=== PATIENT | female | born 1995 | race Caucasian/White ===

== ENCOUNTER 2020-12-08 15:20 | Emergency (ER) | payer OTHER, SELFPAY | END 2020-12-08 20:32 | disposition left against medical advice (07) | LOC: HO.ED 20:31 | PROVIDERS: Emergency Provider Emergency Medicine | DX: R11.2 Nausea with vomiting, unspecified (principal) ==

== ENCOUNTER 2020-12-09 00:02 | Emergency (ER) | payer OTHER, SELFPAY ==
[2020-12-09 00:09] VITALS: BP 140/77; PULSE 67; RESP 20; TEMP 37; O2SAT 100; BMI 33.6
--- NOTE | 2020-12-09 00:38 | ED_ITS ---
HPI - Nausea/Vomiting/Diarrhea General Chief complaint: Nausea/Vomiting/Diarrhea Stated complaint: NAUSEA/VOMITING Time Seen by Provider: 12/09/20 00:09 Source: patient Mode of arrival: ambulatory Limitations: no limitations History of Present Illness HPI Narrative: 25 y/o female presents to the ED from home complaining of 1 full day of nausea and vomiting. She reports waking up this morning with upset stomach and has had several episodes of vomiting throughout the day, last just prior to arrival. She has had no diarrhea, fever, or sick contacts. She denies chance of . 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 She states since had her child she continues to have severe vomiting episodes, only relieved by Relgan. She denies history of DM. She admits to intermittently smoking marijuana and this sometimes happens after I smoke. Last use was 2 days ago. MD elicited complaint: nausea and vomiting Onset (ago): hour(s) (12) Description of vomiting: food contents, bilious and blood-streaked Associated nausea: Yes Associated abdominal pain: Yes Location of pain: diffuse Radiation: diffuse Pain consistency: intermittent Severity: moderate Quality: cramping and aching Exacerbating factors: none Relieving factors: rest Associated symptoms: loss of appetite, malaise and nausea/vomiting Related Data Previous Rx's Medication Instructions Recorded metoclopramide HCl [Reglan] 10 mg PO Q6H PRN #10 tab 12/09/20 Allergies Allergy/AdvReac Type Severity Reaction Status Date / Time No Known Allergies Allergy Verified 12/09/20 00:13 [No Known Allergies*] Review of Systems Review of Systems: Constitutional: No Fever, No Chills Cardiovascular: No Chest Pain, No SOB, No Orthopnea, No Edema Respiratory: No Cough, No Sputum, No Wheezing, No dyspnea Gastrointestinal: + Nausea, + Vomiting, No Diarrhea, + abdominal Pain, No Hematochezia, No Melena Genitourinary: No Dysuria, No Urinary Frequency, No Hematuria Musculoskeletal: No joint pain, No Myalgias Skin: No Skin Lesions, No rash Neuro: No Weakness, No Numbness, No Dizziness, No Headache Heme/Lymph: No Bruising, No Lymphadenopathy Gastrointestinal: Gastrointestinal: Reports nausea PMFSH Past Medical History Attestation statement: The following information was validated with the patient. Medical History Patient denies significant medical history Surgical History (Updated 12/09/20 @ 00:12 by Nicole Alonzo) No significant past surgical history Social History Social History Alcohol intake: never Smoking Status: Former smoker Use of substances other than those prescribed or required for medical reasons: No Advance Directives: No Physical Exam Vital Signs: Vital Signs: Last Vital Signs Temp 98.6 F 12/09/20 01:06 Pulse 67 12/09/20 01:06 Resp 20 12/09/20 01:06 BP 140/77 H 12/09/20 01:06 Pulse Ox 100 12/09/20 01:06 Body Mass Index 33.6 Appearance: Alert. Oriented X3. Appears like she does not feel well. Eyes: Pupils equal, round and reactive to light. ENT: Pharynx normal. Neck: Normal inspection. Neck supple. CVS: Normal heart rate and rhythm. Pulses normal. Respiratory: No respiratory distress. Breath sounds normal. Abdomen: Soft and nontender. +BS x4 Skin: Skin warm and dry. Normal skin color. Normal skin turgor. No rashes. Extremities: No lower extremity edema. Neuro: Oriented X 3. No motor deficit. No sensory deficit. Course Course Course Narrative: 25 y/o female with hx hyperemesis gravidarium over 2 years ago presenting with N/V x1 day. Denies chance of current . Likely marijuana related. VSS on arrival. Will get labs, check urine , give IVF and anti-emetics. Will reassess. Reevaluation(s) Reevaluation #1: Nausea improved after Zofran and Reglan. Labs showing WBC 15 - likely reactive in nature. Lytes okay. Tolerating ice chips. She was counseled on abstaining from marijuana. She is stable for discharge. MDM - Nausea/Vomiting/Diarrhea Lab Data Result diagrams: 12/09/20 00:37 12/09/20 00:37 Labs: Lab Results 12/09/20 12/09/20 12/09/20 Range/Units 00:37 00:37 00:37 WBC 15.8 H (4.8-10.8) X10*3/uL RBC 4.82 (4.20-5.50) X10*6/uL Hgb 14.2 (12.0-16.0) g/dl Hct 41.5 (37-47) % MCV 86.1 (80-98) fL MCH 29.5 (27.0-33.0) pg MCHC 34.2 (31.0-35.0) g/dl RDW 12.7 (11.0-16.0) % Plt Count 245 (160-400) X10*3/uL MPV 10.1 (9.4-12.3) fL Immature Gran % (Auto) 0.4 (0.0-0.4) % Neut % (Auto) 90.1 H (45-73) % Lymph % (Auto) 7.2 L (20-40) % [place] % (Auto) 2.2 (2-11) % Eos % (Auto) 0.0 (0-4) % Baso % (Auto) 0.1 (0-2) % Lymph # (Auto) 1.1 L (1.2-4.9) X10*3/uL [place] # (Auto) 0.4 (0.1-1.2) X10*3/uL Eos # (Auto) 0.0 (0.0-0.4) X10*3/uL Baso # (Auto) 0.0 (0.0-0.2) X10*3/uL Abs Immat Gran (auto) 0.07 H (0.00-0.03) X10*3/uL Absolute Neuts (auto) 14.2 H (2.0-8.3) X10*3/uL Absolute Nucleated RBC 0.000 (0.0-0.012) X10*3/uL Nucleated RBC % (auto) 0.0 (0.0-0.2) /100WBC Smear Tech's Comments VERIFIED Sodium 141 (135-145) mmol/L Potassium 3.6 (3.3-5.1) mmol/L Chloride 107 (96-108) mmol/L Carbon Dioxide 19 L (22-29) mmol/L Anion Gap 19 (12-20) BUN 22 H (9-16) mg/dL Creatinine 0.91 (0.5-1.4) mg/dL Estim Creat Clear Calc 100.0 Estimated GFR > 60 Random Glucose 142 H (60-115) mg/dL Calcium 10.2 (8.4-10.2) mg/dL Magnesium 2.0 (1.6-2.6) mg/dL Total Bilirubin 0.6 (0.0-1.0) mg/dL Direct Bilirubin 0.2 (0.0-0.5) mg/dL AST 26 (5-31) U/L ALT 26 (0-31) U/L Alkaline Phosphatase 70 (39-117) U/L Total Protein 8.1 H (6.5-8.0) g/dL Albumin 4.8 (3.5-5.0) g/dL Lipase 5 L (8-78) U/L Beta HCG, Quant < 2 mIU/mL Coronavirus (PCR) NEGATIVE (Negative) Influenza Type A (PCR) NEGATIVE (Negative) Influenza Type B (PCR) NEGATIVE (Negative) RSV RNA Qual (PCR) NEGATIVE (Negative) Discharge Plan Discharge Clinical Impression: Cyclical vomiting Patient Disposition: Home, Self-Care Instructions: Cyclic Vomiting Syndrome (ED) Additional Instructions: DO NOT SMOKE MARIJUANA. IT CAN CAUSE RECURRENT VOMITING. Your lab workup today was unremarkable. Recommend liquid diet until you are feeling better. Take the prescribed medication as needed for nausea and vomiting. Follow up with the GI doctor for further workup of your recurrent vomiting. Prescriptions: New metoclopramide HCl [Reglan] 10 mg tablet 10 mg PO Q6H PRN (Reason: nausea and vomiting) Qty: 10 RF: 0 Referrals: Romaine Aguilar MD [Physician] - 2 days
[2020-12-09] MEDS: 0.9 % Sodium Chloride 1,000 ML 999 ML IVCONT (00:40)
[2020-12-09] MEDS: ondansetron HCL 4 MG/2 ML VIAL IVPUSH (00:40)
[2020-12-09 00:47] LABS: Basophils Percent Auto 0.1 % (0-2); Hematocrit 41.5 % (37-47); Hemoglobin 14.2 g/dl (12.0-16.0); Imm Gran Abs Auto 0.07 X10*3/uL (0.00-0.03); Imm Gran Pct Auto 0.4 % (0.0-0.4); Lymphocytes Absolute Auto 1.1 X10*3/uL (1.2-4.9); Lymphocytes Percent Auto 7.2 % (20-40); Mean Corpuscular HGB Conc 34.2 g/dl (31.0-35.0); Mean Corpuscular Hemoglobin 29.5 pg (27.0-33.0); Mean Corpuscular Volume 86.1 fL (80-98); Mean Platelet Volume 10.1 fL (9.4-12.3); Monocytes Absolute Auto 0.4 X10*3/uL (0.1-1.2); Monocytes Percent Auto 2.2 % (2-11); Neutrophils Absolute Auto 14.2 X10*3/uL (2.0-8.3); Neutrophils Percent Auto 90.1 % (45-73); Platelet Count 245 X10*3/uL (160-400); Red Blood Count 4.82 X10*6/uL (4.20-5.50); Red Cell Distribution Width 12.7 % (11.0-16.0); SCAN SMEAR FLAG 1; White Blood Count 15.8 X10*3/uL (4.8-10.8)
[2020-12-09 00:50] LABS: MANUAL DIFF FLAG SCAN
[2020-12-09 01:06] VITALS: BP 140/77; PULSE 67; RESP 20; TEMP 37; O2SAT 100
[2020-12-09 01:12] LABS: Alanine Aminotransferase 26 U/L (0-31); Albumin Level 4.8 g/dL (3.5-5.0); Alkaline Phosphatase 70 U/L (39-117); Anion Gap 19 (12-20); Aspartate Amino Transferase 26 U/L (5-31); Bilirubin Direct 0.2 mg/dL (0.0-0.5); Bilirubin Total 0.6 mg/dL (0.0-1.0); Blood Urea Nitrogen 22 mg/dL (9-16); Calcium 10.2 mg/dL (8.4-10.2); Carbon Dioxide 19 mmol/L (22-29); Chloride 107 mmol/L (96-108); Estimated Glomerular Filt Rate > 60; Glucose Random 142 mg/dL (60-115); Lipase 5 U/L (8-78); Potassium 3.6 mmol/L (3.3-5.1); Sodium 141 mmol/L (135-145); Total Protein 8.1 g/dL (6.5-8.0)
[2020-12-09 01:14] LABS: SLIDE REVIEW VERIFIED
[2020-12-09 01:33] LABS: Influenza A PCR NEGATIVE (Negative); Influenza B PCR NEGATIVE (Negative); Resp Syncy Virus RNA Qual PCR NEGATIVE (Negative); SARS COV2 PCR INHOUSE NEGATIVE (Negative)
[2020-12-09 01:34] LABS: HCG Quantitative < 2 mIU/mL
[2020-12-09 02:22] LABS: Glucose Urine UA NEG (NEG); Leukocyte Esterase Urine NEG (NEG); Nitrite Urine NEG (NEG); PH >= 9.0 (5.0-8.0); Specific Gravity - Urine 1.015 (1.005-1.025); UPreg QC Valid YES; Urine Blood 1+ (NEG); Urine Ketones >=80 MG/DL (NEG); Urine Pregnancy NEGATIVE (NEGATIVE); Urine Protein TRACE MG/DL (NEG-TRACE)
[2020-12-09 02:23] LABS: Appearance Urine CLEAR; Color Urine YELLOW
[2020-12-09 02:30] LABS: Bacteria Urine 1+ /LPF; Mucus Urine 1+ /LPF; RBC Urine 0-2 /HPF (0); Squamous Epithelial Cell Urine 2+ /LPF
== END 2020-12-09 02:33 | disposition home or self-care (01) ==
PROVIDERS: Physician Assistant; Emergency Provider Student in an Organized Health Care Education/Training Program
DX: R11.15 Cyclical vomiting syndrome unrelated to migraine (principal); Z20.822 Contact with and (suspected) exposure to COVID-19; F12.90 Cannabis use, unspecified, uncomplicated
CPT/HCPCS: 0241U; 36415; 80048; 80076; 81001; 81025; 83690; 83735; 84702; 85025; 96361; 96374; 96375; 99284; J2405; J2765

== ENCOUNTER 2021-07-25 07:56 | Emergency (ER) | payer OTHER, SELFPAY ==
--- NOTE | ~2021-07-25 | US_ITS ---
EXAMINATION: US ABDOMEN LIMITED CLINICAL INFORMATION: Right upper quadrant pain. Nausea and vomiting.. COMPARISON: None TECHNIQUE: Real-time imaging of the right upper quadrant abdominal viscera. FINDINGS: PANCREAS: Normal. LIVER: Normal. The liver is normal in size. The liver contour is normal. Parenchymal echogenicity is normal. No focal hepatic lesion. There is no intrahepatic biliary duct dilatation seen. GALLBLADDER: Normal. The gallbladder is physiologically distended without evidence of stones, sludge, polyps, wall thickening or pericholecystic fluid. COMMON BILE DUCT: Normal in caliber measuring 0.2 cm in diameter. RIGHT KIDNEY: Normal. No hydronephrosis. No renal calculi or focal parenchymal lesions. The kidney measures 10.6 cm in maximum dimension. FREE FLUID: None. US/US abdomen limited IMPRESSION: Normal right upper quadrant ultrasound.
--- NOTE | 2021-07-25 08:06 | ED.ABDPAIN ---
HPI - Abdominal Pain General Chief Complaint: Abdominal Pain Stated Complaint: abd pain Time Seen by Provider: 07/25/21 08:00 Source: patient Mode of arrival: EMS Limitations: no limitations History of Present Illness HPI narrative: This is a 25 year old female that presents via ambulance for 10/10 right upper quadrant paint that started yesterday morning. She states that since yesterday she has been having pain to the right upper quadrant, that is constant nature and does not radiate. She states that it is also accompanied with nausea and vomiting. She states she has not been able to hold down fluids, or solids. She states that the last thing she ate was ham soup yesterday morning. She adds that she has been vomiting since yesterday but cannot quantify how many times she has puked. She states she has puking clear liquid. She also states that she has been nauseous every single day for the past 2-3 years. She is also complaining of a chest pain, that also started yesterday. She states that the chest pain is centralized in nature, does not radiate, is stabbing and intermittent. She also states that she frequently gets this chest pain. She admits to smoking marijuana. She denies shortness of breath, changes in bowel habits, difficulty with urination, back pain, fevers, chills, and diarrhea MD elicited complaint: abdominal pain Pertinent past history: other (Cyclic vomiting) Onset (ago): day(s) (One) Pain Consistency: constant Location: RUQ Severity: severe Pain scale (0-10): 10 Quality: sharp Radiation: RUQ Migration to: no migration Exacerbating factors: eating, vomiting, movement and rest Relieving factors: nothing Associated symptoms: nausea and vomiting Related Data Home Medications Medication Instructions Recorded Confirmed ondansetron 4 mg disintegrating 4 mg PO Q8H 12/10/20 04/10/21 tablet Previous Rx's Medication Instructions Recorded metoclopramide HCl 10 mg tablet 10 mg PO Q6H PRN #10 tab 12/09/20 (Reglan) ondansetron HCl 4 mg tablet 4 mg PO Q8H PRN #7 tab 07/25/21 (Zofran) Allergies Allergy/AdvReac Type Severity Reaction Status Date / Time No Known Allergies Allergy Verified 04/10/21 10:16 [No Known Allergies*] Review of Systems Review of Systems Constitutional: No Fever, No Chills Eyes: No Eye Pain, No Swelling, No Redness Cardiovascular: + Chest Pain, No SOB, No Orthopnea, No Edema Respiratory: No Cough, No Sputum, No Wheezing, No dyspnea Gastrointestinal: + Nausea, + Vomiting, No Diarrhea, + abdominal Pain, No Hematochezia, No Melena Genitourinary: No Dysuria, No Urinary Frequency, No Hematuria Musculoskeletal: No joint pain, No Myalgias Skin: No Skin Lesions, No rash Neuro: No Weakness, No Numbness, No Dizziness, No Headache Psych: No Anxiety/Panic, No Depression Heme/Lymph: No Bruising, No Lymphadenopathy Endocrine: No Polyuria, No Polydipsia Physical Exam Vital Signs: Vital Signs: Last Vital Signs Temp 98.2 F 07/25/21 11:56 Pulse 82 07/25/21 11:56 Resp 16 07/25/21 11:56 BP 112/72 07/25/21 11:56 Pulse Ox 97 07/25/21 11:56 Body Mass Index 31.6 Appearance: Alert. Oriented X3. Patient appears uncomfortable, and is tearful. She is also dry heaving Eyes: Pupils equal, round and reactive to light. ENT: Pharynx normal. Neck: Normal inspection. Neck supple. CVS: Normal heart rate and rhythm. Pulses normal. Respiratory: No respiratory distress. Breath sounds normal. Abdomen: Soft and + tender to light palpation in all four quadrants. +BS x4 no evident peritoneal signs. No overlying skin changes such as ecchymosis, or erythema. Skin: Skin warm and dry. Normal skin color. Normal skin turgor. No rashes. Extremities: No lower extremity edema. Neuro: Oriented X 3. No motor deficit. No sensory deficit. Course Course Course Narrative: This a a 25 year old female presents via EMS for abdominal pain that started yesterday. The pain is 10/10 localized right lower quadrant without radiation. Doubt acute cholecystitis or biliary etiology. Hx cyclical vomiting, admits to continuing to smoke marijuana. Will check LFTs and basic labs. RUQ U/S. IVF and antiemetics ordered. Will reassess. Reevaluation(s) Reevaluation #1: Laboratory studies show that this patient has positive COVID-19. However patient appears to be in no respiratory distress she is saturating 98% on room air. Continues to be nauseous after zofran. IM haldol ordered Time: 08:48 Reevaluation #2: Patient's symptoms improved, she is seen and in her room, appears comfortable at this time, sleeping. Time: 10:08 Reevaluation #3: Patient is feeling well, ambulating around the room in no distress and her oxygen saturation remained 97% on room air. Her abdominal pain has improved, and she has not vomited since her arrival. She has been told to return to the emergency department with new or worsening symptoms, or if she becomes evidently short of breath. She has also been told to quarantine. She will be sent home on antiemetics. Patient stable for discharge home, and outpatient follow-up. Also discussed results from the abdominal ultrasound with the patient. The results of this ultrasound were normal. Although she is positive for COVID-19 she is not experiencing any cough, fevers, chills, chest pain or shortness of breath and at this time and chest x-ray is not needed. Time: 13:00 MDM - Abdominal Pain Medical Records Attestation: I reviewed the patient's medical records. Lab Data Attestation: I reviewed the patient's lab results. Result diagrams: 07/25/21 08:26 07/25/21 08:26 Labs: Lab Results 07/25/21 07/25/2118 Range/Units 08:26 08:26 08:26 WBC 8.2 (4.8-10.8) X10*3/uL RBC 5.27 (4.20-5.50) X10*6/uL Hgb 15.2 (12.0-16.0) g/dl Hct 47.0 (37-47) % MCV 89.2 (80-98) fL MCH 28.8 (27.0-33.0) pg MCHC 32.3 (31.0-35.0) g/dl RDW 13.3 (11.0-16.0) % Plt Count 193 (160-400) X10*3/uL MPV 9.9 (9.4-12.3) fL Immature Gran % (Auto) 0.1 (0.0-0.4) % Neut % (Auto) 77.3 H (45-73) % Lymph % (Auto) 16.6 L (20-40) % [place] % (Auto) 5.5 (2-11) % Eos % (Auto) 0.4 (0-4) % Baso % (Auto) 0.1 (0-2) % Lymph # (Auto) 1.4 (1.2-4.9) X10*3/uL [place] # (Auto) 0.5 (0.1-1.2) X10*3/uL Eos # (Auto) 0.0 (0.0-0.4) X10*3/uL Baso # (Auto) 0.0 (0.0-0.2) X10*3/uL Abs Immat Gran (auto) 0.01 (0.00-0.03) X10*3/uL Absolute Neuts (auto) 6.3 (2.0-8.3) X10*3/uL Absolute Nucleated RBC 0.000 (0.0-0.012) X10*3/uL Nucleated RBC % (auto) 0.0 (0.0-0.2) /100WBC Sodium 144 (135-145) mmol/L Potassium 4.0 (3.3-5.1) mmol/L Chloride 107 (96-108) mmol/L Carbon Dioxide 27 (22-29) mmol/L Anion Gap 14 (12-20) BUN 14 (9-16) mg/dL Creatinine 0.88 (0.5-1.4) mg/dL Estim Creat Clear Calc 100.3 Estimated GFR > 60 Random Glucose 115 (60-115) mg/dL Calcium 9.3 D (8.4-10.2) mg/dL Magnesium 2.2 (1.6-2.6) mg/dL Total Bilirubin 0.4 (0.0-1.0) mg/dL Direct Bilirubin < 0.2 (0.0-0.5) mg/dL AST 35 H (5-31) U/L ALT 25 (0-31) U/L Alkaline Phosphatase 70 (39-117) U/L Total Protein 7.7 (6.5-8.0) g/dL Albumin 4.6 (3.5-5.0) g/dL Lipase 9 (8-78) U/L Urine Color Urine Appearance Urine pH (5.0-8.0) Ur Specific [place] (1.005-1.025) Urine Protein (NEG-TRACE) MG/DL Urine Glucose (UA) (NEG) MG/DL Urine Ketones (NEG) MG/DL Urine Blood (NEG) Urine Nitrite (NEG) Ur Leukocyte Esterase (NEG) Urine RBC (0) /HPF Urine WBC (0-4) /HPF Ur Squamous Epith Cells /LPF Urine Bacteria /LPF Urine Mucus /LPF Urine Test (NEGATIVE) Urine Opiates Screen (Not Detect) Urine Fentanyl Screen (Not Detect) Ur Barbiturates Screen (Not Detect) Ur Phencyclidine Scrn (Not Detect) Ur Amphetamines Screen (Not Detect) U Benzodiazepines Scrn (Not Detect) Urine Cocaine Screen (Not Detect) U Marijuana (THC) Screen (Not Detect) Ethyl Alcohol mg/dL COVID-19 (SHE) Positive A (Negative) COVID-19 Clin Com See Note 07/25/21 07/25/21 07/25/21 Range/Units 08:26 12:16 12:16 WBC (4.8-10.8) X10*3/uL RBC (4.20-5.50) X10*6/uL Hgb (12.0-16.0) g/dl Hct (37-47) % MCV (80-98) fL MCH (27.0-33.0) pg MCHC (31.0-35.0) g/dl RDW (11.0-16.0) % Plt Count (160-400) X10*3/uL MPV (9.4-12.3) fL Immature Gran % (Auto) (0.0-0.4) % Neut % (Auto) (45-73) % Lymph % (Auto) (20-40) % [place] % (Auto) (2-11) % Eos % (Auto) (0-4) % Baso % (Auto) (0-2) % Lymph # (Auto) (1.2-4.9) X10*3/uL [place] # (Auto) (0.1-1.2) X10*3/uL Eos # (Auto) (0.0-0.4) X10*3/uL Baso # (Auto) (0.0-0.2) X10*3/uL Abs Immat Gran (auto) (0.00-0.03) X10*3/uL Absolute Neuts (auto) (2.0-8.3) X10*3/uL Absolute Nucleated RBC (0.0-0.012) X10*3/uL Nucleated RBC % (auto) (0.0-0.2) /100WBC Sodium (135-145) mmol/L Potassium (3.3-5.1) mmol/L Chloride (96-108) mmol/L Carbon Dioxide (22-29) mmol/L Anion Gap (12-20) BUN (9-16) mg/dL Creatinine (0.5-1.4) mg/dL Estim Creat Clear Calc Estimated GFR Random Glucose (60-115) mg/dL Calcium (8.4-10.2) mg/dL Magnesium (1.6-2.6) mg/dL Total Bilirubin (0.0-1.0) mg/dL Direct Bilirubin (0.0-0.5) mg/dL AST (5-31) U/L ALT (0-31) U/L Alkaline Phosphatase (39-117) U/L Total Protein (6.5-8.0) g/dL Albumin (3.5-5.0) g/dL Lipase (8-78) U/L Urine Color YELLOW Urine Appearance CLOUDY Urine pH 7.0 (5.0-8.0) Ur Specific [place] 1.010 (1.005-1.025) Urine Protein 1+ H (NEG-TRACE) MG/DL Urine Glucose (UA) NEG (NEG) MG/DL Urine Ketones 15 (NEG) MG/DL Urine Blood NEG (NEG) Urine Nitrite NEG (NEG) Ur Leukocyte Esterase NEG (NEG) Urine RBC 0 (0) /HPF Urine WBC 0 (0-4) /HPF Ur Squamous Epith Cells 2+ /LPF Urine Bacteria NONE /LPF Urine Mucus 2+ /LPF Urine Test NEGATIVE (NEGATIVE) Urine Opiates Screen (Not Detect) Urine Fentanyl Screen (Not Detect) Ur Barbiturates Screen (Not Detect) Ur Phencyclidine Scrn (Not Detect) Ur Amphetamines Screen (Not Detect) U Benzodiazepines Scrn (Not Detect) Urine Cocaine Screen (Not Detect) U Marijuana (THC) Screen (Not Detect) Ethyl Alcohol < 10 mg/dL COVID-19 (SHE) (Negative) COVID-19 Clin Com 07/25/21 Range/Units 12:16 WBC (4.8-10.8) X10*3/uL RBC (4.20-5.50) X10*6/uL Hgb (12.0-16.0) g/dl Hct (37-47) % MCV (80-98) fL MCH (27.0-33.0) pg MCHC (31.0-35.0) g/dl RDW (11.0-16.0) % Plt Count (160-400) X10*3/uL MPV (9.4-12.3) fL Immature Gran % (Auto) (0.0-0.4) % Neut % (Auto) (45-73) % Lymph % (Auto) (20-40) % [place] % (Auto) (2-11) % Eos % (Auto) (0-4) % Baso % (Auto) (0-2) % Lymph # (Auto) (1.2-4.9) X10*3/uL [place] # (Auto) (0.1-1.2) X10*3/uL Eos # (Auto) (0.0-0.4) X10*3/uL Baso # (Auto) (0.0-0.2) X10*3/uL Abs Immat Gran (auto) (0.00-0.03) X10*3/uL Absolute Neuts (auto) (2.0-8.3) X10*3/uL Absolute Nucleated RBC (0.0-0.012) X10*3/uL Nucleated RBC % (auto) (0.0-0.2) /100WBC Sodium (135-145) mmol/L Potassium (3.3-5.1) mmol/L Chloride (96-108) mmol/L Carbon Dioxide (22-29) mmol/L Anion Gap (12-20) BUN (9-16) mg/dL Creatinine (0.5-1.4) mg/dL Estim Creat Clear Calc Estimated GFR Random Glucose (60-115) mg/dL Calcium (8.4-10.2) mg/dL Magnesium (1.6-2.6) mg/dL Total Bilirubin (0.0-1.0) mg/dL Direct Bilirubin (0.0-0.5) mg/dL AST (5-31) U/L ALT (0-31) U/L Alkaline Phosphatase (39-117) U/L Total Protein (6.5-8.0) g/dL Albumin (3.5-5.0) g/dL Lipase (8-78) U/L Urine Color Urine Appearance Urine pH (5.0-8.0) Ur Specific [place] (1.005-1.025) Urine Protein (NEG-TRACE) MG/DL Urine Glucose (UA) (NEG) MG/DL Urine Ketones (NEG) MG/DL Urine Blood (NEG) Urine Nitrite (NEG) Ur Leukocyte Esterase (NEG) Urine RBC (0) /HPF Urine WBC (0-4) /HPF Ur Squamous Epith Cells /LPF Urine Bacteria /LPF Urine Mucus /LPF Urine Test (NEGATIVE) Urine Opiates Screen POSITIVE H (Not Detect) Urine Fentanyl Screen Not Detected (Not Detect) Ur Barbiturates Screen Not Detected (Not Detect) Ur Phencyclidine Scrn Not Detected (Not Detect) Ur Amphetamines Screen Not Detected (Not Detect) U Benzodiazepines Scrn Not Detected (Not Detect) Urine Cocaine Screen Not Detected (Not Detect) U Marijuana (THC) Screen POSITIVE H (Not Detect) Ethyl Alcohol mg/dL COVID-19 (SHE) (Negative) COVID-19 Clin Com Imaging Data Abdominal ultrasound: Attestation: I personally reviewed and interpreted this imaging study as follows: Radiologist's impression: FINDINGS: PANCREAS: Normal. LIVER: Normal. The liver is normal in size. The liver contour is normal. Parenchymal echogenicity is normal. No focal hepatic lesion. There is no intrahepatic biliary duct dilatation seen. GALLBLADDER: Normal. The gallbladder is physiologically distended without evidence of stones, sludge, polyps, wall thickening or pericholecystic fluid. COMMON BILE DUCT: Normal in caliber measuring 0.2 cm in diameter. RIGHT KIDNEY: Normal. No hydronephrosis. No renal calculi or focal parenchymal lesions. The kidney measures 10.6 cm in maximum dimension. FREE FLUID: None. US/US abdomen limited IMPRESSION: Normal right upper quadrant ultrasound. Discharge Plan Discharge Clinical Impression: COVID-19 Nausea & vomiting Qualifiers: Vomiting type: unspecified Vomiting Intractability: non-intractable Qualified Code(s): R11.2 - Nausea with vomiting, unspecified Patient Disposition: Home, Self-Care Instructions: Acute Nausea and Vomiting (ED), COVID-19 (Coronavirus Disease 2019) (ED) Additional Instructions: You were found to be COVID-19 POSITIVE today. Your exam and oxygen levels were normal. Rest. Drink plenty of fluids. Do not go out in public for the next 10 days. Take over the counter cold/flu medications as needed for your symptoms. Take Tylenol and/or Motrin as needed for fevers and body aches. Follow up with your doctor this week. If you shortness of breath worsens , if you develop difficulty breathing or any other concerning symptom come back to the ER for further evaluation. If you develop new or worsening symptoms call 911 or come back to the ER for further evaluation. Prescriptions: New ondansetron HCl [Zofran] 4 mg tablet 4 mg PO Q8H PRN (Reason: nausea and vomiting) Qty: 7 RF: 0 No Action metoclopramide HCl [Reglan] 10 mg tablet 10 mg PO Q6H PRN (Reason: nausea and vomiting) Qty: 10 RF: 0 ondansetron 4 mg tablet,disintegrating 4 mg PO Q8H RF: 0 PMFSH Past Medical History Attestation statement: The following information was validated with the patient. Source: old records reviewed Medical History (Updated 07/25/21 @ 10:24 by BRIDGER Rubin) Anxiety disorder, unspecified Lack of access to transportation Mild recurrent major depression Nausea and vomiting Right upper quadrant abdominal pain Surgical History No significant past surgical history Family History Family History (Updated 04/10/21 @ 10:24 by IAN Graves) Maternal Grandmother Breast cancer Son Autism Daughter No problems noted. Mother No problems noted. Father Learning difficulty Social History Social History Alcohol intake: never Advance Directives: No Advance Directives Information Provided: No Patient : No
[2021-07-25 08:10] VITALS: BP 112/76; BP 117/64; PULSE 81; PULSE 82; RESP 17; TEMP 37; O2SAT 98; BMI 31.6
[2021-07-25 08:31] LABS: MANUAL DIFF FLAG NO
[2021-07-25] MEDS: 0.9 % Sodium Chloride 1,000 ML 999 ML IVCONT (08:35)
[2021-07-25] MEDS: ondansetron HCL 4 MG/2 ML VIAL IVPUSH (08:35)
[2021-07-25] MEDS: Morphine Sulfate 4 MG/ML CARTRIDGE IVPUSH (08:35)
[2021-07-25 08:41] LABS: Basophils Percent Auto 0.1 % (0-2); Eosinophils Percent Auto 0.4 % (0-4); Hemoglobin 15.2 g/dl (12.0-16.0); Imm Gran Abs Auto 0.01 X10*3/uL (0.00-0.03); Imm Gran Pct Auto 0.1 % (0.0-0.4); Lymphocytes Absolute Auto 1.4 X10*3/uL (1.2-4.9); Lymphocytes Percent Auto 16.6 % (20-40); Mean Corpuscular HGB Conc 32.3 g/dl (31.0-35.0); Mean Corpuscular Hemoglobin 28.8 pg (27.0-33.0); Mean Corpuscular Volume 89.2 fL (80-98); Mean Platelet Volume 9.9 fL (9.4-12.3); Monocytes Absolute Auto 0.5 X10*3/uL (0.1-1.2); Monocytes Percent Auto 5.5 % (2-11); Neutrophils Absolute Auto 6.3 X10*3/uL (2.0-8.3); Neutrophils Percent Auto 77.3 % (45-73); Platelet Count 193 X10*3/uL (160-400); Red Blood Count 5.27 X10*6/uL (4.20-5.50); Red Cell Distribution Width 13.3 % (11.0-16.0); White Blood Count 8.2 X10*3/uL (4.8-10.8)
[2021-07-25 08:42] LABS: COVID-19 Test Positive (Negative); IDNOW Serial# 9DD0AD1C
[2021-07-25] MEDS: Haloperidol Lactate 5 MG/ML VIAL IM (09:40)
[2021-07-25 09:43] VITALS: BP 112/60; PULSE 73; RESP 20; O2SAT 98
[2021-07-25 09:49] LABS: Alanine Aminotransferase 25 U/L (0-31); Albumin Level 4.6 g/dL (3.5-5.0); Alkaline Phosphatase 70 U/L (39-117); Anion Gap 14 (12-20); Aspartate Amino Transferase 35 U/L (5-31); Bilirubin Direct < 0.2 mg/dL (0.0-0.5); Bilirubin Total 0.4 mg/dL (0.0-1.0); Blood Urea Nitrogen 14 mg/dL (9-16); Calcium 9.3 mg/dL (8.4-10.2); Carbon Dioxide 27 mmol/L (22-29); Chloride 107 mmol/L (96-108); Creatinine Clr Calc Pharmacy 100.3; Estimated Glomerular Filt Rate > 60; Ethanol < 10 mg/dL; Glucose Random 115 mg/dL (60-115); Lipase 9 U/L (8-78); Magnesium 2.2 mg/dL (1.6-2.6); Sodium 144 mmol/L (135-145); Total Protein 7.7 g/dL (6.5-8.0)
[2021-07-25 11:56] VITALS: BP 112/72; PULSE 82; RESP 16; TEMP 36.8; O2SAT 97
[2021-07-25 12:29] LABS: Appearance Urine CLOUDY; Color Urine YELLOW; Glucose Urine UA NEG (NEG); Leukocyte Esterase Urine NEG (NEG); Nitrite Urine NEG (NEG); UACC Culture Trigger NO; Urine Blood NEG (NEG); Urine Ketones 15 MG/DL (NEG); Urine Protein 1+ MG/DL (NEG-TRACE)
[2021-07-25 12:31] LABS: UPreg QC Valid YES; Urine Pregnancy NEGATIVE (NEGATIVE)
[2021-07-25 12:37] LABS: Mucus Urine 2+ /LPF; RBC Urine 0 /HPF (0); Squamous Epithelial Cell Urine 2+ /LPF; WBC Urine 0 /HPF (0-4)
[2021-07-25 12:47] LABS: Amphetamine Screen Urine Not Detected (Not Detect); Barbiturates, Urine Not Detected (Not Detect); Benzodiazepines Screen Urine Not Detected (Not Detect); Cannabinoid Screen Urine POSITIVE (Not Detect); Cocaine Screen Urine Not Detected (Not Detect); Fentanyl, urine Not Detected (Not Detect); Opiate Screen Urine POSITIVE (Not Detect); Phencyclidine Screen Urine Not Detected (Not Detect)
== END 2021-07-25 13:37 | disposition home or self-care (01) ==
PROVIDERS: Physician Assistant; Emergency Provider Emergency Medicine
DX: U07.1 COVID-19 (principal); R10.11 Right upper quadrant pain; R11.2 Nausea with vomiting, unspecified; Z20.822 Contact with and (suspected) exposure to COVID-19; Z79.899 Other long term (current) drug therapy
CPT/HCPCS: 36415; 76705; 80048; 80076; 80307; 81001; 81025; 82077; 83690; 83735; 85025; 87635; 96361; 96372; 96374; 96375; 99284; J2270; J2405

== ENCOUNTER 2021-08-03 08:24 | Outpatient (REF) | payer OTHER, SELFPAY | END 2021-08-03 08:25 | disposition home or self-care (01) | LOC: HO.LAB 08:24 | PROVIDERS: Visit Provider Internal Medicine | DX: Z20.822 Contact with and (suspected) exposure to COVID-19 (principal) | CPT/HCPCS: C9803; U0003; U0005 ==

== ENCOUNTER 2021-12-16 09:40 | Outpatient (REF) | payer OTHER, SELFPAY ==
[2021-12-16 10:07] LABS: MANUAL DIFF FLAG NO
[2021-12-16 10:27] LABS: Basophils Percent Auto 0.3 % (0-2); Eosinophils Absolute Auto 0.1 X10*3/uL (0.0-0.4); Eosinophils Percent Auto 0.9 % (0-4); Hematocrit 42.4 % (37.0-47.0); Hemoglobin 13.5 g/dl (12.0-16.0); Imm Gran Abs Auto 0.03 X10*3/uL (0.00-0.03); Imm Gran Pct Auto 0.3 % (0.0-0.4); Lymphocytes Absolute Auto 2.9 X10*3/uL (1.2-4.9); Lymphocytes Percent Auto 32.1 % (20-40); Mean Corpuscular HGB Conc 31.8 g/dl (31.0-35.0); Mean Corpuscular Hemoglobin 28.7 pg (27.0-33.0); Mean Corpuscular Volume 90.2 fL (80.0-98.0); Mean Platelet Volume 10.2 fL (9.4-12.3); Monocytes Absolute Auto 0.5 X10*3/uL (0.1-1.2); Monocytes Percent Auto 5.9 % (2-11); Neutrophils Absolute Auto 5.5 x10*3/uL (2.0-8.3); Neutrophils Percent Auto 60.5 % (45-73); Platelet Count 208 X10*3/uL (160-400); Red Cell Distribution Width 13.1 % (11.0-16.0); White Blood Count 9.1 X10*3/uL (4.8-10.8)
[2021-12-16 11:02] LABS: Appearance Urine HAZY; Color Urine YELLOW; Glucose Urine UA NEG (NEG); Leukocyte Esterase Urine NEG (NEG); Nitrite Urine NEG (NEG); UACC Culture Trigger NO; Urine Blood TRACE (NEG); Urine Ketones NEG (NEG); Urine Protein NEG (NEG-TRACE)
[2021-12-16 11:21] LABS: Bacteria Urine 1+ /LPF; Mucus Urine 2+ /LPF; RBC Urine 0-2 /HPF (0); Squamous Epithelial Cell Urine 2+ /LPF; WBC Urine 0 /HPF (0-4)
[2021-12-16 13:21] LABS: HCG Quantitative < 2 mIU/mL; TSH reflex Free T4 1.45 uIU/mL (0.32-4.0)
[2021-12-16 13:39] LABS: Alanine Aminotransferase 10 U/L (0-31); Albumin Level 4.3 g/dL (3.5-5.0); Alkaline Phosphatase 63 U/L (39-117); Anion Gap 11 (12-20); Aspartate Amino Transferase 17 U/L (5-31); Bilirubin Total 0.4 mg/dL (0.0-1.0); Carbon Dioxide 26 mmol/L (22-29); Chloride 107 mmol/L (96-108); Cholesterol 169 mg/dL; Estimated Glomerular Filt Rate > 60; Glucose Fasting 91 mg/dL (60-99); HDL Cholesterol 44 mg/dL; LDL Cholesterol Calculated 107 mg/dl; Potassium 4.5 mmol/L (3.3-5.1); Sodium 139 mmol/L (135-145); Total Protein 7.4 g/dL (6.5-8.0); Triglycerides 91 mg/dL
[2021-12-16 14:54] LABS: Blood Urea Nitrogen 16 mg/dL (9-16); Calcium 9.7 mg/dL (8.4-10.2)
== END 2021-12-16 09:41 | disposition home or self-care (01) ==
LOC: HO.LAB 09:40
PROVIDERS: PCP Nurse Practitioner Family; Visit Provider Nurse Practitioner Family
DX: F41.9 Anxiety disorder, unspecified (principal); R35.0 Frequency of micturition; Z76.89 Persons encountering health services in other specified circumstances
CPT/HCPCS: 36415; 80053; 80061; 81001; 81003; 84443; 84702; 85025

== ENCOUNTER 2022-01-18 11:25 | Emergency (ER) | payer OTHER, SELFPAY ==
[2022-01-18] MEDS: Ondansetron ODT 4 MG TAB.RAPDIS TRANSLINGU (12:18)
[2022-01-18 12:24] VITALS: BP 129/82; PULSE 102; RESP 17; TEMP 36.8; O2SAT 96; BMI 27.2
== END 2022-01-18 14:59 | disposition left against medical advice (07) ==
LOC: HO.ED 15:19
PROVIDERS: Emergency Provider Emergency Medicine
DX: R10.9 Unspecified abdominal pain (principal); R11.2 Nausea with vomiting, unspecified
CPT/HCPCS: 36415; 80053; 85025; 99282; 99283

== ENCOUNTER 2022-01-18 16:41 | Emergency (ER) | payer OTHER, SELFPAY ==
[2022-01-18 18:09] VITALS: BP 123/57; PULSE 60; RESP 19; TEMP 35.5; O2SAT 98; BMI 28.6
[2022-01-18 18:30] LABS: MANUAL DIFF FLAG NO
[2022-01-18 18:31] LABS: Hematocrit 43.5 % (37.0-47.0); Hemoglobin 14.3 g/dl (12.0-16.0); Imm Gran Pct Auto 0.5 % (0.0-0.4); Lymphocytes Percent Auto 14.1 % (20-40); Mean Corpuscular HGB Conc 32.9 g/dl (31.0-35.0); Mean Corpuscular Hemoglobin 28.8 pg (27.0-33.0); Mean Corpuscular Volume 87.7 fL (80.0-98.0); Mean Platelet Volume 9.8 fL (9.4-12.3); Monocytes Percent Auto 3.9 % (2-11); Neutrophils Percent Auto 81.3 % (45-73); Platelet Count 264 X10*3/uL (160-400); Red Blood Count 4.96 X10*6/uL (4.20-5.50); Red Cell Distribution Width 12.9 % (11.0-16.0); White Blood Count 15.5 X10*3/uL (4.8-10.8)
[2022-01-18 18:32] LABS: Basophils Percent Auto 0.2 % (0-2); Imm Gran Abs Auto 0.08 X10*3/uL (0.00-0.03); Lymphocytes Absolute Auto 2.2 X10*3/uL (1.2-4.9); Monocytes Absolute Auto 0.6 X10*3/uL (0.1-1.2); Neutrophils Absolute Auto 12.6 x10*3/uL (2.0-8.3)
[2022-01-18 18:47] LABS: Alanine Aminotransferase 14 U/L (0-31); Albumin Level 4.4 g/dL (3.5-5.0); Alkaline Phosphatase 71 U/L (39-117); Anion Gap 19 (12-20); Aspartate Amino Transferase 16 U/L (5-31); Bilirubin Total 0.3 mg/dL (0.0-1.0); Blood Urea Nitrogen 15 mg/dL (9-16); Calcium 9.9 mg/dL (8.4-10.2); Carbon Dioxide 16 mmol/L (22-29); Chloride 108 mmol/L (96-108); Creatinine Clr Calc Pharmacy 88.7; Estimated Glomerular Filt Rate > 60; Glucose Random 186 mg/dL (60-115); Potassium 3.8 mmol/L (3.3-5.1); Sodium 139 mmol/L (135-145); Total Protein 8.2 g/dL (6.5-8.0)
== END 2022-01-18 22:50 | disposition left against medical advice (07) ==
LOC: HO.ED 22:49
PROVIDERS: Emergency Provider Emergency Medicine
DX: R11.2 Nausea with vomiting, unspecified (principal); R53.1 Weakness; R19.7 Diarrhea, unspecified
CPT/HCPCS: 36415; 80053; 85025; 99282; 99283

== ENCOUNTER 2022-01-19 07:56 | Emergency (ER) | payer OTHER, SELFPAY ==
--- NOTE | ~2022-01-19 | CT_ITS ---
EXAMINATION: CT ABDOMEN AND PELVIS WITH CONTRAST CLINICAL INFORMATION: Right upper quadrant pain, nausea and vomiting COMPARISON: Previous abdominal ultrasound July 2021 TECHNIQUE: Multidetector volumetric images were obtained from the superior aspect of the liver through the pubic symphysis following administration 85 mL of Omnipaque 350 intravenous contrast. Sagittal and coronal reformatted images were obtained on the technologist's workstation. Oral contrast: Yes This CT examination was performed using dose optimization techniques as appropriate, variously including the following: *Automated exposure control *Adjustment of mA and/or kV according to patient size (this includes techniques or standardized protocols for targeted exams where dose is matched to indication/reason for exam; i.e. extremities or head) *Use of iterative reconstruction technique DLP: 558 mGy-cm FINDINGS: LUNG BASES: The visualized lung bases are unremarkable. LIVER, GALLBLADDER, AND BILIARY TREE: The liver is normal in size, shape, and attenuation. No focal hepatic lesion or biliary ductal dilatation is present. The gallbladder is unremarkable with no evidence of radiopaque gallstones, gallbladder wall thickening, or obvious pericholecystic inflammatory changes. PANCREAS: Unremarkable. SPLEEN: Unremarkable. ADRENAL GLANDS: Unremarkable. KIDNEYS AND URETERS: The kidneys are normal in size, shape, and attenuation. No hydronephrosis, hydroureter, or calculi seen. No perinephric stranding. BLADDER: Not optimally distended. GASTROINTESTINAL TRACT: The small and large bowel are unremarkable. The appendix is unremarkable. ABDOMINAL WALL: No significant hernia is appreciated. LYMPH NODES: Normal. VASCULAR: Unremarkable. PELVIC VISCERA: Uterus and adnexa are unremarkable. There is a small amount of fluid in the pelvis. OSSEOUS STRUCTURES: Unremarkable. CT/CT abdomen pelvis w con IMPRESSION: No acute findings. Fleischner guidelines were followed.
[2022-01-19 08:01] VITALS: BP 114/78; BP 115/65; PULSE 71; PULSE 86; RESP 18; O2SAT 100; BMI 31.4
--- NOTE | 2022-01-19 08:25 | ED.NAVMDI ---
HPI - Nausea/Vomiting/Diarrhea General Chief complaint: Nausea/Vomiting/Diarrhea Stated complaint: VOMITING Time Seen by Provider: 01/19/22 08:05 Source: patient Mode of arrival: ambulatory History of Present Illness HPI Narrative: 26-year-old female past medical history of anxiety, presenting to the ED complaining of RUQ/epigastric abdominal pain, nausea, and vomiting since yesterday. Reports inability to tolerate p.o. States was seen in ED yesterday had labs drawn in waiting room however LWT'd. Admits to similar symptoms in the past. Reports pain/symptoms worse when attempting to eat. Denies fever, chills, dysuria/hematuria, flank pain. LMP last month MD elicited complaint: nausea, vomiting and abdominal pain Onset (ago): day(s) Related Data Previous Rx's Medication Instructions Recorded famotidine 20 mg tablet 20 mg PO BID #60 tab 01/11/22 cefuroxime axetil 250 mg tablet 250 mg PO BID 7 Days #14 tab 01/19/22 ondansetron 4 mg disintegrating 4 mg PO Q8H PRN #10 tab 01/19/22 tablet Allergies Allergy/AdvReac Type Severity Reaction Status Date / Time No Known Allergies Allergy Verified 01/19/22 08:06 [No Known Allergies*] Review of Systems Review of Systems: Constitutional: No Fever, No Chills,No Fatigue, No Malaise ENT/Mouth: No Ear Pain, No Nasal Congestion, No sore throat, No Rhinorrhea, No Swallowing Difficulty Eyes: No Eye Pain, No Swelling, No Redness, No Vision Changes Cardiovascular: No Chest Pain, No SOB, No Edema, No Palpitations Respiratory: No Cough, No Sputum, No Dyspnea Gastrointestinal: + Nausea, + Vomiting, No Diarrhea, No Constipation, + Abdominal pain Genitourinary: No Dysuria, No Urinary Frequency, No Hematuria, No Urinary Incontinence, No Flank Pain, No Urinary Flow Changes, No Hesitancy Musculoskeletal: No joint pain, No Myalgias, No Joint Swelling Skin: No Skin Lesions, No rash Neuro: No Weakness, No Dizziness, No Headache Yes all other systems are reviewed and are negative FOR[facility]LY [facility], [facility] Past Medical History Attestation statement: The following information was validated with the patient. Medical History Anxiety disorder, unspecified Lack of access to transportation Mild recurrent major depression Nausea and vomiting Right upper quadrant abdominal pain Surgical History History of D&C Family History Family History Maternal Grandmother Breast cancer Son Autism Daughter No problems noted. Mother No problems noted. Father Learning difficulty Mental health disorder Maternal Grandmother Breast cancer, Onset Age: 50 Maternal Uncle Testicular cancer, Onset Age: 60 Paternal Grandfather Diabetes mellitus Myocardial infarct Other Substance use disorder Social History Social History Housing: Apartment Alcohol intake: never Patient Tobacco Use Status: Former Tobacco user e-Cigarette/Vaping Use: Never Used Second Hand Smoke Exposure: No Use of substances other than those prescribed or required for medical reasons: No Advance Directives: No Advance Directives Information Provided: No Patient : Yes service: No Current occupational status: unemployed Cognitive needs: No Hearing needs: No Vision needs: No Physical Exam Vital Signs: Vital Signs: Last Vital Signs Pulse 66 01/19/22 12:30 Resp 18 01/19/22 08:01 BP 114/63 01/19/22 12:30 Pulse Ox 98 01/19/22 12:30 BMI result Body Mass Index 31.4 Const: General: cooperative, healthy appearing, no acute distress, alert and awake Orientation/consciousness: patient oriented x3 Limitations: no limitations HENMT: Head: Yes normal to inspection Ears: hearing grossly normal bilaterally General nose exam: Normal external nose present Face and sinus: Yes normal facial exam Eyes: General: appearance normal, both eyes and all related structures EOM: EOMs intact bilaterally Neck: Neck: Yes normal visual inspection, Yes no meningeal signs and Yes supple Resp: Effort & Inspection: normal respiratory effort and no respiratory distress Auscultation: clear to auscultation bilaterally Cardio: Rate: regular rate Heart sounds: S1 normal heart sound present and S2 normal heart sound present GI: Inspection: Yes normal to inspection Palpation (GI): Soft to palpation, Tenderness to palpation present (GI) in the epigastrum, in the RLQ and in the RUQ, no guarding and not rigid : General: Yes no CVA tenderness Back/Spine/Pelvis: Back: no CVA tenderness Skin: Rashes: no rashes Wounds: no wounds Neuro: General: patient oriented x3 and no meningeal signs Gait exam (Neuro): Normal gait present Extrem: General: Yes normal to inspection Course Course Course Narrative: -0849--leukocytosis of 16.1 likely reactive from emesis. Still low suspicion for severe sepsis. Lactic acid 1.9 -1000--BUN mildly elevated 22 consistent with dehydration. UA infected> IV Rocephin given > patient forcefully vomiting on exam. CT there is concern for cyclical vomiting, prior tox screen positive for THC. Tox screen added. Will give Benadryl CT abdomen pelvis w con IMPRESSION: No acute findings. Fleischner guidelines were followed. > results discussed with patient, will p.o. challenge -1153--tox screen positive for THC. On re-evaluation patient reports continued abdominal pain and nausea. IM Haldol ordered -patient ambulating around ED w/o difficulty. On re-evaluation reports safe for DC home, discussed worrisome signs and symptoms and strict return precautions and needed close follow-up with PCP. Stressed avoidance of marijuana MDM - Nausea/Vomiting/Diarrhea MDM Narrative Medical decision making narrative: 26-year-old female past medical history of anxiety, presenting to the ED complaining of RUQ/epigastric abdominal pain, nausea, and vomiting since yesterday. On exam vital signs stable, NAD, appears in pain, abdomen soft RUQ/epigastric and RLQ tenderness, no rebound guarding, no CVA tenderness. Concern for cholecystitis/cholelithiasis/pancreatitis vs appendicitis. Lower concern for renal stone/pyelo or UTI. On likely diverticulitis Plan: Labs, UA, IVF, symptomatic treatment, CT, re-evaluate Noted leukocytosis of 15.5 from labs drawn and waiting room yesterday, likely reactive from vomiting, low concern for severe sepsis Medical Records Attestation: I reviewed the patient's medical records. Lab Data Attestation: I reviewed the patient's lab results. Result diagrams: 01/19/22 08:30 01/19/22 08:30 Labs: Lab Results 01/19/22 01/19/22 01/19/22 Range/Units 08:30 08:30 08:30 WBC 16.1 H (4.8-10.8) X10*3/uL RBC 4.90 (4.20-5.50) X10*6/uL Hgb 14.2 (12.0-16.0) g/dl Hct 42.1 (37.0-47.0) % MCV 85.9 (80.0-98.0) fL MCH 29.0 (27.0-33.0) pg MCHC 33.7 (31.0-35.0) g/dl RDW 13.1 (11.0-16.0) % Plt Count 266 (160-400) X10*3/uL MPV 10.0 (9.4-12.3) fL Immature Gran % (Auto) 0.6 H (0.0-0.4) % Neut % (Auto) 80.7 H (45-73) % Lymph % (Auto) 13.8 L (20-40) % Ellis % (Auto) 4.7 (2-11) % Eos % (Auto) 0.1 (0-4) % Baso % (Auto) 0.1 (0-2) % Lymph # (Auto) 2.2 (1.2-4.9) X10*3/uL Ellis # (Auto) 0.8 (0.1-1.2) X10*3/uL Eos # (Auto) 0.0 (0.0-0.4) X10*3/uL Baso # (Auto) 0.0 (0.0-0.2) X10*3/uL Abs Immat Gran (auto) 0.09 H (0.00-0.03) X10*3/uL Absolute Neuts (auto) 13.0 H (2.0-8.3) x10*3/uL Absolute Nucleated RBC 0.000 (0.0-0.012) X10*3/uL Nucleated RBC % (auto) 0.0 (0.0-0.2) /100WBC Sodium 140 (135-145) mmol/L Potassium 3.7 (3.3-5.1) mmol/L Chloride 106 (96-108) mmol/L Carbon Dioxide 21 L (22-29) mmol/L Anion Gap 17 (12-20) BUN 22 H (9-16) mg/dL Creatinine 0.97 (0.5-1.4) mg/dL Estim Creat Clear Calc 86.4 Estimated GFR > 60 Random Glucose 146 H (60-115) mg/dL Lactic Acid 1.9 (0.5-2.0) mmol/L Calcium 10.1 (8.4-10.2) mg/dL Magnesium 2.1 (1.6-2.6) mg/dL Total Bilirubin 0.4 (0.0-1.0) mg/dL Direct Bilirubin 0.2 (0.0-0.5) mg/dL AST 19 (5-31) U/L ALT 18 (0-31) U/L Alkaline Phosphatase 68 (39-117) U/L Total Protein 8.3 H (6.5-8.0) g/dL Albumin 4.7 (3.5-5.0) g/dL Lipase 5 L (8-78) U/L Beta HCG, Quant < 2 mIU/mL Urine Color Urine Appearance Urine pH (5.0-8.0) Ur Specific [place] (1.005-1.025) Urine Protein (NEG-TRACE) MG/DL Urine Glucose (UA) (NEG) MG/DL Urine Ketones (NEG) MG/DL Urine Blood (NEG) Urine Nitrite (NEG) Ur Leukocyte Esterase (NEG) Urine RBC (0) /HPF Urine WBC (0-4) /HPF Ur Squamous Epith Cells /LPF Urine Bacteria /LPF Urine Test (NEGATIVE) Urine Opiates Screen (Not Detect) Urine Fentanyl Screen (Not Detect) Ur Barbiturates Screen (Not Detect) Ur Phencyclidine Scrn (Not Detect) Ur Amphetamines Screen (Not Detect) U Benzodiazepines Scrn (Not Detect) Urine Cocaine Screen (Not Detect) U Marijuana (THC) Screen (Not Detect) 01/19/22 01/19/22 01/19/22 Range/Units 09:08 09:08 09:08 WBC (4.8-10.8) X10*3/uL RBC (4.20-5.50) X10*6/uL Hgb (12.0-16.0) g/dl Hct (37.0-47.0) % MCV (80.0-98.0) fL MCH (27.0-33.0) pg MCHC (31.0-35.0) g/dl RDW (11.0-16.0) % Plt Count (160-400) X10*3/uL MPV (9.4-12.3) fL Immature Gran % (Auto) (0.0-0.4) % Neut % (Auto) (45-73) % Lymph % (Auto) (20-40) % Ellis % (Auto) (2-11) % Eos % (Auto) (0-4) % Baso % (Auto) (0-2) % Lymph # (Auto) (1.2-4.9) X10*3/uL Ellis # (Auto) (0.1-1.2) X10*3/uL Eos # (Auto) (0.0-0.4) X10*3/uL Baso # (Auto) (0.0-0.2) X10*3/uL Abs Immat Gran (auto) (0.00-0.03) X10*3/uL Absolute Neuts (auto) (2.0-8.3) x10*3/uL Absolute Nucleated RBC (0.0-0.012) X10*3/uL Nucleated RBC % (auto) (0.0-0.2) /100WBC Sodium (135-145) mmol/L Potassium (3.3-5.1) mmol/L Chloride (96-108) mmol/L Carbon Dioxide (22-29) mmol/L Anion Gap (12-20) BUN (9-16) mg/dL Creatinine (0.5-1.4) mg/dL Estim Creat Clear Calc Estimated GFR Random Glucose (60-115) mg/dL Lactic Acid (0.5-2.0) mmol/L Calcium (8.4-10.2) mg/dL Magnesium (1.6-2.6) mg/dL Total Bilirubin (0.0-1.0) mg/dL Direct Bilirubin (0.0-0.5) mg/dL AST (5-31) U/L ALT (0-31) U/L Alkaline Phosphatase (39-117) U/L Total Protein (6.5-8.0) g/dL Albumin (3.5-5.0) g/dL Lipase (8-78) U/L Beta HCG, Quant mIU/mL Urine Color YELLOW Urine Appearance CLOUDY Urine pH 6.0 (5.0-8.0) Ur Specific [place] 1.010 (1.005-1.025) Urine Protein 1+ H (NEG-TRACE) MG/DL Urine Glucose (UA) NEG (NEG) MG/DL Urine Ketones 5 (NEG) MG/DL Urine Blood 2+ H (NEG) Urine Nitrite POS H (NEG) Ur Leukocyte Esterase 2+ H (NEG) Urine RBC 5-9 H (0) /HPF Urine WBC 50-75 H (0-4) /HPF Ur Squamous Epith Cells 2+ /LPF Urine Bacteria 2+ /LPF Urine Test NEGATIVE (NEGATIVE) Urine Opiates Screen Not Detected (Not Detect) Urine Fentanyl Screen Not Detected (Not Detect) Ur Barbiturates Screen Not Detected (Not Detect) Ur Phencyclidine Scrn Not Detected (Not Detect) Ur Amphetamines Screen Not Detected (Not Detect) U Benzodiazepines Scrn Not Detected (Not Detect) Urine Cocaine Screen Not Detected (Not Detect) U Marijuana (THC) Screen POSITIVE H (Not Detect) Discharge Plan Discharge Clinical Impression: UTI (urinary tract infection), Nausea & vomiting Patient Disposition: Home, Self-Care Instructions: Urinary Tract Infection in Women (DC), Acute Nausea and Vomiting (ED) Additional Instructions: Your blood work was reassuring today in the ED, you do have a urinary tract infection. Ceftin is an antibiotic please take as prescribed Please avoid marijuana use this is likely causing her symptoms. Zofran as an antinausea medication please take as needed for nausea/vomiting If symptoms persist or worsen, abdominal pain becomes persistent or unbearable, you are unable to eat or drink for develops fever please return to the ED Prescriptions: New cefuroxime axetil 250 mg tablet 250 mg PO BID 7 Days Qty: 14 0RF ondansetron 4 mg tablet,disintegrating 4 mg PO Q8H PRN (Reason: nausea and vomiting) Qty: 10 0RF No Action famotidine 20 mg tablet 20 mg PO BID Qty: 60 1RF Referrals: Fide Carmona MD [Physician] - 1 week Physician,Unknown J [Primary Care Provider] - 2 days
[2022-01-19 08:33] LABS: MANUAL DIFF FLAG NO
[2022-01-19 08:35] LABS: Basophils Percent Auto 0.1 % (0-2); Eosinophils Percent Auto 0.1 % (0-4); Hematocrit 42.1 % (37.0-47.0); Hemoglobin 14.2 g/dl (12.0-16.0); Imm Gran Abs Auto 0.09 X10*3/uL (0.00-0.03); Imm Gran Pct Auto 0.6 % (0.0-0.4); Lymphocytes Absolute Auto 2.2 X10*3/uL (1.2-4.9); Lymphocytes Percent Auto 13.8 % (20-40); Mean Corpuscular HGB Conc 33.7 g/dl (31.0-35.0); Mean Corpuscular Volume 85.9 fL (80.0-98.0); Monocytes Absolute Auto 0.8 X10*3/uL (0.1-1.2); Monocytes Percent Auto 4.7 % (2-11); Neutrophils Percent Auto 80.7 % (45-73); Platelet Count 266 X10*3/uL (160-400); Red Cell Distribution Width 13.1 % (11.0-16.0); White Blood Count 16.1 X10*3/uL (4.8-10.8)
[2022-01-19] MEDS: 0.9 % Sodium Chloride 1,000 ML 999 ML IV ×2 (08:38→09:47)
[2022-01-19] MEDS: Ketorolac Tromethamine 15 MG/ML VIAL IVPUSH ×2 (08:38→10:15)
[2022-01-19] MEDS: Magnesium Hydrox/Alum Hydrox 30 ML ORAL.SUSP PO (08:38)
[2022-01-19] MEDS: Famotidine/PF 20 MG/2 ML VIAL IVPUSH (08:38)
[2022-01-19 08:45] LABS: Lactic Acid 1.9 mmol/L (0.5-2.0)
[2022-01-19 08:51] LABS: Alanine Aminotransferase 18 U/L (0-31); Albumin Level 4.7 g/dL (3.5-5.0); Alkaline Phosphatase 68 U/L (39-117); Anion Gap 17 (12-20); Aspartate Amino Transferase 19 U/L (5-31); Bilirubin Direct 0.2 mg/dL (0.0-0.5); Bilirubin Total 0.4 mg/dL (0.0-1.0); Blood Urea Nitrogen 22 mg/dL (9-16); Calcium 10.1 mg/dL (8.4-10.2); Carbon Dioxide 21 mmol/L (22-29); Chloride 106 mmol/L (96-108); Creatinine Clr Calc Pharmacy 86.4; Estimated Glomerular Filt Rate > 60; Glucose Random 146 mg/dL (60-115); Lipase 5 U/L (8-78); Magnesium 2.1 mg/dL (1.6-2.6); Potassium 3.7 mmol/L (3.3-5.1); Sodium 140 mmol/L (135-145); Total Protein 8.3 g/dL (6.5-8.0)
[2022-01-19 09:16] LABS: HCG Quantitative < 2 mIU/mL
[2022-01-19 09:22] LABS: Appearance Urine CLOUDY; Color Urine YELLOW; Glucose Urine UA NEG (NEG); Leukocyte Esterase Urine 2+ (NEG); Nitrite Urine POS (NEG); UACC Culture Trigger YES; Urine Blood 2+ (NEG); Urine Ketones 5 MG/DL (NEG); Urine Protein 1+ MG/DL (NEG-TRACE)
[2022-01-19 09:24] LABS: UPreg QC Valid YES; Urine Pregnancy NEGATIVE (NEGATIVE)
[2022-01-19] MEDS: iohexoL 350 MG/ML 100 ML INFUS..BTL 85 ML IV (09:26)
[2022-01-19 09:36] LABS: WBC Urine 50-75 /HPF (0-4)
[2022-01-19 09:37] LABS: Bacteria Urine 2+ /LPF; Squamous Epithelial Cell Urine 2+ /LPF
[2022-01-19] MEDS: diphenhydrAMINE HCL 50 MG/ML VIAL 25 MG IVPUSH (10:15)
[2022-01-19] MEDS: cefTRIAXone sodium 1 GM in 0.9 % Sodium Chloride 50 ML IV (10:16)
[2022-01-19] MEDS: ondansetron HCL 4 MG/2 ML VIAL IVPUSH (10:16)
[2022-01-19 10:56] LABS: Amphetamine Screen Urine Not Detected (Not Detect); Barbiturates, Urine Not Detected (Not Detect); Benzodiazepines Screen Urine Not Detected (Not Detect); Cannabinoid Screen Urine POSITIVE (Not Detect); Cocaine Screen Urine Not Detected (Not Detect); Fentanyl, urine Not Detected (Not Detect); Opiate Screen Urine Not Detected (Not Detect); Phencyclidine Screen Urine Not Detected (Not Detect)
[2022-01-19 12:30] VITALS: BP 114/63; PULSE 66; O2SAT 98
[2022-01-19] MEDS: Haloperidol Lactate 5 MG/ML VIAL IM (12:31)
== END 2022-01-19 13:06 | disposition home or self-care (01) ==
PROVIDERS: Physician Assistant; Emergency Provider Emergency Medicine
DX: N39.0 Urinary tract infection, site not specified (principal); B96.20 Unspecified Escherichia coli [E. coli] as the cause of diseases classified elsewhere; R11.2 Nausea with vomiting, unspecified; F12.90 Cannabis use, unspecified, uncomplicated
CPT/HCPCS: 36415; 74177; 80048; 80076; 80307; 81001; 81025; 83605; 83690; 83735; 84702; 85025; 87040; 87086; 87088; 87186; 96361; 96365; 96372; 96375; 96376; 99284; J0696; J1200; J1885; J2405; Q9967

== ENCOUNTER 2022-05-02 18:45 | Emergency (ER) | payer OTHER, SELFPAY ==
[2022-05-02 19:03] VITALS: BP 118/52; PULSE 72; RESP 20; TEMP 36; O2SAT 98; BMI 30.4
--- NOTE | 2022-05-02 20:12 | ED.DENTAL ---
HPI - Dental/Oral General Chief complaint: Dental/Oral Stated complaint: toothache Source: patient Mode of arrival: ambulatory Limitations: no limitations History of Present Illness HPI Narrative: 26-year-old female presents via EMS for a right upper toothache with swelling to the right cheek. States that she has not been able to see dentist because she is a single mom and does not have access to care. She has had pain for about a week, denies fevers, chills, difficulty swallowing, dizziness, lightheadedness, nausea, vomiting, or weakness. MD Complaint: tooth pain Location: Tooth # Teeth map: 1. Caries 2. Caries Onset (ago): week(s) (1) Duration: constant Severity: moderate Severity scale (1-10): 7 Relieving factors: nothing Exacerbating factors: chewing, cold and heat Context: history of dental caries and poor dental care Treatment prior to arrival: none Related Data Previous Rx's Medication Instructions Recorded cefuroxime axetil 250 mg tablet 250 mg PO BID 7 days #14 tabs 01/19/22 ondansetron 4 mg disintegrating 4 mg PO Q8H PRN nausea and 01/19/22 tablet vomiting #10 tabs sulfamethoxazole 800 1 tab PO BID 7 days #14 tabs 01/24/22 mg-trimethoprim 160 mg tablet (Bactrim DS) famotidine 20 mg tablet 20 mg PO BID #60 tabs 02/10/22 amoxicillin 875 mg-potassium 1 tab PO Q12H 10 days #20 tabs 05/02/22 clavulanate 125 mg tablet ibuprofen 600 mg tablet 600 mg PO Q6H PRN pain #60 tabs 05/02/22 Allergies Allergy/AdvReac Type Severity Reaction Status Date / Time No Known Allergies Allergy Verified 01/19/22 08:06 [No Known Allergies*] Review of Systems Review of Systems: Constitutional: No Fever, No Chills ENT/Mouth: No swallowing difficulty, no change in voice, positive dental pain, positive jaw pain, positive facial swelling Eyes: No Eye Pain, No Swelling Cardiovascular: No Chest Pain, No SOB Respiratory: No Cough, No Sputum, No Wheezing, No Smoke Exposure, No Dyspnea Gastrointestinal: No Nausea, No Vomiting, No Diarrhea Genitourinary: No Dysuria Musculoskeletal: No Myalgias Skin: No rash Neuro: No Weakness, No Numbness, No Headache Yes all other systems are reviewed and are negative [facility] Past Medical History Attestation statement: The following information was validated with the patient. Source: old records reviewed Medical History Mild recurrent major depression Right upper quadrant abdominal pain Surgical History History of D&C Family History Family History Maternal Grandmother Breast cancer Son Autism Daughter No problems noted. Mother No problems noted. Father Learning difficulty Mental health disorder Maternal Grandmother Breast cancer, Onset Age: 50 Maternal Uncle Testicular cancer, Onset Age: 60 Paternal Grandfather Diabetes mellitus Myocardial infarct Other Substance use disorder Social History Social History Housing: Apartment Alcohol intake: never Patient Tobacco Use Status: Former Tobacco user e-Cigarette/Vaping Use: Never Used Second Hand Smoke Exposure: No Advance Directives: No Advance Directives Information Provided: No service: No Current occupational status: unemployed Cognitive needs: No Hearing needs: No Vision needs: No Physical Exam Vital Signs: Vital Signs: Last Vital Signs Temp 96.8 F 05/02/22 19:03 Pulse 72 05/02/22 19:03 Resp 20 05/02/22 19:03 BP 118/52 L 05/02/22 19:03 Pulse Ox 98 05/02/22 19:03 O2 Del Method 05/02/22 19:03 BMI result Body Mass Index 30.4 Appearance: Alert. Oriented X3. No acute distress. Eyes: Pupils equal, round and reactive to light. ENT: Pharynx normal. Dental caries noted tooth 4 and 2. Neck: Normal inspection. Neck supple. CVS: Normal heart rate and rhythm. Pulses normal. Respiratory: No respiratory distress. Breath sounds normal. Abdomen: Soft and nontender. Skin: Skin warm and dry. Normal skin color. Normal skin turgor. Extremities: No lower extremity edema. Gait well balanced well coordinated. Neuro: No motor deficit. No sensory deficit. Cranial nerves 2-12 intact. Course Course Course Narrative: 26-year-old female presents via EMS for evaluation with 1 week of dental pain and swelling to the right upper tooth and jaw. I do not appreciate any facial swelling, or gingivitis. On exam I see multiple caries on tooth 4 and tooth 2. Patient does not have any mastoid tenderness, cervical lymphadenopathy, maxillary tenderness, or zygomatic tenderness. No appreciable TMJ. Patient is afebrile, appears nontoxic, vital signs are stable and within normal limits. Able to manage her own secretions. Plan of care is to give Augmentin, Toradol IM and to refer to a dental services. Patient verbalized understanding of and agrees to plan of care discharge home. Verbalized understanding of signs and symptoms indicating need for emergent intervention. MDM - Dental/Oral Differential Diagnosis Differential diagnosis: Likely gingival abscess, dental caries, toothache and dental abscess Medical Records Attestation: I reviewed the patient's medical records. Discharge Plan Discharge Clinical Impression: Pain due to dental caries Patient Disposition: Home, Self-Care Instructions: Toothache (ED) Additional Instructions: You were evaluated for toothache. We prescribed Augmentin 875 mg twice a day for the next 10 days. Please take this medication as directed. Take Motrin 600 mg every 6 hours as needed for pain and swelling. Follow-up with a dentist. Thank you for choosing this emergency department for evaluation. Please follow-up with primary care physician as needed. Return to the emergency department for any new, concerning, or worsening symptoms. Prescriptions: New amoxicillin-pot clavulanate 875-125 mg tablet 1 tab PO Q12H 10 Days Qty: 20 0RF ibuprofen 600 mg tablet 600 mg PO Q6H PRN (Reason: pain) Qty: 60 0RF No Action famotidine 20 mg tablet 20 mg PO BID Qty: 60 1RF cefuroxime axetil 250 mg tablet 250 mg PO BID 7 Days Qty: 14 0RF ondansetron 4 mg tablet,disintegrating 4 mg PO Q8H PRN (Reason: nausea and vomiting) Qty: 10 0RF sulfamethoxazole-trimethoprim [Bactrim DS] 800-160 mg tablet 1 tab PO BID 7 Days Qty: 14 0RF Stand Alone Forms: Dental Emergency Numbers Interventions: ED Discharge Assessment Last Done: 05/02/22 20:56 Discharge Date/Time: 05/02/22 20:58
[2022-05-02] MEDS: Amoxicillin/Potassium Clav 875 MG TABLET PO (20:50)
[2022-05-02] MEDS: Ketorolac Tromethamine 60 MG/2 ML VIAL IM (20:50)
== END 2022-05-02 20:58 | disposition home or self-care (01) ==
PROVIDERS: Emergency Provider Emergency Medicine
DX: K02.9 Dental caries, unspecified (principal)
CPT/HCPCS: 96372; 99283; 99284; J1885

== ENCOUNTER 2022-05-18 11:52 | Emergency (ER) | payer OTHER, SELFPAY ==
--- NOTE | ~2022-05-18 | US_ITS ---
EXAMINATION: US ABDOMEN LIMITED CLINICAL INFORMATION: Right upper quadrant pain. COMPARISON: Previous abdominal ultrasound July [address] of the abdomen and pelvis January 2022 TECHNIQUE: Real-time imaging of the right upper quadrant abdominal viscera. FINDINGS: PANCREAS: Normal. LIVER: Normal. The liver is normal in size. The liver contour is normal. Parenchymal echogenicity is normal. No focal hepatic lesion. There is no intrahepatic biliary duct dilatation seen. GALLBLADDER: Normal. The gallbladder is physiologically distended without evidence of stones, sludge, polyps, wall thickening or pericholecystic fluid. The ct technologist reports the patient is tender over the gallbladder. COMMON BILE DUCT: Normal in caliber measuring 0.2 cm in diameter. RIGHT KIDNEY: Normal. No hydronephrosis. No renal calculi or focal parenchymal lesions. The kidney measures 10.5 cm in maximum dimension. FREE FLUID: None. US/US abdomen limited IMPRESSION: Unremarkable exam. The ct technologist reports the patient is tender over the gallbladder.
[2022-05-18 12:09] VITALS: BP 104/76; PULSE 75; O2SAT 98
[2022-05-18 12:31] VITALS: BP 107/81; PULSE 81; RESP 18; TEMP 36.6; O2SAT 98; BMI 30.6
[2022-05-18] MEDS: Ondansetron ODT 4 MG TAB.RAPDIS TRANSLINGU (12:59)
[2022-05-18 14:02] LABS: MANUAL DIFF FLAG NO
[2022-05-18 14:10] LABS: Basophils Percent Auto 0.2 % (0-2); Eosinophils Percent Auto 0.1 % (0-4); Hematocrit 42.8 % (37.0-47.0); Hemoglobin 14.8 g/dl (12.0-16.0); Imm Gran Abs Auto 0.05 X10*3/uL (0.00-0.03); Imm Gran Pct Auto 0.4 % (0.0-0.4); Lymphocytes Percent Auto 16.2 % (20-40); Mean Corpuscular HGB Conc 34.6 g/dl (31.0-35.0); Mean Corpuscular Hemoglobin 29.4 pg (27.0-33.0); Mean Corpuscular Volume 85.1 fL (80.0-98.0); Mean Platelet Volume 9.7 fL (9.4-12.3); Monocytes Absolute Auto 0.7 X10*3/uL (0.1-1.2); Monocytes Percent Auto 6.1 % (2-11); Neutrophils Absolute Auto 9.3 x10*3/uL (2.0-8.3); Platelet Count 275 X10*3/uL (160-400); Red Blood Count 5.03 X10*6/uL (4.20-5.50); Red Cell Distribution Width 12.7 % (11.0-16.0); White Blood Count 12.1 X10*3/uL (4.8-10.8)
[2022-05-18 14:28] LABS: Alanine Aminotransferase 16 U/L (0-31); Albumin Level 4.6 g/dL (3.5-5.0); Alkaline Phosphatase 72 U/L (39-117); Anion Gap 19 (12-20); Aspartate Amino Transferase 18 U/L (5-31); Bilirubin Direct 0.2 mg/dL (0.0-0.5); Bilirubin Total 0.3 mg/dL (0.0-1.0); Blood Urea Nitrogen 20 mg/dL (9-16); Calcium 9.6 mg/dL (8.4-10.2); Carbon Dioxide 15 mmol/L (22-29); Chloride 107 mmol/L (96-108); Estimated Glomerular Filt Rate > 60; Glucose Random 175 mg/dL (60-115); Lipase 15 U/L (8-78); Potassium 3.7 mmol/L (3.3-5.1); Sodium 137 mmol/L (135-145); Total Protein 8.2 g/dL (6.5-8.0)
--- NOTE | 2022-05-18 14:45 | ED_ITS ---
HPI - Nausea/Vomiting/Diarrhea General Chief complaint: Abdominal Pain Stated complaint: NAUSEA/VOMITING SINCE T-1 PER EMS Time Seen by Provider: 05/18/22 14:20 Source: patient Mode of arrival: ambulatory Limitations: no limitations History of Present Illness HPI Narrative: patient comes to the emergency room complaining of nausea vomiting and occasional diarrhea. Patient states all of her symptoms starting 2 days ago. Patient admits to using marijuana. Patient denies URI or UTI symptoms. Related Data Previous Rx's Medication Instructions Recorded cefuroxime axetil 250 mg tablet 250 mg PO BID 7 days #14 tabs 01/19/22 ondansetron 4 mg disintegrating 4 mg PO Q8H PRN nausea and 01/19/22 tablet vomiting #10 tabs sulfamethoxazole 800 1 tab PO BID 7 days #14 tabs 01/24/22 mg-trimethoprim 160 mg tablet (Bactrim DS) famotidine 20 mg tablet 20 mg PO BID #60 tabs 02/10/22 amoxicillin 875 mg-potassium 1 tab PO Q12H 10 days #20 tabs 05/02/22 clavulanate 125 mg tablet ibuprofen 600 mg tablet 600 mg PO Q6H PRN pain #60 tabs 05/02/22 metoclopramide HCl 5 mg tablet 5 mg PO DAILY PRN nausea and 05/18/22 (Reglan) vomiting #10 tabs Allergies Allergy/AdvReac Type Severity Reaction Status Date / Time No Known Allergies Allergy Verified 01/19/22 08:06 [No Known Allergies*] Review of Systems Review of Systems: Constitutional : No Weight loss, No Fever, No Chills, No Night Sweats, No Fatigue, No Malaise ENT/Mouth : No Hearing loss, No Ear Pain, No Nasal Congestion, No Sinus Pain, No Hoarseness, No sore throat, No Rhinorrhea, No Swallowing Difficulty Eyes: No Eye Pain, No Swelling, No Redness, No Foreign Body, No Discharge, No Vision Changes Cardiovascular : No Chest Pain, No SOB, No Dyspnea on Exertion, No Orthopnea, No Edema, No Palpitations Respiratory : No Cough, No Sputum, No Wheezing, No Smoke Exposure, No Dyspnea Gastrointestinal : Complaining of nausea vomiting, occasional diarrhea, epigastric discomfort Genitourinary : no irregular bleeding, No Dysuria, No Urinary Frequency, No Hematuria, No Urinary Incontinence, No Urgency, No Flank Pain, No Urinary Flow Changes, No Hesitancy Musculoskeletal : No joint pain, No Myalgias, No Joint Swelling Skin : No Skin Lesions, No rash Neuro : No Weakness, No Numbness, No Paresthesias, No Loss of Consciousness, No Dizziness, No Headache Psych : No Anxiety/Panic, No Depression, No SI/HI/AH/VH, No Social Issues, Heme/Lymph: No Bruising, No Bleeding,No Lymphadenopathy Endocrine : No Polyuria, No Polydipsia, No Temperature Intolerance [facility] Past Medical History Medical History Anxiety disorder, unspecified Lack of access to transportation Marijuana abuse Mild recurrent major depression Nausea and vomiting Right upper quadrant abdominal pain Surgical History History of D&C Family History Family History Maternal Grandmother Breast cancer Son Autism Daughter No problems noted. Mother No problems noted. Father Learning difficulty Mental health disorder Maternal Grandmother Breast cancer, Onset Age: 50 Maternal Uncle Testicular cancer, Onset Age: 60 Paternal Grandfather Diabetes mellitus Myocardial infarct Other Substance use disorder Social History Social History Housing: Apartment Alcohol intake: never Patient Tobacco Use Status: Former Tobacco user e-Cigarette/Vaping Use: Never Used Second Hand Smoke Exposure: No Advance Directives: Yes Advance Directives Information Provided: Yes Advance Directives on File: No service: No Current occupational status: unemployed Cognitive needs: No Hearing needs: No Vision needs: No Physical Exam Vital Signs: Vital Signs: Last Vital Signs Temp 97.9 F 05/18/22 16:00 Pulse 62 05/18/22 16:00 Resp 16 05/18/22 16:00 BP 93/48 L 05/18/22 16:00 Pulse Ox 98 05/18/22 16:00 O2 Del Method 05/18/22 16:00 BMI result Body Mass Index 30.6 Const: Other: Appearance: Alert. nauseous Eyes: Pupils equal, round and reactive to light. ENT: Pharynx normal. Neck: Normal inspection. Neck supple. No lymph nodes noted. No crepitus CVS: Normal heart rate and rhythm. Pulses normal. Normal S1 and S2 Respiratory: No respiratory distress. Breath sounds normal. No Wheezing. No rales Abdomen: Soft , no guarding, no distension, mild discomfort to the epigastric area, actively vomiting Skin: Skin warm and dry. Normal skin color. Normal skin turgor. Extremities: No lower extremity edema. No Lacerations. No Rash Neuro: Oriented X 3. No motor deficit. No sensory deficit. Moving all extremities. No slurred speech. CN 2 through 12 grossly intact Psych: cooperative Course Course Course Narrative: patient's symptoms likely secondary to cyclical vomiting. Patient has chronic leukocytosis, chemistry within normal limits. UA, U tox, hCG pending. Patient receiving IV fluids, already had p.o. Zofran, getting IV Compazine Patient feeling much better after treatment, patient was p.o. challenge, tolerated p.o. well. MDM - Nausea/Vomiting/Diarrhea Lab Data Result diagrams: 05/18/22 13:56 05/18/22 13:56 Labs: Lab Results 05/18/22 05/18/22 Range/Units 13:56 13:56 WBC 12.1 H (4.8-10.8) X10*3/uL RBC 5.03 (4.20-5.50) X10*6/uL Hgb 14.8 (12.0-16.0) g/dl Hct 42.8 (37.0-47.0) % MCV 85.1 (80.0-98.0) fL MCH 29.4 (27.0-33.0) pg MCHC 34.6 (31.0-35.0) g/dl RDW 12.7 (11.0-16.0) % Plt Count 275 (160-400) X10*3/uL MPV 9.7 (9.4-12.3) fL Immature Gran % (Auto) 0.4 (0.0-0.4) % Neut % (Auto) 77.0 H (45-73) % Lymph % (Auto) 16.2 L (20-40) % [place] % (Auto) 6.1 (2-11) % Eos % (Auto) 0.1 (0-4) % Baso % (Auto) 0.2 (0-2) % Lymph # (Auto) 2.0 (1.2-4.9) X10*3/uL [place] # (Auto) 0.7 (0.1-1.2) X10*3/uL Eos # (Auto) 0.0 (0.0-0.4) X10*3/uL Baso # (Auto) 0.0 (0.0-0.2) X10*3/uL Abs Immat Gran (auto) 0.05 H (0.00-0.03) X10*3/uL Absolute Neuts (auto) 9.3 H (2.0-8.3) x10*3/uL Absolute Nucleated RBC 0.000 (0.0-0.012) X10*3/uL Nucleated RBC % (auto) 0.0 (0.0-0.2) /100WBC Sodium 137 (135-145) mmol/L Potassium 3.7 (3.3-5.1) mmol/L Chloride 107 (96-108) mmol/L Carbon Dioxide 15 L (22-29) mmol/L Anion Gap 19 (12-20) BUN 20 H (9-16) mg/dL Creatinine 1.00 (0.5-1.4) mg/dL Estim Creat Clear Calc 86.0 Estimated GFR > 60 Random Glucose 175 H (60-115) mg/dL Calcium 9.6 (8.4-10.2) mg/dL Total Bilirubin 0.3 (0.0-1.0) mg/dL Direct Bilirubin 0.2 (0.0-0.5) mg/dL AST 18 (5-31) U/L ALT 16 (0-31) U/L Alkaline Phosphatase 72 (39-117) U/L Total Protein 8.2 H (6.5-8.0) g/dL Albumin 4.6 (3.5-5.0) g/dL Lipase 15 (8-78) U/L Beta HCG, Quant < 2 mIU/mL Imaging Data US - abdomen: Radiologist's impression: FINDINGS: PANCREAS: Normal. LIVER: Normal. The liver is normal in size. The liver contour is normal. Parenchymal echogenicity is normal. No focal hepatic lesion. There is no intrahepatic biliary duct dilatation seen. GALLBLADDER: Normal. The gallbladder is physiologically distended without evidence of stones, sludge, polyps, wall thickening or pericholecystic fluid. The electrical engineering technologist reports the patient is tender over the gallbladder. COMMON BILE DUCT: Normal in caliber measuring 0.2 cm in diameter. RIGHT KIDNEY: Normal. No hydronephrosis. No renal calculi or focal parenchymal lesions. The kidney measures 10.5 cm in maximum dimension. FREE FLUID: None. US/US abdomen limited IMPRESSION: Unremarkable exam. The electrical engineering technologist reports the patient is tender over the gallbladder. Discharge Plan Discharge Clinical Impression: Cyclical vomiting Patient Disposition: Home, Self-Care Instructions: Cyclic Vomiting Syndrome (ED) Additional Instructions: Please follow-up with your primary care physician tomorrow. If you have any worsening or new symptoms, please return to the emergency room or call 911 Prescriptions: New metoclopramide HCl [Reglan] 5 mg tablet 5 mg PO DAILY PRN (Reason: nausea and vomiting) Qty: 10 0RF No Action famotidine 20 mg tablet 20 mg PO BID Qty: 60 1RF cefuroxime axetil 250 mg tablet 250 mg PO BID 7 Days Qty: 14 0RF ondansetron 4 mg tablet,disintegrating 4 mg PO Q8H PRN (Reason: nausea and vomiting) Qty: 10 0RF sulfamethoxazole-trimethoprim [Bactrim DS] 800-160 mg tablet 1 tab PO BID 7 Days Qty: 14 0RF amoxicillin-pot clavulanate 875-125 mg tablet 1 tab PO Q12H 10 Days Qty: 20 0RF ibuprofen 600 mg tablet 600 mg PO Q6H PRN (Reason: pain) Qty: 60 0RF
[2022-05-18 15:01] LABS: HCG Quantitative < 2 mIU/mL
[2022-05-18] MEDS: Prochlorperazine Edisylate 10 MG/2 ML VIAL IVPUSH (15:19)
[2022-05-18] MEDS: 0.9 % Sodium Chloride 1,000 ML 999 ML IVCONT (15:19)
[2022-05-18 15:22] VITALS: BP 101/51; PULSE 72; RESP 16; O2SAT 100
[2022-05-18 16:00] VITALS: BP 93/48; PULSE 62; RESP 16; TEMP 36.6; O2SAT 98
--- NOTE | 2022-05-18 16:23 | PC.NURSE ---
PATIENT SAID SHE NOT ABLE TO GIVE URINE SAMPLE ,[place] UPTON IS AWARE .
--- NOTE | 2022-05-18 18:16 | PC.NURSE ---
Pt feeling better, passed PO challenge
== END 2022-05-18 18:42 | disposition home or self-care (01) ==
PROVIDERS: Emergency Provider Emergency Medicine
DX: R11.15 Cyclical vomiting syndrome unrelated to migraine (principal); R10.11 Right upper quadrant pain; R11.2 Nausea with vomiting, unspecified; Z79.899 Other long term (current) drug therapy; Z87.891 Personal history of nicotine dependence
CPT/HCPCS: 36415; 76705; 80048; 80076; 83690; 84702; 85025; 96361; 96374; 99284

== ENCOUNTER 2022-05-19 22:27 | Emergency (ER) | payer OTHER, SELFPAY ==
[2022-05-19 22:36] VITALS: BP 138/75; PULSE 78; O2SAT 99
[2022-05-19 23:19] VITALS: BP 124/70; PULSE 106; RESP 18; TEMP 36.9; O2SAT 97; BMI 30.1
[2022-05-20 00:37] VITALS: BP 143/77; PULSE 75; RESP 18; TEMP 36.9; O2SAT 100
--- NOTE | 2022-05-20 00:56 | ED.NAVMDI ---
HPI - Nausea/Vomiting/Diarrhea General Chief complaint: Nausea/Vomiting/Diarrhea Stated complaint: NV Time Seen by Provider: 05/20/22 00:56 Source: patient Mode of arrival: ambulatory Limitations: no limitations History of Present Illness HPI Narrative: Patient with history of cyclic vomiting syndrome goes to the hospital every 3 -4 months for vomiting been vomiting for last 3 days was seen here yesterday denied any use of marijuana lately , increased anxiety at home no fever no chills no diarrhea complaining of diffuse abdominal discomfort Related Data Previous Rx's Medication Instructions Recorded cefuroxime axetil 250 mg tablet 250 mg PO BID 7 days #14 tabs 01/19/22 ondansetron 4 mg disintegrating 4 mg PO Q8H PRN nausea and 01/19/22 tablet vomiting #10 tabs sulfamethoxazole 800 1 tab PO BID 7 days #14 tabs 01/24/22 mg-trimethoprim 160 mg tablet (Bactrim DS) famotidine 20 mg tablet 20 mg PO BID #60 tabs 02/10/22 amoxicillin 875 mg-potassium 1 tab PO Q12H 10 days #20 tabs 05/02/22 clavulanate 125 mg tablet ibuprofen 600 mg tablet 600 mg PO Q6H PRN pain #60 tabs 05/02/22 metoclopramide HCl 5 mg tablet 5 mg PO DAILY PRN nausea and 05/18/22 (Reglan) vomiting #10 tabs lorazepam 1 mg tablet (Ativan) 1 mg PO BEDTIME PRN anxiety #10 05/20/22 tabs Allergies Allergy/AdvReac Type Severity Reaction Status Date / Time No Known Allergies Allergy Verified 01/19/22 08:06 [No Known Allergies*] Review of Systems Review of Systems: Yes all other systems are reviewed and are negative PMFSH Past Medical History Medical History Anxiety disorder, unspecified Lack of access to transportation Marijuana abuse Mild recurrent major depression Nausea and vomiting Right upper quadrant abdominal pain Surgical History History of D&C Family History Family History Maternal Grandmother Breast cancer Son Autism Daughter No problems noted. Mother No problems noted. Father Learning difficulty Mental health disorder Maternal Grandmother Breast cancer, Onset Age: 50 Maternal Uncle Testicular cancer, Onset Age: 60 Paternal Grandfather Diabetes mellitus Myocardial infarct Other Substance use disorder Social History Social History Housing: Apartment Alcohol intake: never Patient Tobacco Use Status: Former Tobacco user e-Cigarette/Vaping Use: Never Used Second Hand Smoke Exposure: No Use of substances other than those prescribed or required for medical reasons: No Advance Directives: No service: No Current occupational status: unemployed Cognitive needs: No Hearing needs: No Vision needs: No Physical Exam Vital Signs: Vital Signs: Last Vital Signs Temp 98.2 F 05/20/22 04:53 Pulse 73 05/20/22 04:53 Resp 14 05/20/22 04:53 BP 107/65 05/20/22 04:53 Pulse Ox 99 05/20/22 04:53 O2 Del Method 05/20/22 04:53 BMI result Body Mass Index 30.1 Appearance: Alert. Oriented X3. No acute distress. Anxious Eyes: No pallor icterus ENT: Pharynx normal. Oral Mucosa moist Neck: Normal inspection. Neck supple. CVS: Normal heart rate and rhythm. Pulses normal. Respiratory: No respiratory distress. Equal air entry bilateral, no wheezing/rales/rhonchi Abdomen: Soft , no focal abdominal tenderness. Bowel sounds are present, no mass palpable, no CVA tenderness Skin: Skin warm and dry. Normal skin color. Normal skin turgor. Extremities: No lower extremity edema. No calf tenderness Neuro: Oriented X 3. MDM - Nausea/Vomiting/Diarrhea MDM Narrative Medical decision making narrative: Patient relaxed sleeping now taking p.o. fluids will discharge patient home Discharge Plan Discharge Clinical Impression: Cyclic vomiting syndrome Patient Disposition: Home, Self-Care Instructions: Acute Nausea and Vomiting (ED) Additional Instructions: Rest at home take medication for anxiety as prescribed follow with PCP Prescriptions: New lorazepam [Ativan] 1 mg tablet 1 mg PO BEDTIME PRN (Reason: anxiety) Qty: 10 0RF No Action famotidine 20 mg tablet 20 mg PO BID Qty: 60 1RF cefuroxime axetil 250 mg tablet 250 mg PO BID 7 Days Qty: 14 0RF ondansetron 4 mg tablet,disintegrating 4 mg PO Q8H PRN (Reason: nausea and vomiting) Qty: 10 0RF sulfamethoxazole-trimethoprim [Bactrim DS] 800-160 mg tablet 1 tab PO BID 7 Days Qty: 14 0RF metoclopramide HCl [Reglan] 5 mg tablet 5 mg PO DAILY PRN (Reason: nausea and vomiting) Qty: 10 0RF amoxicillin-pot clavulanate 875-125 mg tablet 1 tab PO Q12H 10 Days Qty: 20 0RF ibuprofen 600 mg tablet 600 mg PO Q6H PRN (Reason: pain) Qty: 60 0RF
[2022-05-20] MEDS: LORazepam 1 MG TABLET 2 MG PO (01:11)
[2022-05-20] MEDS: Prochlorperazine Edisylate 10 MG/2 ML VIAL IM (01:11)
--- NOTE | 2022-05-20 02:16 | PC.NURSE ---
Patient dry heaving medicated with relief. Patient sleeping. Will continue with plan of care.
[2022-05-20 03:16] VITALS: PULSE 68; RESP 15; O2SAT 98
--- NOTE | 2022-05-20 03:17 | PC.NURSE ---
pt resting comfortably in no distress. sleeping intermittently. no further N/V
[2022-05-20 04:53] VITALS: BP 107/65; PULSE 73; RESP 14; TEMP 36.8; O2SAT 99
[2022-05-20 05:53] VITALS: PULSE 70; RESP 16; O2SAT 97
== END 2022-05-20 06:24 | disposition home or self-care (01) ==
PROVIDERS: Emergency Provider Internal Medicine
DX: R11.15 Cyclical vomiting syndrome unrelated to migraine (principal); R19.7 Diarrhea, unspecified; Z79.899 Other long term (current) drug therapy; Z87.891 Personal history of nicotine dependence
CPT/HCPCS: 96372; 99284

== ENCOUNTER 2022-05-21 12:04 | Emergency (ER) | payer OTHER, SELFPAY ==
--- NOTE | ~2022-05-21 | US_ITS ---
EXAMINATION: US ABDOMEN COMPLETE CLINICAL INFORMATION: Right upper quadrant pain, nausea and vomiting.. COMPARISON: None TECHNIQUE: Real-time imaging of the abdominal viscera. FINDINGS: PANCREAS: Normal. ABDOMINAL AORTA: The proximal, mid, and distal segments are normal in caliber. INFERIOR VENA CAVA: Visualized portions are normal. LIVER: Normal. The liver is normal in size. The liver contour is normal. Parenchymal echogenicity is normal. No focal hepatic lesion. There is no intrahepatic biliary duct dilatation seen. GALLBLADDER: The gallbladder wall thickness is 0.2 cm. The gallbladder is physiologically distended without evidence of stones, sludge, polyps, wall thickening or pericholecystic fluid. COMMON BILE DUCT: Normal in caliber measuring 0.2 cm in diameter. RIGHT KIDNEY: Normal. No hydronephrosis. No renal calculi or focal parenchymal lesions. The kidney measures 10.1 cm in maximum dimension. Left kidney and spleen was not imaged as patient started to have vomiting and abdominal pain. FREE FLUID: None. US/US abdomen complete IMPRESSION: Unremarkable abdomen ultrasound. Left kidney and spleen was not imaged.
[2022-05-21 12:06] VITALS: BP 122/66; PULSE 76; O2SAT 98
[2022-05-21 12:50] VITALS: BP 107/65; PULSE 82; RESP 18; TEMP 37; O2SAT 100; BMI 30.1
--- NOTE | 2022-05-21 13:34 | PC.NURSE ---
spoke with . Advised to order abdominal ultrasound. Labs drawn and sent for analysis, awaiting results. Pt occasionally vomiting small amounts while in waiting room, bright yellow in color.
[2022-05-21 13:35] LABS: MANUAL DIFF FLAG NO
[2022-05-21 13:36] LABS: Basophils Percent Auto 0.3 % (0-2); Eosinophils Percent Auto 0.1 % (0-4); Hematocrit 42.2 % (37.0-47.0); Hemoglobin 14.6 g/dl (12.0-16.0); Imm Gran Abs Auto 0.07 X10*3/uL (0.00-0.03); Imm Gran Pct Auto 0.5 % (0.0-0.4); Lymphocytes Absolute Auto 1.8 X10*3/uL (1.2-4.9); Lymphocytes Percent Auto 12.9 % (20-40); Mean Corpuscular HGB Conc 34.6 g/dl (31.0-35.0); Mean Corpuscular Hemoglobin 28.7 pg (27.0-33.0); Mean Corpuscular Volume 82.9 fL (80.0-98.0); Mean Platelet Volume 9.4 fL (9.4-12.3); Monocytes Absolute Auto 0.9 X10*3/uL (0.1-1.2); Monocytes Percent Auto 6.1 % (2-11); Neutrophils Absolute Auto 11.3 x10*3/uL (2.0-8.3); Neutrophils Percent Auto 80.1 % (45-73); Platelet Count 295 X10*3/uL (160-400); Red Blood Count 5.09 X10*6/uL (4.20-5.50); Red Cell Distribution Width 12.2 % (11.0-16.0); White Blood Count 14.1 X10*3/uL (4.8-10.8)
[2022-05-21 13:59] LABS: Alanine Aminotransferase 26 U/L (0-31); Albumin Level 4.7 g/dL (3.5-5.0); Alkaline Phosphatase 71 U/L (39-117); Anion Gap 19 (12-20); Aspartate Amino Transferase 26 U/L (5-31); Bilirubin Direct 0.3 mg/dL (0.0-0.5); Blood Urea Nitrogen 23 mg/dL (9-16); Calcium 9.3 mg/dL (8.4-10.2); Carbon Dioxide 20 mmol/L (22-29); Chloride 100 mmol/L (96-108); Creatinine Clr Calc Pharmacy 91.7; Estimated Glomerular Filt Rate > 60; Glucose Random 126 mg/dL (60-115); Potassium 3.2 mmol/L (3.3-5.1); Sodium 136 mmol/L (135-145); Total Protein 8.2 g/dL (6.5-8.0)
--- NOTE | 2022-05-21 15:33 | PC.NURSE ---
Patient and family has approached this RN in triage multiple times. Guarding abdomen pain. Now states I'm vomiting blood now! I'm having an emergency! This is an emergency! Gillian (charge hand) aware.
[2022-05-21] MEDS: Ondansetron ODT 4 MG TAB.RAPDIS TRANSLINGU (16:04)
--- NOTE | 2022-05-21 16:04 | PC.NURSE ---
Pt approached this RN again to report continued pain, nausea/vomiting. Guarding abdomen, tearful. Given Zofran to attempt to alleviate nausea.
--- NOTE | 2022-05-21 17:08 | PC.NURSE ---
patient reports that Zofran was ineffective. Continues to vomit/nausea. Pain also continues. Pacing around waiting room. Gillian (visc[facility] charge hand) aware.
--- NOTE | 2022-05-21 17:09 | PC.NURSE ---
Offered Tylenol or Motrin, but refused both at this time. States I'll think about it, but I don't think I'll be able to keep it down. I've already taken that before and it didn't do anything anyways. I need IV fluids or something!
[2022-05-21] MEDS: Acetaminophen 325 MG TABLET 650 MG PO (18:02)
[2022-05-21] MEDS: Ibuprofen 600 MG TABLET PO (18:02)
[2022-05-21 20:05] LABS: HCG Quantitative < 2 mIU/mL
[2022-05-21] MEDS: Metoclopramide HCl 10 MG/2 ML VIAL IVPUSH (20:13)
[2022-05-21] MEDS: 0.9 % Sodium Chloride 2,000 ML 999 ML IV (20:13)
[2022-05-21] MEDS: diphenhydrAMINE HCL 50 MG/ML VIAL 25 MG IVPUSH (20:13)
[2022-05-21] MEDS: Prochlorperazine Edisylate 10 MG/2 ML VIAL IVPUSH (22:02)
[2022-05-21] MEDS: Lidocaine HCl Viscous 2 % 15 ML SOLUTION 10 ML MUCOUS MEM (22:55)
[2022-05-21] MEDS: Magnesium Hydrox/Alum Hydrox 30 ML ORAL.SUSP PO (22:55)
--- NOTE | 2022-05-21 23:46 | ED.NAVMDI ---
HPI - Nausea/Vomiting/Diarrhea General Chief complaint: Nausea/Vomiting/Diarrhea Stated complaint: VOMITING X'S DAYS,NO BM SINCE TUESDAY PER EMS Time Seen by Provider: 05/21/22 19:35 Source: patient Mode of arrival: EMS History of Present Illness HPI Narrative: 26-year-old female with nonstop vomiting for 3 days in brought in by EMS. She complains of abdominal discomfort but otherwise denies fever chills. Related Data Previous Rx's Medication Instructions Recorded cefuroxime axetil 250 mg tablet 250 mg PO BID 7 days #14 tabs 01/19/22 ondansetron 4 mg disintegrating 4 mg PO Q8H PRN nausea and 01/19/22 tablet vomiting #10 tabs sulfamethoxazole 800 1 tab PO BID 7 days #14 tabs 01/24/22 mg-trimethoprim 160 mg tablet (Bactrim DS) famotidine 20 mg tablet 20 mg PO BID #60 tabs 02/10/22 amoxicillin 875 mg-potassium 1 tab PO Q12H 10 days #20 tabs 05/02/22 clavulanate 125 mg tablet ibuprofen 600 mg tablet 600 mg PO Q6H PRN pain #60 tabs 05/02/22 metoclopramide HCl 5 mg tablet 5 mg PO DAILY PRN nausea and 05/18/22 (Reglan) vomiting #10 tabs lorazepam 1 mg tablet (Ativan) 1 mg PO BEDTIME PRN anxiety #10 05/20/22 tabs ondansetron 4 mg disintegrating 4 mg PO Q8H PRN nausea and 05/21/22 tablet vomiting #7 tabs Allergies Allergy/AdvReac Type Severity Reaction Status Date / Time No Known Allergies Allergy Verified 01/19/22 08:06 [No Known Allergies*] Review of Systems Review of Systems: Pertinent positives and negatives as stated in HPI 10 point review of systems otherwise negative. [facility] Past Medical History Source: nursing notes reviewed Medical History Anxiety disorder, unspecified Lack of access to transportation Marijuana abuse Mild recurrent major depression Nausea and vomiting Right upper quadrant abdominal pain Surgical History History of D&C Family History Family History Maternal Grandmother Breast cancer Son Autism Daughter No problems noted. Mother No problems noted. Father Learning difficulty Mental health disorder Maternal Grandmother Breast cancer, Onset Age: 50 Maternal Uncle Testicular cancer, Onset Age: 60 Paternal Grandfather Diabetes mellitus Myocardial infarct Other Substance use disorder Social History Social History Housing: Apartment Alcohol intake: never Patient Tobacco Use Status: Former Tobacco user e-Cigarette/Vaping Use: Never Used Second Hand Smoke Exposure: No Advance Directives: No Advance Directives Information Provided: No service: No Current occupational status: unemployed Cognitive needs: No Hearing needs: No Vision needs: No Physical Exam Vital Signs: Vital Signs: Last Vital Signs Temp 98.6 F 05/21/22 12:50 Pulse 82 05/21/22 12:50 Resp 18 05/21/22 12:50 BP 107/65 05/21/22 12:50 Pulse Ox 100 05/21/22 12:50 O2 Del Method 05/21/22 12:50 BMI result Body Mass Index 30.1 VITAL SIGNS: Reviewed. GENERAL: Well developed, well nourished, in no acute distress. HEAD: Normocephalic/atraumatic EYES: PERRLA, EOMI EARS: Ext canals without abnormality OROPHARYNX: no oral lesions noted, posterior pharynx clear LUNGS: Normal breath sounds. No adventitious sounds or accessory muscle use. SpO2<100> CARDIOVASCULAR: Regular rate and rhythm without noted murmurs ABDOMEN: Soft, mild palpation at epigastrium, non-distended with bowel sounds. MUSCULOSKELETAL: No tenderness, deformities, or effusions noted on gross inspection. EXTREMITIES: No cyanosis, clubbing or edema. SKIN: Inspection of the skin reveals no rashes NEUROLOGIC: Alert and oriented x 4. Strength and sensation to light touch were grossly intact x 4. Course Course Course Narrative: 26-year-old female with history and clinical presentation consistent with her underlying diagnoses of cyclical vomiting and no evidence to suggest underlying intra-abdominal pathology. On review of all investigations patient has an elevated leukocytosis which is likely reactive. She is hemodynamically stable, afebrile, an oxygenating well on room air. She has received IV fluids and multiple medications for nausea control. Patient also received GI cocktail for vomiting induced gastritis and will be discharged home in stable condition as she is tolerating oral intake. Patient received 60 mEq of potassium chloride. MDM - Nausea/Vomiting/Diarrhea Lab Data Result diagrams: 05/21/22 13:30 05/21/22 13:30 Labs: Lab Results 05/21/22 05/21/22 Range/Units 13:30 13:30 WBC 14.1 H (4.8-10.8) X10*3/uL RBC 5.09 (4.20-5.50) X10*6/uL Hgb 14.6 (12.0-16.0) g/dl Hct 42.2 (37.0-47.0) % MCV 82.9 (80.0-98.0) fL MCH 28.7 (27.0-33.0) pg MCHC 34.6 (31.0-35.0) g/dl RDW 12.2 (11.0-16.0) % Plt Count 295 (160-400) X10*3/uL MPV 9.4 (9.4-12.3) fL Immature Gran % (Auto) 0.5 H (0.0-0.4) % Neut % (Auto) 80.1 H (45-73) % Lymph % (Auto) 12.9 L (20-40) % [place] % (Auto) 6.1 (2-11) % Eos % (Auto) 0.1 (0-4) % Baso % (Auto) 0.3 (0-2) % Lymph # (Auto) 1.8 (1.2-4.9) X10*3/uL [place] # (Auto) 0.9 (0.1-1.2) X10*3/uL Eos # (Auto) 0.0 (0.0-0.4) X10*3/uL Baso # (Auto) 0.0 (0.0-0.2) X10*3/uL Abs Immat Gran (auto) 0.07 H (0.00-0.03) X10*3/uL Absolute Neuts (auto) 11.3 H (2.0-8.3) x10*3/uL Absolute Nucleated RBC 0.000 (0.0-0.012) X10*3/uL Nucleated RBC % (auto) 0.0 (0.0-0.2) /100WBC Sodium 136 (135-145) mmol/L Potassium 3.2 L (3.3-5.1) mmol/L Chloride 100 (96-108) mmol/L Carbon Dioxide 20 L (22-29) mmol/L Anion Gap 19 (12-20) BUN 23 H (9-16) mg/dL Creatinine 0.93 (0.5-1.4) mg/dL Estim Creat Clear Calc 91.7 Estimated GFR > 60 Random Glucose 126 H (60-115) mg/dL Calcium 9.3 (8.4-10.2) mg/dL Total Bilirubin 1.0 (0.0-1.0) mg/dL Direct Bilirubin 0.3 (0.0-0.5) mg/dL AST 26 D (5-31) U/L ALT 26 (0-31) U/L Alkaline Phosphatase 71 (39-117) U/L Total Protein 8.2 H (6.5-8.0) g/dL Albumin 4.7 (3.5-5.0) g/dL Beta HCG, Quant < 2 mIU/mL Discharge Plan Discharge Clinical Impression: Nausea and vomiting, Cyclical vomiting, Hypokalemia, Dehydration Patient Disposition: Home, Self-Care Instructions: Dehydration (ED), Potassium Content of Foods List (ED), Hypokalemia (ED), Acute Nausea and Vomiting (ED), Cyclic Vomiting Syndrome (ED) Additional Instructions: Continue to drink plenty of water. Follow-up with your primary care provider by calling the office on Tuesday morning. Return to the ER for worsening symptoms. Prescriptions: New ondansetron 4 mg tablet,disintegrating 4 mg PO Q8H PRN (Reason: nausea and vomiting) Qty: 7 0RF No Action famotidine 20 mg tablet 20 mg PO BID Qty: 60 1RF cefuroxime axetil 250 mg tablet 250 mg PO BID 7 Days Qty: 14 0RF ondansetron 4 mg tablet,disintegrating 4 mg PO Q8H PRN (Reason: nausea and vomiting) Qty: 10 0RF sulfamethoxazole-trimethoprim [Bactrim DS] 800-160 mg tablet 1 tab PO BID 7 Days Qty: 14 0RF metoclopramide HCl [Reglan] 5 mg tablet 5 mg PO DAILY PRN (Reason: nausea and vomiting) Qty: 10 0RF lorazepam [Ativan] 1 mg tablet 1 mg PO BEDTIME PRN (Reason: anxiety) Qty: 10 0RF amoxicillin-pot clavulanate 875-125 mg tablet 1 tab PO Q12H 10 Days Qty: 20 0RF ibuprofen 600 mg tablet 600 mg PO Q6H PRN (Reason: pain) Qty: 60 0RF Referrals: Rebel Nance MD [Primary Care Provider] -
[2022-05-22 00:24] VITALS: BP 122/61; PULSE 74; RESP 18; O2SAT 100
== END 2022-05-22 00:25 | disposition home or self-care (01) ==
PROVIDERS: Emergency Provider Student in an Organized Health Care Education/Training Program; PCP Internal Medicine
DX: R11.15 Cyclical vomiting syndrome unrelated to migraine (principal); E86.0 Dehydration; E87.6 Hypokalemia; R11.2 Nausea with vomiting, unspecified; F12.10 Cannabis abuse, uncomplicated; Z79.899 Other long term (current) drug therapy; Z87.891 Personal history of nicotine dependence
CPT/HCPCS: 36415; 76700; 80053; 82248; 84702; 85025; 96361; 96374; 96375; 99283; 99284; J1200; J2765

== ENCOUNTER 2022-09-01 08:42 | Emergency (ER) | payer OTHER, SELFPAY ==
[2022-09-01 09:08] VITALS: BP 103/75; PULSE 97; RESP 20; TEMP 36.4; O2SAT 99; BMI 30.1
[2022-09-01] MEDS: Ondansetron ODT 4 MG TAB.RAPDIS TRANSLINGU (09:13)
[2022-09-01 09:33] LABS: MANUAL DIFF FLAG NO
[2022-09-01 09:35] LABS: Basophils Percent Auto 0.3 % (0-2); Eosinophils Percent Auto 0.2 % (0-4); Hematocrit 41.5 % (37.0-47.0); Imm Gran Abs Auto 0.05 X10*3/uL (0.00-0.03); Imm Gran Pct Auto 0.4 % (0.0-0.4); Lymphocytes Absolute Auto 2.4 X10*3/uL (1.2-4.9); Lymphocytes Percent Auto 20.5 % (20-40); Mean Corpuscular HGB Conc 33.7 g/dl (31.0-35.0); Mean Corpuscular Hemoglobin 28.8 pg (27.0-33.0); Mean Corpuscular Volume 85.4 fL (80.0-98.0); Mean Platelet Volume 9.7 fL (9.4-12.3); Monocytes Absolute Auto 0.7 X10*3/uL (0.1-1.2); Monocytes Percent Auto 5.5 % (2-11); Neutrophils Absolute Auto 8.7 x10*3/uL (2.0-8.3); Neutrophils Percent Auto 73.1 % (45-73); Platelet Count 244 X10*3/uL (160-400); Red Blood Count 4.86 X10*6/uL (4.20-5.50); Red Cell Distribution Width 12.6 % (11.0-16.0); White Blood Count 11.9 X10*3/uL (4.8-10.8)
[2022-09-01 09:52] LABS: Alanine Aminotransferase 16 U/L (0-31); Albumin Level 4.6 g/dL (3.5-5.0); Alkaline Phosphatase 70 U/L (39-117); Anion Gap 18 (12-20); Aspartate Amino Transferase 21 U/L (5-31); Bilirubin Direct 0.2 mg/dL (0.0-0.5); Bilirubin Total 0.5 mg/dL (0.0-1.0); Blood Urea Nitrogen 21 mg/dL (9-16); Calcium 9.8 mg/dL (8.4-10.2); Carbon Dioxide 19 mmol/L (22-29); Chloride 107 mmol/L (96-108); Creatinine Clr Calc Pharmacy 89.8; Estimated Glomerular Filt Rate > 60; Glucose Random 164 mg/dL (60-115); Lipase 6 U/L (8-78); Potassium 3.4 mmol/L (3.3-5.1); Sodium 141 mmol/L (135-145); Total Protein 7.9 g/dL (6.5-8.0)
== END 2022-09-01 15:32 | disposition left against medical advice (07) ==
PROVIDERS: Emergency Provider Emergency Medicine; PCP Internal Medicine
DX: R10.9 Unspecified abdominal pain (principal); K59.00 Constipation, unspecified; Z79.899 Other long term (current) drug therapy
CPT/HCPCS: 36415; 80048; 80076; 83690; 85025; 99281; 99283

== ENCOUNTER 2022-09-02 03:37 | Emergency (ER) | payer OTHER, SELFPAY ==
[2022-09-02 03:42] VITALS: BMI 23.3
--- NOTE | 2022-09-02 03:46 | PC.NURSE ---
Patient arrives via EMS from home endorsing abdominal pain and vomiting since yesterday. Patient reports she was here yesterday but the wait was too long, so she called 911 tonight hoping to be seen quicker. Per EMS, patient ambulatory on scene, bringing her pillow for the ride. [id number]. Patient is unsure if she's .
[2022-09-02 03:50] VITALS: BP 106/77; PULSE 103; RESP 20; TEMP 37.6; O2SAT 95
--- NOTE | 2022-09-02 03:50 | PC.NURSE ---
Patient with +nausea, +emesis. She is extremely anxious. +heartburn. I also haven't peed or shit since yesterday.
--- NOTE | 2022-09-02 03:55 | ED.NAVMDI ---
HPI - Nausea/Vomiting/Diarrhea General Chief complaint: Abdominal Pain Stated complaint: VOMITING X3DAYS,HERE TWO DAYS AGO [facility] Time Seen by Provider: 09/02/22 03:54 Source: patient Mode of arrival: ambulatory Limitations: no limitations History of Present Illness HPI Narrative: patient with history of cannabis abuse and cyclic vomiting syndrome comes in for 3 days of vomiting denies any use of cannabis lately feels very anxious diffuse abdominal pain no fever no chills no diarrhea. Related Data Previous Rx's Medication Instructions Recorded cefuroxime axetil 250 mg tablet 250 mg PO BID 7 days #14 tabs 01/19/22 ondansetron 4 mg disintegrating 4 mg PO Q8H PRN nausea and 01/19/22 tablet vomiting #10 tabs famotidine 20 mg tablet 20 mg PO BID #60 tabs 02/10/22 ibuprofen 600 mg tablet 600 mg PO Q6H PRN pain #60 tabs 05/02/22 metoclopramide HCl 5 mg tablet 5 mg PO DAILY PRN nausea and 05/18/22 (Reglan) vomiting #10 tabs lorazepam 1 mg tablet (Ativan) 1 mg PO BEDTIME PRN anxiety #10 05/20/22 tabs ondansetron 4 mg disintegrating 4 mg PO Q8H PRN nausea and 05/21/22 tablet vomiting #7 tabs lorazepam 1 mg tablet (Ativan) 1 mg PO BID PRN anxiety #20 tabs 09/02/22 ondansetron 4 mg disintegrating 4 mg PO Q6-8H PRN nausea and 09/02/22 tablet vomiting #15 tabs Allergies Allergy/AdvReac Type Severity Reaction Status Date / Time No Known Allergies Allergy Verified 05/27/22 08:56 [No Known Allergies*] Review of Systems Review of Systems: Yes all other systems are reviewed and are negative PMFSH Past Medical History Medical History Anxiety disorder, unspecified Lack of access to transportation Marijuana abuse Mild recurrent major depression Nausea and vomiting Right upper quadrant abdominal pain Surgical History History of D&C Family History Family History Maternal Grandmother Breast cancer Son Autism Daughter No problems noted. Mother No problems noted. Father Learning difficulty Mental health disorder Maternal Grandmother Breast cancer, Onset Age: 50 Maternal Uncle Testicular cancer, Onset Age: 60 Paternal Grandfather Diabetes mellitus Myocardial infarct Other Substance use disorder Social History Social History Housing: Apartment Alcohol intake: never Patient Tobacco Use Status: Former Tobacco user e-Cigarette/Vaping Use: Never Used Second Hand Smoke Exposure: No Advance Directives: No service: No Current occupational status: unemployed Cognitive needs: No Hearing needs: No Vision needs: No Physical Exam Vital Signs: Vital Signs: Last Vital Signs Temp 99.7 F 09/02/22 03:50 Pulse 103 H 09/02/22 03:50 Resp 20 09/02/22 03:50 BP 106/77 09/02/22 03:50 Pulse Ox 95 09/02/22 03:50 O2 Del Method 09/02/22 03:50 BMI result Body Mass Index 23.3 Appearance: Alert. Oriented X3. Anxious moderate distress Eyes: no pallor or icterus ENT: Pharynx normal. Oral Mucosa moist Neck: Normal inspection. Neck supple. CVS: Normal heart rate and rhythm. Pulses normal. Respiratory: No respiratory distress. Equal air entry bilateral, no wheezing/rales/rhonchi Abdomen: Soft , diffuse tenderness. Bowel sounds are present, no mass palpable, no CVA tenderness Skin: Skin warm and dry. Normal skin color. Normal skin turgor. Extremities: No lower extremity edema. No calf tenderness Neuro: Oriented X 3. No motor deficit. MDM - Nausea/Vomiting/Diarrhea MDM Narrative Medical decision making narrative: 04:00 patient has cyclic vomiting syndrome and cannabis abuse comes here for increased vomiting for last 3 days unable to hold any solids down. Also patient missed her period by 2 weeks. test is negative will give IV fluids supportive treatment patient taking p.o. fluids feeling much better Medical Records Attestation: I reviewed the patient's medical records. Lab Data Attestation: I reviewed the patient's lab results. Result diagrams: 09/02/22 03:56 09/02/22 03:56 Labs: Lab Results 09/02/22 09/02/22 09/02/22 Range/Units 03:56 04:07 04:07 WBC 14.7 H (4.8-10.8) X10*3/uL RBC 5.27 (4.20-5.50) X10*6/uL Hgb 15.0 (12.0-16.0) g/dl Hct 43.6 (37.0-47.0) % MCV 82.7 (80.0-98.0) fL MCH 28.5 (27.0-33.0) pg MCHC 34.4 (31.0-35.0) g/dl RDW 12.5 (11.0-16.0) % Plt Count 297 (160-400) X10*3/uL MPV 10.0 (9.4-12.3) fL Immature Gran % (Auto) 0.3 (0.0-0.4) % Neut % (Auto) 76.4 H (45-73) % Lymph % (Auto) 14.6 L (20-40) % Centre % (Auto) 8.4 (2-11) % Eos % (Auto) 0.2 (0-4) % Baso % (Auto) 0.1 (0-2) % Lymph # (Auto) 2.2 (1.2-4.9) X10*3/uL Centre # (Auto) 1.2 (0.1-1.2) X10*3/uL Eos # (Auto) 0.0 (0.0-0.4) X10*3/uL Baso # (Auto) 0.0 (0.0-0.2) X10*3/uL Abs Immat Gran (auto) 0.05 H (0.00-0.03) X10*3/uL Absolute Neuts (auto) 11.2 H (2.0-8.3) x10*3/uL Absolute Nucleated RBC 0.000 (0.0-0.012) X10*3/uL Nucleated RBC % (auto) 0.0 (0.0-0.2) /100WBC Urine Color Dark Yellow Urine Appearance Cloudy Urine pH 5.0 (5.0-9.0) Ur Specific [place] >= 1.030 H (1.005-1.025) Urine Protein 30 (1+) H (Neg-Trace) mg/dL Urine Glucose (UA) Negative (Negative) mg/dL Urine Ketones 15 (Negative) mg/dL Urine Blood Small (1+) H (Negative) Urine Nitrite Negative (Negative) Ur Leukocyte Esterase Trace H (Negative) Urine RBC 11-20 H (0-2) /HPF Urine WBC 6-10 H (0-5) /HPF Ur Squamous Epith Cells >20 (0-2) /HPF Urine Bacteria 1+ (None Seen) Hyaline Casts >20 (0-2) /LPF Urine Test NEGATIVE (NEGATIVE) Urine Opiates Screen (Not Detect) Urine Fentanyl Screen (Not Detect) Ur Barbiturates Screen (Not Detect) Ur Phencyclidine Scrn (Not Detect) Ur Amphetamines Screen (Not Detect) U Benzodiazepines Scrn (Not Detect) Urine Cocaine Screen (Not Detect) U Marijuana (THC) Screen (Not Detect) 09/02/22 Range/Units 04:07 WBC (4.8-10.8) X10*3/uL RBC (4.20-5.50) X10*6/uL Hgb (12.0-16.0) g/dl Hct (37.0-47.0) % MCV (80.0-98.0) fL MCH (27.0-33.0) pg MCHC (31.0-35.0) g/dl RDW (11.0-16.0) % Plt Count (160-400) X10*3/uL MPV (9.4-12.3) fL Immature Gran % (Auto) (0.0-0.4) % Neut % (Auto) (45-73) % Lymph % (Auto) (20-40) % Centre % (Auto) (2-11) % Eos % (Auto) (0-4) % Baso % (Auto) (0-2) % Lymph # (Auto) (1.2-4.9) X10*3/uL Centre # (Auto) (0.1-1.2) X10*3/uL Eos # (Auto) (0.0-0.4) X10*3/uL Baso # (Auto) (0.0-0.2) X10*3/uL Abs Immat Gran (auto) (0.00-0.03) X10*3/uL Absolute Neuts (auto) (2.0-8.3) x10*3/uL Absolute Nucleated RBC (0.0-0.012) X10*3/uL Nucleated RBC % (auto) (0.0-0.2) /100WBC Urine Color Urine Appearance Urine pH (5.0-9.0) Ur Specific [place] (1.005-1.025) Urine Protein (Neg-Trace) mg/dL Urine Glucose (UA) (Negative) mg/dL Urine Ketones (Negative) mg/dL Urine Blood (Negative) Urine Nitrite (Negative) Ur Leukocyte Esterase (Negative) Urine RBC (0-2) /HPF Urine WBC (0-5) /HPF Ur Squamous Epith Cells (0-2) /HPF Urine Bacteria (None Seen) Hyaline Casts (0-2) /LPF Urine Test (NEGATIVE) Urine Opiates Screen Not Detected (Not Detect) Urine Fentanyl Screen Not Detected (Not Detect) Ur Barbiturates Screen Not Detected (Not Detect) Ur Phencyclidine Scrn Not Detected (Not Detect) Ur Amphetamines Screen Not Detected (Not Detect) U Benzodiazepines Scrn Not Detected (Not Detect) Urine Cocaine Screen Not Detected (Not Detect) U Marijuana (THC) Screen POSITIVE H (Not Detect) Discharge Plan Discharge Clinical Impression: Cyclic vomiting syndrome, Cannabis abuse Patient Disposition: Home, Self-Care Instructions: Acute Nausea and Vomiting (ED), Cannabis Abuse (ED) Additional Instructions: drink plenty of fluids medicine for anxiety and vomiting as prescribed follow with PCP Prescriptions: New ondansetron 4 mg tablet,disintegrating 4 mg PO Q6-8H PRN (Reason: nausea and vomiting) Qty: 15 0RF lorazepam [Ativan] 1 mg tablet 1 mg PO BID PRN (Reason: anxiety) Qty: 20 0RF No Action famotidine 20 mg tablet 20 mg PO BID Qty: 60 1RF cefuroxime axetil 250 mg tablet 250 mg PO BID 7 Days Qty: 14 0RF ondansetron 4 mg tablet,disintegrating 4 mg PO Q8H PRN (Reason: nausea and vomiting) Qty: 10 0RF metoclopramide HCl [Reglan] 5 mg tablet 5 mg PO DAILY PRN (Reason: nausea and vomiting) Qty: 10 0RF lorazepam [Ativan] 1 mg tablet 1 mg PO BEDTIME PRN (Reason: anxiety) Qty: 10 0RF ondansetron 4 mg tablet,disintegrating 4 mg PO Q8H PRN (Reason: nausea and vomiting) Qty: 7 0RF ibuprofen 600 mg tablet 600 mg PO Q6H PRN (Reason: pain) Qty: 60 0RF
--- NOTE | 2022-09-02 03:59 | PC.NURSE ---
Patient states she might be . She ambulates steadily to restroom to provide urine sample.
[2022-09-02 04:03] LABS: Basophils Percent Auto 0.1 % (0-2); Eosinophils Percent Auto 0.2 % (0-4); Hematocrit 43.6 % (37.0-47.0); Imm Gran Abs Auto 0.05 X10*3/uL (0.00-0.03); Imm Gran Pct Auto 0.3 % (0.0-0.4); Lymphocytes Absolute Auto 2.2 X10*3/uL (1.2-4.9); Lymphocytes Percent Auto 14.6 % (20-40); MANUAL DIFF FLAG NO; Mean Corpuscular HGB Conc 34.4 g/dl (31.0-35.0); Mean Corpuscular Hemoglobin 28.5 pg (27.0-33.0); Mean Corpuscular Volume 82.7 fL (80.0-98.0); Monocytes Absolute Auto 1.2 X10*3/uL (0.1-1.2); Monocytes Percent Auto 8.4 % (2-11); Neutrophils Absolute Auto 11.2 x10*3/uL (2.0-8.3); Neutrophils Percent Auto 76.4 % (45-73); Platelet Count 297 X10*3/uL (160-400); Red Blood Count 5.27 X10*6/uL (4.20-5.50); Red Cell Distribution Width 12.5 % (11.0-16.0); White Blood Count 14.7 X10*3/uL (4.8-10.8)
[2022-09-02] MEDS: Midazolam HCl/PF 2 MG/2 ML VIAL 1 MG IVPUSH (04:03)
[2022-09-02] MEDS: ondansetron HCL 4 MG/2 ML VIAL IVPUSH (04:03)
[2022-09-02] MEDS: 0.9 % Sodium Chloride 1,000 ML 999 ML IV (04:04)
[2022-09-02 04:14] LABS: Appearance Urine Cloudy; Color Urine Dark Yellow; Glucose Urine UA Negative (Negative); Leukocyte Esterase Urine Trace (Negative); Nitrite Urine Negative (Negative); Specific Gravity - Urine >= 1.030 (1.005-1.025); UMIC TRIGGER UACC YES; Urine Blood Small (1+) (Negative); Urine Ketones 15 mg/dL (Negative); Urine Protein 30 (1+) mg/dL (Neg-Trace)
[2022-09-02 04:16] LABS: UPreg QC Valid YES; Urine Pregnancy NEGATIVE (NEGATIVE)
[2022-09-02 04:42] LABS: Amphetamine Screen Urine Not Detected (Not Detect); Barbiturates, Urine Not Detected (Not Detect); Benzodiazepines Screen Urine Not Detected (Not Detect); Cannabinoid Screen Urine POSITIVE (Not Detect); Cocaine Screen Urine Not Detected (Not Detect); Fentanyl, urine Not Detected (Not Detect); Opiate Screen Urine Not Detected (Not Detect); Phencyclidine Screen Urine Not Detected (Not Detect)
[2022-09-02 04:54] LABS: Bacteria Urine 1+ (None Seen); Hyaline Casts Urine >20 /LPF (0-2); Squamous Epithelial Cell Urine >20 /HPF (0-2); UACC Culture Trigger YES
--- NOTE | 2022-09-02 05:26 | PC.NURSE ---
10mg compazine given now IV during downtime. patient unable to pass PO challenge. she states her UTOX is positive for marijuana because her does it.
--- NOTE | 2022-09-02 05:35 | PC.NURSE ---
patient endorses a sore throat from vomiting her PO challenge of apple juice. MD Reyes made aware. to try lidocaine.
[2022-09-02 06:17] VITALS: BP 112/73; PULSE 99; RESP 18; TEMP 37.3; O2SAT 97
[2022-09-02] MEDS: Prochlorperazine Edisylate 10 MG/2 ML VIAL IVPUSH (06:30)
[2022-09-02] MEDS: Lidocaine HCl Viscous 2 % 15 ML SOLUTION MUCOUS MEM (06:30)
[2022-09-02] MEDS: Magnesium Hydrox/Alum Hydrox 30 ML ORAL.SUSP PO (06:31)
--- NOTE | 2022-09-02 06:42 | PC.NURSE ---
Patient states she is now well rested enough to go home. PIV removed and patient walks out steadily and well-appearing. She has already been given her discharge paperwork.
== END 2022-09-02 06:42 | disposition home or self-care (01) ==
PROVIDERS: Emergency Provider Internal Medicine
DX: F12.19 Cannabis abuse with unspecified cannabis-induced disorder (principal); R11.15 Cyclical vomiting syndrome unrelated to migraine; Z79.899 Other long term (current) drug therapy
CPT/HCPCS: 36415; 80307; 81001; 81025; 85025; 87086; 96361; 96374; 96375; 99284; J2250; J2405

== ENCOUNTER 2022-09-03 11:48 | Emergency (ER) | payer OTHER, SELFPAY ==
--- NOTE | ~2022-09-03 | US_ITS ---
EXAMINATION: US ABDOMEN LIMITED CLINICAL INFORMATION: Pain. COMPARISON: 05/21/2022 TECHNIQUE: Real-time imaging of the right upper quadrant abdominal viscera. FINDINGS: The pancreas is poorly delineated. Not adequately seen. No free fluid in the area. Liver is felt to be within normal limits. No ductal dilatation. No lesion. Gallbladder is demonstrating no evidence for stone or edema. Common duct is 2 mm within normal limits. The right kidney is 11.7 cm. No hydronephrosis or stone. US/US abdomen limited IMPRESSION: No evidence for cholelithiasis or cholecystitis. There is no free fluid. No ductal dilatation.
--- NOTE | ~2022-09-03 | US_ITS ---
EXAMINATION: US RETROPERITONEAL LIMITED (RENAL ONLY) CLINICAL INFORMATION: Hematuria. COMPARISON: Abdominal ultrasound dated 05/21/2022, CT scan of the abdomen and pelvis dated 01/19/2022. TECHNIQUE: Multiple 2-D grayscale and color Doppler ultrasound images of the kidneys were obtained. FINDINGS: RIGHT KIDNEY: 11.7 x 4.9 x 5.8 cm (SAG x AP x TRV). The kidney is normal in size, contour, and echogenicity. Renal cortical thickness is normal. No calculi or focal parenchymal lesions. No hydronephrosis. LEFT KIDNEY: 10.0 x 4.6 x 5.2 cm (SAG x AP x TRV). The kidney is normal in size, contour, and echogenicity. Renal cortical thickness is normal. No calculi or focal parenchymal lesions. No hydronephrosis. US/US renal BI IMPRESSION: Unremarkable renal ultrasound.
[2022-09-03 11:56] VITALS: BP 135/80; PULSE 69; O2SAT 100
[2022-09-03 12:42] VITALS: BP 129/77; PULSE 83; RESP 18; TEMP 36.2; O2SAT 100; BMI 30.1
[2022-09-03 12:57] LABS: Appearance Urine Cloudy; Color Urine Dark Yellow; Glucose Urine UA Negative (Negative); Leukocyte Esterase Urine Trace (Negative); Nitrite Urine Negative (Negative); Specific Gravity - Urine >= 1.030 (1.005-1.025); UMIC TRIGGER UACC YES; Urine Blood Trace (Negative); Urine Ketones 40 mg/dL (Negative); Urine Protein 30 (1+) mg/dL (Neg-Trace)
[2022-09-03 12:59] LABS: Bacteria Urine 2+ (None Seen); Hyaline Casts Urine 0-2 /LPF (0-2); WBC Urine 0-5 /HPF (0-5)
[2022-09-03 13:04] LABS: UPreg QC Valid YES; Urine Pregnancy NEGATIVE (NEGATIVE)
[2022-09-03] MEDS: Ondansetron ODT 4 MG TAB.RAPDIS TRANSLINGU (15:00)
[2022-09-03] MEDS: Acetaminophen 325 MG TABLET 650 MG PO (16:36)
--- NOTE | 2022-09-03 18:14 | ED.NAVMDI ---
HPI - Nausea/Vomiting/Diarrhea General Chief complaint: Nausea/Vomiting/Diarrhea Stated complaint: N/V X 3 DAYS Time Seen by Provider: 09/03/22 18:14 Source: patient and EMS Mode of arrival: EMS Limitations: no limitations History of Present Illness HPI Narrative: 26-year-old female presents via EMS for nausea, vomiting, and abdominal pain. She was evaluated at this facility on 09/02/2022 and diagnosed with cyclic vomiting syndrome. She was given Zofran, but she states the Zofran has not helped her she states that she has vomiting all day and has had no p.o. intake. MD elicited complaint: nausea, vomiting and abdominal pain Pertinent past history: other (Cyclic vomiting syndrome ) Onset (ago): day(s) Description of vomiting: bilious Associated nausea: Yes Associated abdominal pain: Yes Location of pain: RUQ Pain consistency: constant Severity: moderate Quality: cramping Exacerbating factors: vomiting Relieving factors: none Context: marijuana use Associated symptoms: denies other symptoms Related Data Previous Rx's Medication Instructions Recorded cefuroxime axetil 250 mg tablet 250 mg PO BID 7 days #14 tabs 01/19/22 ondansetron 4 mg disintegrating 4 mg PO Q8H PRN nausea and 01/19/22 tablet vomiting #10 tabs famotidine 20 mg tablet 20 mg PO BID #60 tabs 02/10/22 ibuprofen 600 mg tablet 600 mg PO Q6H PRN pain #60 tabs 05/02/22 metoclopramide HCl 5 mg tablet 5 mg PO DAILY PRN nausea and 05/18/22 (Reglan) vomiting #10 tabs lorazepam 1 mg tablet (Ativan) 1 mg PO BEDTIME PRN anxiety #10 05/20/22 tabs ondansetron 4 mg disintegrating 4 mg PO Q8H PRN nausea and 05/21/22 tablet vomiting #7 tabs lorazepam 1 mg tablet (Ativan) 1 mg PO BID PRN anxiety #20 tabs 09/02/22 ondansetron 4 mg disintegrating 4 mg PO Q6-8H PRN nausea and 09/02/22 tablet vomiting #15 tabs metoclopramide HCl 10 mg tablet 10 mg PO Q6H PRN nausea and 09/03/22 (Reglan) vomiting #10 tabs Allergies Allergy/AdvReac Type Severity Reaction Status Date / Time No Known Allergies Allergy Verified 05/27/22 08:56 [No Known Allergies*] Review of Systems Review of Systems: Constitutional: No Fever, No Chills ENT/Mouth: No Ear Pain, No Hoarseness, No sore throat Eyes: No Eye Pain, No Swelling, No Redness, No Foreign Body Cardiovascular: No Chest Pain, No SOB Respiratory: No Cough, No Dyspnea Gastrointestinal: Positive Nausea, positive Vomiting, No Diarrhea, positive right upper quadrant abdominal Pain Genitourinary: No Dysuria, No Hematuria Musculoskeletal: No joint pain, No Myalgias, No Joint Swelling Skin: No Skin lacerations, No rash Neuro: No Weakness, No Numbness, No Paresthesias, No Loss of Consciousness, No Dizziness, No Headache Psych: No Anxiety/Panic, No Depression Heme/Lymph: no easy bruising, no Lymphadenopathy Endocrine: No Polyuria, No Polydipsia Yes all other systems are reviewed and are negative Gastrointestinal: Gastrointestinal: Reports nausea PMFSH Past Medical History Attestation statement: The following information was validated with the patient. Source: old records reviewed Medical History Anxiety disorder, unspecified Lack of access to transportation Marijuana abuse Mild recurrent major depression Nausea and vomiting Right upper quadrant abdominal pain Surgical History History of D&C Family History Family History Maternal Grandmother Breast cancer Son Autism Daughter No problems noted. Mother No problems noted. Father Learning difficulty Mental health disorder Maternal Grandmother Breast cancer, Onset Age: 50 Maternal Uncle Testicular cancer, Onset Age: 60 Paternal Grandfather Diabetes mellitus Myocardial infarct Other Substance use disorder Social History Social History Housing: Apartment Alcohol intake: never Patient Tobacco Use Status: Former Tobacco user e-Cigarette/Vaping Use: Never Used Second Hand Smoke Exposure: No Advance Directives: No Advance Directives Information Provided: Yes service: No Current occupational status: unemployed Cognitive needs: No Hearing needs: No Vision needs: No Physical Exam Vital Signs: Vital Signs: Last Vital Signs Temp 97.8 F 09/04/22 00:11 Pulse 70 09/04/22 00:11 Resp 16 09/04/22 00:11 BP 122/77 09/04/22 00:11 Pulse Ox 99 09/04/22 00:11 O2 Del Method 09/04/22 00:11 BMI result Body Mass Index 30.1 Appearance: Alert. Oriented X3. No acute distress. Eyes: Pupils equal, round and reactive to light. Sclera nonicteric. ENT: Pharynx normal. Neck: Normal inspection. Neck supple. CVS: Normal heart rate and rhythm. Pulses normal. Respiratory: No respiratory distress. Breath sounds normal. Abdomen: Soft and right upper quadrant tenderness to palpation. No rigidity or distention. Skin: Skin warm and dry. Normal skin color. Normal skin turgor. Extremities: No lower extremity edema. Gait well-balanced well coordinated Neuro: No motor deficit. No sensory deficit. Cranial nerves 2-12 intact Course Course Course Narrative: 26-year-old presents for cyclic vomiting syndrome. Has a history of presentation for nausea, vomiting, abdominal pain marijuana use was evaluated on 09/02/2022 and discharged with Zofran, which she states was ineffective. Patient is ambulatory, appears well, vital signs are stable and within normal limits. Will order labs, ultrasound of the right upper quadrant and renals as she does have some heme in her urine. 23:00 ultrasounds are negative for acute findings. Will attempt a p.o. challenge. 23:22 patient feels better, no further vomiting. Patient able to tolerate p.o. intake. Plan of care is to give Reglan, and have patient follow with primary care provider. Patient verbalized understanding of and agrees to plan of care discharge home. Verbalized understanding of signs symptoms indicating need for emergent intervention. MDM - Nausea/Vomiting/Diarrhea Differential Diagnosis Differential diagnosis: Likely gastroenteritis, drug-induced nausea and vomiting and dehydration Medical Records Attestation: I reviewed the patient's medical records. Lab Data Attestation: I reviewed the patient's lab results. Result diagrams: 09/03/22 18:52 09/03/22 18:52 Labs: Lab Results 09/03/22 09/03/22 09/03/22 Range/Units 12:49 12:49 18:52 WBC 14.5 H (4.8-10.8) X10*3/uL RBC 5.01 (4.20-5.50) X10*6/uL Hgb 14.7 (12.0-16.0) g/dl Hct 42.6 (37.0-47.0) % MCV 85.0 (80.0-98.0) fL MCH 29.3 (27.0-33.0) pg MCHC 34.5 (31.0-35.0) g/dl RDW 12.4 (11.0-16.0) % Plt Count 236 (160-400) X10*3/uL MPV 9.6 (9.4-12.3) fL Immature Gran % (Auto) 0.4 (0.0-0.4) % Neut % (Auto) 64.1 (45-73) % Lymph % (Auto) 25.4 (20-40) % [place] % (Auto) 9.2 (2-11) % Eos % (Auto) 0.6 (0-4) % Baso % (Auto) 0.3 (0-2) % Lymph # (Auto) 3.7 (1.2-4.9) X10*3/uL [place] # (Auto) 1.3 H (0.1-1.2) X10*3/uL Eos # (Auto) 0.1 (0.0-0.4) X10*3/uL Baso # (Auto) 0.1 (0.0-0.2) X10*3/uL Abs Immat Gran (auto) 0.06 H (0.00-0.03) X10*3/uL Absolute Neuts (auto) 9.3 H (2.0-8.3) x10*3/uL Absolute Nucleated RBC 0.000 (0.0-0.012) X10*3/uL Nucleated RBC % (auto) 0.0 (0.0-0.2) /100WBC Sodium (135-145) mmol/L Potassium (3.3-5.1) mmol/L Chloride (96-108) mmol/L Carbon Dioxide (22-29) mmol/L Anion Gap (12-20) BUN (9-16) mg/dL Creatinine (0.5-1.4) mg/dL Estim Creat Clear Calc Estimated GFR Random Glucose (60-115) mg/dL Calcium (8.4-10.2) mg/dL Urine Color Dark Yellow Urine Appearance Cloudy Urine pH 6.0 (5.0-9.0) Ur Specific [place] >= 1.030 H (1.005-1.025) Urine Protein 30 (1+) H (Neg-Trace) mg/dL Urine Glucose (UA) Negative (Negative) mg/dL Urine Ketones 40 (Negative) mg/dL Urine Blood Trace H (Negative) Urine Nitrite Negative (Negative) Ur Leukocyte Esterase Trace H (Negative) Urine RBC 6-10 H (0-2) /HPF Urine WBC 0-5 (0-5) /HPF Ur Squamous Epith Cells 11-20 (0-2) /HPF Urine Bacteria 2+ (None Seen) Hyaline Casts 0-2 (0-2) /LPF Urine Test NEGATIVE (NEGATIVE) 09/03/22 Range/Units 18:52 WBC (4.8-10.8) X10*3/uL RBC (4.20-5.50) X10*6/uL Hgb (12.0-16.0) g/dl Hct (37.0-47.0) % MCV (80.0-98.0) fL MCH (27.0-33.0) pg MCHC (31.0-35.0) g/dl RDW (11.0-16.0) % Plt Count (160-400) X10*3/uL MPV (9.4-12.3) fL Immature Gran % (Auto) (0.0-0.4) % Neut % (Auto) (45-73) % Lymph % (Auto) (20-40) % [place] % (Auto) (2-11) % Eos % (Auto) (0-4) % Baso % (Auto) (0-2) % Lymph # (Auto) (1.2-4.9) X10*3/uL [place] # (Auto) (0.1-1.2) X10*3/uL Eos # (Auto) (0.0-0.4) X10*3/uL Baso # (Auto) (0.0-0.2) X10*3/uL Abs Immat Gran (auto) (0.00-0.03) X10*3/uL Absolute Neuts (auto) (2.0-8.3) x10*3/uL Absolute Nucleated RBC (0.0-0.012) X10*3/uL Nucleated RBC % (auto) (0.0-0.2) /100WBC Sodium 135 (135-145) mmol/L Potassium 3.2 L (3.3-5.1) mmol/L Chloride 93 L (96-108) mmol/L Carbon Dioxide 26 (22-29) mmol/L Anion Gap 19 (12-20) BUN 25 H (9-16) mg/dL Creatinine 1.10 (0.5-1.4) mg/dL Estim Creat Clear Calc 77.5 Estimated GFR > 60 Random Glucose 102 (60-115) mg/dL Calcium 9.6 (8.4-10.2) mg/dL Urine Color Urine Appearance Urine pH (5.0-9.0) Ur Specific [place] (1.005-1.025) Urine Protein (Neg-Trace) mg/dL Urine Glucose (UA) (Negative) mg/dL Urine Ketones (Negative) mg/dL Urine Blood (Negative) Urine Nitrite (Negative) Ur Leukocyte Esterase (Negative) Urine RBC (0-2) /HPF Urine WBC (0-5) /HPF Ur Squamous Epith Cells (0-2) /HPF Urine Bacteria (None Seen) Hyaline Casts (0-2) /LPF Urine Test (NEGATIVE) Imaging Data Right upper quadrant and renal ultrasound: Attestation: I personally reviewed and interpreted this imaging study as follows: Radiologist's impression: FINDINGS: The pancreas is poorly delineated. Not adequately seen. No free fluid in the area. Liver is felt to be within normal limits. No ductal dilatation. No lesion. Gallbladder is demonstrating no evidence for stone or edema. Common duct is 2 mm within normal limits. The right kidney is 11.7 cm. No hydronephrosis or stone. US/US abdomen limited IMPRESSION: No evidence for cholelithiasis or cholecystitis. There is no free fluid. No ductal dilatation. EXAMINATION: US RETROPERITONEAL LIMITED (RENAL ONLY) CLINICAL INFORMATION: Hematuria. COMPARISON: Abdominal ultrasound dated 05/21/2022, CT scan of the abdomen and pelvis dated 01/19/2022. TECHNIQUE: Multiple 2-D grayscale and color Doppler ultrasound images of the kidneys were obtained. FINDINGS: RIGHT KIDNEY: 11.7 x 4.9 x 5.8 cm (SAG x AP x TRV). The kidney is normal in size, contour, and echogenicity. Renal cortical thickness is normal. No calculi or focal parenchymal lesions. No hydronephrosis. LEFT KIDNEY: 10.0 x 4.6 x 5.2 cm (SAG x AP x TRV). The kidney is normal in size, contour, and echogenicity. Renal cortical thickness is normal. No calculi or focal parenchymal lesions. No hydronephrosis. US/US renal BI IMPRESSION: Unremarkable renal ultrasound. Discharge Plan Discharge Clinical Impression: Cyclic vomiting syndrome Patient Disposition: Home, Self-Care Instructions: Cyclic Vomiting Syndrome (ED) Additional Instructions: Your evaluated for abdominal pain nausea and vomiting. Ultrasound of the abdomen is negative for findings. Please take Reglan every 6 needed for nausea and vomiting. Take 25 mg of Benadryl when you take this medication and side effects Thank you for choosing this emergency department for evaluation. Please follow-up with primary care physician as needed. Return to the emergency department for any new, concerning, or worsening symptoms. Prescriptions: New metoclopramide HCl [Reglan] 10 mg tablet 10 mg PO Q6H PRN (Reason: nausea and vomiting) Qty: 10 0RF No Action famotidine 20 mg tablet 20 mg PO BID Qty: 60 1RF cefuroxime axetil 250 mg tablet 250 mg PO BID 7 Days Qty: 14 0RF ondansetron 4 mg tablet,disintegrating 4 mg PO Q8H PRN (Reason: nausea and vomiting) Qty: 10 0RF metoclopramide HCl [Reglan] 5 mg tablet 5 mg PO DAILY PRN (Reason: nausea and vomiting) Qty: 10 0RF lorazepam [Ativan] 1 mg tablet 1 mg PO BEDTIME PRN (Reason: anxiety) Qty: 10 0RF ondansetron 4 mg tablet,disintegrating 4 mg PO Q8H PRN (Reason: nausea and vomiting) Qty: 7 0RF ibuprofen 600 mg tablet 600 mg PO Q6H PRN (Reason: pain) Qty: 60 0RF ondansetron 4 mg tablet,disintegrating 4 mg PO Q6-8H PRN (Reason: nausea and vomiting) Qty: 15 0RF lorazepam [Ativan] 1 mg tablet 1 mg PO BID PRN (Reason: anxiety) Qty: 20 0RF Stand Alone Forms: Work/School Release Interventions: ED Discharge Assessment Last Done: 09/04/22 00:14 Discharge Date/Time: 09/04/22 00:15
[2022-09-03 18:57] LABS: MANUAL DIFF FLAG NO
[2022-09-03 19:07] LABS: Basophils Absolute Auto 0.1 X10*3/uL (0.0-0.2); Basophils Percent Auto 0.3 % (0-2); Eosinophils Absolute Auto 0.1 X10*3/uL (0.0-0.4); Eosinophils Percent Auto 0.6 % (0-4); Hematocrit 42.6 % (37.0-47.0); Hemoglobin 14.7 g/dl (12.0-16.0); Imm Gran Abs Auto 0.06 X10*3/uL (0.00-0.03); Imm Gran Pct Auto 0.4 % (0.0-0.4); Lymphocytes Absolute Auto 3.7 X10*3/uL (1.2-4.9); Lymphocytes Percent Auto 25.4 % (20-40); Mean Corpuscular HGB Conc 34.5 g/dl (31.0-35.0); Mean Corpuscular Hemoglobin 29.3 pg (27.0-33.0); Mean Platelet Volume 9.6 fL (9.4-12.3); Monocytes Absolute Auto 1.3 X10*3/uL (0.1-1.2); Monocytes Percent Auto 9.2 % (2-11); Neutrophils Absolute Auto 9.3 x10*3/uL (2.0-8.3); Neutrophils Percent Auto 64.1 % (45-73); Platelet Count 236 X10*3/uL (160-400); Red Blood Count 5.01 X10*6/uL (4.20-5.50); Red Cell Distribution Width 12.4 % (11.0-16.0); White Blood Count 14.5 X10*3/uL (4.8-10.8)
[2022-09-03 19:16] LABS: Anion Gap 19 (12-20); Blood Urea Nitrogen 25 mg/dL (9-16); Calcium 9.6 mg/dL (8.4-10.2); Carbon Dioxide 26 mmol/L (22-29); Chloride 93 mmol/L (96-108); Creatinine Clr Calc Pharmacy 77.5; Estimated Glomerular Filt Rate > 60; Glucose Random 102 mg/dL (60-115); Potassium 3.2 mmol/L (3.3-5.1); Sodium 135 mmol/L (135-145)
[2022-09-03 20:16] VITALS: BP 135/66; PULSE 78; RESP 20; TEMP 37.4; O2SAT 98
[2022-09-03] MEDS: 0.9 % Sodium Chloride 1,000 ML 999 ML IVCONT (20:40)
[2022-09-03] MEDS: diphenhydrAMINE HCL 50 MG/ML VIAL 25 MG IVPUSH (20:40)
[2022-09-03] MEDS: Metoclopramide HCl 10 MG/2 ML VIAL IVPUSH (20:40)
[2022-09-04 00:11] VITALS: BP 122/77; PULSE 70; RESP 16; TEMP 36.6; O2SAT 99
== END 2022-09-04 00:15 | disposition home or self-care (01) ==
PROVIDERS: Emergency Provider Internal Medicine; PCP Nurse Practitioner Family
DX: G43.A0 Cyclical vomiting, in migraine, not intractable (principal); R10.11 Right upper quadrant pain; Z79.899 Other long term (current) drug therapy; Z87.891 Personal history of nicotine dependence
CPT/HCPCS: 36415; 76705; 76775; 80048; 81001; 81025; 85025; 96361; 96374; 96375; 99284; J1200; J2765

== ENCOUNTER 2022-10-26 08:43 | Emergency (ER) | payer OTHER, SELFPAY ==
[2022-10-26 08:53] VITALS: BP 121/52; PULSE 82; RESP 18; TEMP 36.7; O2SAT 95; BMI 30.8
[2022-10-26 09:03] LABS: MANUAL DIFF FLAG NO
[2022-10-26 09:07] LABS: Basophils Percent Auto 0.2 % (0-2); Eosinophils Absolute Auto 0.1 X10*3/uL (0.0-0.4); Eosinophils Percent Auto 0.7 % (0-4); Hemoglobin 13.8 g/dl (12.0-16.0); Imm Gran Abs Auto 0.05 X10*3/uL (0.00-0.03); Imm Gran Pct Auto 0.5 % (0.0-0.4); Lymphocytes Absolute Auto 1.9 X10*3/uL (1.2-4.9); Lymphocytes Percent Auto 17.4 % (20-40); Mean Corpuscular HGB Conc 32.9 g/dl (31.0-35.0); Mean Corpuscular Hemoglobin 28.9 pg (27.0-33.0); Mean Corpuscular Volume 88.1 fL (80.0-98.0); Mean Platelet Volume 9.1 fL (9.4-12.3); Monocytes Absolute Auto 0.7 X10*3/uL (0.1-1.2); Monocytes Percent Auto 6.2 % (2-11); Neutrophils Absolute Auto 8.3 x10*3/uL (2.0-8.3); Platelet Count 282 X10*3/uL (160-400); Red Blood Count 4.77 X10*6/uL (4.20-5.50); Red Cell Distribution Width 12.6 % (11.0-16.0)
[2022-10-26 09:24] LABS: Alanine Aminotransferase 14 U/L (0-31); Albumin Level 4.5 g/dL (3.5-5.0); Alkaline Phosphatase 60 U/L (39-117); Anion Gap 9 (12-20); Aspartate Amino Transferase 16 U/L (5-31); Blood Urea Nitrogen 16 mg/dL (9-16); Calcium 9.3 mg/dL (8.4-10.2); Carbon Dioxide 25 mmol/L (22-29); Chloride 109 mmol/L (96-108); Creatinine Clr Calc Pharmacy 106.5; Estimated Glomerular Filt Rate > 60; Glucose Random 114 mg/dL (60-115); Potassium 4.3 mmol/L (3.3-5.1); Sodium 139 mmol/L (135-145); Total Protein 7.5 g/dL (6.5-8.0)
[2022-10-26 11:32] LABS: Bilirubin Total 0.4 mg/dL (0.0-1.0)
[2022-10-26] MEDS: Acetaminophen 325 MG TABLET 975 MG PO (13:02)
[2022-10-26 13:25] LABS: Appearance Urine Clear; Color Urine Yellow; Glucose Urine UA Negative (Negative); Leukocyte Esterase Urine Negative (Negative); Nitrite Urine Negative (Negative); Specific Gravity - Urine 1.025 (1.005-1.025); Urine Blood Negative (Negative); Urine Ketones Negative (Negative); Urine Protein Negative (Neg-Trace)
[2022-10-26 13:38] LABS: UPreg QC Valid YES
[2022-10-26 13:39] LABS: Urine Pregnancy NEGATIVE (NEGATIVE)
[2022-10-26 13:50] LABS: HCG Quantitative < 2 mIU/mL; Lipase 11 U/L (8-78)
--- NOTE | 2022-10-26 14:18 | PC.NURSE ---
provider attempted to assess patient, pt refused and walked away after short discussion.
--- NOTE | 2022-10-26 14:18 | ED.ABDPAIN ---
HPI - Abdominal Pain General Chief Complaint: Nausea/Vomiting/Diarrhea Stated Complaint: Abd pain/Diarrhea Related Data Previous Rx's Medication Instructions Recorded cefuroxime axetil 250 mg tablet 250 mg PO BID 7 days #14 tabs 01/19/22 ondansetron 4 mg disintegrating 4 mg PO Q8H PRN nausea and 01/19/22 tablet vomiting #10 tabs famotidine 20 mg tablet 20 mg PO BID #60 tabs 02/10/22 ibuprofen 600 mg tablet 600 mg PO Q6H PRN pain #60 tabs 05/02/22 metoclopramide HCl 5 mg tablet 5 mg PO DAILY PRN nausea and 05/18/22 (Reglan) vomiting #10 tabs lorazepam 1 mg tablet (Ativan) 1 mg PO BEDTIME PRN anxiety #10 05/20/22 tabs ondansetron 4 mg disintegrating 4 mg PO Q8H PRN nausea and 05/21/22 tablet vomiting #7 tabs lorazepam 1 mg tablet (Ativan) 1 mg PO BID PRN anxiety #20 tabs 09/02/22 ondansetron 4 mg disintegrating 4 mg PO Q6-8H PRN nausea and 09/02/22 tablet vomiting #15 tabs metoclopramide HCl 10 mg tablet 10 mg PO Q6H PRN nausea and 09/03/22 (Reglan) vomiting #10 tabs Allergies Allergy/AdvReac Type Severity Reaction Status Date / Time No Known Allergies Allergy Verified 05/27/22 08:56 [No Known Allergies*] [facility] Past Medical History Medical History Anxiety disorder, unspecified Lack of access to transportation Marijuana abuse Mild recurrent major depression Nausea and vomiting Right upper quadrant abdominal pain Surgical History History of D&C Family History Family History Maternal Grandmother Breast cancer Son Autism Daughter No problems noted. Mother No problems noted. Father Learning difficulty Mental health disorder Maternal Grandmother Breast cancer, Onset Age: 50 Maternal Uncle Testicular cancer, Onset Age: 60 Paternal Grandfather Diabetes mellitus Myocardial infarct Other Substance use disorder Social History Social History Housing: Apartment Alcohol intake: never Patient Tobacco Use Status: Former Tobacco user e-Cigarette/Vaping Use: Never Used Second Hand Smoke Exposure: No Advance Directives: No Advance Directives Information Provided: No service: No Current occupational status: unemployed Cognitive needs: No Hearing needs: No Vision needs: No Physical Exam ED Vital Signs: Vital Signs - 24 hr 10/26/22 08:53 Temperature 98.0 F Pulse Rate 82 Respiratory Rate 18 Blood Pressure 121/52 L Pulse Oximetry 95 Oxygen Delivery Method Room Air BMI result Body Mass Index 30.8 Course Course Course Narrative: RME: Patient is a 26 old female who presents emergency department for evaluation of diarrhea. Reports diarrhea multiple times daily for the past 5 days. She states that is also awaking her from sleep at night. Denies any blood or dark stools. She states that she has been getting intermittent pain to the abdomen associated with this, diffuse lower abdomen. However, today since arriving to the emergency department she states that her pain is become more constant and severe. She is very upset and argumentative. Upon physical examination she declines to have assessment of her abdomen. She denies any fevers, chills, chest pain, shortness of breath, nausea, vomiting, dysuria, urinary frequency, possibility of , abnormal vaginal discharge. Had labs obtained from initial triage a mild leukocytosis with left shift, overall unremarkable CMP, lipase within normal limits, urinalysis without evidence of infection, urine test is negative. Plan: Advised patient abdominal examination is required for further evaluation and treatment. Patient steps out of a tree a upset, willing to have examination Medical Decision Making Lab Data Result Diagrams: 10/26/22 08:59 10/26/22 08:59 Labs: Lab Results 10/26/22 10/26/22 10/26/22 Range/Units 08:59 08:59 13:07 WBC 11.0 H (4.8-10.8) X10*3/uL RBC 4.77 (4.20-5.50) X10*6/uL Hgb 13.8 (12.0-16.0) g/dl Hct 42.0 (37.0-47.0) % MCV 88.1 (80.0-98.0) fL MCH 28.9 (27.0-33.0) pg MCHC 32.9 (31.0-35.0) g/dl RDW 12.6 (11.0-16.0) % Plt Count 282 (160-400) X10*3/uL MPV 9.1 L (9.4-12.3) fL Immature Gran % (Auto) 0.5 H (0.0-0.4) % Neut % (Auto) 75.0 H (45-73) % Lymph % (Auto) 17.4 L (20-40) % [place] % (Auto) 6.2 (2-11) % Eos % (Auto) 0.7 (0-4) % Baso % (Auto) 0.2 (0-2) % Lymph # (Auto) 1.9 (1.2-4.9) X10*3/uL [place] # (Auto) 0.7 (0.1-1.2) X10*3/uL Eos # (Auto) 0.1 (0.0-0.4) X10*3/uL Baso # (Auto) 0.0 (0.0-0.2) X10*3/uL Abs Immat Gran (auto) 0.05 H (0.00-0.03) X10*3/uL Absolute Neuts (auto) 8.3 (2.0-8.3) x10*3/uL Absolute Nucleated RBC 0.000 (0.0-0.012) X10*3/uL Nucleated RBC % (auto) 0.0 (0.0-0.2) /100WBC Sodium 139 (135-145) mmol/L Potassium 4.3 D (3.3-5.1) mmol/L Chloride 109 H (96-108) mmol/L Carbon Dioxide 25 (22-29) mmol/L Anion Gap 9 L (12-20) BUN 16 (9-16) mg/dL Creatinine 0.81 (0.5-1.4) mg/dL Estim Creat Clear Calc 106.5 Estimated GFR > 60 Random Glucose 114 (60-115) mg/dL Calcium 9.3 (8.4-10.2) mg/dL Total Bilirubin 0.4 (0.0-1.0) mg/dL AST 16 (5-31) U/L ALT 14 (0-31) U/L Alkaline Phosphatase 60 (39-117) U/L Total Protein 7.5 (6.5-8.0) g/dL Albumin 4.5 (3.5-5.0) g/dL Lipase 11 (8-78) U/L Beta HCG, Quant < 2 mIU/mL Urine Color Yellow Urine Appearance Clear Urine pH 5.0 (5.0-9.0) Ur Specific [place] 1.025 (1.005-1.025) Urine Protein Negative (Neg-Trace) mg/dL Urine Glucose (UA) Negative (Negative) mg/dL Urine Ketones Negative (Negative) mg/dL Urine Blood Negative (Negative) Urine Nitrite Negative (Negative) Ur Leukocyte Esterase Negative (Negative) Urine Test (NEGATIVE) 10/26/22 Range/Units 13:07 WBC (4.8-10.8) X10*3/uL RBC (4.20-5.50) X10*6/uL Hgb (12.0-16.0) g/dl Hct (37.0-47.0) % MCV (80.0-98.0) fL MCH (27.0-33.0) pg MCHC (31.0-35.0) g/dl RDW (11.0-16.0) % Plt Count (160-400) X10*3/uL MPV (9.4-12.3) fL Immature Gran % (Auto) (0.0-0.4) % Neut % (Auto) (45-73) % Lymph % (Auto) (20-40) % [place] % (Auto) (2-11) % Eos % (Auto) (0-4) % Baso % (Auto) (0-2) % Lymph # (Auto) (1.2-4.9) X10*3/uL [place] # (Auto) (0.1-1.2) X10*3/uL Eos # (Auto) (0.0-0.4) X10*3/uL Baso # (Auto) (0.0-0.2) X10*3/uL Abs Immat Gran (auto) (0.00-0.03) X10*3/uL Absolute Neuts (auto) (2.0-8.3) x10*3/uL Absolute Nucleated RBC (0.0-0.012) X10*3/uL Nucleated RBC % (auto) (0.0-0.2) /100WBC Sodium (135-145) mmol/L Potassium (3.3-5.1) mmol/L Chloride (96-108) mmol/L Carbon Dioxide (22-29) mmol/L Anion Gap (12-20) BUN (9-16) mg/dL Creatinine (0.5-1.4) mg/dL Estim Creat Clear Calc Estimated GFR Random Glucose (60-115) mg/dL Calcium (8.4-10.2) mg/dL Total Bilirubin (0.0-1.0) mg/dL AST (5-31) U/L ALT (0-31) U/L Alkaline Phosphatase (39-117) U/L Total Protein (6.5-8.0) g/dL Albumin (3.5-5.0) g/dL Lipase (8-78) U/L Beta HCG, Quant mIU/mL Urine Color Urine Appearance Urine pH (5.0-9.0) Ur Specific [place] (1.005-1.025) Urine Protein (Neg-Trace) mg/dL Urine Glucose (UA) (Negative) mg/dL Urine Ketones (Negative) mg/dL Urine Blood (Negative) Urine Nitrite (Negative) Ur Leukocyte Esterase (Negative) Urine Test NEGATIVE (NEGATIVE) Medications Administered Discontinued Medications Generic Name Dose Route Start Last Admin Trade Name Freq PRN Reason Stop Dose Admin Acetaminophen 975 mg 10/26/22 12:57 10/26/22 13:02 Acetaminophen 325 Mg Tablet PO 10/26/22 12:58 975 mg ONCE ONE Administration Discharge Plan Discharge Clinical Impression: Diarrhea Patient Disposition: Elopement Prescriptions: No Action famotidine 20 mg tablet 20 mg PO BID Qty: 60 1RF cefuroxime axetil 250 mg tablet 250 mg PO BID 7 Days Qty: 14 0RF ondansetron 4 mg tablet,disintegrating 4 mg PO Q8H PRN (Reason: nausea and vomiting) Qty: 10 0RF metoclopramide HCl [Reglan] 5 mg tablet 5 mg PO DAILY PRN (Reason: nausea and vomiting) Qty: 10 0RF lorazepam [Ativan] 1 mg tablet 1 mg PO BEDTIME PRN (Reason: anxiety) Qty: 10 0RF ondansetron 4 mg tablet,disintegrating 4 mg PO Q8H PRN (Reason: nausea and vomiting) Qty: 7 0RF metoclopramide HCl [Reglan] 10 mg tablet 10 mg PO Q6H PRN (Reason: nausea and vomiting) Qty: 10 0RF ibuprofen 600 mg tablet 600 mg PO Q6H PRN (Reason: pain) Qty: 60 0RF ondansetron 4 mg tablet,disintegrating 4 mg PO Q6-8H PRN (Reason: nausea and vomiting) Qty: 15 0RF lorazepam [Ativan] 1 mg tablet 1 mg PO BID PRN (Reason: anxiety) Qty: 20 0RF Interventions: ED Discharge Assessment Last Done: 10/26/22 14:35 Discharge Date/Time: 10/26/22 14:39
== END 2022-10-26 14:39 | disposition left against medical advice (07) ==
PROVIDERS: Nurse Practitioner Family; Emergency Provider Emergency Medicine; PCP Nurse Practitioner Family
DX: R19.7 Diarrhea, unspecified (principal)
CPT/HCPCS: 36415; 80053; 81003; 81025; 83690; 84702; 85025; 99283

== ENCOUNTER 2023-01-13 03:43 | Emergency (ER) | payer OTHER, SELFPAY ==
[2023-01-13 03:46] VITALS: BP 142/86; PULSE 100; O2SAT 97
[2023-01-13] MEDS: ondansetron HCL 4 MG/2 ML VIAL IVPUSH (04:02)
[2023-01-13 04:03] LABS: MANUAL DIFF FLAG NO
[2023-01-13 04:04] LABS: Basophils Absolute Auto 0.1 X10*3/uL (0.0-0.2); Basophils Percent Auto 0.3 % (0-2); Eosinophils Percent Auto 0.1 % (0-4); Hematocrit 41.1 % (37.0-47.0); Hemoglobin 14.1 g/dl (12.0-16.0); Imm Gran Abs Auto 0.12 X10*3/uL (0.00-0.03); Imm Gran Pct Auto 0.6 % (0.0-0.4); Lymphocytes Percent Auto 10.3 % (20-40); Mean Corpuscular HGB Conc 34.3 g/dl (31.0-35.0); Mean Corpuscular Hemoglobin 29.1 pg (27.0-33.0); Mean Corpuscular Volume 84.7 fL (80.0-98.0); Mean Platelet Volume 9.6 fL (9.4-12.3); Monocytes Absolute Auto 1.2 X10*3/uL (0.1-1.2); Monocytes Percent Auto 6.2 % (2-11); Neutrophils Absolute Auto 15.6 x10*3/uL (2.0-8.3); Neutrophils Percent Auto 82.5 % (45-73); Platelet Count 295 X10*3/uL (160-400); Red Blood Count 4.85 X10*6/uL (4.20-5.50); Red Cell Distribution Width 12.9 % (11.0-16.0)
[2023-01-13 04:08] VITALS: BP 102/54; PULSE 60; RESP 20; TEMP 36.4; O2SAT 98; BMI 32.1
--- NOTE | 2023-01-13 04:11 | ED.NAVMDI ---
HPI - Nausea/Vomiting/Diarrhea General Chief complaint: Abdominal Pain Stated complaint: n/v Time Seen by Provider: 01/13/23 04:04 Source: patient Mode of arrival: ambulatory Limitations: no limitations History of Present Illness HPI Narrative: Patient's history of marijuana induced vomiting complaining of vomiting for last 3 days vomiting over 3 to 4 times a day no diarrhea very anxious on arrival no fever no chills Related Data Previous Rx's Medication Instructions Recorded cefuroxime axetil 250 mg tablet 250 mg PO BID 7 days #14 tabs 01/19/22 ondansetron 4 mg disintegrating 4 mg PO Q8H PRN nausea and 01/19/22 tablet vomiting #10 tabs famotidine 20 mg tablet 20 mg PO BID #60 tabs 02/10/22 ibuprofen 600 mg tablet 600 mg PO Q6H PRN pain #60 tabs 05/02/22 metoclopramide HCl 5 mg tablet 5 mg PO DAILY PRN nausea and 05/18/22 (Reglan) vomiting #10 tabs lorazepam 1 mg tablet (Ativan) 1 mg PO BEDTIME PRN anxiety #10 05/20/22 tabs ondansetron 4 mg disintegrating 4 mg PO Q8H PRN nausea and 05/21/22 tablet vomiting #7 tabs lorazepam 1 mg tablet (Ativan) 1 mg PO BID PRN anxiety #20 tabs 09/02/22 ondansetron 4 mg disintegrating 4 mg PO Q6-8H PRN nausea and 09/02/22 tablet vomiting #15 tabs metoclopramide HCl 10 mg tablet 10 mg PO Q6H PRN nausea and 09/03/22 (Reglan) vomiting #10 tabs ondansetron 4 mg disintegrating 4 mg PO Q6-8H PRN nausea and 01/13/23 tablet vomiting #10 tabs Allergies Allergy/AdvReac Type Severity Reaction Status Date / Time No Known Allergies Allergy Verified 05/27/22 08:56 [No Known Allergies*] Review of Systems Review of Systems: Yes all other systems are reviewed and are negative PMFSH Past Medical History Medical History Anxiety disorder, unspecified Lack of access to transportation Marijuana abuse Mild recurrent major depression Nausea and vomiting Right upper quadrant abdominal pain Surgical History History of D&C Family History Family History Maternal Grandmother Breast cancer Son Autism Daughter No problems noted. Mother No problems noted. Father Learning difficulty Mental health disorder Maternal Grandmother Breast cancer, Onset Age: 50 Maternal Uncle Testicular cancer, Onset Age: 60 Paternal Grandfather Diabetes mellitus Myocardial infarct Other Substance use disorder Social History Social History Housing: Apartment Alcohol intake: never Patient Tobacco Use Status: Former Tobacco user e-Cigarette/Vaping Use: Never Used Second Hand Smoke Exposure: No service: No Current occupational status: unemployed Cognitive needs: No Hearing needs: No Vision needs: No Physical Exam Vital Signs: Vital Signs: Last Vital Signs Temp 97.8 F 01/13/23 06:10 Pulse 65 01/13/23 06:10 Resp 13 01/13/23 06:10 BP 125/78 01/13/23 06:10 Pulse Ox 100 01/13/23 06:10 O2 Del Method 01/13/23 06:10 BMI result Body Mass Index 32.1 Appearance: Alert. Oriented X3. No acute distress. And ENT: Pharynx normal. Oral Mucosa moist Neck: Normal inspection. Neck supple. CVS: Normal heart rate and rhythm. Pulses normal. Respiratory: No respiratory distress. Equal air entry bilateral, Abdomen: Soft and nontender. Bowel sounds are present, no mass palpable, no CVA tenderness Skin: Skin warm and dry. Normal skin color. Normal skin turgor. Extremities: No lower extremity edema. No calf tenderness Neuro: Oriented X 3. No motor deficit. Medications Administered Discontinued Medications Generic Name Dose Route Start Last Admin Trade Name Freq PRN Reason Stop Dose Admin Sodium Chloride 1,000 mls @ 999 mls/hr 01/13/23 04:05 01/13/23 05:13 Ns IV 01/13/23 05:05 999 mls/hr .Q1H1M ONE Infusion Sodium Chloride 1,000 mls @ 999 mls/hr 01/13/23 04:45 01/13/23 05:10 Ns IV 01/13/23 05:45 999 mls/hr .Q1H1M ONE Administration Lorazepam 2 mg 01/13/23 04:13 03/09/23 04:17 Lorazepam 2 Mg/Ml Vial IVPUSH 01/13/23 04:14 2 mg ONCE ONE Administration Ondansetron HCl 4 mg 01/13/23 04:01 01/13/23 04:02 Ondansetron Hcl 4 Mg/2 Ml Vial IVPUSH 01/13/23 04:02 4 mg ONCE ONE Administration Medical Decision Making Medical Decision Making [facility] Narrative: Patient has cyclic vomiting with marijuana abuse had leukocytosis secondary to volume depletion received 2 L of fluid feeling much better taking p.o. fluids will discharge patient home abdomen is benign Lab Data [facility] Lab Attestation statement: I reviewed the patient's lab results. 01/13/23 03:57 01/13/23 03:57 Labs: Lab Results 01/13/23 01/13/23 01/13/23 Range/Units 03:57 03:57 03:57 WBC 19.0 H (4.8-10.8) X10*3/uL RBC 4.85 (4.20-5.50) X10*6/uL Hgb 14.1 (12.0-16.0) g/dl Hct 41.1 (37.0-47.0) % MCV 84.7 (80.0-98.0) fL MCH 29.1 (27.0-33.0) pg MCHC 34.3 (31.0-35.0) g/dl RDW 12.9 (11.0-16.0) % Plt Count 295 (160-400) X10*3/uL MPV 9.6 (9.4-12.3) fL Immature Gran % (Auto) 0.6 H (0.0-0.4) % Neut % (Auto) 82.5 H (45-73) % Lymph % (Auto) 10.3 L (20-40) % [place] % (Auto) 6.2 (2-11) % Eos % (Auto) 0.1 (0-4) % Baso % (Auto) 0.3 (0-2) % Lymph # (Auto) 2.0 (1.2-4.9) X10*3/uL [place] # (Auto) 1.2 (0.1-1.2) X10*3/uL Eos # (Auto) 0.0 (0.0-0.4) X10*3/uL Baso # (Auto) 0.1 (0.0-0.2) X10*3/uL Abs Immat Gran (auto) 0.12 H (0.00-0.03) X10*3/uL Absolute Neuts (auto) 15.6 H (2.0-8.3) x10*3/uL Absolute Nucleated RBC 0.000 (0.0-0.012) X10*3/uL Nucleated RBC % (auto) 0.0 (0.0-0.2) /100WBC Sodium 143 (135-145) mmol/L Potassium 3.5 (3.3-5.1) mmol/L Chloride 109 H (96-108) mmol/L Carbon Dioxide 17 L (22-29) mmol/L Anion Gap 21 H (12-20) BUN 24 H (9-16) mg/dL Creatinine 1.28 (0.5-1.4) mg/dL Estim Creat Clear Calc 65.7 Estimated GFR 51 Random Glucose 173 H (60-115) mg/dL Calcium 10.1 D (8.4-10.2) mg/dL Total Bilirubin 0.6 (0.0-1.0) mg/dL Direct Bilirubin 0.2 (0.0-0.5) mg/dL AST 20 (5-31) U/L ALT 17 (0-31) U/L Alkaline Phosphatase 65 (39-117) U/L Total Protein 7.9 (6.5-8.0) g/dL Albumin 4.8 (3.5-5.0) g/dL Lipase 5 L (8-78) U/L COVID-19 (SHE) Negative (Negative) COVID-19 Clin Com See Note Influenza Type A (FE) (Negative) Influenza Type B (FE) (Negative) Influenza A & B Note 01/13/23 Range/Units 03:57 WBC (4.8-10.8) X10*3/uL RBC (4.20-5.50) X10*6/uL Hgb (12.0-16.0) g/dl Hct (37.0-47.0) % MCV (80.0-98.0) fL MCH (27.0-33.0) pg MCHC (31.0-35.0) g/dl RDW (11.0-16.0) % Plt Count (160-400) X10*3/uL MPV (9.4-12.3) fL Immature Gran % (Auto) (0.0-0.4) % Neut % (Auto) (45-73) % Lymph % (Auto) (20-40) % [place] % (Auto) (2-11) % Eos % (Auto) (0-4) % Baso % (Auto) (0-2) % Lymph # (Auto) (1.2-4.9) X10*3/uL [place] # (Auto) (0.1-1.2) X10*3/uL Eos # (Auto) (0.0-0.4) X10*3/uL Baso # (Auto) (0.0-0.2) X10*3/uL Abs Immat Gran (auto) (0.00-0.03) X10*3/uL Absolute Neuts (auto) (2.0-8.3) x10*3/uL Absolute Nucleated RBC (0.0-0.012) X10*3/uL Nucleated RBC % (auto) (0.0-0.2) /100WBC Sodium (135-145) mmol/L Potassium (3.3-5.1) mmol/L Chloride (96-108) mmol/L Carbon Dioxide (22-29) mmol/L Anion Gap (12-20) BUN (9-16) mg/dL Creatinine (0.5-1.4) mg/dL Estim Creat Clear Calc Estimated GFR Random Glucose (60-115) mg/dL Calcium (8.4-10.2) mg/dL Total Bilirubin (0.0-1.0) mg/dL Direct Bilirubin (0.0-0.5) mg/dL AST (5-31) U/L ALT (0-31) U/L Alkaline Phosphatase (39-117) U/L Total Protein (6.5-8.0) g/dL Albumin (3.5-5.0) g/dL Lipase (8-78) U/L COVID-19 (SHE) (Negative) COVID-19 Clin Com Influenza Type A (FE) Negative (Negative) Influenza Type B (FE) Negative (Negative) Influenza A & B Note See Note Discharge Plan Discharge Clinical Impression: Cannabis abuse, Cyclic vomiting syndrome Patient Disposition: Home, Self-Care Instructions: Acute Nausea and Vomiting (ED), Cannabis Abuse (ED) Additional Instructions: Stop smoking marijuana Drink plenty of fluids Take nausea medication as prescribed Prescriptions: New ondansetron 4 mg tablet,disintegrating 4 mg PO Q6-8H PRN (Reason: nausea and vomiting) Qty: 10 0RF No Action famotidine 20 mg tablet 20 mg PO BID Qty: 60 1RF cefuroxime axetil 250 mg tablet 250 mg PO BID 7 Days Qty: 14 0RF ondansetron 4 mg tablet,disintegrating 4 mg PO Q8H PRN (Reason: nausea and vomiting) Qty: 10 0RF metoclopramide HCl [Reglan] 5 mg tablet 5 mg PO DAILY PRN (Reason: nausea and vomiting) Qty: 10 0RF lorazepam [Ativan] 1 mg tablet 1 mg PO BEDTIME PRN (Reason: anxiety) Qty: 10 0RF ondansetron 4 mg tablet,disintegrating 4 mg PO Q8H PRN (Reason: nausea and vomiting) Qty: 7 0RF metoclopramide HCl [Reglan] 10 mg tablet 10 mg PO Q6H PRN (Reason: nausea and vomiting) Qty: 10 0RF ibuprofen 600 mg tablet 600 mg PO Q6H PRN (Reason: pain) Qty: 60 0RF ondansetron 4 mg tablet,disintegrating 4 mg PO Q6-8H PRN (Reason: nausea and vomiting) Qty: 15 0RF lorazepam [Ativan] 1 mg tablet 1 mg PO BID PRN (Reason: anxiety) Qty: 20 0RF
[2023-01-13] MEDS: LORazepam 2 MG/ML VIAL IVPUSH (04:17)
[2023-01-13] MEDS: 0.9 % Sodium Chloride 1,000 ML 999 ML IV ×2 (04:17→05:10)
[2023-01-13 04:19] LABS: COVID-19 Test Negative (Negative); IDNOW Serial# BCCEAD1C
--- NOTE | 2023-01-13 04:21 | PC.NURSE ---
pt a&o, denies any sob or chest pain, pt having vomiting since Tuesday. pt change into hospital attire, labs collected, Iv placed and medicated per jan. Will continue to monitor.
[2023-01-13 04:22] LABS: IDNOW Serial# 16C4AD1C; Influenza A Negative (Negative); Influenza B2 Negative (Negative)
[2023-01-13 04:25] LABS: Alanine Aminotransferase 17 U/L (0-31); Albumin Level 4.8 g/dL (3.5-5.0); Alkaline Phosphatase 65 U/L (39-117); Anion Gap 21 (12-20); Aspartate Amino Transferase 20 U/L (5-31); Bilirubin Direct 0.2 mg/dL (0.0-0.5); Bilirubin Total 0.6 mg/dL (0.0-1.0); Blood Urea Nitrogen 24 mg/dL (9-16); Calcium 10.1 mg/dL (8.4-10.2); Carbon Dioxide 17 mmol/L (22-29); Chloride 109 mmol/L (96-108); Creatinine Clr Calc Pharmacy 65.7; Estimated Glomerular Filt Rate 51; Glucose Random 173 mg/dL (60-115); Lipase 5 U/L (8-78); Potassium 3.5 mmol/L (3.3-5.1); Sodium 143 mmol/L (135-145); Total Protein 7.9 g/dL (6.5-8.0)
--- NOTE | 2023-01-13 05:14 | PC.NURSE ---
medicated pt Mar. Will continue to monitor.
[2023-01-13 06:10] VITALS: BP 125/78; PULSE 65; RESP 13; TEMP 36.6; O2SAT 100
--- NOTE | 2023-01-13 06:18 | PC.NURSE ---
Pt given po challenge, pt tolerated will. The plan is for pt to be discharge home. No sob or chest pain, no sign of distress.
== END 2023-01-13 06:24 | disposition home or self-care (01) ==
PROVIDERS: Emergency Provider Internal Medicine
DX: F12.188 Cannabis abuse with other cannabis-induced disorder (principal); R11.15 Cyclical vomiting syndrome unrelated to migraine; Z20.822 Contact with and (suspected) exposure to COVID-19; Z20.828 Contact with and (suspected) exposure to other viral communicable diseases; Z79.899 Other long term (current) drug therapy
CPT/HCPCS: 36415; 80053; 82248; 83690; 85025; 87502; 87635; 96361; 96374; 96375; 99284; J2060; J2405

== ENCOUNTER 2023-01-13 20:43 | Observation (INO) | payer OTHER, SELFPAY ==
[2023-01-13 21:13] VITALS: BP 130/82; BP 132/84; PULSE 74; PULSE 90; RESP 18; TEMP 37.3; O2SAT 96; O2SAT 98; BMI 32.1
--- NOTE | 2023-01-13 23:09 | ED_ITS ---
HPI - Nausea/Vomiting/Diarrhea General Chief complaint: Nausea/Vomiting/Diarrhea Stated complaint: nausea and vomiting Time Seen by Provider: 01/13/23 23:03 Source: patient Mode of arrival: ambulatory Limitations: no limitations History of Present Illness HPI Narrative: Patient comes to the emergency room complaining of worsening vomiting. Patient was seen earlier here today, diagnosed with cyclical vomiting. Patient was given fluids, antiemetics, patient was feeling better and was discharged home. Shortly after, patient started vomiting again. Patient admits to using marijuana Related Data Previous Rx's Medication Instructions Recorded cefuroxime axetil 250 mg tablet 250 mg PO BID 7 days #14 tabs 01/19/22 ondansetron 4 mg disintegrating 4 mg PO Q8H PRN nausea and 01/19/22 tablet vomiting #10 tabs famotidine 20 mg tablet 20 mg PO BID #60 tabs 02/10/22 ibuprofen 600 mg tablet 600 mg PO Q6H PRN pain #60 tabs 05/02/22 metoclopramide HCl 5 mg tablet 5 mg PO DAILY PRN nausea and 05/18/22 (Reglan) vomiting #10 tabs lorazepam 1 mg tablet (Ativan) 1 mg PO BEDTIME PRN anxiety #10 05/20/22 tabs ondansetron 4 mg disintegrating 4 mg PO Q8H PRN nausea and 05/21/22 tablet vomiting #7 tabs lorazepam 1 mg tablet (Ativan) 1 mg PO BID PRN anxiety #20 tabs 09/02/22 ondansetron 4 mg disintegrating 4 mg PO Q6-8H PRN nausea and 09/02/22 tablet vomiting #15 tabs metoclopramide HCl 10 mg tablet 10 mg PO Q6H PRN nausea and 09/03/22 (Reglan) vomiting #10 tabs ondansetron 4 mg disintegrating 4 mg PO Q6-8H PRN nausea and 01/13/23 tablet vomiting #10 tabs Allergies Allergy/AdvReac Type Severity Reaction Status Date / Time No Known Allergies Allergy Verified 05/27/22 08:56 [No Known Allergies*] Review of Systems Review of Systems: Constitutional : No Weight loss, No Fever, No Chills, No Night Sweats, No Fatigue, No Malaise ENT/Mouth : No Hearing loss, No Ear Pain, No Nasal Congestion, No Sinus Pain, No Hoarseness, No sore throat, No Rhinorrhea, No Swallowing Difficulty Eyes: No Eye Pain, No Swelling, No Redness, No Foreign Body, No Discharge, No Vision Changes Cardiovascular : No Chest Pain, No SOB, No Dyspnea on Exertion, No Orthopnea, No Edema, No Palpitations Respiratory : No Cough, No Sputum, No Wheezing, No Smoke Exposure, No Dyspnea Gastrointestinal : Complaining of nausea and vomiting, No Diarrhea, No Constipation, No abdominal Pain, No Hematochezia, No Melena Genitourinary : no irregular bleeding, No Dysuria, No Urinary Frequency, No Hematuria, No Urinary Incontinence, No Urgency, No Flank Pain, No Urinary Flow Changes, No Hesitancy Musculoskeletal : No joint pain, No Myalgias, No Joint Swelling Skin : No Skin Lesions, No rash Neuro : No Weakness, No Numbness, No Paresthesias, No Loss of Consciousness, No Dizziness, No Headache Psych : No Anxiety/Panic, No Depression, No SI/HI/AH/VH, No Social Issues, Heme/Lymph: No Bruising, No Bleeding,No Lymphadenopathy Endocrine : No Polyuria, No Polydipsia, No Temperature Intolerance [facility] Past Medical History Medical History Anxiety disorder, unspecified Lack of access to transportation Marijuana abuse Mild recurrent major depression Nausea and vomiting Right upper quadrant abdominal pain Surgical History History of D&C Family History Family History Maternal Grandmother Breast cancer Son Autism Daughter No problems noted. Mother No problems noted. Father Learning difficulty Mental health disorder Maternal Grandmother Breast cancer, Onset Age: 50 Maternal Uncle Testicular cancer, Onset Age: 60 Paternal Grandfather Diabetes mellitus Myocardial infarct Other Substance use disorder Social History Social History Housing: Apartment Alcohol intake: former Patient Tobacco Use Status: Former Tobacco user Smoked in Last 30 Days: No e-Cigarette/Vaping Use: Never Used Second Hand Smoke Exposure: No Use of substances other than those prescribed or required for medical reasons: No Substance Use Type: Marijuana Advance Directives: No Advance Directives Information Provided: No service: No Current occupational status: unemployed Cognitive needs: No Hearing needs: No Vision needs: No Physical Exam Vital Signs: Vital Signs: Last Vital Signs Temp 98.3 F 01/14/23 00:03 Pulse 84 01/14/23 00:03 Resp 16 01/14/23 00:03 BP 121/78 01/14/23 00:03 Pulse Ox 100 01/14/23 00:03 O2 Del Method 01/13/23 23:17 BMI result Body Mass Index 32.1 Const: Other: Appearance: Alert. Oriented X3. Eyes: Pupils equal, round and reactive to light. ENT: Pharynx normal. Neck: Normal inspection. Neck supple. No lymph nodes noted. No crepitus CVS: Normal heart rate and rhythm. Pulses normal. Normal S1 and S2 Respiratory: No respiratory distress. Breath sounds normal. No Wheezing. No rales Abdomen: Soft and nontender. No rigidity. No distention. Actively vomiting Skin: Skin warm and dry. Normal skin color. Normal skin turgor. Extremities: No lower extremity edema. No Lacerations. No Rash Neuro: Oriented X 3. No motor deficit. No sensory deficit. Moving all extremities. No slurred speech. CN 2 through 12 grossly intact Psych: calm, cooperative, teary Course Course Course Narrative: -patient's labs are pending -this is patient's 2nd visit for cyclical vomiting. At this time, patient getti ng IV fluids, IV diphenhydramine and Reglan, IM Haldol. Medications Administered Discontinued Medications Generic Name Dose Route Start Last Admin Trade Name Freq PRN Reason Stop Dose Admin Diphenhydramine HCl 50 mg 01/13/23 23:06 01/13/23 23:55 Diphenhydramine Hcl 50 Mg/Ml Vial IVPUSH 01/13/23 23:07 50 mg ONCE ONE Administration Haloperidol Lactate 5 mg 01/13/23 23:06 01/13/23 23:55 Haloperidol Lactate 5 Mg/Ml Vial IM 01/13/23 23:07 5 mg STAT STA Administration Sodium Chloride 1,000 mls @ 999 mls/hr 01/13/23 23:06 01/14/23 02:00 Ns IVCONT 01/14/23 00:06 Infused .Q1H1M ONE Infusion Metoclopramide HCl 10 mg 01/13/23 23:06 01/13/23 23:56 Metoclopramide Hcl 10 Mg/2 Ml Vial IVPUSH 01/13/23 23:07 10 mg ONCE ONE Administration Potassium Chloride 40 meq 01/14/23 01:53 01/14/23 03:24 Potassium Chloride Packet 20 Meq Packet PO 01/14/23 01:54 Not Given ONCE ONE Potassium Chloride 40 meq 01/14/23 02:48 01/14/23 03:27 Potassium Chloride Er 20 Meq Tab.Er.Prt PO 01/14/23 02:49 40 meq ONCE ONE Administration Potassium Chloride 40 meq 01/14/23 03:10 01/14/23 03:25 Potassium Chloride Er 20 Meq Tab.Er.Prt PO 01/14/23 03:11 Not Given ONCE ONE Medical Decision Making Medical Decision Making MDM Narrative: At home patient tried Zofran, here patient got Haldol, Benadryl, patient was p.o. challenged and started vomiting all over again. -likely secondary to cyclical vomiting -I discussed the patient with Dr. Flores, patient being admitted for cyclical vomiting and p.o. intolerance Differential Diagnosis Differential Diagnoses: The differential diagnosis associated with the presentation includes (Cyclical vomiting, gastritis, viral syndrome) Admission/Observation Consideration of admission/observation: Escalation of care including admission/observation considered Consult Healthcare Provider Management of the patient was discussed with: Hospitalist Lab Data [facility] Lab Attestation statement: I reviewed the patient's lab results. 01/13/23 23:24 01/13/23 23:24 Labs: Lab Results 01/13/23 01/13/23 01/13/23 Range/Units 23:24 23:24 23:24 WBC 12.6 H (4.8-10.8) X10*3/uL RBC 4.56 (4.20-5.50) X10*6/uL Hgb 13.0 (12.0-16.0) g/dl Hct 39.1 (37.0-47.0) % MCV 85.7 (80.0-98.0) fL MCH 28.5 (27.0-33.0) pg MCHC 33.2 (31.0-35.0) g/dl RDW 13.3 (11.0-16.0) % Plt Count 258 (160-400) X10*3/uL MPV 9.5 (9.4-12.3) fL Immature Gran % (Auto) 0.5 H (0.0-0.4) % Neut % (Auto) 75.0 H (45-73) % Lymph % (Auto) 16.6 L (20-40) % [place] % (Auto) 7.5 (2-11) % Eos % (Auto) 0.2 (0-4) % Baso % (Auto) 0.2 (0-2) % Lymph # (Auto) 2.1 (1.2-4.9) X10*3/uL [place] # (Auto) 1.0 (0.1-1.2) X10*3/uL Eos # (Auto) 0.0 (0.0-0.4) X10*3/uL Baso # (Auto) 0.0 (0.0-0.2) X10*3/uL Abs Immat Gran (auto) 0.06 H (0.00-0.03) X10*3/uL Absolute Neuts (auto) 9.5 H (2.0-8.3) x10*3/uL Absolute Nucleated RBC 0.000 (0.0-0.012) X10*3/uL Nucleated RBC % (auto) 0.0 (0.0-0.2) /100WBC Sodium 143 (135-145) mmol/L Potassium 3.2 L (3.3-5.1) mmol/L Chloride 106 (96-108) mmol/L Carbon Dioxide 23 (22-29) mmol/L Anion Gap 17 (12-20) BUN 21 H (9-16) mg/dL Creatinine 0.95 (0.5-1.4) mg/dL Estim Creat Clear Calc 88.6 Estimated GFR > 60 Random Glucose 121 H (60-115) mg/dL Calcium 9.0 D (8.4-10.2) mg/dL Total Bilirubin 0.5 (0.0-1.0) mg/dL Direct Bilirubin < 0.2 (0.0-0.5) mg/dL AST 22 (5-31) U/L ALT 18 (0-31) U/L Alkaline Phosphatase 53 (39-117) U/L Total Protein 7.1 (6.5-8.0) g/dL Albumin 4.3 (3.5-5.0) g/dL Lipase 4 L (8-78) U/L Beta HCG, Quant < 2 mIU/mL Urine Color Urine Appearance Urine pH (5.0-9.0) Ur Specific [place] (1.005-1.025) Urine Protein (Neg-Trace) mg/dL Urine Glucose (UA) (Negative) mg/dL Urine Ketones (Negative) mg/dL Urine Blood (Negative) Urine Nitrite (Negative) Ur Leukocyte Esterase (Negative) Urine RBC (0-2) /HPF Urine WBC (0-5) /HPF Ur Squamous Epith Cells (0-2) /HPF Urine Bacteria (None Seen) Hyaline Casts (0-2) /LPF Urine Opiates Screen (Not Detect) Urine Fentanyl Screen (Not Detect) Ur Barbiturates Screen (Not Detect) Ur Phencyclidine Scrn (Not Detect) Ur Amphetamines Screen (Not Detect) U Benzodiazepines Scrn (Not Detect) Urine Cocaine Screen (Not Detect) U Marijuana (THC) Screen (Not Detect) COVID-19 (SHE) Negative (Negative) COVID-19 Clin Com See Note 01/14/23 01/14/23 Range/Units 04:36 04:36 WBC (4.8-10.8) X10*3/uL RBC (4.20-5.50) X10*6/uL Hgb (12.0-16.0) g/dl Hct (37.0-47.0) % MCV (80.0-98.0) fL MCH (27.0-33.0) pg MCHC (31.0-35.0) g/dl RDW (11.0-16.0) % Plt Count (160-400) X10*3/uL MPV (9.4-12.3) fL Immature Gran % (Auto) (0.0-0.4) % Neut % (Auto) (45-73) % Lymph % (Auto) (20-40) % [place] % (Auto) (2-11) % Eos % (Auto) (0-4) % Baso % (Auto) (0-2) % Lymph # (Auto) (1.2-4.9) X10*3/uL [place] # (Auto) (0.1-1.2) X10*3/uL Eos # (Auto) (0.0-0.4) X10*3/uL Baso # (Auto) (0.0-0.2) X10*3/uL Abs Immat Gran (auto) (0.00-0.03) X10*3/uL Absolute Neuts (auto) (2.0-8.3) x10*3/uL Absolute Nucleated RBC (0.0-0.012) X10*3/uL Nucleated RBC % (auto) (0.0-0.2) /100WBC Sodium (135-145) mmol/L Potassium (3.3-5.1) mmol/L Chloride (96-108) mmol/L Carbon Dioxide (22-29) mmol/L Anion Gap (12-20) BUN (9-16) mg/dL Creatinine (0.5-1.4) mg/dL Estim Creat Clear Calc Estimated GFR Random Glucose (60-115) mg/dL Calcium (8.4-10.2) mg/dL Total Bilirubin (0.0-1.0) mg/dL Direct Bilirubin (0.0-0.5) mg/dL AST (5-31) U/L ALT (0-31) U/L Alkaline Phosphatase (39-117) U/L Total Protein (6.5-8.0) g/dL Albumin (3.5-5.0) g/dL Lipase (8-78) U/L Beta HCG, Quant mIU/mL Urine Color Yellow Urine Appearance Clear Urine pH 6.0 (5.0-9.0) Ur Specific [place] >= 1.030 H (1.005-1.025) Urine Protein 30 (1+) H (Neg-Trace) mg/dL Urine Glucose (UA) Negative (Negative) mg/dL Urine Ketones 15 (Negative) mg/dL Urine Blood Large (3+) H (Negative) Urine Nitrite Negative (Negative) Ur Leukocyte Esterase Negative (Negative) Urine RBC 11-20 H (0-2) /HPF Urine WBC 0-5 (0-5) /HPF Ur Squamous Epith Cells 6-10 (0-2) /HPF Urine Bacteria 3+ (None Seen) Hyaline Casts 0-2 (0-2) /LPF Urine Opiates Screen Not Detected (Not Detect) Urine Fentanyl Screen Not Detected (Not Detect) Ur Barbiturates Screen Not Detected (Not Detect) Ur Phencyclidine Scrn Not Detected (Not Detect) Ur Amphetamines Screen Not Detected (Not Detect) U Benzodiazepines Scrn Not Detected (Not Detect) Urine Cocaine Screen Not Detected (Not Detect) U Marijuana (THC) Screen POSITIVE H (Not Detect) COVID-19 (SHE) (Negative) COVID-19 Clin Com Critical Care Time Critical Care Time Critical Care Time: Yes Total Critical Care Time: 50 Attestation: I have personally provided critical care time. Time includes review of lab data, radiology results, discussion with consultants, and monitoring for potential decompensation. Intervention performed as documented. Discharge Plan Discharge Clinical Impression: Cyclical vomiting Patient Disposition: Admitted As Inpatient
[2023-01-13 23:17] VITALS: BP 125/76; PULSE 72; RESP 21; TEMP 37.1; O2SAT 100
[2023-01-13 23:29] LABS: MANUAL DIFF FLAG NO
[2023-01-13 23:31] LABS: Basophils Percent Auto 0.2 % (0-2); Eosinophils Percent Auto 0.2 % (0-4); Hematocrit 39.1 % (37.0-47.0); Imm Gran Abs Auto 0.06 X10*3/uL (0.00-0.03); Imm Gran Pct Auto 0.5 % (0.0-0.4); Lymphocytes Absolute Auto 2.1 X10*3/uL (1.2-4.9); Lymphocytes Percent Auto 16.6 % (20-40); Mean Corpuscular HGB Conc 33.2 g/dl (31.0-35.0); Mean Corpuscular Hemoglobin 28.5 pg (27.0-33.0); Mean Corpuscular Volume 85.7 fL (80.0-98.0); Mean Platelet Volume 9.5 fL (9.4-12.3); Monocytes Percent Auto 7.5 % (2-11); Neutrophils Absolute Auto 9.5 x10*3/uL (2.0-8.3); Platelet Count 258 X10*3/uL (160-400); Red Blood Count 4.56 X10*6/uL (4.20-5.50); Red Cell Distribution Width 13.3 % (11.0-16.0); White Blood Count 12.6 X10*3/uL (4.8-10.8)
[2023-01-13 23:44] LABS: COVID-19 Test Negative (Negative); IDNOW Serial# BCCEAD1C
[2023-01-13] MEDS: Haloperidol Lactate 5 MG/ML VIAL IM (23:55)
[2023-01-13] MEDS: diphenhydrAMINE HCL 50 MG/ML VIAL IVPUSH (23:55)
[2023-01-13] MEDS: Metoclopramide HCl 10 MG/2 ML VIAL IVPUSH (23:56)
[2023-01-13] MEDS: 0.9 % Sodium Chloride 1,000 ML 999 ML IVCONT (23:57)
--- NOTE | 2023-01-14 | ECG_ITS ---
Test Reason : NAUSEA/VOMITING Blood Pressure : / mmHG Vent. Rate : 062 BPM Atrial Rate : 062 BPM P-R Int : 132 ms QRS Dur : 090 ms QT Int : 424 ms P-R-T Axes : 053 053 039 degrees QTc Int : 430 ms Normal sinus rhythm with sinus arrhythmia Normal ECG No previous ECGs available Referred By: Sergey Flores Electronically Signed By:TIMOTHY JOSHI
[2023-01-14 00:03] VITALS: BP 121/78; PULSE 84; RESP 16; TEMP 36.8; O2SAT 100
[2023-01-14 00:06] LABS: Alanine Aminotransferase 18 U/L (0-31); Albumin Level 4.3 g/dL (3.5-5.0); Alkaline Phosphatase 53 U/L (39-117); Anion Gap 17 (12-20); Aspartate Amino Transferase 22 U/L (5-31); Bilirubin Direct < 0.2 mg/dL (0.0-0.5); Bilirubin Total 0.5 mg/dL (0.0-1.0); Blood Urea Nitrogen 21 mg/dL (9-16); Carbon Dioxide 23 mmol/L (22-29); Chloride 106 mmol/L (96-108); Creatinine Clr Calc Pharmacy 88.6; Estimated Glomerular Filt Rate > 60; Glucose Random 121 mg/dL (60-115); HCG Quantitative < 2 mIU/mL; Lipase 4 U/L (8-78); Potassium 3.2 mmol/L (3.3-5.1); Sodium 143 mmol/L (135-145); Total Protein 7.1 g/dL (6.5-8.0)
--- NOTE | 2023-01-14 03:22 | PC.NURSE ---
Attempted to administer potassium chloride oral liquid medication. Patient took a sip and spit it out indicating she prefers the pill form. Provider notified
[2023-01-14] MEDS: Potassium Chloride ER 20 MEQ TAB.ER.PRT 40 MEQ PO (03:27)
--- NOTE | 2023-01-14 03:30 | PC.NURSE ---
Administered potassium chloride tabs 40 meq. Patient swallowed without issue.
[2023-01-14 04:42] LABS: Appearance Urine Clear; Color Urine Yellow; Glucose Urine UA Negative (Negative); Leukocyte Esterase Urine Negative (Negative); Nitrite Urine Negative (Negative); Specific Gravity - Urine >= 1.030 (1.005-1.025); UMIC TRIGGER UACC YES; Urine Blood Large (3+) (Negative); Urine Ketones 15 mg/dL (Negative); Urine Protein 30 (1+) mg/dL (Neg-Trace)
[2023-01-14 04:45] LABS: Bacteria Urine 3+ (None Seen); Hyaline Casts Urine 0-2 /LPF (0-2); WBC Urine 0-5 /HPF (0-5)
[2023-01-14 04:55] LABS: Amphetamine Screen Urine Not Detected (Not Detect); Barbiturates, Urine Not Detected (Not Detect); Benzodiazepines Screen Urine Not Detected (Not Detect); Cannabinoid Screen Urine POSITIVE (Not Detect); Cocaine Screen Urine Not Detected (Not Detect); Fentanyl, urine Not Detected (Not Detect); Opiate Screen Urine Not Detected (Not Detect); Phencyclidine Screen Urine Not Detected (Not Detect)
[2023-01-14] MEDS: Prochlorperazine Edisylate 10 MG/2 ML VIAL IVPUSH (06:01)
[2023-01-14 06:05] VITALS: BP 116/77; PULSE 57; RESP 16; O2SAT 99
--- NOTE | 2023-01-14 06:13 | PC.NURSE ---
Pt continues to vomit after ingesting fluids and still complaining of abdominal pain.
--- NOTE | 2023-01-14 06:46 | PM.IMHP ---
History of Present Illness Date of Service: 01/14/23 Chief Complaint: Nausea vomiting 27-year-old female with a past medical history of anxiety, cannabis abuse, history of cyclic vomiting syndrome presented to the hospital with a chief complaint of nausea and vomiting. Patient mentions for the past 3 days she has been having episodes of nausea vomiting his; reports she has had multiple episodes of vomiting. Denies any blood in the vomitus. 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 Denies any diarrhea. Denies any chest pain palpitations lightheadedness or dizziness. Denies any fever chills cough or sputum production. Denies any urinary symptoms. Patient mentioned that she is not . Review of all other systems is negative except mentioned above ER course: Per ER team, patient initially presented yesterday evening with symptoms of nausea vomiting, presumed to be cyclic vomiting syndrome similar to the prior episodes; given supportive care with anti nausea medications patient improved and subsequently discharged. Patient returned back after few hours with a chief complaint of nausea and vomiting and unable to tolerate p.o.. So again patient was received medications with no significant improvement. Also noted to have hypokalemia to 3.2. Potassium was repleted. Admitted to the hospital for further management PMFSH Medical History Anxiety disorder, unspecified Lack of access to transportation Marijuana abuse Mild recurrent major depression Nausea and vomiting Right upper quadrant abdominal pain Family History Maternal Grandmother Breast cancer Son Autism Daughter No problems noted. Mother No problems noted. Father Learning difficulty Mental health disorder Maternal Grandmother Breast cancer, Onset Age: 50 Maternal Uncle Testicular cancer, Onset Age: 60 Paternal Grandfather Diabetes mellitus Myocardial infarct Other Substance use disorder Surgical History History of D&C Social History Housing: Apartment Alcohol intake: former Patient Tobacco Use Status: Former Tobacco user Smoked in Last 30 Days: No e-Cigarette/Vaping Use: Never Used Second Hand Smoke Exposure: No Use of substances other than those prescribed or required for medical reasons: No Substance Use Type: Marijuana Advance Directives: No Advance Directives Information Provided: No service: No Current occupational status: unemployed Cognitive needs: No Hearing needs: No Vision needs: No Meds Allergies Allergy/AdvReac Type Severity Reaction Status Date / Time No Known Allergies Allergy Verified 05/27/22 08:56 [No Known Allergies*] Active Medications: Current Medications Acetaminophen (Acetaminophen 325 Mg Tablet) 650 mg PO Q6H PRN PRN Reason: Pain, Mild (Pain Scale 1-3) Heparin Sodium (Porcine) (Heparin Sodium,Porcine 5,000 Unit/Ml Vial) 5,000 unit SUBCUT Q8H ACACIA Dextrose/Sodium Chloride (D51/2ns) 1,000 mls @ 100 mls/hr IVCONT .Q10H ACACIA Melatonin (Melatonin 3 Mg Tablet) 6 mg PO BEDTIME PRN PRN Reason: Insomnia Ondansetron HCl (Ondansetron Hcl 4 Mg/2 Ml Vial) 4 mg IVPUSH Q8H PRN PRN Reason: Nausea and Vomiting Sodium Chloride (0.9 % Sodium Chloride Flush 3 Ml Syringe) 3 ml IVFLUSH QSHIFT ACACIA Physical Exam Vital Signs and Narrative: Vital Signs: Last Vital Signs Temp 98.3 F 01/14/23 00:03 Pulse 57 01/14/23 06:05 Resp 16 01/14/23 06:05 BP 116/77 01/14/23 06:05 Pulse Ox 99 01/14/23 06:05 O2 Del Method 01/14/23 06:05 BMI result Body Mass Index 32.1 Gen: Appears be in no acute distress HEENT: NCAT, Moist mucosa. Pulmonary: Vesicular breath sounds, fair air entry CVS: Normal S1-S2 Abdomen: BS+, Soft, Nontender Extremities: Warm well perfused Neuro: Alert and awake. Results Labs 01/13/23 23:24 01/13/23 23:24 Labs: Laboratory Results - last 24 hr 01/13/23 01/13/23 01/13/23 23:24 23:24 23:24 MCV 85.7 MCH 28.5 MCHC 33.2 RDW 13.3 Plt Count 258 MPV 9.5 Immature Gran % (Auto) 0.5 H Neut % (Auto) 75.0 H Lymph % (Auto) 16.6 L [place] % (Auto) 7.5 Eos % (Auto) 0.2 Baso % (Auto) 0.2 Lymph # (Auto) 2.1 [place] # (Auto) 1.0 Eos # (Auto) 0.0 Baso # (Auto) 0.0 Abs Immat Gran (auto) 0.06 H Absolute Neuts (auto) 9.5 H Absolute Nucleated RBC 0.000 Nucleated RBC % (auto) 0.0 Anion Gap 17 Estim Creat Clear Calc 88.6 Estimated GFR > 60 Random Glucose 121 H Calcium 9.0 D Total Bilirubin 0.5 Direct Bilirubin < 0.2 AST 22 ALT 18 Alkaline Phosphatase 53 Total Protein 7.1 Albumin 4.3 Lipase 4 L Beta HCG, Quant < 2 Urine Color Urine Appearance Urine pH Ur Specific [place] Urine Protein Urine Glucose (UA) Urine Ketones Urine Blood Urine Nitrite Ur Leukocyte Esterase Urine RBC Urine WBC Ur Squamous Epith Cells Urine Bacteria Hyaline Casts Urine Opiates Screen Urine Fentanyl Screen Ur Barbiturates Screen Ur Phencyclidine Scrn Ur Amphetamines Screen U Benzodiazepines Scrn Urine Cocaine Screen U Marijuana (THC) Screen COVID-19 (SHE) Negative COVID-19 Clin Com See Note 01/14/23 01/14/23 04:36 04:36 MCV MCH MCHC RDW Plt Count MPV Immature Gran % (Auto) Neut % (Auto) Lymph % (Auto) [place] % (Auto) Eos % (Auto) Baso % (Auto) Lymph # (Auto) [place] # (Auto) Eos # (Auto) Baso # (Auto) Abs Immat Gran (auto) Absolute Neuts (auto) Absolute Nucleated RBC Nucleated RBC % (auto) Anion Gap Estim Creat Clear Calc Estimated GFR Random Glucose Calcium Total Bilirubin Direct Bilirubin AST ALT Alkaline Phosphatase Total Protein Albumin Lipase Beta HCG, Quant Urine Color Yellow Urine Appearance Clear Urine pH 6.0 Ur Specific [place] >= 1.030 H Urine Protein 30 (1+) H Urine Glucose (UA) Negative Urine Ketones 15 Urine Blood Large (3+) H Urine Nitrite Negative Ur Leukocyte Esterase Negative Urine RBC 11-20 H Urine WBC 0-5 Ur Squamous Epith Cells 6-10 Urine Bacteria 3+ Hyaline Casts 0-2 Urine Opiates Screen Not Detected Urine Fentanyl Screen Not Detected Ur Barbiturates Screen Not Detected Ur Phencyclidine Scrn Not Detected Ur Amphetamines Screen Not Detected U Benzodiazepines Scrn Not Detected Urine Cocaine Screen Not Detected U Marijuana (THC) Screen POSITIVE H COVID-19 (SHE) COVID-19 Clin Com Assessment and Plan (1) Cyclical vomiting: Status: Acute Plan 27-year-old female with a past medical history of anxiety, cannabis abuse, history of cyclic vomiting syndrome presented to the hospital with a chief complaint of nausea and vomiting. Patient initially presented to the hospital with nausea vomiting and presumed to cyclic vomiting syndrome. Improved with initial treatment in the ER discharge when patient returned back after few hours with the symptoms recurring again and unable to tolerate p.o.. Also noted to be hypokalemic. Repleted. Admitted to the hospital for further management. Cyclic vomiting syndrome: Patient has prior history of cyclic vomiting syndrome. The patient still continues to use cannabis. Patient consult avoid cannabis use Supportive care Daisy mejia.r.n.-will obtain EKG to check QTC-if prolonged will defer to the day hospitalist to change to other anti nausea medications. Patient also received Ativan in the ER. Gentle IV fluids Advanced diet as tolerated DVT prophylaxis: Subcu heparin Code status: Full code Time Spent With Patient Time: Total time managing care of this patient today ____ minutes. Quality Stroke Does the patient have a stroke diagnosis?: No VTE Prior VTE?: No VTE Risk Level:: Medical - moderate - high VTE Device Contraindication: Treatment Not Indicated VTE Drug Contraindication: N/A - Med Ordered
[2023-01-14 07:17] VITALS: BP 120/73; PULSE 58; RESP 19; O2SAT 98
[2023-01-14] MEDS: 0.9 % Sodium Chloride Flush 3 ML SYRINGE IVFLUSH ×2 (07:19→19:15)
[2023-01-14] MEDS: Heparin Sodium,Porcine 5,000 UNIT/ML VIAL 5000 UNIT SUBCUT ×2 (07:19→15:19)
[2023-01-14] MEDS: Dextrose 5 % and 0.45 % NaCl 1,000 ML 100 ML IVCONT ×2 (07:19→18:04)
[2023-01-14] MEDS: Pantoprazole Sodium 40 MG/10 ML VIAL IVPUSH ×2 (07:43→16:56)
[2023-01-14 08:00] VITALS: BP 127/79; PULSE 63; RESP 18; TEMP 37.1; O2SAT 99
--- NOTE | 2023-01-14 08:00 | PC.NURSE ---
Report given to RN on floor for patient transfer
--- NOTE | 2023-01-14 08:13 | PHA.MEDREC ---
Pharmacy Consult ? Medication Reconciliation Pharmacy has completed the medication reconciliation.
[2023-01-14] MEDS: Metoclopramide HCl 10 MG/2 ML VIAL 5 MG IVPUSH (09:03)
[2023-01-14] MEDS: Lidocaine 4 % Patch ADH..PATCH 1 PATCH TRANSDERMA (09:05)
--- NOTE | 2023-01-14 11:56 | MHC.CM.PN ---
pt lives alone is covid vax x 2 has own ride home and is independent cm intervention is n ot indicated
--- NOTE | 2023-01-14 13:37 | PM.EVENT ---
Event Note Date of Service: 01/14/23 Event Note: This patient is seen and examined already by patient still has nausea vomiting and some epigastric discomfort. Unable to tolerate p.o.. BMP pending Physical exam and assessment and plan coordinated in APCs note, Agree with the plan in addition: Cyclic vomiting: Continue hydration, antiemetics, lidocaine patch ,ppi may need to add clear if feels better Time Spent With Patient Time: Total time managing care of this patient today ____ minutes.
[2023-01-14 13:45] LABS: Anion Gap 13 (12-20); Blood Urea Nitrogen 16 mg/dL (9-16); Calcium 8.4 mg/dL (8.4-10.2); Carbon Dioxide 19 mmol/L (22-29); Chloride 111 mmol/L (96-108); Creatinine Clr Calc Pharmacy 115.3; Estimated Glomerular Filt Rate > 60; Glucose Random 120 mg/dL (60-115); Potassium 4.3 mmol/L (3.3-5.1); Sodium 139 mmol/L (135-145)
[2023-01-14 15:50] VITALS: BP 134/74; PULSE 56; RESP 15; TEMP 36.3; O2SAT 99
[2023-01-14] MEDS: ondansetron HCL 4 MG/2 ML VIAL IVPUSH (19:15)
[2023-01-14 20:00] VITALS: BP 107/67; PULSE 60; RESP 15; TEMP 36.2; O2SAT 97
[2023-01-15] MEDS: Dextrose 5 % and 0.45 % NaCl 1,000 ML 100 ML IVCONT (03:34)
[2023-01-15 03:38] VITALS: BP 93/60; PULSE 90; RESP 16; TEMP 36.4; O2SAT 98
[2023-01-15 04:16] VITALS: BP 102/52; PULSE 51; RESP 16; TEMP 36.4; O2SAT 96
[2023-01-15] MEDS: Pantoprazole Sodium 40 MG/10 ML VIAL IVPUSH (05:17)
[2023-01-15 06:29] LABS: MANUAL DIFF FLAG NO
[2023-01-15 06:32] LABS: Basophils Percent Auto 0.4 % (0-2); Eosinophils Absolute Auto 0.1 X10*3/uL (0.0-0.4); Eosinophils Percent Auto 0.9 % (0-4); Hematocrit 34.4 % (37.0-47.0); Hemoglobin 11.2 g/dl (12.0-16.0); Imm Gran Abs Auto 0.02 X10*3/uL (0.00-0.03); Imm Gran Pct Auto 0.2 % (0.0-0.4); Lymphocytes Absolute Auto 4.3 X10*3/uL (1.2-4.9); Lymphocytes Percent Auto 48.2 % (20-40); Mean Corpuscular HGB Conc 32.6 g/dl (31.0-35.0); Mean Corpuscular Hemoglobin 29.5 pg (27.0-33.0); Mean Corpuscular Volume 90.5 fL (80.0-98.0); Mean Platelet Volume 9.8 fL (9.4-12.3); Monocytes Absolute Auto 0.8 X10*3/uL (0.1-1.2); Monocytes Percent Auto 8.4 % (2-11); Neutrophils Absolute Auto 3.7 x10*3/uL (2.0-8.3); Neutrophils Percent Auto 41.9 % (45-73); Platelet Count 189 X10*3/uL (160-400); Red Cell Distribution Width 13.2 % (11.0-16.0); White Blood Count 8.9 X10*3/uL (4.8-10.8)
[2023-01-15 06:58] LABS: Blood Urea Nitrogen 11 mg/dL (9-16); Calcium 8.3 mg/dL (8.4-10.2); Creatinine Clr Calc Pharmacy 110.7; Estimated Glomerular Filt Rate > 60; Glucose Random 100 mg/dL (60-115)
[2023-01-15 07:19] LABS: Anion Gap 11 (12-20); Carbon Dioxide 25 mmol/L (22-29); Chloride 107 mmol/L (96-108); Potassium 3.8 mmol/L (3.3-5.1); Sodium 139 mmol/L (135-145)
[2023-01-15 08:00] VITALS: BP 111/57; PULSE 101; RESP 18; TEMP 36.6; O2SAT 96
--- NOTE | 2023-01-15 08:59 | P.DS_ITS ---
DS: Providers Provider Date of Service: 01/15/23 Date of admission: 01/14/23 06:38 Primary care physician: Unknown Physician DS: Diagnosis Discharge Diagnosis (1) Cyclical vomiting: Status: Acute DS: Summary Hospital Course Hospital Course: 27-year-old female with a past medical history of anxiety, cannabis abuse, history of cyclic vomiting syndrome presented to the hospital with a chief complaint of nausea and vomiting.? Patient mentions for the past 3 days she has been having episodes of nausea vomiting his; reports she has had multiple episodes of vomiting.? Denies any blood in the vomitus.? 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 Denies any diarrhea.? Denies any chest pain palpitations lightheadedness or dizziness.? Denies any fever chills cough or sputum production.? Denies any urinary symptoms.? Patient mentioned that she is not .? Review of all other systems is negative except mentioned above ER course: Per ER team, patient initially presented yesterday evening with symptoms of nausea vomiting, presumed to be cyclic vomiting syndrome similar to the prior episodes; given supportive care with anti nausea medications patient improved and subsequently discharged.? Patient returned back after few hours with a chief complaint of nausea and vomiting and unable to tolerate p.o..? So again patient was received medications with no significant improvement.? Also noted to have hypokalemia to 3.2.? Potassium was repleted.? Admitted to the hospital for further management hospital course:Patient was admitted if persistent nausea vomiting secondary to cyclic vomiting and possible marijuana use-given supportive therapy with hydrati on, antiemetics, bowel rest , anti acid medication-seems to be improved significantly, tolerating diet. Encouraged to cut down marijuana use and if possible stop it to avoid further episodes of cyclic vomiting. Obesity:Encouraged to cut down calories and weight loss. Patient will be going home. plan: Encouraged to cut down marijuana use and if possible stop it to avoid further episodes of cyclic vomiting. Encouraged to cut down calories and weight loss. Above management discussed with patient detail and he she understand and in agreement with the above plan, time spent 50 minute. Time Spent with Patient Time attestation: Total time managing care of this patient today ____ minutes. Discharge coordination time: Greater than 30 minutes Quality: Safe Use of Opioids Does Pt have an Active Cancer Diagnosis on the Problem List?: No Quality: Stroke Does the patient have a stroke diagnosis?: No Physical Exam Vital Signs: Vital Signs: Last Vital Signs Temp 97.8 F 01/15/23 08:00 Pulse 101 H 01/15/23 08:00 Resp 18 01/15/23 08:00 BP 111/57 L 01/15/23 08:00 Pulse Ox 96 01/15/23 08:00 O2 Del Method 01/15/23 08:00 BMI result Body Mass Index 32.1 ?Gen: Appears be in no acute distress HEENT:? NCAT,? Moist mucosa. Pulmonary:? Vesicular breath sounds, fair air entry CVS:? Normal S1-S2 Abdomen: BS+, Soft, Nontender Extremities:? Warm well perfused Neuro:? Alert and awake. ? DS: Data Data Completed and Pending Labs on day of discharge: Laboratory Results - last 24 hr 01/14/23 01/15/23 01/15/23 13:16 06:13 06:13 WBC 8.9 RBC 3.80 L Hgb 11.2 L Hct 34.4 L MCV 90.5 MCH 29.5 MCHC 32.6 RDW 13.2 Plt Count 189 D MPV 9.8 Immature Gran % (Auto) 0.2 Neut % (Auto) 41.9 L Lymph % (Auto) 48.2 H [place] % (Auto) 8.4 Eos % (Auto) 0.9 Baso % (Auto) 0.4 Lymph # (Auto) 4.3 [place] # (Auto) 0.8 Eos # (Auto) 0.1 Baso # (Auto) 0.0 Abs Immat Gran (auto) 0.02 Absolute Neuts (auto) 3.7 Absolute Nucleated RBC 0.000 Nucleated RBC % (auto) 0.0 Sodium 139 139 Potassium 4.3 D 3.8 Chloride 111 H 107 Carbon Dioxide 19 L 25 Anion Gap 13 11 L BUN 16 11 Creatinine 0.73 0.76 Estim Creat Clear Calc 115.3 110.7 Estimated GFR > 60 > 60 Random Glucose 120 H 100 Calcium 8.4 D 8.3 L Discharge Plan Discharge Patient Disposition: Home, Self-Care Discharge Diagnosis: Cyclic vomiting Referrals: Physician,Unknown J [Primary Care Provider] - 1 Week Discharge Medications: New omeprazole 10 mg capsule,delayed release(DR/EC) 10 mg PO DAILY Qty: 10 0RF Discharge Orders: Discharge Order (Routine); Ordered 01/15/23 Ordered By: Darrion Mosqueda Diet: Advance to usual diet Activity on Discharge: As tolerated Stand Alone Forms: Patient Portal Discharge page Care Plan Goals: Patient was admitted if persistent nausea vomiting secondary to cyclic vomiting and possible marijuana use-given supportive therapy with hydration, antiemetics, bowel rest , anti acid medication-seems to be improved significantly, tolerating diet. Encouraged to cut down marijuana use and if possible stop it to avoid further episodes of cyclic vomiting. Patient will be going home. Health Concerns: As above. Plan of Treatment: As above. Assessment: As above.
--- NOTE | 2023-01-15 09:08 | MHC.CM.PN ---
PATIENT IS DC HOME - SELF CARE RN AWARE OF PLAN
--- NOTE | 2023-01-15 09:21 | MHC.CM.PN ---
PATIENT REPORTS THAT HER PCP IS AT [address] [place] [address] TONY LICONA IN DECEMBER 2022, BUT SHE REPORTS THAT HER PCP IS FEMALE. SHE IS UNABLE TO RECALL THE NAME BASED ON IT BEING THE WEEKEND, T/W UNABLE TO CONFIRM
== END 2023-01-15 10:03 | disposition home or self-care (01) ==
LOC: HO.ED 01-14 05:43 → HO.EDOVER 01-14 06:45 → HO.S3 01-14 07:14
PROVIDERS: Admitting Provider Hospitalist; Emergency Provider Emergency Medicine; PCP Nurse Practitioner Family; Visit Provider Internal Medicine
DX: R11.15 Cyclical vomiting syndrome unrelated to migraine (principal); R10.11 Right upper quadrant pain; F12.90 Cannabis use, unspecified, uncomplicated; F41.9 Anxiety disorder, unspecified; F33.9 Major depressive disorder, recurrent, unspecified
CPT/HCPCS: 36415; 80048; 80076; 80307; 81001; 83690; 84702; 85025; 87635; 93005; 96361; 96365; 96366; 96372; 96375; 96376; 99221; 99285; J1200; J1643; J2405; J2765

== ENCOUNTER 2023-01-25 10:55 | Outpatient (REF) | payer OTHER, SELFPAY | END 2023-01-25 10:56 | disposition home or self-care (01) | LOC: HO.LAB 10:55 | PROVIDERS: PCP Nurse Practitioner Family; Visit Provider Nurse Practitioner Family | DX: Z13.89 Encounter for screening for other disorder (principal) ==

== ENCOUNTER 2023-03-17 09:53 | Outpatient (REF) | payer OTHER, SELFPAY ==
[2023-03-17 12:06] LABS: Lipase 17 U/L (8-78)
[2023-03-17 12:40] LABS: Folate 13.7 ng/mL (> or = 4.0); Vitamin B12 711 pg/mL (200-900)
[2023-03-24 12:39] LABS: Vitamin D 25-OH, D2 <4 ng/mL; Vitamin D 25-OH, D3 19 ng/mL; Vitamin D 25-OH, Total 19 ng/mL (30-100)
== END 2023-03-17 09:54 | disposition home or self-care (01) ==
LOC: HO.LAB 09:53
PROVIDERS: PCP Nurse Practitioner Family; Visit Provider Nurse Practitioner Family
DX: R10.9 Unspecified abdominal pain (principal); R10.13 Epigastric pain; R11.0 Nausea; R19.7 Diarrhea, unspecified; K21.9 Gastro-esophageal reflux disease without esophagitis; E55.9 Vitamin D deficiency, unspecified
CPT/HCPCS: 36415; 82306; 82607; 82746; 83690; 99202

== ENCOUNTER 2023-04-22 13:49 | Observation (INO) | payer OTHER, SELFPAY ==
--- NOTE | ~2023-04-22 | CT_ITS ---
EXAMINATION: CT ABDOMEN AND PELVIS WITH CONTRAST CLINICAL INFORMATION: Severe abdominal pain, nausea and vomiting. COMPARISON: CT abdomen/pelvis 01/19/2022. TECHNIQUE: Multidetector volumetric images were obtained from the superior aspect of the liver through the pubic symphysis following administration 85 mL of Omnipaque 350 intravenous contrast. Sagittal and coronal reformatted images were obtained on the technologist's workstation. Oral contrast: No This CT examination was performed using dose optimization techniques as appropriate, variously including the following: *Automated exposure control *Adjustment of mA and/or kV according to patient size (this includes techniques or standardized protocols for targeted exams where dose is matched to indication/reason for exam; i.e. extremities or head) *Use of iterative reconstruction technique DLP: 491 mGy-cm FINDINGS: LUNG BASES: No focal consolidation or pleural effusion. LIVER, GALLBLADDER, AND BILIARY TREE: The liver is normal in size, shape, and attenuation. No focal hepatic lesion or biliary ductal dilatation is present. The gallbladder is unremarkable with no evidence of radiopaque gallstones, gallbladder wall thickening, or obvious pericholecystic inflammatory changes. PANCREAS: Unremarkable. SPLEEN: Unremarkable. ADRENAL GLANDS: Unremarkable. KIDNEYS AND URETERS: Bilateral hyperattenuating foci in the collecting systems likely representing excretion of IV contrast, limiting assessment of the small calculi. Symmetric nephrograms. No hydronephrosis. No perinephric fat stranding. BLADDER: Underdistended limiting its evaluation. GASTROINTESTINAL TRACT: The stomach and the small bowel are nondilated. Normal appendix. Evaluation of colonic wall thickening is limited due to underdistention. No significant pericolonic fat stranding. No evidence of bowel obstruction. ABDOMINAL WALL: No significant hernia is appreciated. LYMPH NODES: Mild diffuse mesenteric vasculature engorgement with scattered prominent mesenteric lymph nodes measuring up to 0.7 cm in short axis. VASCULAR: As above, engorged mesenteric vasculature. Abdominal aorta is normal in caliber. Main portal vein is patent. PELVIC VISCERA: Questionable cervical engorgement with mild surrounding fatty haziness. Small volume of free fluid in the pelvis. There is a 2 cm dominant follicle in the left ovary. OSSEOUS STRUCTURES: No acute or aggressive appearing osseous abnormalities. CT/CT abdomen pelvis w IV con IMPRESSION: 1. Mild diffuse mesenteric vasculature engorgement with scattered prominent mesenteric lymph nodes. These findings are nonspecific and could be associated with reactive changes in the setting of gastroenteritis in the appropriate clinical context. 2. Questionable cervical engorgement with mild surrounding fatty haziness, correlate clinically for cervicitis. 3. Evaluation of colonic wall thickening is limited due to underdistention. No significant pericolonic fat stranding. No evidence of bowel obstruction. 4. Small volume of free fluid in the pelvis, likely physiologic. 5. No other acute abnormalities in the abdomen or pelvis to explain the patient's symptoms.
[2023-04-22 14:01] VITALS: BP 110/70; BP 90/51; PULSE 73; PULSE 80; RESP 18; TEMP 36.6; O2SAT 100; O2SAT 97; BMI 29.9
[2023-04-22] MEDS: 0.9 % Sodium Chloride 1,000 ML 999 ML IV (14:24)
[2023-04-22] MEDS: ondansetron HCL 4 MG/2 ML VIAL IVPUSH ×2 (14:26→22:02)
--- NOTE | 2023-04-22 14:27 | ED_ITS ---
HPI - General Adult General Chief complaint: Abdominal Pain Stated complaint: ABD PAIN Time Seen by Provider: 04/22/23 14:11 Source: patient Mode of arrival: ambulatory Limitations: no limitations History of Present Illness HPI narrative: 27-year-old female presents with diffuse abdominal pain, nausea, vomiting, in ability to tolerate p.o. since this morning. Patient reports associated fatigue, malaise and weakness. Reports she has not been able to eat or drink anything today. Reports this has happened to her in the past before she has a history of cyclic vomiting. Patient denies fevers, chills, chest pain, shortness of breath, headache, vision changes, dizziness, weakness, urinary symptoms, recent sick contacts. Related Data Home Medications Medication Instructions Recorded Confirmed ondansetron HCl 4 mg tablet 4 mg PO Q8H PRN nausea and vomiting 01/25/23 01/25/23 Previous Rx's Medication Instructions Recorded famotidine 40 mg tablet 40 mg PO BEDTIME #30 tabs 03/17/23 pantoprazole 40 mg tablet,delayed 40 mg PO DAILY #30 tabs 03/17/23 release cholecalciferol (vitamin D3) 50 50 mcg PO DAILY #90 caps 03/28/23 mcg (2,000 unit) capsule Allergies Allergy/AdvReac Type Severity Reaction Status Date / Time No Known Allergies Allergy Verified 03/17/23 10:09 [No Known Allergies*] Review of Systems Review of Systems: Constitutional : No Weight loss, No Fever, No Chills, No Fatigue, No Malaise ENT/Mouth : No sore throat, No Rhinorrhea Eyes: No Eye Pain, No Swelling, No Redness Cardiovascular : No Chest Pain, No SOB, No Dyspnea on Exertion, No Orthopnea, No Edema, No Palpitations Respiratory : No Cough, No Sputum, No Wheezing Gastrointestinal : + Nausea, + Vomiting, No Diarrhea, No Constipation, + abdominal Pain, No Hematochezia, No Melena Genitourinary : No Dysuria, No Urinary Frequency, No Hematuria, Musculoskeletal : No joint pain, No Myalgias, No Joint Swelling Skin : No Skin Lesions, No rash Neuro : No Weakness, No Numbness, No Dizziness, No Headache Psych : No Anxiety/Panic, No Depression All other systems reviewed and are negative Yes all other systems are reviewed and are negative PMFSH Past Medical History Attestation statement: The following information was validated with the patient. Source: old records reviewed and nursing notes reviewed Medical History Anxiety disorder, unspecified Lack of access to transportation Marijuana abuse Mild recurrent major depression Nausea and vomiting Right upper quadrant abdominal pain Surgical History History of D&C Family History Family History Maternal Grandmother Breast cancer Son Autism Daughter No problems noted. Mother No problems noted. Father Learning difficulty Mental health disorder Maternal Grandmother Breast cancer, Onset Age: 50 Maternal Uncle Testicular cancer, Onset Age: 60 Paternal Grandfather Diabetes mellitus Myocardial infarct Other Substance use disorder Social History Social History Household Members: Family Housing: Apartment Do you presently have visiting nurse or other home services: No Alcohol intake: former Patient Tobacco Use Status: Former Tobacco user Smoked in Last 30 Days: No e-Cigarette/Vaping Use: Never Used Second Hand Smoke Exposure: No Use of substances other than those prescribed or required for medical reasons: Yes Substance Use Type: Marijuana Advance Directives: No Advance Directives Information Provided: No service: No Current occupational status: unemployed Cognitive needs: No Hearing needs: No Vision needs: No Physical Exam ED Vital Signs: Vital Signs - 24 hr 04/22/23 14:01 04/22/23 14:31 04/22/23 14:57 Temperature 97.8 F Pulse Rate 73 84 83 Respiratory Rate 18 20 18 Blood Pressure 90/51 L 103/53 L Pulse Oximetry 100 100 100 Oxygen Delivery Method Room Air Room Air Room Air BMI result Body Mass Index 29.9 vss Appearance: Alert.? Oriented X3.? No acute distress.? Head: Normocephalic, atraumatic, no step-offs or deformities Eyes: Pupils equal, round and reactive to light.? Neck: Normal inspection.? Neck supple.? CVS: Normal heart rate and rhythm.? Pulses normal.? Respiratory: No respiratory distress.? Breath sounds normal.? Abdomen: Soft and diffusely tender. .? Skin: Skin warm and dry.? Normal skin color.? Normal skin turgor.? Extremities: No lower extremity edema.? No calf ttp. 5/5 strength to bilateral upper and lower extremities Neuro: Oriented X 3.? No motor deficit.? No sensory deficit. CN 2-12 intact Course Reevaluation(s) Reevaluation #1: CBC with leukocytosis likely secondary to nausea, vomiting, reactive. Chemistry pending. CT abdomen pelvis pending. Patient is still vomiting. Time: 15:00 Reevaluation #2: Chemistry, UA, CT pending. Sign out to my colleague Elle. Pending the use imaging, labs, urine, re-evaluation. I suspect patient will likely require hospital admission. Time: 16:18 Medications Administered Discontinued Medications Generic Name Dose Route Start Last Admin Trade Name Freq PRN Reason Stop Dose Admin Sodium Chloride 1,000 mls @ 999 mls/hr 04/22/23 14:15 04/22/23 14:24 Ns IV 04/22/23 15:15 999 mls/hr .Q1H1M ACACIA Administration Ondansetron HCl 4 mg 04/22/23 14:11 04/22/23 14:26 Ondansetron Hcl 4 Mg/2 Ml Vial IVPUSH 04/22/23 14:12 4 mg ONCE ONE Administration Prochlorperazine Edisylate 10 mg 04/22/23 15:38 04/22/23 16:07 Prochlorperazine Edisylate 10 Mg/2 Ml Vial IVPUSH 04/22/23 15:39 10 mg ONCE ONE Administration Medical Decision Making Medical Decision Making [facility] Narrative: 1420 27-year-old female presents with a few days of nausea, vomiting diffuse abdominal pain. Diffuse tenderness on exam. Likely viral illness versus cyclic vomiting versus electrolyte abnormalities. I do not suspect acute abdomen, cholecystitis, diverticulitis, pancreatitis, appendicitis. Plan labs, imaging, urine. Differential Diagnosis Differential Diagnoses: The differential diagnosis associated with the presentation includes Likely viral illness versus cyclic vomiting versus electrolyte abnormalities . I do not suspect acute abdomen, cholecystitis, diverticulitis, pancreatitis, appendicitis. Admission/Observation Consideration of admission/observation: Escalation of care including admission/observation considered Possible admission for cyclic vomiting, history of this Lab Data [facility] Lab Attestation statement: I reviewed the patient's lab results. 04/22/23 14:25 Labs: Lab Results 04/22/23 04/22/23 04/22/23 Range/Units 14:25 14:25 16:01 WBC 15.2 H (4.8-10.8) X10*3/uL RBC 5.08 D (4.20-5.50) X10*6/uL Hgb 14.7 D (12.0-16.0) g/dl Hct 44.0 D (37.0-47.0) % MCV 86.6 (80.0-98.0) fL MCH 28.9 (27.0-33.0) pg MCHC 33.4 (31.0-35.0) g/dl RDW 12.5 (11.0-16.0) % Plt Count 297 D (160-400) X10*3/uL MPV 9.5 (9.4-12.3) fL Immature Gran % (Auto) 0.3 (0.0-0.4) % Neut % (Auto) 75.4 H (45-73) % Lymph % (Auto) 19.1 L (20-40) % [place] % (Auto) 4.7 (2-11) % Eos % (Auto) 0.1 (0-4) % Baso % (Auto) 0.4 (0-2) % Lymph # (Auto) 2.9 (1.2-4.9) X10*3/uL [place] # (Auto) 0.7 (0.1-1.2) X10*3/uL Eos # (Auto) 0.0 (0.0-0.4) X10*3/uL Baso # (Auto) 0.1 (0.0-0.2) X10*3/uL Abs Immat Gran (auto) 0.05 H (0.00-0.03) X10*3/uL Absolute Neuts (auto) 11.5 H (2.0-8.3) x10*3/uL Absolute Nucleated RBC 0.000 (0.0-0.012) X10*3/uL Nucleated RBC % (auto) 0.0 (0.0-0.2) /100WBC POC Glucose 148 H (60-115) mg/dL Beta HCG, Quant < 2 mIU/mL Independent Interpretation I performed an independent interpretation of an: CT Scan Radiology Impression Discussion of test interpretation with radiology: I have reviewed the radiologist's reading. External Record Review External record reviewed: Inpatient record, Office record, Outpatient record, Prior outpatient labs, Prior outpatient radiology, Primary care record and Out side ED record Core Measures AMI core measures followed: Yes Critical Care Time Critical Care Time Critical Care Time: No Discharge Plan Discharge Clinical Impression: Cyclical vomiting, Abdominal pain Patient Disposition: Still a Patient Prescriptions: No Action cholecalciferol (vitamin D3) 50 mcg (2,000 unit) capsule 50 mcg PO DAILY Qty: 90 3RF ondansetron HCl 4 mg tablet 4 mg PO Q8H PRN (Reason: nausea and vomiting) pantoprazole 40 mg tablet,delayed release (DR/EC) 40 mg PO DAILY Qty: 30 2RF Rx Instructions: take one tablet half an hour before breakfast famotidine 40 mg tablet 40 mg PO BEDTIME Qty: 30 3RF
[2023-04-22 14:29] LABS: MANUAL DIFF FLAG NO
[2023-04-22 14:30] LABS: Basophils Absolute Auto 0.1 X10*3/uL (0.0-0.2); Basophils Percent Auto 0.4 % (0-2); Eosinophils Percent Auto 0.1 % (0-4); Hemoglobin 14.7 g/dl (12.0-16.0); Imm Gran Abs Auto 0.05 X10*3/uL (0.00-0.03); Imm Gran Pct Auto 0.3 % (0.0-0.4); Lymphocytes Absolute Auto 2.9 X10*3/uL (1.2-4.9); Lymphocytes Percent Auto 19.1 % (20-40); Mean Corpuscular HGB Conc 33.4 g/dl (31.0-35.0); Mean Corpuscular Hemoglobin 28.9 pg (27.0-33.0); Mean Corpuscular Volume 86.6 fL (80.0-98.0); Mean Platelet Volume 9.5 fL (9.4-12.3); Monocytes Absolute Auto 0.7 X10*3/uL (0.1-1.2); Monocytes Percent Auto 4.7 % (2-11); Neutrophils Absolute Auto 11.5 x10*3/uL (2.0-8.3); Neutrophils Percent Auto 75.4 % (45-73); Platelet Count 297 X10*3/uL (160-400); Red Blood Count 5.08 X10*6/uL (4.20-5.50); Red Cell Distribution Width 12.5 % (11.0-16.0); White Blood Count 15.2 X10*3/uL (4.8-10.8)
[2023-04-22 14:31] VITALS: PULSE 84; RESP 20; O2SAT 100
[2023-04-22 14:57] VITALS: BP 103/53; PULSE 83; RESP 18; O2SAT 100
[2023-04-22 15:00] LABS: HCG Quantitative < 2 mIU/mL
[2023-04-22 16:04] LABS: Glucose, Whole Blood 148 mg/dL (60-115)
[2023-04-22] MEDS: Prochlorperazine Edisylate 10 MG/2 ML VIAL IVPUSH (16:07)
[2023-04-22 16:44] LABS: Lactic Acid 3.8 mmol/L (0.5-2.0)
[2023-04-22 16:44] LABS: Alanine Aminotransferase 22 U/L (0-31); Albumin Level 4.2 g/dL (3.5-5.0); Alkaline Phosphatase 60 U/L (39-117); Anion Gap 19 (12-20); Aspartate Amino Transferase 25 U/L (5-31); Bilirubin Total 0.4 mg/dL (0.0-1.0); Blood Urea Nitrogen 14 mg/dL (9-16); Carbon Dioxide 16 mmol/L (22-29); Chloride 110 mmol/L (96-108); Creatinine Clr Calc Pharmacy 109.3; Estimated Glomerular Filt Rate > 60; Glucose Random 145 mg/dL (60-115); Lipase 10 U/L (8-78); Magnesium 1.7 mg/dL (1.6-2.6); Potassium 3.8 mmol/L (3.3-5.1); Sodium 141 mmol/L (135-145); Total Protein 7.7 g/dL (6.5-8.0)
[2023-04-22] MEDS: 0.9 % Sodium Chloride 1,000 ML 999 ML IVCONT ×2 (17:47→22:21)
[2023-04-22] MEDS: iohexoL 350 MG/ML 100 ML INFUS..BTL IV (17:59)
[2023-04-22 18:00] VITALS: BP 124/86; PULSE 95; RESP 18; O2SAT 98
[2023-04-22 18:08] LABS: Reflex Lactate? Lactic Acid Added
[2023-04-22 19:26] LABS: ~Lactic Acid-LAB USE ONLY 2.8 mmol/L (0.5-2.0)
[2023-04-22 21:10] LABS: Reflex Lactate? 2 Y
[2023-04-22 22:13] LABS: ~Lactic Acid-LAB USE ONLY 3.1 mmol/L (0.5-2.0)
[2023-04-22 22:20] VITALS: BP 123/74; PULSE 57; RESP 16; TEMP 36.9; O2SAT 98
--- NOTE | 2023-04-22 22:20 | P.HPHOSP_ITS ---
History of Present Illness Date of Service: 04/22/23 Chief Complaint: n/v 89-year-old female with past medical history of anxiety and depression, history of cyclic vomiting, presents the hospital with complaints of intractable nausea vomiting, and epigastric abdominal pain. Patient reports her symptoms started today. The epigastric pain is constant, nonradiating, no alleviating or exacerbating factors. Patient reports that she still smokes marijuana intermittently. Warm showers do make her feel better. She has minimal improvement with Zofran IV. She reports that every time she has vomiting she has diarrhea, she otherwise denies any shortness of breath, no chest pain, no urinary symptoms and no lower extremity edema. 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 When asked about symptoms patient does report that for the past week she has had pain during sexual intercourse as well as after. She is in a monogamous relationship but she is not sure of her partners fidelity. On arrival to the ED patient hemodynamically stable Labs are significant for WBC count of 15.2, lactic acid of 3.8, improved after IV fluids, labs otherwise unremarkable, chlamydia, gonorrhea, Trichomonas pending other findings on imaging includes possible gastroenteritis versus nonspecific diffuse mesenteric vascular engorgement with scattered prominent mesenteric lymph nodes, these findings are nonspecific but may be secondary to reactive gastroenteritis. Given intractable nausea vomiting patient will be admitted for further management Review of Systems Review of Systems: Yes all other systems are reviewed and are negative [facility] Medical History Anxiety disorder, unspecified Lack of access to transportation Marijuana abuse Mild recurrent major depression Nausea and vomiting Right upper quadrant abdominal pain Family History Maternal Grandmother Breast cancer Son Autism Daughter No problems noted. Mother No problems noted. Father Learning difficulty Mental health disorder Maternal Grandmother Breast cancer, Onset Age: 50 Maternal Uncle Testicular cancer, Onset Age: 60 Paternal Grandfather Diabetes mellitus Myocardial infarct Other Substance use disorder Surgical History History of D&C Social History Household Members: Family Housing: Apartment Do you presently have visiting nurse or other home services: No Alcohol intake: former Patient Tobacco Use Status: Former Tobacco user Smoked in Last 30 Days: No e-Cigarette/Vaping Use: Never Used Second Hand Smoke Exposure: No Use of substances other than those prescribed or required for medical reasons: Yes Substance Use Type: Marijuana Advance Directives: No Advance Directives Information Provided: No service: No Current occupational status: unemployed Cognitive needs: No Hearing needs: No Vision needs: No Meds Allergies Allergy/AdvReac Type Severity Reaction Status Date / Time No Known Allergies Allergy Verified 03/17/23 10:09 [No Known Allergies*] Active Medications: Current Medications Sodium Chloride (Ns) 1,000 mls @ 999 mls/hr IVCONT .Q1H1M ONE Stop: 04/22/23 22:41 Home Medications Medication Instructions Recorded Confirmed Last Taken Type ondansetron HCl 4 mg tablet 4 mg PO Q8H PRN nausea and vomiting 01/25/23 04/22/23 Unknown History Physical Exam Vital Signs and Narrative: Vital Signs: Last Vital Signs Temp 97.8 F 04/22/23 14:01 Pulse 95 04/22/23 18:00 Resp 18 04/22/23 18:00 BP 124/86 04/22/23 18:00 Pulse Ox 98 04/22/23 18:00 O2 Del Method Room Air 04/22/23 18:00 BMI result Body Mass Index 29.9 Const: General: cooperative and no acute distress [place] ation/consciousness: patient oriented x3 Eyes: General: appearance normal, both eyes and all related structures Resp: Effort & Inspection: normal respiratory effort Auscultation: clear to auscultation bilaterally Cardio: Rate: regular rate Rhythm: regular rhythm GI: Other: abdomen is soft, nontender, no rebound or guarding while I was interviewing the patient, she took a sip of apple juice, and had significant vomiting immediately after receiving Zofran IV Palpation (GI): Soft to palpation Auscultation: normal bowel sounds Skin: General skin exam: no rashes or lesions noted Neuro: General: patient oriented x3 Cognition (Neuro): normal cognition Extrem: General: Yes normal to inspection and Yes no pedal edema Results Labs 04/22/23 14:25 04/22/23 16:03 Labs: Laboratory Results - last 24 hr 04/22/23 04/22/23 04/22/23 14:25 14:25 16:01 MCV 86.6 MCH 28.9 MCHC 33.4 RDW 12.5 Plt Count 297 D MPV 9.5 Immature Gran % (Auto) 0.3 Neut % (Auto) 75.4 H Lymph % (Auto) 19.1 L [place] % (Auto) 4.7 Eos % (Auto) 0.1 Baso % (Auto) 0.4 Lymph # (Auto) 2.9 [place] # (Auto) 0.7 Eos # (Auto) 0.0 Baso # (Auto) 0.1 Abs Immat Gran (auto) 0.05 H Absolute Neuts (auto) 11.5 H Absolute Nucleated RBC 0.000 Nucleated RBC % (auto) 0.0 Anion Gap Estim Creat Clear Calc Estimated GFR POC Glucose 148 H Random Glucose Lactic Acid Lactic Acid F/U @ 2Hr Lactic Acid F/U @ 4Hr Calcium Magnesium Total Bilirubin AST ALT Alkaline Phosphatase Total Protein Albumin Lipase Beta HCG, Quant < 2 04/22/23 04/22/23 04/22/23 16:03 16:04 19:07 MCV MCH MCHC RDW Plt Count MPV Immature Gran % (Auto) Neut % (Auto) Lymph % (Auto) [place] % (Auto) Eos % (Auto) Baso % (Auto) Lymph # (Auto) [place] # (Auto) Eos # (Auto) Baso # (Auto) Abs Immat Gran (auto) Absolute Neuts (auto) Absolute Nucleated RBC Nucleated RBC % (auto) Anion Gap 19 Estim Creat Clear Calc 109.3 Estimated GFR > 60 POC Glucose Random Glucose 145 H Lactic Acid 3.8 H* Lactic Acid F/U @ 2Hr 2.8 H* Lactic Acid F/U @ 4Hr Calcium 10.0 D Magnesium 1.7 Total Bilirubin 0.4 AST 25 ALT 22 Alkaline Phosphatase 60 Total Protein 7.7 Albumin 4.2 Lipase 10 Beta HCG, Quant 04/22/23 21:48 MCV MCH MCHC RDW Plt Count MPV Immature Gran % (Auto) Neut % (Auto) Lymph % (Auto) [place] % (Auto) Eos % (Auto) Baso % (Auto) Lymph # (Auto) [place] # (Auto) Eos # (Auto) Baso # (Auto) Abs Immat Gran (auto) Absolute Neuts (auto) Absolute Nucleated RBC Nucleated RBC % (auto) Anion Gap Estim Creat Clear Calc Estimated GFR POC Glucose Random Glucose Lactic Acid Lactic Acid F/U @ 2Hr Lactic Acid F/U @ 4Hr 3.1 H* Calcium Magnesium Total Bilirubin AST ALT Alkaline Phosphatase Total Protein Albumin Lipase Beta HCG, Quant Imaging Radiologist's Impressions: Impressions Abdomen/Pelvis CT 04/22/23 18:00 IMPRESSION: 1. Mild diffuse mesenteric vasculature engorgement with scattered prominent mesenteric lymph nodes. These findings are nonspecific and could be associated with reactive changes in the setting of gastroenteritis in the appropriate clinical context. 2. Questionable cervical engorgement with mild surrounding fatty haziness, correlate clinically for cervicitis. 3. Evaluation of colonic wall thickening is limited due to underdistention. No significant pericolonic fat stranding. No evidence of bowel obstruction. 4. Small volume of free fluid in the pelvis, likely physiologic. 5. No other acute abnormalities in the abdomen or pelvis to explain the patient's symptoms. Assessment and Plan (1) Intractable nausea and vomiting: Status: Acute Plan 27-year-old female past medical history of cyclic vomiting, anxiety depression, presents the hospital with complaints of epigastric abdominal pain, nausea vomiting # intractable nausea vomiting - likely secondary to cyclic vomiting versus gastroenteritis - will treat with IV fluids, antiemetics - supportive measure - I had a prolonged discussion regarding abstinence from marijuana to see improvement # abdominal pain - epigastric region, likely secondary to the intractable nausea vomiting -Will treat with antiemetics, and PPI - Tylenol p.r.n. DVT prophylaxis: Early ambulation Time Spent With Patient Time: Total time managing care of this patient today ____ minutes. Quality Stroke Does the patient have a stroke diagnosis?: No VTE Prior VTE?: No VTE Risk Level:: Medical - low VTE Device Contraindication: Treatment Not Indicated VTE Drug Contraindication: N/A - Med Ordered
[2023-04-22 23:55] VITALS: BP 134/84; PULSE 84; RESP 18; TEMP 36.7; O2SAT 98
[2023-04-22] MEDS: Enoxaparin Sodium 40 MG/0.4 ML SYRINGE SUBCUT (23:56)
[2023-04-22] MEDS: Omeprazole 40 MG CAPSULE.DR PO (23:56)
[2023-04-22] MEDS: 0.9 % Sodium Chloride Flush 3 ML SYRINGE IVFLUSH (23:57)
[2023-04-22] MEDS: Doxycycline Monohydrate 100 MG CAPSULE PO (23:57)
[2023-04-22] MEDS: Lactated Ringers 1,000 ML 100 ML IVCONT (23:57)
[2023-04-23 01:13] LABS: CT PCR NOT DETECTED (Not Detect.); NG PCR NOT DETECTED (Not Detect.)
[2023-04-23] MEDS: cefTRIAXone sodium 500 MG, Lidocaine HCl 1 % MPF 1 ML IM (02:14)
--- NOTE | 2023-04-23 02:18 | PC.NURSE ---
Pt came to floor from ED around 23:55. Pt A+Ox4, clear on room air, not on tele, independently walking, pt had one episode of vomiting. All needed medications given, LR running at 100mL/ hr. Pt had no complaint of pain upon assessment, call mendoza within reach, plan of care continuing
[2023-04-23 03:57] VITALS: BP 116/67; PULSE 62; RESP 20; TEMP 37; O2SAT 99
[2023-04-23] MEDS: ondansetron HCL 4 MG/2 ML VIAL IVPUSH (05:24)
[2023-04-23] MEDS: Omeprazole 40 MG CAPSULE.DR PO ×2 (05:24→16:38)
[2023-04-23 06:09] LABS: MANUAL DIFF FLAG NO
[2023-04-23 06:19] LABS: Basophils Percent Auto 0.1 % (0-2); Hematocrit 37.7 % (37.0-47.0); Hemoglobin 12.8 g/dl (12.0-16.0); Imm Gran Abs Auto 0.07 X10*3/uL (0.00-0.03); Imm Gran Pct Auto 0.5 % (0.0-0.4); Lymphocytes Absolute Auto 1.7 X10*3/uL (1.2-4.9); Lymphocytes Percent Auto 11.6 % (20-40); Mean Corpuscular Hemoglobin 29.3 pg (27.0-33.0); Mean Corpuscular Volume 86.3 fL (80.0-98.0); Mean Platelet Volume 10.2 fL (9.4-12.3); Monocytes Absolute Auto 0.4 X10*3/uL (0.1-1.2); Monocytes Percent Auto 3.1 % (2-11); Neutrophils Absolute Auto 12.2 x10*3/uL (2.0-8.3); Neutrophils Percent Auto 84.7 % (45-73); Platelet Count 262 X10*3/uL (160-400); Red Blood Count 4.37 X10*6/uL (4.20-5.50); Red Cell Distribution Width 12.9 % (11.0-16.0); White Blood Count 14.4 X10*3/uL (4.8-10.8)
[2023-04-23 06:25] LABS: Anion Gap 16 (12-20); Blood Urea Nitrogen 12 mg/dL (9-16); Calcium 9.7 mg/dL (8.4-10.2); Carbon Dioxide 19 mmol/L (22-29); Chloride 108 mmol/L (96-108); Creatinine Clr Calc Pharmacy 112.1; Estimated Glomerular Filt Rate > 60; Glucose Random 124 mg/dL (60-115); Potassium 3.5 mmol/L (3.3-5.1); Sodium 139 mmol/L (135-145)
--- NOTE | 2023-04-23 07:40 | PHA.MEDREC ---
Pharmacy Consult ? Medication Reconciliation Pharmacy has completed the medication reconciliation. Reviewed med rec done by nursing (Janene).
[2023-04-23 07:42] VITALS: BP 124/72; PULSE 56; RESP 16; TEMP 36.2; O2SAT 99
[2023-04-23] MEDS: Acetaminophen 325 MG TABLET 650 MG PO (07:49)
--- NOTE | 2023-04-23 09:02 | MHC.CM.PN ---
CM met with Patient and addressed SALDIVAR with her, providing her with the original and placing a copy on the chart. Patient lives in an apartment with her 2 children ages 5 & 9 years of age. Patient is functionally independent and working at [employer]. Home/self care is the goal and CM has initiated and will follow for dc planning. Patient is not covid vax'd and her PCP is Dr. Leonila Hairston.
[2023-04-23] MEDS: Lactated Ringers 1,000 ML 100 ML IVCONT (10:56)
[2023-04-23] MEDS: Metoclopramide HCl 10 MG/2 ML VIAL 5 MG IVPUSH ×3 (10:57→23:29)
[2023-04-23] MEDS: Doxycycline Monohydrate 100 MG CAPSULE PO (10:57)
[2023-04-23 11:29] VITALS: BP 114/65; PULSE 56; RESP 16; TEMP 36.8; O2SAT 99
[2023-04-23 11:32] VITALS: BP 114/65; PULSE 56; RESP 16; TEMP 36.8; O2SAT 99
--- NOTE | 2023-04-23 13:35 | HO.PM.IMPN ---
Subjective Subjective Date of Service: 04/23/23 Interval History: complaining of persistent nausea and epigastric discomfort, is concerned about cervical engorgement on CT abdomen, denies itching no drainage, denies risk factors for HIV, requesting for food no fevers, no chills no prior history of STDs Review of Systems all other systems reviewed and negative. Physical Exam Vital Signs: Vital Signs: Last Vital Signs Temp 98.3 F 04/23/23 11:32 Pulse 56 04/23/23 11:32 Resp 16 04/23/23 11:32 BP 114/65 04/23/23 11:32 Pulse Ox 99 04/23/23 11:32 O2 Del Method Room Air 04/23/23 11:32 BMI result Body Mass Index 29.9 Const: Other: General awake alert x3, in no acute distress. Neck is supple no JVD. CVS regular rate rhythm, Respiratory lungs clear to auscultation, no respiratory distress, no wheeze, no rhonchi. Gastrointestinal mild epigastric tenderness, bowel sounds audible, no guarding , no rigidity. Extremities no edema. Neuro nonfocal Skin no rash psych appropriate affect Objective Data Active Medications Acetaminophen (Acetaminophen 325 Mg Tablet) 650 mg PO Q6H PRN PRN Reason: Pain, Mild (Pain Scale 1-3) Last Admin: 04/23/23 07:49 Dose: 650 mg Documented By: DOMINIQUE Docusate Sodium (Docusate Sodium 100 Mg Capsule) 100 mg PO DAILY PRN PRN Reason: Constipation Enoxaparin Sodium (Enoxaparin Sodium 40 Mg/0.4 Ml Syringe) 40 mg SUBCUT Q24H [facility] Last Admin: 04/22/23 23:56 Dose: 40 mg Documented By: TWILA Famotidine (Famotidine 20 Mg Tablet) 40 mg PO BEDTIME [facility] Lactated Ringer's (Lr) 1,000 mls @ 100 mls/hr IVCONT .Q10H [facility] Last Admin: 04/23/23 10:56 Dose: 100 mls/hr Documented By: ALEXSANDER Metoclopramide HCl (Metoclopramide Hcl 10 Mg/2 Ml Vial) 5 mg IVPUSH Q6H PRN PRN Reason: Nausea and Vomiting Last Admin: 04/23/23 10:57 Dose: 5 mg Documented By: ALEXSANDER Omeprazole (Omeprazole 40 Mg Capsule.) 40 mg PO BID@0630,1630 [facility] Last Admin: 04/23/23 05:24 Dose: 40 mg Documented By: TWILA Sodium Chloride (0.9 % Sodium Chloride Flush 3 Ml Syringe) 3 ml IVFLUSH QSHIFT [facility] Last Admin: 04/23/23 08:25 Dose: Not Given Documented By: ALEXSANDER Non-Admin Reason: IV Running Labs 04/23/23 05:59 04/23/23 05:59 Labs: Laboratory Results - last 24 hr 04/22/23 04/22/23 04/22/23 14:25 14:25 16:01 MCV 86.6 MCH 28.9 MCHC 33.4 RDW 12.5 Plt Count 297 D MPV 9.5 Immature Gran % (Auto) 0.3 Neut % (Auto) 75.4 H Lymph % (Auto) 19.1 L [place] % (Auto) 4.7 Eos % (Auto) 0.1 Baso % (Auto) 0.4 Lymph # (Auto) 2.9 [place] # (Auto) 0.7 Eos # (Auto) 0.0 Baso # (Auto) 0.1 Abs Immat Gran (auto) 0.05 H Absolute Neuts (auto) 11.5 H Absolute Nucleated RBC 0.000 Nucleated RBC % (auto) 0.0 Anion Gap Estim Creat Clear Calc Estimated GFR POC Glucose 148 H Random Glucose Lactic Acid Lactic Acid F/U @ 2Hr Lactic Acid F/U @ 4Hr Calcium Magnesium Total Bilirubin AST ALT Alkaline Phosphatase Total Protein Albumin Lipase Beta HCG, Quant < 2 Janki species DNA Chlam trachomat DNA PCR Gardnerella DNA Probe N.gonorrhoeae DNA (PCR) Trichomonas DNA Probe 04/22/23 04/22/23 04/22/23 16:03 16:04 19:07 MCV MCH MCHC RDW Plt Count MPV Immature Gran % (Auto) Neut % (Auto) Lymph % (Auto) [place] % (Auto) Eos % (Auto) Baso % (Auto) Lymph # (Auto) [place] # (Auto) Eos # (Auto) Baso # (Auto) Abs Immat Gran (auto) Absolute Neuts (auto) Absolute Nucleated RBC Nucleated RBC % (auto) Anion Gap 19 Estim Creat Clear Calc 109.3 Estimated GFR > 60 POC Glucose Random Glucose 145 H Lactic Acid 3.8 H* Lactic Acid F/U @ 2Hr 2.8 H* Lactic Acid F/U @ 4Hr Calcium 10.0 D Magnesium 1.7 Total Bilirubin 0.4 AST 25 ALT 22 Alkaline Phosphatase 60 Total Protein 7.7 Albumin 4.2 Lipase 10 Beta HCG, Quant Janki species DNA Chlam trachomat DNA PCR Gardnerella DNA Probe N.gonorrhoeae DNA (PCR) Trichomonas DNA Probe 04/22/23 04/22/23 04/22/23 20:50 20:50 21:48 MCV MCH MCHC RDW Plt Count MPV Immature Gran % (Auto) Neut % (Auto) Lymph % (Auto) [place] % (Auto) Eos % (Auto) Baso % (Auto) Lymph # (Auto) [place] # (Auto) Eos # (Auto) Baso # (Auto) Abs Immat Gran (auto) Absolute Neuts (auto) Absolute Nucleated RBC Nucleated RBC % (auto) Anion Gap Estim Creat Clear Calc Estimated GFR POC Glucose Random Glucose Lactic Acid Lactic Acid F/U @ 2Hr Lactic Acid F/U @ 4Hr 3.1 H* Calcium Magnesium Total Bilirubin AST ALT Alkaline Phosphatase Total Protein Albumin Lipase Beta HCG, Quant Janki species DNA Cancelled Chlam trachomat DNA PCR NOT DETECTED Gardnerella DNA Probe Cancelled N.gonorrhoeae DNA (PCR) NOT DETECTED Trichomonas DNA Probe Cancelled 04/23/23 04/23/23 05:59 05:59 MCV 86.3 MCH 29.3 MCHC 34.0 RDW 12.9 Plt Count 262 MPV 10.2 Immature Gran % (Auto) 0.5 H Neut % (Auto) 84.7 H Lymph % (Auto) 11.6 L [place] % (Auto) 3.1 Eos % (Auto) 0.0 Baso % (Auto) 0.1 Lymph # (Auto) 1.7 [place] # (Auto) 0.4 Eos # (Auto) 0.0 Baso # (Auto) 0.0 Abs Immat Gran (auto) 0.07 H Absolute Neuts (auto) 12.2 H Absolute Nucleated RBC 0.000 Nucleated RBC % (auto) 0.0 Anion Gap 16 Estim Creat Clear Calc 112.1 Estimated GFR > 60 POC Glucose Random Glucose 124 H Lactic Acid Lactic Acid F/U @ 2Hr Lactic Acid F/U @ 4Hr Calcium 9.7 Magnesium Total Bilirubin AST ALT Alkaline Phosphatase Total Protein Albumin Lipase Beta HCG, Quant Janki species DNA Chlam trachomat DNA PCR Gardnerella DNA Probe N.gonorrhoeae DNA (PCR) Trichomonas DNA Probe Assessment and Plan (1) Intractable nausea and vomiting: Status: Acute (2) Abdominal pain: Status: Acute Plan 27-year-old female past medical history of cyclic vomiting, anxiety depression, presents the hospital with complaints of epigastric abdominal pain, nausea vomiting #? intractable nausea /vomiting. -? likely secondary to cyclic vomiting versus gastroenteritis -? continue IV fluids, change IV Zofran to IV Reglan, recommend hot showers, strongly recommend to abstain from marijuana -? supportive measure, placed on full liquid diet #? abdominal pain -? epigastric region, likely secondary to the intractable nausea vomiting, supportive care,ppi -? Tylenol p.r.n. # question cervicitis on CT abdomen and pelvis, patient asymptomatic ,denies discharge, no sexual discomfort, chlamydia/ gonorrhea negative receive 1 dose of IV ceftriaxone for gonorrhea now on doxycycline 100 mg b.i.d. will DC IV doxy no further testing for stds # leukocytosis: likely reactive due to nausea vomiting follow CBC ?DVT prophylaxis:? Early ambulation obs. admission Time Spent With Patient Time: Total time managing care of this patient today ____ minutes. Quality Stroke Does the patient have a stroke diagnosis?: No VTE Prior VTE?: No VTE Risk Level:: Medical - low VTE Device Contraindication: Treatment Not Indicated VTE Drug Contraindication: N/A - Med Ordered
[2023-04-23] MEDS: KCl 20 mEq in 5 % Dex/Lact Rin 20 MEQ/1,000 ML IV.SOLN 100 MEQ IVCONT (13:54)
[2023-04-23 15:53] VITALS: BP 121/57; PULSE 63; RESP 20; TEMP 36.6; O2SAT 99
[2023-04-23] MEDS: 0.9 % Sodium Chloride Flush 3 ML SYRINGE IVFLUSH (16:38)
[2023-04-23 19:41] VITALS: BP 133/65; PULSE 64; RESP 20; TEMP 36.6; O2SAT 100
[2023-04-23] MEDS: Famotidine 20 MG TABLET 40 MG PO (19:59)
[2023-04-23] MEDS: Enoxaparin Sodium 40 MG/0.4 ML SYRINGE SUBCUT (22:07)
[2023-04-24] MEDS: KCl 20 mEq in 5 % Dex/Lact Rin 20 MEQ/1,000 ML IV.SOLN 100 MEQ IVCONT ×3 (01:27→21:56)
[2023-04-24 03:45] VITALS: BP 101/58; PULSE 66; RESP 16; TEMP 36.3; O2SAT 98
[2023-04-24] MEDS: Prochlorperazine Edisylate 10 MG/2 ML VIAL 5 MG IVPUSH (05:08)
[2023-04-24] MEDS: Morphine Sulfate 4 MG/ML CARTRIDGE IVPUSH (05:09)
[2023-04-24 07:39] VITALS: BP 142/82; PULSE 59; RESP 18; TEMP 36.3; O2SAT 100
[2023-04-24] MEDS: Metoclopramide HCl 10 MG/2 ML VIAL 5 MG IVPUSH ×2 (07:57→18:28)
[2023-04-24] MEDS: ondansetron HCL 4 MG/2 ML VIAL IVPUSH (12:25)
--- NOTE | 2023-04-24 12:55 | HO.PM.IMPN ---
Subjective Subjective Date of Service: 04/24/23 Interval History: complaining of persistent nausea vomiting unable to tolerate diet, abdominal pain is better, denies fever, chills, no urinary symptoms, no URI symptoms no cervical discharge. Review of Systems All other systems are reviewed and negative. Physical Exam Vital Signs: Vital Signs: Last Vital Signs Temp 97.3 F 04/24/23 07:39 Pulse 59 04/24/23 07:39 Resp 18 04/24/23 07:39 BP 142/82 H 04/24/23 07:39 Pulse Ox 100 04/24/23 07:39 O2 Del Method Room Air 04/24/23 07:39 BMI result Body Mass Index 29.9 Const: Other: General? awake simran rt x3, in no acute distress.? Neck i s supple no JVD. C VS? regular rate r hythm, Respiratory lungs clear to au scultation, no res piratory distress, no wheeze, no rho nchi. Gastrointest inal? mild epigast ronel tenderness, zach wel sounds audible , no guarding , no rigidity. Extremi ties no? edema. Ne uro nonfocal Skin no rash psych appr opriate affect Objective Data Active Medications Acetaminophen (Acetaminophen 325 Mg Tablet) 650 mg PO Q6H PRN PRN Reason: Pain, Mild (Pain Scale 1-3) Last Admin: 04/23/23 07:49 Dose: 650 mg Documented By: DOMINIQUE Docusate Sodium (Docusate Sodium 100 Mg Capsule) 100 mg PO DAILY PRN PRN Reason: Constipation Enoxaparin Sodium (Enoxaparin Sodium 40 Mg/0.4 Ml Syringe) 40 mg SUBCUT Q24H [facility] Last Admin: 04/23/23 22:07 Dose: 40 mg Documented By: DANNIE Famotidine (Famotidine 20 Mg Tablet) 40 mg PO BEDTIME [facility] Last Admin: 04/23/23 19:59 Dose: 40 mg Documented By: DANNIE Potassium Cl/Dextrose/Lact Ringer's (Kcl 20 Meq In 5 % Dex/Lact Rin) 20 meq in 1,000 mls @ 100 mls/hr IVCONT .Q10H [facility] Last Admin: 04/24/23 11:13 Dose: 100 mls/hr Documented By: RASHEED Metoclopramide HCl (Metoclopramide Hcl 10 Mg/2 Ml Vial) 5 mg IVPUSH Q6H PRN PRN Reason: Nausea and Vomiting Last Admin: 04/24/23 07:57 Dose: 5 mg Documented By: RASHEED Omeprazole (Omeprazole 40 Mg Capsule.Dr) 40 mg PO BID@0630,1630 [facility] Last Admin: 04/24/23 06:04 Dose: Not Given Documented By: KELLY Non-Admin Reason: Patient Refused Sodium Chloride (0.9 % Sodium Chloride Flush 3 Ml Syringe) 3 ml IVFLUSH QSHIFT [facility] Last Admin: 04/24/23 07:13 Dose: Not Given Documented By: RASHEED Non-Admin Reason: IV Running Labs 04/23/23 05:59 04/23/23 05:59 Microbiology Microbiology Results: Microbiology 04/22/23 16:03 Blood Culture - Preliminary Blood - Venous No growth after 24 hours. 04/22/23 16:03 Blood Culture - Preliminary Blood - Venous No growth after 24 hours. Assessment and Plan (1) Intractable nausea and vomiting: Status: Acute (2) Abdominal pain: Status: Acute Plan 27-year-old female past medical history of cyclic vomiting, anxiety depression, presents the hospital with complaints of epigastric abdominal pain, nausea vomiting #? intractable nausea /vomiting. -? likely secondary to cyclic vomiting versus gastroenteritis -? continue IV fluids, IV Reglan, recommend hot showers, strongly recommend to abstain from marijuana -? supportive measure, unable to tolerate diet will keep on full liquids. #? epigastric abdominal pain -? likely secondary to the intractable nausea vomiting, gastritis, continue supportive care,ppi -? Tylenol p.r.n. # question cervicitis on CT abdomen and pelvis, patient asymptomatic ,denies discharge, no sexual discomfort, chlamydia/ gonorrhea negative receive 1 dose of IV ceftriaxone for gonorrhea now on doxycycline 100 mg b.i.d. will DC IV doxy no further testing for stds # leukocytosis: likely reactive due to nausea vomiting follow CBC ?DVT prophylaxis:? Early ambulation obs. admission Time Spent With Patient Time: Total time managing care of this patient today ____ minutes. Quality Stroke Does the patient have a stroke diagnosis?: No VTE Prior VTE?: No VTE Risk Level:: Medical - low VTE Device Contraindication: Treatment Not Indicated VTE Drug Contraindication: N/A - Med Ordered
[2023-04-24 14:27] LABS: Appearance Urine Clear; Color Urine Yellow; Glucose Urine UA Negative (Negative); Leukocyte Esterase Urine Negative (Negative); Nitrite Urine Negative (Negative); Urine Blood Negative (Negative); Urine Ketones Negative (Negative); Urine Protein Negative (Neg-Trace)
[2023-04-24 15:29] VITALS: BP 116/74; PULSE 56; RESP 16; TEMP 36.7; O2SAT 100
[2023-04-24] MEDS: Omeprazole 40 MG CAPSULE.DR PO (17:06)
[2023-04-24 20:00] VITALS: BP 101/61; PULSE 72; RESP 16; TEMP 37.1; O2SAT 100
[2023-04-24 20:28] VITALS: BP 101/60; PULSE 55; RESP 2; TEMP 37.2; O2SAT 99
[2023-04-24] MEDS: Famotidine 20 MG TABLET 40 MG PO (20:40)
[2023-04-24] MEDS: Enoxaparin Sodium 40 MG/0.4 ML SYRINGE SUBCUT (22:00)
[2023-04-24 23:55] VITALS: BP 98/55; PULSE 50; RESP 16; TEMP 36.9; O2SAT 99
[2023-04-25 04:00] VITALS: BP 100/53; PULSE 53; RESP 16; TEMP 36.4; O2SAT 99
[2023-04-25] MEDS: Omeprazole 40 MG CAPSULE.DR PO (05:59)
[2023-04-25] MEDS: Acetaminophen 325 MG TABLET 650 MG PO (06:34)
[2023-04-25 06:41] LABS: Hematocrit 33.3 % (37.0-47.0); Mean Corpuscular Hemoglobin 29.1 pg (27.0-33.0); Mean Corpuscular Volume 88.1 fL (80.0-98.0); Mean Platelet Volume 10.5 fL (9.4-12.3); Platelet Count 199 X10*3/uL (160-400); Red Blood Count 3.78 X10*6/uL (4.20-5.50); White Blood Count 9.8 X10*3/uL (4.8-10.8)
[2023-04-25 06:52] LABS: Anion Gap 11 (12-20); Blood Urea Nitrogen 9 mg/dL (9-16); Calcium 9.4 mg/dL (8.4-10.2); Carbon Dioxide 25 mmol/L (22-29); Chloride 108 mmol/L (96-108); Creatinine Clr Calc Pharmacy 106.6; Estimated Glomerular Filt Rate > 60; Glucose Random 94 mg/dL (60-115); Potassium 3.7 mmol/L (3.3-5.1); Sodium 140 mmol/L (135-145)
[2023-04-25 07:30] VITALS: BP 107/55; PULSE 53; RESP 20; TEMP 36.3; O2SAT 97
[2023-04-25] MEDS: Metoclopramide HCl 10 MG/2 ML VIAL 5 MG IVPUSH (08:08)
--- NOTE | 2023-04-25 08:48 | P.DS_ITS ---
DS: Providers Provider Date of Service: 04/25/23 Date of admission: 04/22/23 22:16 Primary care physician: IAN Romo DS: Diagnosis Discharge Diagnosis (1) Intractable nausea and vomiting: Status: Acute (2) Abdominal pain: Status: Acute DS: Summary Hospital Course Hospital Course: Date of Service: 04/22/23 Chief Complaint: n/v 89-year-old female with past medical history of anxiety and depression, history of cyclic vomiting, presents the hospital with complaints of intractable nausea vomiting, and epigastric abdominal pain.? Patient reports her symptoms started today.? The epigastric pain is constant, nonradiating, no alleviating or exacerbating factors.? Patient reports that she still smokes marijuana intermittently.? Warm showers do make her feel better.? She has minimal improvement with Zofran IV.? She reports that every time she has vomiting she has diarrhea,? she otherwise denies any shortness of breath, no chest pain, no urinary symptoms and no lower extremity edema. 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 When asked about symptoms patient does report that for the past week she has had pain during sexual intercourse as well as after.? She is in a monogamous relationship but she is not sure of her partners fidelity. On arrival to the ED patient hemodynamically stable Labs are significant for? WBC count of 15.2, lactic acid of 3.8, improved after IV fluids, labs otherwise unremarkable, chlamydia, gonorrhea, Trichomonas pending ?other findings on imaging includes possible gastroenteritis versus nonspecific diffuse mesenteric vascular engorgement with scattered? prominent mesenteric lymph nodes, these findings are nonspecific but may be secondary to reactive gastroenteritis. Given intractable nausea vomiting patient will be admitted for further management. hospital course: 27-year-old female past medical history of cyclic vomiting, anxiety depression, presents the hospital with complaints of epigastric abdominal pain, nausea vomiting #? intractable nausea /vomiting And epigastric pain. -? admitted to medical floor treated with IV fluids, antiemetics and analgesics symptoms gradually improved, diet was advanced patient is tolerating regular diet likely symptoms related to cyclical vomiting and possible underlying gastritis recommend to continue PPI and strongly recommend to abstain from marijuana. # question cervicitis on CT abdomen and pelvis, patient asymptomatic ,denies discharge, no sexual discomfort, chlamydia/ gonorrhea negative receive 1 dose of IV ceftriaxone for? gonorrhea, no further testing for stds. #? leukocytosis:? resolved, was likely reactive due to nausea vomiting, UA negative. Time Spent with Patient Time attestation: Total time managing care of this patient today ____ minutes. Discharge coordination time: Greater than 30 minutes Quality: Safe Use of Opioids Does Pt have an Active Cancer Diagnosis on the Problem List?: No Quality: Stroke Does the patient have a stroke diagnosis?: No Physical Exam Vital Signs: Vital Signs: Last Vital Signs Temp 97.4 F 04/25/23 07:30 Pulse 53 04/25/23 07:30 Resp 20 04/25/23 07:30 BP 107/55 L 04/25/23 07:30 Pulse Ox 97 04/25/23 07:30 O2 Del Method Room Air 04/25/23 07:30 BMI result Body Mass Index 29.9 Const: Other: ?General? awake al ert x3, in no acut e distress.? Neck is supple no JVD. CVS? regular rate rhythm, Respirator y lungs clear to a uscultation, no re spiratory distress , no wheeze, no rh onchi. Gastrointes tinal? nontender, soft, bowel sound s audible, no guar ding , no rigidity . Extremities no? edema. Neuro nonfo dorota Skin no rash p sych appropriate a ffect DS: Data Data Completed and Pending Labs on day of discharge: Laboratory Results - last 24 hr 04/24/23 04/25/23 04/25/23 14:14 05:59 05:59 WBC 9.8 RBC 3.78 L Hgb 11.0 L Hct 33.3 L MCV 88.1 MCH 29.1 MCHC 33.0 RDW 13.0 Plt Count 199 MPV 10.5 Absolute Nucleated RBC 0.000 Nucleated RBC % (auto) 0.0 Sodium 140 Potassium 3.7 Chloride 108 Carbon Dioxide 25 Anion Gap 11 L BUN 9 Creatinine 0.82 Estim Creat Clear Calc 106.6 Estimated GFR > 60 Random Glucose 94 Calcium 9.4 Urine Color Yellow Urine Appearance Clear Urine pH 8.0 Ur Specific [place] 1.010 Urine Protein Negative Urine Glucose (UA) Negative Urine Ketones Negative Urine Blood Negative Urine Nitrite Negative Ur Leukocyte Esterase Negative Preliminary micro results at discharge 04/22/23 16:03 Blood Culture - Preliminary Blood - Venous No growth after 48 hours. 04/22/23 16:03 Blood Culture - Preliminary Blood - Venous No growth after 48 hours. Discharge Plan Discharge Anticipated Discharge Date/Time: 04/25/23 08:44 Patient Disposition: Home, Self-Care Discharge Diagnosis: intractable nausea vomiting Referrals: Leonila Hairston FNP [Primary Care Provider] - 1 Week Discharge Medications: Continued cholecalciferol (vitamin D3) 50 mcg (2,000 unit) capsule 50 mcg PO DAILY Qty: 90 3RF pantoprazole 40 mg tablet,delayed release (DR/EC) 40 mg PO DAILY@0630 Rx Instructions: take one tablet half an hour before breakfast ondansetron HCl 4 mg tablet 4 mg PO Q8H PRN (Reason: nausea and vomiting) famotidine 40 mg tablet 40 mg PO BEDTIME Qty: 30 3RF Discharge Orders: Discharge Order (Routine); Ordered 04/25/23 Ordered By: Brando Nava Diet: bland Activity on Discharge: As tolerated Stand Alone Forms: Patient Portal Discharge page Care Plan Goals: nausea vomiting resolved recommend to take bland diet for next few days, strongly recommend to abstain from marijuana Health Concerns: continue all home medications Plan of Treatment: outpatient follow-up with primary care physician call for appointment Assessment: as above
--- NOTE | 2023-04-25 09:23 | MHC.CM.PN ---
HOME SELF CARE RN AWARE OF PLAN
== END 2023-04-25 11:08 | disposition home or self-care (01) ==
LOC: HO.ED 15:46 → HO.EDOVER 22:24 → HO.IMC 22:50 → HO.S3 04-23 13:42
PROVIDERS: Physician Assistant; Physician Assistant Medical; Admitting Provider Internal Medicine; Emergency Provider Emergency Medicine; PCP Nurse Practitioner Family; Visit Provider Hospitalist
DX: R11.2 Nausea with vomiting, unspecified (principal); R10.13 Epigastric pain; D72.829 Elevated white blood cell count, unspecified; R11.15 Cyclical vomiting syndrome unrelated to migraine; F12.10 Cannabis abuse, uncomplicated; Z87.891 Personal history of nicotine dependence; Z79.899 Other long term (current) drug therapy
CPT/HCPCS: 0353U; 36415; 74177; 80048; 80053; 81003; 82947; 83605; 83690; 83735; 84702; 85025; 85027; 87040; 87480; 87510; 87660; 96361; 96365; 96366; 96372; 96374; 96375; 96376; 99221; 99285; J0696; J1650; J2270; J2405; J2765; Q9967

== ENCOUNTER 2023-08-23 21:29 | Emergency (ER) | payer OTHER, SELFPAY ==
[2023-08-23 21:39] VITALS: BP 102/64; BP 113/76; PULSE 100; PULSE 92; RESP 20; TEMP 37.2; O2SAT 98; BMI 29.6
== END 2023-08-24 00:54 | disposition left against medical advice (07) ==
PROVIDERS: Emergency Provider Emergency Medicine
DX: R11.10 Vomiting, unspecified (principal); R10.9 Unspecified abdominal pain
CPT/HCPCS: 99281

== ENCOUNTER 2023-08-24 09:02 | Emergency (ER) | payer OTHER, SELFPAY ==
[2023-08-24 09:08] VITALS: BP 148/88; PULSE 76
[2023-08-24 09:18] VITALS: BP 139/86; PULSE 81; RESP 18; TEMP 37; O2SAT 100; BMI 29.4
--- NOTE | 2023-08-24 09:26 | ED.NAVMDI ---
HPI - Nausea/Vomiting/Diarrhea General Chief complaint: Abdominal Pain Stated complaint: NAUSEA,VOMITING X2 DAYS PER EMS Time Seen by Provider: 08/24/23 09:18 Source: patient Mode of arrival: EMS Limitations: no limitations History of Present Illness HPI Narrative: 27-year-old female who presents emergency department for evaluation of nausea, vomiting abdominal pain x3 days. Patient states she has not been able to hold down any food or fluid . She points to her epigastric area when asked to localize her pain. Describes the pain is a constant, sharp pain which is greater than 10/10. The patient states she has had similar episodes recurrent nausea vomiting abdominal pain over the past 5 years and she attributes this to having hyperemesis during her . She has been seen here in the past is been diagnosed with cyclic vomiting syndrome secondary to cannabis use, she states she stop using cannabis 3 months prior. Patient denied fever, chills, cough, chest pain, shortness of breath patient has had 2 episodes of loose stool. She has not noticed any blood in her bowel movements or dark stools. Related Data Home Medications Medication Instructions Recorded Confirmed ondansetron HCl 4 mg tablet 4 mg PO Q8H PRN nausea and vomiting 01/25/23 04/22/23 pantoprazole 40 mg tablet,delayed 40 mg PO DAILY@0630 04/23/23 04/23/23 release Previous Rx's Medication Instructions Recorded famotidine 40 mg tablet 40 mg PO BEDTIME #30 tabs 03/17/23 cholecalciferol (vitamin D3) 50 50 mcg PO DAILY #90 caps 03/28/23 mcg (2,000 unit) capsule ondansetron 4 mg disintegrating 4 mg PO Q6H PRN nausea and 04/25/23 tablet vomiting #20 tabs Allergies Allergy/AdvReac Type Severity Reaction Status Date / Time No Known Allergies Allergy Verified 08/23/23 21:43 [No Known Allergies*] Review of Systems Review of Systems: Yes all other systems are reviewed and are negative [facility] Past Medical History [facility] Narrative: Social history: She denies tobacco use. She denies alcohol use. She states she stop smoking marijuana 3 months prior. Medical History Marijuana abuse Mild recurrent major depression Anxiety disorder, unspecified Nausea and vomiting Lack of access to transportation Right upper quadrant abdominal pain Surgical History History of D&C Family History Family History Maternal Grandmother Breast cancer Son Autism Daughter No problems noted. Mother No problems noted. Father Learning difficulty Mental health disorder Maternal Grandmother Breast cancer, Onset Age: 50 Maternal Uncle Testicular cancer, Onset Age: 60 Paternal Grandfather Diabetes mellitus Myocardial infarct Other Substance use disorder Social History Social History Household Members: Children Housing: House Do you presently have visiting nurse or other home services: No Alcohol intake: former Patient Tobacco Use Status: Never used Tobacco e-Cigarette/Vaping Use: Never Used Second Hand Smoke Exposure: No Substance Use Type: Marijuana Advance Directives: No service: No Current occupational status: unemployed Cognitive needs: No Hearing needs: No Vision needs: No Physical Exam Vital Signs: Vital Signs: Last Vital Signs Temp 98.5 F 08/24/23 15:41 Pulse 60 08/24/23 15:41 Resp 14 08/24/23 15:41 BP 124/70 08/24/23 15:41 Pulse Ox 99 08/24/23 15:41 O2 Del Method Room Air 08/24/23 15:41 BMI result Body Mass Index 29.4 Vital signs were normal Exam: General: Awake, alert in mild distress secondary to abdominal pain and her nausea Head: Normocephalic, atraumatic EENT: PERRL, Lids normal, sclera normal, conjunctiva normal, nose normal , ears normal, throat without erythema or exudates Neck: Supple, no adenopathy, trachea midline and nontender Lung: breath sounds symmetric, no wheezing, rales or rhonchi Chest: symmetric movement, nontender Heart: regular rate and rhythm, normal S1, S2 no murmurs or rubs Abdomen: soft, moderate epigastric tenderness, nondistended, normal bowel sounds Back: no vertebral tenderness, no CVAT Extremities: no deformities, moves all extremities symmetrically Skin: no rashes, no lesion, normal color and warmth Neuro: Awake, alert, oriented, normal speech, cranial nerves intact, moves all extremities symmetrically Psych: Pleasant, cooperative Medications Administered Discontinued Medications Generic Name Dose Route Start Last Admin Trade Name James PRN Reason Stop Dose Admin Diphenhydramine HCl 50 mg 08/24/23 09:32 08/24/23 09:47 Diphenhydramine Hcl 50 Mg/Ml Vial IVPUSH 08/24/23 09:33 50 mg ONCE STA Administration Haloperidol Lactate 2.5 mg 08/24/23 13:14 08/24/23 15:36 Haloperidol Lactate 5 Mg/Ml Vial IVPUSH 08/24/23 13:15 2.5 mg STAT STA Administration Sodium Chloride 1,000 mls @ 999 mls/hr 08/24/23 09:32 08/24/23 12:21 Ns IV 08/24/23 10:32 Infused .Q1H1M STA Infusion Sodium Chloride 1,000 mls @ 999 mls/hr 08/24/23 13:14 08/24/23 15:33 Ns IV 08/24/23 14:14 999 mls/hr .Q1H1M STA Administration Ketorolac Tromethamine 15 mg 08/24/23 09:32 08/24/23 09:46 Ketorolac Tromethamine 15 Mg/Ml Vial IVPUSH 08/24/23 09:33 15 mg ONCE STA Administration Lorazepam 1 mg 08/24/23 13:14 08/24/23 13:40 Lorazepam 2 Mg/Ml Vial IVPUSH 08/24/23 13:15 1 mg STAT STA Administration Metoclopramide HCl 10 mg 08/24/23 09:32 08/24/23 09:47 Metoclopramide Hcl 10 Mg/2 Ml Vial IVPUSH 08/24/23 09:33 10 mg ONCE STA Administration Ondansetron HCl 4 mg 08/24/23 12:11 08/24/23 12:17 Ondansetron Hcl 4 Mg/2 Ml Vial IVPUSH 08/24/23 12:12 4 mg ONCE ONE Administration Procedures EJ/Peripheral Line Neck L: Time Out Performed: No Skin Cleansed in Sterile Fashion: Yes Size (gauge): 18 IV Secured and Dressing Applied: Yes Patient Tolerated Procedure: well Additional Comments: After insertion, I was able to pull back blood, the lying easily flush with no distortion of the neck Medical Decision Making Medical Decision Making MDM Narrative: 27-year-old female with history of cyclic vomiting syndrome who presents emergency department for evaluation of 3 days of nausea vomiting abdominal pain, unable to hold down food or fluid. Patient's vital signs were normal. Examination did reveal epigastric tenderness. Following evaluation was ordered: CBC, CMP, lipase, beta hCG. Patient was treated with normal saline IV x1 L, Benadryl 50 mg IV and regular and 10 mg IV 12:16 My interpretation patient's laboratory evaluation as follows: WBC elevated 14,500, BUN elevated 13, bicarb low 18, glucose elevated 178. These findings are consistent with persistent vomiting. Patient did get some improvement with the above treatment. She continues to have dry heaves. Patient was ordered to get Zofran 4 mg IV 15:33 The patient got minimal relief with the Zofran therefore I ordered Haldol 3 mg IV and Ativan 1 mg IV I also ordered a 2 L of normal saline. Patient states in the past, when she gets this ill she needs to be hospitalized. If the patient is unable to drink fluid after the above treatment then hospitalization will be considered. 16:13 At the end of my shift, the patient is still receiving IV fluids but does seem to have some relief from the Haldol and Ativan IV. Patient's care was turned over to my colleague, Dr. Leos Differential Diagnosis Differential Diagnoses: The differential diagnosis associated with the presentation includes Differential diagnosis includes was not limited to gastritis, pancreatitis, colitis, cyclic vomiting syndrome, dehydration, volume depletion, electrolyte abnormalities, anemia Admission/Observation Consideration of admission/observation: Escalation of care including admission/observation considered Lab Data [facility] Lab Attestation statement: I reviewed the patient's lab results. Please see [facility] for my interpretation 08/24/23 09:53 08/24/23 09:53 Labs: Lab Results 08/24/23 Range/Units 09:53 WBC 14.5 H (4.8-10.8) X10*3/uL RBC 5.10 D (4.20-5.50) X10*6/uL Hgb 14.9 D (12.0-16.0) g/dl Hct 42.6 D (37.0-47.0) % MCV 83.5 (80.0-98.0) fL MCH 29.2 (27.0-33.0) pg MCHC 35.0 (31.0-35.0) g/dl RDW 12.6 (11.0-16.0) % Plt Count 303 D (160-400) X10*3/uL MPV 9.9 (9.4-12.3) fL Immature Gran % (Auto) 0.7 H (0.0-0.4) % Neut % (Auto) 84.7 H (45-73) % Lymph % (Auto) 10.1 L (20-40) % [place] % (Auto) 4.3 (2-11) % Eos % (Auto) 0.1 (0-4) % Baso % (Auto) 0.1 (0-2) % Lymph # (Auto) 1.5 (1.2-4.9) X10*3/uL [place] # (Auto) 0.6 (0.1-1.2) X10*3/uL Eos # (Auto) 0.0 (0.0-0.4) X10*3/uL Baso # (Auto) 0.0 (0.0-0.2) X10*3/uL Abs Immat Gran (auto) 0.10 H (0.00-0.03) X10*3/uL Absolute Neuts (auto) 12.3 H (2.0-8.3) x10*3/uL Absolute Nucleated RBC 0.000 (0.0-0.012) X10*3/uL Nucleated RBC % (auto) 0.0 (0.0-0.2) /100WBC Sodium 140 (135-145) mmol/L Potassium 3.3 (3.3-5.1) mmol/L Chloride 106 (96-108) mmol/L Carbon Dioxide 18 L (22-29) mmol/L Anion Gap 19 (12-20) BUN 32 H (9-16) mg/dL Creatinine 1.13 (0.5-1.4) mg/dL Estim Creat Clear Calc 74.0 Estimated GFR 59 Random Glucose 178 H (60-115) mg/dL Calcium 10.8 H D (8.4-10.2) mg/dL Total Bilirubin 0.5 (0.0-1.0) mg/dL AST 29 (5-31) U/L ALT 29 (0-31) U/L Alkaline Phosphatase 69 (39-117) U/L Total Protein 9.1 H (6.5-8.0) g/dL Albumin 5.1 H (3.5-5.0) g/dL Lipase 5 L (8-78) U/L Beta HCG, Quant < 2 mIU/mL Chronic Conditions Patient?s care impacted by: Other (Cyclic vomiting syndrome) Discharge Plan Discharge Clinical Impression: Cyclic vomiting syndrome, Epigastric abdominal pain, Acute dehydration Patient Disposition: Still a Patient Prescriptions: No Action cholecalciferol (vitamin D3) 50 mcg (2,000 unit) capsule 50 mcg PO DAILY Qty: 90 3RF pantoprazole 40 mg tablet,delayed release (DR/EC) 40 mg PO DAILY@0630 Rx Instructions: take one tablet half an hour before breakfast ondansetron 4 mg tablet,disintegrating 4 mg PO Q6H PRN (Reason: nausea and vomiting) Qty: 20 0RF ondansetron HCl 4 mg tablet 4 mg PO Q8H PRN (Reason: nausea and vomiting) famotidine 40 mg tablet 40 mg PO BEDTIME Qty: 30 3RF
[2023-08-24] MEDS: Ketorolac Tromethamine 15 MG/ML VIAL IVPUSH (09:46)
[2023-08-24] MEDS: 0.9 % Sodium Chloride 1,000 ML 999 ML IV ×2 (09:46→15:33)
[2023-08-24] MEDS: diphenhydrAMINE HCL 50 MG/ML VIAL IVPUSH (09:47)
[2023-08-24] MEDS: Metoclopramide HCl 10 MG/2 ML VIAL IVPUSH (09:47)
[2023-08-24 10:00] LABS: MANUAL DIFF FLAG NO
[2023-08-24 10:01] LABS: Basophils Percent Auto 0.1 % (0-2); Eosinophils Percent Auto 0.1 % (0-4); Hematocrit 42.6 % (37.0-47.0); Hemoglobin 14.9 g/dl (12.0-16.0); Imm Gran Pct Auto 0.7 % (0.0-0.4); Lymphocytes Absolute Auto 1.5 X10*3/uL (1.2-4.9); Lymphocytes Percent Auto 10.1 % (20-40); Mean Corpuscular Hemoglobin 29.2 pg (27.0-33.0); Mean Corpuscular Volume 83.5 fL (80.0-98.0); Mean Platelet Volume 9.9 fL (9.4-12.3); Monocytes Absolute Auto 0.6 X10*3/uL (0.1-1.2); Monocytes Percent Auto 4.3 % (2-11); Neutrophils Absolute Auto 12.3 x10*3/uL (2.0-8.3); Neutrophils Percent Auto 84.7 % (45-73); Platelet Count 303 X10*3/uL (160-400); Red Cell Distribution Width 12.6 % (11.0-16.0); White Blood Count 14.5 X10*3/uL (4.8-10.8)
[2023-08-24 10:23] LABS: Alanine Aminotransferase 29 U/L (0-31); Albumin Level 5.1 g/dL (3.5-5.0); Alkaline Phosphatase 69 U/L (39-117); Anion Gap 19 (12-20); Aspartate Amino Transferase 29 U/L (5-31); Bilirubin Total 0.5 mg/dL (0.0-1.0); Blood Urea Nitrogen 32 mg/dL (9-16); Calcium 10.8 mg/dL (8.4-10.2); Carbon Dioxide 18 mmol/L (22-29); Chloride 106 mmol/L (96-108); Estimated Glomerular Filt Rate 59; Glucose Random 178 mg/dL (60-115); HCG Quantitative < 2 mIU/mL; Lipase 5 U/L (8-78); Potassium 3.3 mmol/L (3.3-5.1); Sodium 140 mmol/L (135-145); Total Protein 9.1 g/dL (6.5-8.0)
--- NOTE | 2023-08-24 12:05 | PC.NURSE ---
patient has not had any episodes of vomiting while in ER, given ice chips.
[2023-08-24] MEDS: ondansetron HCL 4 MG/2 ML VIAL IVPUSH (12:17)
--- NOTE | 2023-08-24 12:58 | PC.NURSE ---
patient given apple juice for po challange
--- NOTE | 2023-08-24 13:08 | PC.NURSE ---
patient had episode of vomiting after drinking two apple juice
[2023-08-24] MEDS: LORazepam 2 MG/ML VIAL 1 MG IVPUSH (13:40)
[2023-08-24] MEDS: Haloperidol Lactate 5 MG/ML VIAL 2.5 MG IVPUSH (15:36)
[2023-08-24 15:41] VITALS: BP 124/70; PULSE 60; RESP 14; TEMP 36.9; O2SAT 99
[2023-08-24 17:47] VITALS: BP 115/58; PULSE 69; RESP 18; O2SAT 97
--- NOTE | 2023-08-24 17:48 | PC.NURSE ---
sleeping w/o distrses. l neck EJ c/d/i. vss.
[2023-08-24 21:17] VITALS: BP 113/68; PULSE 94; RESP 17; TEMP 36.7; O2SAT 98
== END 2023-08-24 21:22 | disposition home or self-care (01) ==
PROVIDERS: Emergency Medicine Emergency Medical Services; Emergency Provider Emergency Medicine
DX: R11.15 Cyclical vomiting syndrome unrelated to migraine (principal); R11.2 Nausea with vomiting, unspecified; R10.13 Epigastric pain; E86.0 Dehydration; F12.90 Cannabis use, unspecified, uncomplicated; Z79.899 Other long term (current) drug therapy
CPT/HCPCS: 36415; 80053; 83690; 84702; 85025; 96361; 96374; 96375; 99285; J1200; J1885; J2060; J2405; J2765

== ENCOUNTER 2023-08-25 18:57 | Emergency (ER) | payer OTHER, SELFPAY ==
[2023-08-25 19:10] VITALS: BP 132/78; PULSE 100
[2023-08-25 19:28] VITALS: BP 136/64; PULSE 88; RESP 16; TEMP 36.9; O2SAT 98; BMI 29.2
--- NOTE | 2023-08-25 19:29 | ED_ITS ---
HPI - Abdominal Pain General Chief Complaint: Nausea/Vomiting/Diarrhea Stated Complaint: Nausea, vomiting x3days Time Seen by Provider: 08/25/23 22:07 Source: patient Mode of arrival: ambulatory Limitations: no limitations History of Present Illness HPI narrative: Patient with cyclic vomiting syndrome and marijuana use complaining of multiple vomitings, been here multiple times for similar present patient vomited for last 3 days was seen here yesterday received IV fluids comes back for same diffuse abdominal pain no fever no chills no urinary symptoms no diarrhea Related Data Home Medications Medication Instructions Recorded Confirmed ondansetron HCl 4 mg tablet 4 mg PO Q8H PRN nausea and vomiting 01/25/23 04/22/23 pantoprazole 40 mg tablet,delayed 40 mg PO DAILY@0630 04/23/23 04/23/23 release Previous Rx's Medication Instructions Recorded famotidine 40 mg tablet 40 mg PO BEDTIME #30 tabs 03/17/23 cholecalciferol (vitamin D3) 50 50 mcg PO DAILY #90 caps 03/28/23 mcg (2,000 unit) capsule ondansetron 4 mg disintegrating 4 mg PO Q6H PRN nausea and 04/25/23 tablet vomiting #20 tabs ondansetron 4 mg disintegrating 4 mg PO Q8H 4 days #12 tabs 08/24/23 tablet lorazepam 1 mg tablet (Ativan) 1 mg PO BID PRN anxiety #20 tabs 08/26/23 Allergies Allergy/AdvReac Type Severity Reaction Status Date / Time No Known Allergies Allergy Verified 08/23/23 21:43 [No Known Allergies*] Review of Systems Review of Systems Yes all other systems are reviewed and are negative PMFSH Past Medical History Medical History Marijuana abuse Mild recurrent major depression Anxiety disorder, unspecified Nausea and vomiting Lack of access to transportation Right upper quadrant abdominal pain Surgical History History of D&C Family History Family History Maternal Grandmother Breast cancer Son Autism Daughter No problems noted. Mother No problems noted. Father Learning difficulty Mental health disorder Maternal Grandmother Breast cancer, Onset Age: 50 Maternal Uncle Testicular cancer, Onset Age: 60 Paternal Grandfather Diabetes mellitus Myocardial infarct Other Substance use disorder Social History Social History Household Members: Children Housing: House Do you presently have visiting nurse or other home services: No Alcohol intake: never Patient Tobacco Use Status: Never used Tobacco Smoked in Last 30 Days: No e-Cigarette/Vaping Use: Never Used Second Hand Smoke Exposure: No Use of substances other than those prescribed or required for medical reasons: No Substance Use Type: Marijuana Advance Directives: No Advance Directives Information Provided: No service: No Current occupational status: unemployed Cognitive needs: No Hearing needs: No Vision needs: No Physical Exam ED Vital Signs: Vital Signs - 24 hr 08/25/23 19:28 08/26/23 01:30 08/26/23 03:27 Temperature 98.4 F Pulse Rate 88 67 86 Respiratory Rate 16 18 16 Blood Pressure 136/64 120/61 118/58 L Pulse Oximetry 98 97 96 Oxygen Delivery Method Room Air Room Air Room Air BMI result Body Mass Index 29.2 Appearance: Alert. Oriented X3. No acute distress. Eyes: PERRLA, No Nystagmus ENT: Pharynx normal. Oral Mucosa moist Neck: Normal inspection. Neck supple. CVS: Normal heart rate and rhythm. Pulses normal. Respiratory: No respiratory distress. Equal air entry bilateral, no wheezing/rales/rhonchi Abdomen: Soft, diffuse tenderness. Bowel sounds are present, no mass palpable, no CVA tenderness Skin: Skin warm and dry. Normal skin color. Normal skin turgor. Extremities: No lower extremity edema. No calf tenderness Neuro: Oriented X 3. No motor deficit. Course Course Course Narrative: RME: 27-year-old female with history of cyclic vomiting syndrome who presents emergency department for evaluation of 3-4 days of nausea, vomiting, abdominal pain. Patient was seen & tx in our ED yesterday for similar sx, returning today for continued abdominal pain, nausea/vomiting and inability to tolerate p.o. denies drug or etoh use. States unable to tolerate Zofran due to nausea/vomiting Repeat labs, UA and tox screen ordered Full HPI, ROS and PE to be performed by primary ED provider. Medical Decision Making Medical Decision Making MDM Narrative: Patient received IV fluids in IV potassium replacement feeling better advised do not use THC Differential Diagnosis Differential Diagnoses: The differential diagnosis associated with the presentation includes Cyclic vomiting syndrome secondary to THC /anxiety Lab Data MDM Lab Attestation statement: I reviewed the patient's lab results. 08/25/23 21:51 08/25/23 21:51 Labs: Lab Results 08/25/23 08/25/23 Range/Units 21:51 22:17 WBC 11.9 H (4.8-10.8) X10*3/uL RBC 4.62 (4.20-5.50) X10*6/uL Hgb 13.4 (12.0-16.0) g/dl Hct 40.0 (37.0-47.0) % MCV 86.6 (80.0-98.0) fL MCH 29.0 (27.0-33.0) pg MCHC 33.5 (31.0-35.0) g/dl RDW 12.8 (11.0-16.0) % Plt Count 270 (160-400) X10*3/uL MPV 9.8 (9.4-12.3) fL Immature Gran % (Auto) 0.3 (0.0-0.4) % Neut % (Auto) 73.5 H (45-73) % Lymph % (Auto) 19.2 L (20-40) % [place] % (Auto) 6.6 (2-11) % Eos % (Auto) 0.1 (0-4) % Baso % (Auto) 0.3 (0-2) % Lymph # (Auto) 2.3 (1.2-4.9) X10*3/uL [place] # (Auto) 0.8 (0.1-1.2) X10*3/uL Eos # (Auto) 0.0 (0.0-0.4) X10*3/uL Baso # (Auto) 0.0 (0.0-0.2) X10*3/uL Abs Immat Gran (auto) 0.03 (0.00-0.03) X10*3/uL Absolute Neuts (auto) 8.8 H (2.0-8.3) x10*3/uL Absolute Nucleated RBC 0.000 (0.0-0.012) X10*3/uL Nucleated RBC % (auto) 0.0 (0.0-0.2) /100WBC Sodium 139 (135-145) mmol/L Potassium 2.9 L (3.3-5.1) mmol/L Chloride 103 (96-108) mmol/L Carbon Dioxide 23 (22-29) mmol/L Anion Gap 16 (12-20) BUN 19 H (9-16) mg/dL Creatinine 0.87 (0.5-1.4) mg/dL Estim Creat Clear Calc 95.7 Estimated GFR > 60 Random Glucose 128 H (60-115) mg/dL Calcium 9.8 D (8.4-10.2) mg/dL Magnesium 2.4 (1.6-2.6) mg/dL Total Bilirubin 0.6 (0.0-1.0) mg/dL Direct Bilirubin 0.2 (0.0-0.5) mg/dL AST 26 (5-31) U/L ALT 25 (0-31) U/L Alkaline Phosphatase 57 (39-117) U/L Total Protein 7.8 (6.5-8.0) g/dL Albumin 4.4 (3.5-5.0) g/dL Lipase 13 (8-78) U/L Urine Color Dark Yellow Urine Appearance Cloudy Urine pH 7.0 (5.0-9.0) Ur Specific [place] >= 1.030 H (1.005-1.025) Urine Protein 30 (1+) H (Neg-Trace) mg/dL Urine Glucose (UA) Negative (Negative) mg/dL Urine Ketones 15 (Negative) mg/dL Urine Blood Negative (Negative) Urine Nitrite Negative (Negative) Ur Leukocyte Esterase Trace H (Negative) Urine RBC 0-2 (0-2) /HPF Urine WBC 0-5 (0-5) /HPF Ur Squamous Epith Cells >20 (0-2) /HPF Urine Bacteria 2+ (None Seen) Hyaline Casts 0-2 (0-2) /LPF Urine Test NEGATIVE (NEGATIVE) Urine Opiates Screen Not Detected (Not Detect) Urine Fentanyl Screen Not Detected (Not Detect) Ur Barbiturates Screen Not Detected (Not Detect) Ur Phencyclidine Scrn Not Detected (Not Detect) Ur Amphetamines Screen Not Detected (Not Detect) U Benzodiazepines Scrn Not Detected (Not Detect) Urine Cocaine Screen Not Detected (Not Detect) U Marijuana (THC) Screen POSITIVE H (Not Detect) Influenza Type A (FE) Negative (Negative) Influenza Type B (FE) Negative (Negative) Influenza A & B Note See Note Medications Administered Discontinued Medications Generic Name Dose Route Start Last Admin Trade Name Freq PRN Reason Stop Dose Admin Al Hydroxide/Mg Hydroxide 30 ml 08/26/23 01:12 08/26/23 01:31 Magnesium Hydrox/Alum Hydrox 30 Ml Oral.Susp PO 08/26/23 01:13 30 ml ONCE ONE Administration Sodium Chloride 1,000 mls @ 999 mls/hr 08/25/23 19:45 08/25/23 23:54 Ns IV 08/25/23 20:45 999 mls/hr .Q1H1M ACACIA Administration Sodium Chloride 1,000 mls @ 999 mls/hr 08/25/23 22:19 08/25/23 23:54 Ns IV 08/25/23 23:19 Infused .Q1H1M ONE Infusion Potassium Chloride 10 meq in 100 mls @ 100 mls/hr 08/25/23 23:00 08/26/23 00:45 Potassium Chloride/H20 IV 08/26/23 00:59 100 mls/hr Q1H ACACIA Administration Lorazepam 1 mg 08/25/23 22:19 08/25/23 22:52 Lorazepam 2 Mg/Ml Vial IVPUSH 08/25/23 22:20 1 mg STAT STA Administration Ondansetron HCl 4 mg 08/25/23 20:10 08/25/23 20:29 Ondansetron Odt 4 Mg Tab.Rapdis TRANSLINGU 08/25/23 20:11 4 mg ONCE ONE Administration Prochlorperazine Edisylate 10 mg 08/26/23 01:14 08/26/23 01:31 Prochlorperazine Edisylate 10 Mg/2 Ml Vial IVPUSH 08/26/23 01:15 10 mg ONCE ONE Administration Discharge Plan Discharge Clinical Impression: Cyclic vomiting syndrome, Acute hypokalemia Patient Disposition: Home, Self-Care Instructions: Hypokalemia (ED), Cyclic Vomiting Syndrome (ED) Additional Instructions: Drink plenty of fluids Take medication as prescribed for anxiety/cyclic vomiting syndrome Do not use marijuana Have food containing high potassium like bananas/oranges Prescriptions: New lorazepam [Ativan] 1 mg tablet 1 mg PO BID PRN (Reason: anxiety) Qty: 20 0RF No Action cholecalciferol (vitamin D3) 50 mcg (2,000 unit) capsule 50 mcg PO DAILY Qty: 90 3RF pantoprazole 40 mg tablet,delayed release (DR/EC) 40 mg PO DAILY@0630 Rx Instructions: take one tablet half an hour before breakfast ondansetron 4 mg tablet,disintegrating 4 mg PO Q6H PRN (Reason: nausea and vomiting) Qty: 20 0RF ondansetron 4 mg tablet,disintegrating 4 mg PO Q8H 4 Days Qty: 12 0RF ondansetron HCl 4 mg tablet 4 mg PO Q8H PRN (Reason: nausea and vomiting) famotidine 40 mg tablet 40 mg PO BEDTIME Qty: 30 3RF Interventions: ED Discharge Assessment Last Done: 08/26/23 03:34 Discharge Date/Time: 08/26/23 03:37
[2023-08-25] MEDS: Ondansetron ODT 4 MG TAB.RAPDIS TRANSLINGU (20:29)
[2023-08-25 21:58] LABS: MANUAL DIFF FLAG NO
[2023-08-25 22:02] LABS: Basophils Percent Auto 0.3 % (0-2); Eosinophils Percent Auto 0.1 % (0-4); Hemoglobin 13.4 g/dl (12.0-16.0); Imm Gran Abs Auto 0.03 X10*3/uL (0.00-0.03); Imm Gran Pct Auto 0.3 % (0.0-0.4); Lymphocytes Absolute Auto 2.3 X10*3/uL (1.2-4.9); Lymphocytes Percent Auto 19.2 % (20-40); Mean Corpuscular HGB Conc 33.5 g/dl (31.0-35.0); Mean Corpuscular Volume 86.6 fL (80.0-98.0); Mean Platelet Volume 9.8 fL (9.4-12.3); Monocytes Absolute Auto 0.8 X10*3/uL (0.1-1.2); Monocytes Percent Auto 6.6 % (2-11); Neutrophils Absolute Auto 8.8 x10*3/uL (2.0-8.3); Neutrophils Percent Auto 73.5 % (45-73); Platelet Count 270 X10*3/uL (160-400); Red Blood Count 4.62 X10*6/uL (4.20-5.50); Red Cell Distribution Width 12.8 % (11.0-16.0); White Blood Count 11.9 X10*3/uL (4.8-10.8)
[2023-08-25 22:22] LABS: Alanine Aminotransferase 25 U/L (0-31); Albumin Level 4.4 g/dL (3.5-5.0); Alkaline Phosphatase 57 U/L (39-117); Anion Gap 16 (12-20); Aspartate Amino Transferase 26 U/L (5-31); Bilirubin Direct 0.2 mg/dL (0.0-0.5); Bilirubin Total 0.6 mg/dL (0.0-1.0); Blood Urea Nitrogen 19 mg/dL (9-16); Calcium 9.8 mg/dL (8.4-10.2); Carbon Dioxide 23 mmol/L (22-29); Chloride 103 mmol/L (96-108); Creatinine Clr Calc Pharmacy 95.7; Estimated Glomerular Filt Rate > 60; Glucose Random 128 mg/dL (60-115); Lipase 13 U/L (8-78); Magnesium 2.4 mg/dL (1.6-2.6); Potassium 2.9 mmol/L (3.3-5.1); Sodium 139 mmol/L (135-145); Total Protein 7.8 g/dL (6.5-8.0)
[2023-08-25 22:26] LABS: UPreg QC Valid YES; Urine Pregnancy NEGATIVE (NEGATIVE)
[2023-08-25 22:29] LABS: IDNOW Serial# 55D5AD1C; Influenza A Negative (Negative); Influenza B2 Negative (Negative)
[2023-08-25 22:31] LABS: Amphetamine Screen Urine Not Detected (Not Detect); Appearance Urine Cloudy; Barbiturates, Urine Not Detected (Not Detect); Benzodiazepines Screen Urine Not Detected (Not Detect); Cannabinoid Screen Urine POSITIVE (Not Detect); Cocaine Screen Urine Not Detected (Not Detect); Color Urine Dark Yellow; Fentanyl, urine Not Detected (Not Detect); Glucose Urine UA Negative (Negative); Leukocyte Esterase Urine Trace (Negative); Nitrite Urine Negative (Negative); Opiate Screen Urine Not Detected (Not Detect); Phencyclidine Screen Urine Not Detected (Not Detect); Specific Gravity - Urine >= 1.030 (1.005-1.025); UMIC TRIGGER UACC YES; Urine Blood Negative (Negative); Urine Ketones 15 mg/dL (Negative); Urine Protein 30 (1+) mg/dL (Neg-Trace)
[2023-08-25] MEDS: 0.9 % Sodium Chloride 1,000 ML 999 ML IV ×2 (22:51→23:54)
[2023-08-25] MEDS: LORazepam 2 MG/ML VIAL 1 MG IVPUSH (22:52)
[2023-08-25 23:04] LABS: Bacteria Urine 2+ (None Seen); Hyaline Casts Urine 0-2 /LPF (0-2); RBC Urine 0-2 /HPF (0-2); Squamous Epithelial Cell Urine >20 /HPF (0-2); WBC Urine 0-5 /HPF (0-5)
[2023-08-25] MEDS: Potassium Chloride/H20 10 MEQ/100 ML PIGGYBACK 100 MEQ IV (23:51)
[2023-08-26] MEDS: Potassium Chloride/H20 10 MEQ/100 ML PIGGYBACK 100 MEQ IV (00:45)
--- NOTE | 2023-08-26 01:18 | PC.NURSE ---
Potassium 10meq hung per JAN and pump was programmed to infuse over 1 hour. This nurse went to reassess patient due to patient complaining of burning at IV site and found that the potassium had infused completely in that time. Charge nurse and provider made aware of situation and no orders for EKG were put in at that time. Patient is alert and oriented, no complaints of chest pain at this time, no s/s of distress noted.
[2023-08-26 01:30] VITALS: BP 120/61; PULSE 67; RESP 18; O2SAT 97
[2023-08-26] MEDS: Magnesium Hydrox/Alum Hydrox 30 ML ORAL.SUSP PO (01:31)
[2023-08-26] MEDS: Prochlorperazine Edisylate 10 MG/2 ML VIAL IVPUSH (01:31)
[2023-08-26 03:27] VITALS: BP 118/58; PULSE 86; RESP 16; O2SAT 96
== END 2023-08-26 03:37 | disposition home or self-care (01) ==
PROVIDERS: Physician Assistant; Emergency Provider Internal Medicine
DX: R11.15 Cyclical vomiting syndrome unrelated to migraine (principal); E87.6 Hypokalemia; F12.10 Cannabis abuse, uncomplicated; Z11.52 Encounter for screening for COVID-19
CPT/HCPCS: 80048; 80076; 80307; 81001; 81025; 83690; 83735; 85025; 87502; 96361; 96365; 96375; 99284; J2060

== ENCOUNTER 2023-08-26 23:00 | Emergency (ER) | payer OTHER, SELFPAY ==
--- NOTE | ~2023-08-26 | XR_ITS ---
EXAMINATION: XR ABDOMEN KUB CLINICAL INDICATION: Constipation. COMPARISON: CT scan abdomen pelvis April 22, 2023 TECHNIQUE: AP view of the abdomen. FINDINGS: The bowel gas pattern is normal with no evidence of ileus or obstruction. There is a small volume of formed stool scattered in the colon. No evidence of constipation. No unusual soft tissue calcifications are noted. The bones are unremarkable. XR/XR KUB IMPRESSION: Small volume of formed stool in colon. No evidence of constipation.
[2023-08-26 23:07] VITALS: BP 130/80; PULSE 62; O2SAT 99; BMI 29.0
[2023-08-26 23:11] VITALS: BP 116/72; PULSE 83; RESP 17; TEMP 36.9; O2SAT 100
[2023-08-26 23:31] LABS: MANUAL DIFF FLAG NO
[2023-08-26 23:32] LABS: Basophils Absolute Auto 0.1 X10*3/uL (0.0-0.2); Basophils Percent Auto 0.4 % (0-2); Eosinophils Absolute Auto 0.2 X10*3/uL (0.0-0.4); Eosinophils Percent Auto 1.2 % (0-4); Hematocrit 39.2 % (37.0-47.0); Hemoglobin 13.3 g/dl (12.0-16.0); Imm Gran Abs Auto 0.04 X10*3/uL (0.00-0.03); Imm Gran Pct Auto 0.3 % (0.0-0.4); Lymphocytes Absolute Auto 4.6 X10*3/uL (1.2-4.9); Lymphocytes Percent Auto 35.8 % (20-40); Mean Corpuscular HGB Conc 33.9 g/dl (31.0-35.0); Mean Corpuscular Hemoglobin 29.2 pg (27.0-33.0); Mean Platelet Volume 9.5 fL (9.4-12.3); Monocytes Absolute Auto 1.1 X10*3/uL (0.1-1.2); Monocytes Percent Auto 8.7 % (2-11); Neutrophils Absolute Auto 6.9 x10*3/uL (2.0-8.3); Neutrophils Percent Auto 53.6 % (45-73); Platelet Count 242 X10*3/uL (160-400); Red Blood Count 4.56 X10*6/uL (4.20-5.50); Red Cell Distribution Width 12.5 % (11.0-16.0); White Blood Count 12.8 X10*3/uL (4.8-10.8)
--- NOTE | 2023-08-26 23:34 | ED_ITS ---
HPI - Abdominal Pain General Chief Complaint: Abdominal Pain Stated Complaint: N/V/ABD PAIN PER EMS Time Seen by Provider: 08/26/23 23:27 Source: patient Mode of arrival: ambulatory Limitations: no limitations History of Present Illness HPI narrative: Patient has cyclic vomiting syndrome been here multiple times use of marijuana also was seen here yesterday for nausea vomiting comes back again as is still vomiting not able to take anything down no fever no chills feel constipated has not moved her bowels for last 2 days patient seems very anxious on arrival fever no chills denies any urinary complaints Related Data Home Medications Medication Instructions Recorded Confirmed ondansetron HCl 4 mg tablet 4 mg PO Q8H PRN nausea and vomiting 01/25/23 04/22/23 pantoprazole 40 mg tablet,delayed 40 mg PO DAILY@0630 04/23/23 04/23/23 release Previous Rx's Medication Instructions Recorded famotidine 40 mg tablet 40 mg PO BEDTIME #30 tabs 03/17/23 cholecalciferol (vitamin D3) 50 50 mcg PO DAILY #90 caps 03/28/23 mcg (2,000 unit) capsule ondansetron 4 mg disintegrating 4 mg PO Q6H PRN nausea and 04/25/23 tablet vomiting #20 tabs ondansetron 4 mg disintegrating 4 mg PO Q8H 4 days #12 tabs 08/24/23 tablet lorazepam 1 mg tablet (Ativan) 1 mg PO BID PRN anxiety #20 tabs 08/26/23 cefuroxime axetil 250 mg tablet 250 mg PO BID 5 days #10 tabs 08/27/23 Allergies Allergy/AdvReac Type Severity Reaction Status Date / Time No Known Allergies Allergy Verified 08/23/23 21:43 [No Known Allergies*] Review of Systems Review of Systems Yes all other systems are reviewed and are negative PMFSH Past Medical History Medical History Marijuana abuse Mild recurrent major depression Anxiety disorder, unspecified Nausea and vomiting Lack of access to transportation Right upper quadrant abdominal pain Surgical History History of D&C Family History Family History Maternal Grandmother Breast cancer Son Autism Daughter No problems noted. Mother No problems noted. Father Learning difficulty Mental health disorder Maternal Grandmother Breast cancer, Onset Age: 50 Maternal Uncle Testicular cancer, Onset Age: 60 Paternal Grandfather Diabetes mellitus Myocardial infarct Other Substance use disorder Social History Social History Household Members: Children Housing: House Do you presently have visiting nurse or other home services: No Alcohol intake: never Patient Tobacco Use Status: Never used Tobacco e-Cigarette/Vaping Use: Never Used Second Hand Smoke Exposure: No Substance Use Type: Marijuana Advance Directives: No Advance Directives Information Provided: Yes service: No Current occupational status: unemployed Cognitive needs: No Hearing needs: No Vision needs: No Physical Exam ED Vital Signs: Vital Signs - 24 hr 08/26/23 23:11 08/27/23 00:09 Temperature 98.5 F Pulse Rate 83 61 Respiratory Rate 17 Blood Pressure 116/72 Pulse Oximetry 100 98 Oxygen Delivery Method Room Air Room Air BMI result Body Mass Index 29.0 Appearance: Alert. Oriented X3. No acute distress. Anxious ENT: Pharynx normal. Oral Mucosa moist Neck: Normal inspection. Neck supple. CVS: Normal heart rate and rhythm. Pulses normal. Respiratory: No respiratory distress. Equal air entry bilateral, no wheezing/rales/rhonchi Abdomen: Soft and nontender. Bowel sounds are present, no mass palpable, no CVA tenderness Skin: Skin warm and dry. Normal skin color. Normal skin turgor. Extremities: No lower extremity edema. No calf tenderness Neuro: Oriented X 3. No motor deficit. Medical Decision Making Medical Decision Making [facility] Narrative: Patient with cyclic vomiting syndrome noticed to have UTI will give Ceftin p.o. labs are stable not dehydrated by the labs give p.o. fluids Patient feeling better now after medication taking p.o. fluids discharge patient home Differential Diagnosis Differential Diagnoses: The differential diagnosis associated with the presentation includes Cyclic vomiting syndrome/cannabis induced vomiting/UTI/ Lab Data [facility] Lab Attestation statement: I reviewed the patient's lab results. 08/26/23 23:25 08/26/23 23:25 Labs: Lab Results 08/26/23 Range/Units 23:25 WBC 12.8 H (4.8-10.8) X10*3/uL RBC 4.56 (4.20-5.50) X10*6/uL Hgb 13.3 (12.0-16.0) g/dl Hct 39.2 (37.0-47.0) % MCV 86.0 (80.0-98.0) fL MCH 29.2 (27.0-33.0) pg MCHC 33.9 (31.0-35.0) g/dl RDW 12.5 (11.0-16.0) % Plt Count 242 (160-400) X10*3/uL MPV 9.5 (9.4-12.3) fL Immature Gran % (Auto) 0.3 (0.0-0.4) % Neut % (Auto) 53.6 (45-73) % Lymph % (Auto) 35.8 (20-40) % [place] % (Auto) 8.7 (2-11) % Eos % (Auto) 1.2 (0-4) % Baso % (Auto) 0.4 (0-2) % Lymph # (Auto) 4.6 (1.2-4.9) X10*3/uL [place] # (Auto) 1.1 (0.1-1.2) X10*3/uL Eos # (Auto) 0.2 (0.0-0.4) X10*3/uL Baso # (Auto) 0.1 (0.0-0.2) X10*3/uL Abs Immat Gran (auto) 0.04 H (0.00-0.03) X10*3/uL Absolute Neuts (auto) 6.9 (2.0-8.3) x10*3/uL Absolute Nucleated RBC 0.000 (0.0-0.012) X10*3/uL Nucleated RBC % (auto) 0.0 (0.0-0.2) /100WBC Sodium 137 (135-145) mmol/L Potassium 3.7 D (3.3-5.1) mmol/L Chloride 105 (96-108) mmol/L Carbon Dioxide 20 L (22-29) mmol/L Anion Gap 16 (12-20) BUN 14 (9-16) mg/dL Creatinine 0.78 (0.5-1.4) mg/dL Estim Creat Clear Calc 106.4 Estimated GFR > 60 Random Glucose 108 (60-115) mg/dL Calcium 9.5 (8.4-10.2) mg/dL Total Bilirubin 0.7 (0.0-1.0) mg/dL AST 28 (5-31) U/L ALT 25 (0-31) U/L Alkaline Phosphatase 53 (39-117) U/L Total Protein 7.8 (6.5-8.0) g/dL Albumin 4.3 (3.5-5.0) g/dL Lipase 68 (8-78) U/L Urine Color Yellow Urine Appearance Cloudy Urine pH >= 9.0 (5.0-9.0) Ur Specific [place] 1.020 (1.005-1.025) Urine Protein 30 (1+) H (Neg-Trace) mg/dL Urine Glucose (UA) Negative (Negative) mg/dL Urine Ketones Trace (Negative) mg/dL Urine Blood Large (3+) H (Negative) Urine Nitrite Negative (Negative) Ur Leukocyte Esterase Large (3+) H (Negative) Urine RBC 6-10 H (0-2) /HPF Urine WBC 21-50 H (0-5) /HPF Ur Squamous Epith Cells 11-20 (0-2) /HPF Urine Bacteria 3+ (None Seen) Hyaline Casts 3-5 (0-2) /LPF Medications Administered Discontinued Medications Generic Name Dose Route Start Last Admin Trade Name Freq PRN Reason Stop Dose Admin Cefuroxime Axetil 500 mg 08/27/23 00:10 08/27/23 00:30 Cefuroxime Axetil 500 Mg Tablet PO 08/27/23 00:11 500 mg ONCE ONE Administration Lorazepam 2 mg 08/26/23 23:38 08/27/23 00:03 Lorazepam 2 Mg/Ml Vial IM 08/26/23 23:39 2 mg STAT STA Administration Prochlorperazine Edisylate 10 mg 08/26/23 23:38 08/27/23 00:02 Prochlorperazine Edisylate 10 Mg/2 Ml Vial IM 08/26/23 23:39 10 mg ONCE ONE Administration Discharge Plan Discharge Clinical Impression: Cyclic vomiting syndrome, UTI (urinary tract infection) Patient Disposition: Home, Self-Care Instructions: Urinary Tract Infection in Women (DC), Cyclic Vomiting Syndrome (ED) Additional Instructions: Drink plenty of fluids Take medication as prescribed yesterday Antibiotic as prescribed Prescriptions: New cefuroxime axetil 250 mg tablet 250 mg PO BID 5 Days Qty: 10 0RF No Action cholecalciferol (vitamin D3) 50 mcg (2,000 unit) capsule 50 mcg PO DAILY Qty: 90 3RF lorazepam [Ativan] 1 mg tablet 1 mg PO BID PRN (Reason: anxiety) Qty: 20 0RF pantoprazole 40 mg tablet,delayed release (DR/EC) 40 mg PO DAILY@0630 Rx Instructions: take one tablet half an hour before breakfast ondansetron 4 mg tablet,disintegrating 4 mg PO Q6H PRN (Reason: nausea and vomiting) Qty: 20 0RF ondansetron 4 mg tablet,disintegrating 4 mg PO Q8H 4 Days Qty: 12 0RF ondansetron HCl 4 mg tablet 4 mg PO Q8H PRN (Reason: nausea and vomiting) famotidine 40 mg tablet 40 mg PO BEDTIME Qty: 30 3RF
[2023-08-26 23:40] LABS: Appearance Urine Cloudy; Color Urine Yellow; Glucose Urine UA Negative (Negative); Leukocyte Esterase Urine Large (3+) (Negative); Nitrite Urine Negative (Negative); PH >= 9.0 (5.0-9.0); UMIC TRIGGER UACC YES; Urine Blood Large (3+) (Negative); Urine Ketones Trace mg/dL (Negative); Urine Protein 30 (1+) mg/dL (Neg-Trace)
[2023-08-26 23:45] LABS: Bacteria Urine 3+ (None Seen); UACC Culture Trigger YES; WBC Urine 21-50 /HPF (0-5)
[2023-08-26 23:53] LABS: Alanine Aminotransferase 25 U/L (0-31); Albumin Level 4.3 g/dL (3.5-5.0); Alkaline Phosphatase 53 U/L (39-117); Anion Gap 16 (12-20); Aspartate Amino Transferase 28 U/L (5-31); Bilirubin Total 0.7 mg/dL (0.0-1.0); Blood Urea Nitrogen 14 mg/dL (9-16); Calcium 9.5 mg/dL (8.4-10.2); Carbon Dioxide 20 mmol/L (22-29); Chloride 105 mmol/L (96-108); Creatinine Clr Calc Pharmacy 106.4; Estimated Glomerular Filt Rate > 60; Glucose Random 108 mg/dL (60-115); Lipase 68 U/L (8-78); Potassium 3.7 mmol/L (3.3-5.1); Sodium 137 mmol/L (135-145); Total Protein 7.8 g/dL (6.5-8.0)
[2023-08-27] MEDS: Prochlorperazine Edisylate 10 MG/2 ML VIAL IM (00:02)
[2023-08-27] MEDS: LORazepam 2 MG/ML VIAL IM (00:03)
[2023-08-27 00:09] VITALS: PULSE 61; O2SAT 98
[2023-08-27] MEDS: cefuroxime axetiL 500 MG TABLET PO (00:30)
== END 2023-08-27 01:14 | disposition home or self-care (01) ==
PROVIDERS: Emergency Provider Internal Medicine; PCP Internal Medicine
DX: R11.15 Cyclical vomiting syndrome unrelated to migraine (principal); N39.0 Urinary tract infection, site not specified; R11.2 Nausea with vomiting, unspecified; Z79.899 Other long term (current) drug therapy
CPT/HCPCS: 36415; 74018; 80053; 81001; 83690; 85025; 87086; 96372; 99284; J2060

== ENCOUNTER 2024-03-06 15:53 | Emergency (ER) | payer OTHER, SELFPAY ==
[2024-03-06 16:05] VITALS: BP 130/75; BP 94/71; PULSE 61; PULSE 80; RESP 18; TEMP 36.6; O2SAT 95; O2SAT 99; BMI 31.1
[2024-03-06] MEDS: ondansetron HCL 4 MG/2 ML VIAL IVPUSH (16:36)
[2024-03-06] MEDS: 0.9 % Sodium Chloride 1,000 ML 999 ML IV ×2 (16:36→19:30)
[2024-03-06 16:46] LABS: Basophils Absolute Auto 0.1 X10*3/uL (0.0-0.2); Basophils Percent Auto 0.4 % (0-2); Eosinophils Percent Auto 0.2 % (0-4); Hemoglobin 14.2 g/dl (12.0-16.0); Imm Gran Abs Auto 0.09 X10*3/uL (0.00-0.03); Imm Gran Pct Auto 0.6 % (0.0-0.4); Lymphocytes Absolute Auto 2.4 X10*3/uL (1.2-4.9); Lymphocytes Percent Auto 14.6 % (20-40); MANUAL DIFF FLAG SCAN; Mean Corpuscular HGB Conc 34.6 g/dl (31.0-35.0); Mean Corpuscular Hemoglobin 30.1 pg (27.0-33.0); Mean Corpuscular Volume 86.9 fL (80.0-98.0); Mean Platelet Volume 11.1 fL (9.4-12.3); Monocytes Absolute Auto 0.7 X10*3/uL (0.1-1.2); NRBC Pct Auto 0.1 /100WBC (0.0-0.2); Neutrophils Percent Auto 80.2 % (45-73); PLT CLUMP 1; Red Blood Count 4.72 X10*6/uL (4.20-5.50); Red Cell Distribution Width 12.6 % (11.0-16.0); SCAN SMEAR FLAG 1
[2024-03-06 17:00] LABS: Platelet Count 237 X10*3/uL (160-400); SLIDE REVIEW VERIFIED; White Blood Count 16.1 X10*3/uL (4.8-10.8)
[2024-03-06 17:06] LABS: Alanine Aminotransferase 16 U/L (0-31); Albumin Level 4.5 g/dL (3.5-5.0); Alkaline Phosphatase 59 U/L (39-117); Anion Gap 18 (12-20); Aspartate Amino Transferase 21 U/L (5-31); Bilirubin Direct 0.1 mg/dL (0.0-0.5); Bilirubin Total 0.3 mg/dL (0.0-1.0); Blood Urea Nitrogen 17 mg/dL (9-16); Calcium 9.8 mg/dL (8.4-10.2); Carbon Dioxide 16 mmol/L (22-29); Chloride 108 mmol/L (96-108); Creatinine Clr Calc Pharmacy 98.7; Estimated Glomerular Filt Rate > 60; Glucose Random 135 mg/dL (60-115); Lipase 13 U/L (8-78); Magnesium 2.1 mg/dL (1.6-2.6); Potassium 3.2 mmol/L (3.3-5.1); Sodium 139 mmol/L (135-145); Total Protein 8.1 g/dL (6.5-8.0)
[2024-03-06 17:13] LABS: HCG Quantitative < 2 mIU/mL
--- NOTE | 2024-03-06 19:12 | PC.NURSE ---
This RN assumed pt care @ 1900.
[2024-03-06] MEDS: diphenhydrAMINE HCL 50 MG/ML VIAL 25 MG IVPUSH (19:20)
[2024-03-06] MEDS: Prochlorperazine Edisylate 10 MG/2 ML VIAL IVPUSH (19:56)
--- NOTE | 2024-03-06 19:59 | ED_ITS ---
HPI - Nausea/Vomiting/Diarrhea General Chief complaint: Abdominal Pain Stated complaint: abd pain x 3 days Time Seen by Provider: 03/06/24 16:23 Source: patient Mode of arrival: ambulatory History of Present Illness HPI Narrative: 28-year-old female with presentation via EMS for 3 days of abdominal pain with nausea and vomiting, patient states 10/10 pain and that she has pain in the right lower quadrant. Related Data Home Medications ?Medication ?Instructions ?Recorded ?Confirmed ondansetron HCl 4 mg tablet 4 mg PO Q8H PRN nausea and vomiting 01/25/23 04/22/23 pantoprazole 40 mg tablet,delayed 40 mg PO DAILY@0630 04/23/23 04/23/23 release Previous Rx's ?Medication ?Instructions ?Recorded famotidine 40 mg tablet 40 mg PO BEDTIME #30 tabs 03/17/23 cholecalciferol (vitamin D3) 50 50 mcg PO DAILY #90 caps 03/28/23 mcg (2,000 unit) capsule ondansetron 4 mg disintegrating 4 mg PO Q6H PRN nausea and 04/25/23 tablet vomiting #20 tabs ondansetron 4 mg disintegrating 4 mg PO Q8H 4 days #12 tabs 08/24/23 tablet lorazepam 1 mg tablet (Ativan) 1 mg PO BID PRN anxiety #20 tabs 08/26/23 cefuroxime axetil 250 mg tablet 250 mg PO BID 5 days #10 tabs 08/27/23 Allergies Allergy/AdvReac Type Severity Reaction Status Date / Time No Known Allergies Allergy Verified 03/06/24 16:08 [No Known Allergies*] Review of Systems 2 Review of Systems: Pertinent positives and negatives as stated in HPI PMFSH Past Medical History Source: nursing notes reviewed Medical History Marijuana abuse Mild recurrent major depression Anxiety disorder, unspecified Nausea and vomiting Lack of access to transportation Right upper quadrant abdominal pain Surgical History History of D&C Family History Family History Maternal Grandmother Breast cancer Son Autism Daughter No problems noted. Mother No problems noted. Father Learning difficulty Mental health disorder Maternal Grandmother Breast cancer, Onset Age: 50 Maternal Uncle Testicular cancer, Onset Age: 60 Paternal Grandfather Diabetes mellitus Myocardial infarct Other Substance use disorder Social History Social History Household Members: Children Housing: House Do you presently have visiting nurse or other home services: No Alcohol intake: never Patient Tobacco Use Status: Never used Tobacco Smoked in Last 30 Days: Yes e-Cigarette/Vaping Use: Never Used Second Hand Smoke Exposure: No Use of substances other than those prescribed or required for medical reasons: Yes Substance Use Type: Marijuana Advance Directives: No Advance Directives Information Provided: No Do you have a plan to hurt others: No Plan service: No Current occupational status: unemployed Cognitive needs: No Hearing needs: No Vision needs: No Physical Exam 2 Vital Signs: Vital Signs: Last Vital Signs Temp 97.8 F 03/06/24 16:05 Pulse 61 03/06/24 16:05 Resp 18 03/06/24 16:05 BP 94/71 03/06/24 16:05 Pulse Ox 95 03/06/24 16:05 O2 Del Method Room Air 03/06/24 16:05 BMI result Body Mass Index 31.1 VITAL SIGNS: Reviewed. GENERAL: Well developed, well nourished, in no acute distress. HEAD: Normocephalic/atraumatic EYES: PERRLA, EOMI EARS: Ext canals without abnormality, TMs non-bulging and non-erythematous NOSE: Nares patent bilateral OROPHARYNX: no oral lesions noted, posterior pharynx clear and non-erythematous without noted tonsillar enlargement/erythema/exudates NECK: Supple, no adenopathy LUNGS: Normal breath sounds. No adventitious sounds or accessory muscle use. SpO2<95> CARDIOVASCULAR: Regular rate and rhythm without noted murmurs ABDOMEN: Soft, diffusely tender to palpation without specific rebound, non- distended with bowel sounds. MUSCULOSKELETAL: No tenderness, deformities, or effusions noted on gross inspection. EXTREMITIES: No cyanosis, clubbing or edema. SKIN: Inspection of the skin reveals no rashes NEUROLOGIC: Alert and oriented x 3. Strength and sensation to light touch were grossly intact x 4. Medications Administered Discontinued Medications Generic Name Dose Route Start Last Admin Trade Name Freq PRN Reason Stop Dose Admin Diphenhydramine HCl 25 mg 03/06/24 18:21 03/06/24 19:20 Diphenhydramine Hcl 50 Mg/Ml Vial IVPUSH 03/06/24 18:22 25 mg ONCE ONE Administration Sodium Chloride 1,000 mls @ 999 mls/hr 03/06/24 16:30 03/06/24 16:36 Ns IV 03/06/24 17:30 999 mls/hr .Q1H1M ACACIA Administration Metoclopramide HCl 10 mg 03/06/24 18:21 03/06/24 19:20 Metoclopramide Hcl 10 Mg/2 Ml Vial IVPUSH 03/06/24 18:22 10 mg ONCE ONE Administration Ondansetron HCl 4 mg 03/06/24 16:23 03/06/24 16:36 Ondansetron Hcl 4 Mg/2 Ml Vial IVPUSH 03/06/24 16:24 4 mg ONCE ONE Administration Prochlorperazine Edisylate 10 mg 03/06/24 19:31 03/06/24 19:56 Prochlorperazine Edisylate 10 Mg/2 Ml Vial IVPUSH 03/06/24 19:32 10 mg ONCE ONE Administration Medical Decision Making Medical Decision Making MDM Narrative: 28-year-old female with history and clinical presentation, DDX: Ectopic, UTI, cyclical vomiting secondary to cannabis use, gastritis, dehydration. INTERVENTION: IV fluids, Zofran. I reviewed all investigations and patient has a noninfectious leukocytosis, patient has no fever, there is no anemia or thrombocytopenia. Chemistry indices negative for CINDY, there is a mild low potassium reflective of patient's nausea and vomiting status with metabolic acidosis secondary to dehydration. There are no liver enzyme derangements and magnesium levels within normal limits, beta hCG is undetectable and lipase is within normal limits. Informed by nursing that the initial IV infiltrated and patient did not receive subsequent dosing of Reglan, intravenous access was restarted and initial 1 L of IV fluids was restarted, Reglan was reordered, Benadryl as well as Compazine were provided. My interpretation is that patient has metabolic acidosis secondary to significant dehydration secondary to multiple episodes of nausea and vomiting that appears to be associated with cannabis use. Signed out to Dr Conrad: - PO challenge - rehydration - ?BMP rpt Differential Diagnosis Differential Diagnoses: The differential diagnosis associated with the presentation includes Please see the discussion above Admission/Observation Consideration of admission/observation: Escalation of care including admission/observation considered Please see the discussion above Lab Data MDM Lab Attestation statement: I reviewed the patient's lab results. Please see the discussion above 03/06/24 16:18 03/06/24 16:38 Labs: Lab Results 03/06/24 03/06/24 03/06/24 Range/Units 16:18 16:37 16:38 WBC 16.1 H (4.8-10.8) X10*3/uL RBC 4.72 (4.20-5.50) X10*6/uL Hgb 14.2 (12.0-16.0) g/dl Hct 41.0 (37.0-47.0) % MCV 86.9 (80.0-98.0) fL MCH 30.1 (27.0-33.0) pg MCHC 34.6 (31.0-35.0) g/dl RDW 12.6 (11.0-16.0) % Plt Count 237 (160-400) X10*3/uL MPV 11.1 (9.4-12.3) fL Immature Gran % (Auto) 0.6 H (0.0-0.4) % Neut % (Auto) 80.2 H (45-73) % Lymph % (Auto) 14.6 L (20-40) % [place] % (Auto) 4.0 (2-11) % Eos % (Auto) 0.2 (0-4) % Baso % (Auto) 0.4 (0-2) % Lymph # (Auto) 2.4 (1.2-4.9) X10*3/uL [place] # (Auto) 0.7 (0.1-1.2) X10*3/uL Eos # (Auto) 0.0 (0.0-0.4) X10*3/uL Baso # (Auto) 0.1 (0.0-0.2) X10*3/uL Abs Immat Gran (auto) 0.09 H (0.00-0.03) X10*3/uL Absolute Neuts (auto) 13.0 H (2.0-8.3) x10*3/uL Absolute Nucleated RBC 0.020 H (0.0-0.012) X10*3/uL Nucleated RBC % (auto) 0.1 (0.0-0.2) /100WBC Smear Tech's Comments VERIFIED Sodium 139 (135-145) mmol/L Potassium 3.2 L (3.3-5.1) mmol/L Chloride 108 (96-108) mmol/L Carbon Dioxide 16 L (22-29) mmol/L Anion Gap 18 (12-20) BUN 17 H (9-16) mg/dL Creatinine 0.83 (0.5-1.4) mg/dL Estim Creat Clear Calc 98.7 Estimated GFR > 60 Random Glucose 135 H (60-115) mg/dL Calcium 9.8 (8.4-10.2) mg/dL Magnesium 2.1 (1.6-2.6) mg/dL Total Bilirubin 0.3 (0.0-1.0) mg/dL Direct Bilirubin 0.1 (0.0-0.5) mg/dL AST 21 (5-31) U/L ALT 16 (0-31) U/L Alkaline Phosphatase 59 (39-117) U/L Total Protein 8.1 H (6.5-8.0) g/dL Albumin 4.5 (3.5-5.0) g/dL Lipase 13 (8-78) U/L Beta HCG, Quant < 2 mIU/mL Critical Care Time Critical Care Time Critical Care Time: Yes Total Critical Care Time: 60 Attestation: I personally attest to this time spent taking care of the patient. Discharge Plan Discharge Clinical Impression: Cyclical vomiting, Cannabis use disorder Patient Disposition: Still a Patient Prescriptions: No Action cholecalciferol (vitamin D3) 50 mcg (2,000 unit) capsule 50 mcg PO DAILY Qty: 90 3RF lorazepam [Ativan] 1 mg tablet 1 mg PO BID PRN (Reason: anxiety) Qty: 20 0RF pantoprazole 40 mg tablet,delayed release (DR/EC) 40 mg PO DAILY@0630 Rx Instructions: take one tablet half an hour before breakfast ondansetron 4 mg tablet,disintegrating 4 mg PO Q6H PRN (Reason: nausea and vomiting) Qty: 20 0RF ondansetron 4 mg tablet,disintegrating 4 mg PO Q8H 4 Days Qty: 12 0RF cefuroxime axetil 250 mg tablet 250 mg PO BID 5 Days Qty: 10 0RF ondansetron HCl 4 mg tablet 4 mg PO Q8H PRN (Reason: nausea and vomiting) famotidine 40 mg tablet 40 mg PO BEDTIME Qty: 30 3RF Print Language: Cameroonian
--- NOTE | 2024-03-06 20:01 | PC.NURSE ---
Unable to give pt reglan d/t IV line compromised. Pt covered in feces and vomit. Complete bed change and christal care completed. New IV line access placed, positional d/t pt vomiting and having bouts of diarrhea. NS now running. This RN spoke with Dr. Bond regarding reglan. Per Dr. Bond will order reglan. Pt medicated per jan. Plan of care ongoing.
--- NOTE | 2024-03-06 21:10 | PC.NURSE ---
Pt ambulated from room to nurses station. Requested and given ice chips. Plan of care ongoing.
[2024-03-06] MEDS: Metoclopramide HCl 10 MG/2 ML VIAL IVPUSH (21:56)
[2024-03-06 22:09] VITALS: BP 112/54; PULSE 71; RESP 14; TEMP 36.7; O2SAT 100
[2024-03-06 23:25] VITALS: BP 119/60; PULSE 71; RESP 12; TEMP 36.7; O2SAT 100
== END 2024-03-06 23:55 | disposition home or self-care (01) ==
PROVIDERS: Student in an Organized Health Care Education/Training Program; Emergency Provider Emergency Medicine
DX: R11.15 Cyclical vomiting syndrome unrelated to migraine (principal); F12.90 Cannabis use, unspecified, uncomplicated
CPT/HCPCS: 36415; 80048; 80076; 83690; 83735; 84702; 85025; 99283; 99284; J0737; J1200; J2405; J2765

== ENCOUNTER 2024-03-07 19:50 | Emergency (ER) | payer OTHER, SELFPAY ==
[2024-03-07 20:10] VITALS: BP 122/64; PULSE 75
[2024-03-07 20:16] VITALS: BP 118/52; PULSE 62; RESP 16; TEMP 37.1; O2SAT 100; BMI 32.0
--- NOTE | 2024-03-08 01:21 | ED.NAVMDI ---
HPI - Nausea/Vomiting/Diarrhea General Chief complaint: Nausea/Vomiting/Diarrhea Stated complaint: N/V abdominal pain and constipation since Sat Time Seen by Provider: 03/08/24 00:40 Source: patient Mode of arrival: EMS Limitations: no limitations History of Present Illness HPI Narrative: 28-year-old female with a history of anxiety and cyclic vomiting syndrome secondary to cannabis use who presents emergency department for evaluation of nausea vomiting and diarrhea. He has had patient states that she became ill on Tuesday (5 days prior she states she had nausea, vomiting, abdominal pain and diarrhea. She points to her epigastric area and states she has a constant, twisting pain which is 10/10, the pain does radiate to her left side. She also states she had multiple episodes of diarrhea but now she has been constipated over the last 2-3 days. She continues to use marijuana. She denied fever, chills, frequency, urgency or dysuria. The patient was seen in the emergency department on 03/06/2023 with similar symptoms. She was treated with Reglan, Benadryl, Zofran and prochlorperazine with eventual improvement of her pain. She was discharged on Zofran and Reglan and states that she has been taking these medications and they have not helped her symptoms. Related Data Home Medications ?Medication ?Instructions ?Recorded ?Confirmed ondansetron HCl 4 mg tablet 4 mg PO Q8H PRN nausea and vomiting 01/25/23 04/22/23 pantoprazole 40 mg tablet,delayed 40 mg PO DAILY@0630 04/23/23 04/23/23 release Previous Rx's ?Medication ?Instructions ?Recorded famotidine 40 mg tablet 40 mg PO BEDTIME #30 tabs 03/17/23 cholecalciferol (vitamin D3) 50 50 mcg PO DAILY #90 caps 03/28/23 mcg (2,000 unit) capsule ondansetron 4 mg disintegrating 4 mg PO Q6H PRN nausea and 04/25/23 tablet vomiting #20 tabs ondansetron 4 mg disintegrating 4 mg PO Q8H 4 days #12 tabs 08/24/23 tablet lorazepam 1 mg tablet (Ativan) 1 mg PO BID PRN anxiety #20 tabs 08/26/23 cefuroxime axetil 250 mg tablet 250 mg PO BID 5 days #10 tabs 08/27/23 metoclopramide HCl 5 mg tablet 5 mg PO .B.i.d. PRN nausea and 03/06/24 (Reglan) vomiting #10 tabs ondansetron HCl 4 mg tablet 4 mg PO Q6H PRN nausea and 03/06/24 vomiting #10 tabs promethazine 25 mg rectal 25 mg PA Q6H PRN nausea and 03/08/24 suppository (Promethegan) vomiting #20 ea Allergies Allergy/AdvReac Type Severity Reaction Status Date / Time No Known Allergies Allergy Verified 03/07/24 20:18 [No Known Allergies*] Review of Systems Review of Systems: Yes all other systems are reviewed and are negative FOR[facility] Past Medical History Medical History Marijuana abuse Mild recurrent major depression Anxiety disorder, unspecified Nausea and vomiting Lack of access to transportation Right upper quadrant abdominal pain Surgical History History of D&C Family History Family History Maternal Grandmother Breast cancer Son Autism Daughter No problems noted. Mother No problems noted. Father Learning difficulty Mental health disorder Maternal Grandmother Breast cancer, Onset Age: 50 Maternal Uncle Testicular cancer, Onset Age: 60 Paternal Grandfather Diabetes mellitus Myocardial infarct Other Substance use disorder Social History Social History Household Members: Children Housing: House Do you presently have visiting nurse or other home services: No Alcohol intake: never Patient Tobacco Use Status: Never used Tobacco Smoked in Last 30 Days: No e-Cigarette/Vaping Use: Never Used Second Hand Smoke Exposure: No Use of substances other than those prescribed or required for medical reasons: Yes Substance Use Type: Marijuana Advance Directives: No Advance Directives Information Provided: No Do you have a plan to hurt others: No Plan Patient : No service: No Current occupational status: unemployed Cognitive needs: No Hearing needs: No Vision needs: No Physical Exam Vital Signs: Vital Signs: Last Vital Signs Temp 98.2 F 03/08/24 03:14 Pulse 60 03/08/24 03:14 Resp 16 03/08/24 03:14 BP 95/41 L 03/08/24 03:14 Pulse Ox 100 03/08/24 03:14 O2 Del Method Room Air 03/08/24 03:14 BMI result Body Mass Index 32.0 Vital signs were normal Exam: General: Awake, alert appears to be in distress secondary to her abdominal pain Head: Normocephalic, atraumatic EENT: PERRL, Lids normal, sclera normal, conjunctiva normal, nose normal , ears normal, throat without erythema or exudates Neck: Supple, no adenopathy Lung: breath sounds symmetric, no wheezing, rales or rhonchi Chest: symmetric movement, nontender Heart: regular rate and rhythm, normal S1, S2 no murmurs or rubs Abdomen: Patient has moderate right upper quadrant and epigastric tenderness, she has [id number] diffuse tenderness, normoactive bowel sounds, no involuntary guarding Back: no vertebral tenderness, no CVAT Extremities: no deformities, moves all extremities symmetrically Neuro: Awake, alert, oriented, normal speech, cranial nerves intact, moves all extremities symmetrically Psych: Pleasant, cooperative Medications Administered Discontinued Medications Generic Name Dose Route Start Last Admin Trade Name Freq PRN Reason Stop Dose Admin Droperidol 1.25 mg 03/08/24 01:22 03/08/24 01:34 Droperidol 5 Mg/2 Ml Vial IVPUSH 03/08/24 01:23 1.25 mg ONCE ONE Administration Sodium Chloride 1,000 mls @ 999 mls/hr 03/08/24 01:22 03/08/24 02:46 Ns IV 03/08/24 02:22 Infused .Q1H1M STA Infusion Ketorolac Tromethamine 15 mg 03/08/24 01:22 03/08/24 01:35 Ketorolac Tromethamine 15 Mg/Ml Vial IVPUSH 03/08/24 01:23 15 mg ONCE STA Administration Lorazepam 1 mg 03/08/24 01:22 03/08/24 01:34 Lorazepam 2 Mg/Ml Vial IVPUSH 03/08/24 01:23 1 mg STAT STA Administration Medical Decision Making Medical Decision Making MDM Narrative: 28-year-old female with a history of anxiety and cyclic vomiting syndrome secondary to cannabis use who presents emergency department for evaluation of nausea vomiting and diarrhea. He has had patient states that she became ill on Tuesday (5 days prior she states she had nausea, vomiting, abdominal pain and diarrhea. She was also seen on 03/06/2024 (2 days prior) for similar symptoms. Patient's exam did reveal epigastric and right upper quadrant tenderness as well as mild diffuse abdominal tenderness. She did appear to be in distress secondary to her pain in her nausea. Differential diagnosis: ?Includes but is not limited to gastritis, esophagitis, pancreatitis, cyclic vomiting syndrome, electrolyte abnormalities, anemia Following evaluation was ordered: CBC, CMP, lipase Patient was initially treated with the following: Droperidol 1.25 mg IV, lorazepam 1 mg IV, Toradol 15 mg IV, normal saline x1 L Course: 07:42 My independent interpretation patient's laboratory evaluation is as follows: WBC was elevated 11,400. Potassium was low at 3.2. BUN is elevated 22. Patient was able to sleep throughout the night without vomiting. She was able to drink some fluid this morning but states that her nausea is returning therefore she was given Phenergan 12.5 mg IM. Patient will be discharged home with a prescription for Phenergan (promethazine) 25 mg suppositories every 6 hours as needed for nausea and vomiting. She was given printed and verbal instructions and discharged home. Admission/Observation Consideration of admission/observation: Escalation of care including admission/observation considered Lab Data MDM Lab Attestation statement: I reviewed the patient's lab results. 03/08/24 02:29 03/08/24 02:29 Labs: Lab Results 03/08/24 Range/Units 02:29 WBC 11.4 H (4.8-10.8) X10*3/uL RBC 4.39 (4.20-5.50) X10*6/uL Hgb 13.0 (12.0-16.0) g/dl Hct 38.3 (37.0-47.0) % MCV 87.2 (80.0-98.0) fL MCH 29.6 (27.0-33.0) pg MCHC 33.9 (31.0-35.0) g/dl RDW 12.9 (11.0-16.0) % Plt Count 233 (160-400) X10*3/uL MPV 9.9 (9.4-12.3) fL Immature Gran % (Auto) 0.5 H (0.0-0.4) % Neut % (Auto) 78.2 H (45-73) % Lymph % (Auto) 13.3 L (20-40) % [place] % (Auto) 7.7 (2-11) % Eos % (Auto) 0.0 (0-4) % Baso % (Auto) 0.3 (0-2) % Lymph # (Auto) 1.5 (1.2-4.9) X10*3/uL [place] # (Auto) 0.9 (0.1-1.2) X10*3/uL Eos # (Auto) 0.0 (0.0-0.4) X10*3/uL Baso # (Auto) 0.0 (0.0-0.2) X10*3/uL Abs Immat Gran (auto) 0.06 H (0.00-0.03) X10*3/uL Absolute Neuts (auto) 8.9 H (2.0-8.3) x10*3/uL Absolute Nucleated RBC 0.000 (0.0-0.012) X10*3/uL Nucleated RBC % (auto) 0.0 (0.0-0.2) /100WBC Sodium 142 (135-145) mmol/L Potassium 3.1 L (3.3-5.1) mmol/L Chloride 107 (96-108) mmol/L Carbon Dioxide 23 (22-29) mmol/L Anion Gap 15 (12-20) BUN 22 H (9-16) mg/dL Creatinine 0.82 (0.5-1.4) mg/dL Estim Creat Clear Calc 101.4 Estimated GFR > 60 Random Glucose 109 (60-115) mg/dL Calcium 8.9 D (8.4-10.2) mg/dL Total Bilirubin 0.3 (0.0-1.0) mg/dL AST 27 (5-31) U/L ALT 22 (0-31) U/L Alkaline Phosphatase 52 (39-117) U/L Total Protein 6.9 (6.5-8.0) g/dL Albumin 4.0 (3.5-5.0) g/dL Lipase 9 (8-78) U/L Prescription Management I considered prescription management with: Other (Antiemetics) Discharge Plan Discharge Clinical Impression: Cyclic vomiting syndrome, Cannabis use disorder Patient Disposition: Home, Self-Care Additional Instructions: I am prescribing Phenergan suppositories 25 mg, use 1 suppository per rectum every 6-8 hours as needed for nausea and vomiting. You should stop smoking marijuana since this may be contributing to your cyclic vomiting Follow-up with your doctor in 2 days. Please return to the emergency department if your symptoms get worse or if you develop any symptoms that are concerning to you. You received droperidol 1.25 mg IV , lorazepam 1 mg IV and ketorolac 15 mg IV. This combination of medicine seemed to significantly improve your symptoms. Prescriptions: New promethazine [Promethegan] 25 mg suppository 25 mg PA Q6H PRN (Reason: nausea and vomiting) Qty: 20 0RF No Action cholecalciferol (vitamin D3) 50 mcg (2,000 unit) capsule 50 mcg PO DAILY Qty: 90 3RF lorazepam [Ativan] 1 mg tablet 1 mg PO BID PRN (Reason: anxiety) Qty: 20 0RF pantoprazole 40 mg tablet,delayed release (DR/EC) 40 mg PO DAILY@0630 Rx Instructions: take one tablet half an hour before breakfast ondansetron 4 mg tablet,disintegrating 4 mg PO Q6H PRN (Reason: nausea and vomiting) Qty: 20 0RF ondansetron 4 mg tablet,disintegrating 4 mg PO Q8H 4 Days Qty: 12 0RF cefuroxime axetil 250 mg tablet 250 mg PO BID 5 Days Qty: 10 0RF metoclopramide HCl [Reglan] 5 mg tablet 5 mg PO .B.i.d. PRN (Reason: nausea and vomiting) Qty: 10 0RF ondansetron HCl 4 mg tablet 4 mg PO Q6H PRN (Reason: nausea and vomiting) Qty: 10 0RF ondansetron HCl 4 mg tablet 4 mg PO Q8H PRN (Reason: nausea and vomiting) famotidine 40 mg tablet 40 mg PO BEDTIME Qty: 30 3RF Print Language: Setswana
[2024-03-08] MEDS: LORazepam 2 MG/ML VIAL 1 MG IVPUSH (01:34)
[2024-03-08] MEDS: droPERidol 5 MG/2 ML VIAL 1.25 MG IVPUSH (01:34)
[2024-03-08] MEDS: Ketorolac Tromethamine 15 MG/ML VIAL IVPUSH (01:35)
[2024-03-08] MEDS: 0.9 % Sodium Chloride 1,000 ML 999 ML IV (01:35)
[2024-03-08 02:33] LABS: MANUAL DIFF FLAG NO
[2024-03-08 02:34] LABS: Basophils Percent Auto 0.3 % (0-2); Hematocrit 38.3 % (37.0-47.0); Imm Gran Abs Auto 0.06 X10*3/uL (0.00-0.03); Imm Gran Pct Auto 0.5 % (0.0-0.4); Lymphocytes Absolute Auto 1.5 X10*3/uL (1.2-4.9); Lymphocytes Percent Auto 13.3 % (20-40); Mean Corpuscular HGB Conc 33.9 g/dl (31.0-35.0); Mean Corpuscular Hemoglobin 29.6 pg (27.0-33.0); Mean Corpuscular Volume 87.2 fL (80.0-98.0); Mean Platelet Volume 9.9 fL (9.4-12.3); Monocytes Absolute Auto 0.9 X10*3/uL (0.1-1.2); Monocytes Percent Auto 7.7 % (2-11); Neutrophils Absolute Auto 8.9 x10*3/uL (2.0-8.3); Neutrophils Percent Auto 78.2 % (45-73); Platelet Count 233 X10*3/uL (160-400); Red Blood Count 4.39 X10*6/uL (4.20-5.50); Red Cell Distribution Width 12.9 % (11.0-16.0); White Blood Count 11.4 X10*3/uL (4.8-10.8)
[2024-03-08 02:56] LABS: Alanine Aminotransferase 22 U/L (0-31); Alkaline Phosphatase 52 U/L (39-117); Anion Gap 15 (12-20); Aspartate Amino Transferase 27 U/L (5-31); Bilirubin Total 0.3 mg/dL (0.0-1.0); Blood Urea Nitrogen 22 mg/dL (9-16); Calcium 8.9 mg/dL (8.4-10.2); Carbon Dioxide 23 mmol/L (22-29); Chloride 107 mmol/L (96-108); Creatinine Clr Calc Pharmacy 101.4; Estimated Glomerular Filt Rate > 60; Glucose Random 109 mg/dL (60-115); Lipase 9 U/L (8-78); Potassium 3.1 mmol/L (3.3-5.1); Sodium 142 mmol/L (135-145); Total Protein 6.9 g/dL (6.5-8.0)
[2024-03-08 03:14] VITALS: BP 95/41; PULSE 60; RESP 16; TEMP 36.8; O2SAT 100
[2024-03-08] MEDS: Promethazine HCL 25 MG/ML VIAL 12.5 MG IM (08:08)
[2024-03-08 08:33] VITALS: BP 142/83; PULSE 120; RESP 18; TEMP 36.7
== END 2024-03-08 08:34 | disposition home or self-care (01) ==
PROVIDERS: Emergency Provider Emergency Medicine Emergency Medical Services
DX: R11.15 Cyclical vomiting syndrome unrelated to migraine (principal); F12.10 Cannabis abuse, uncomplicated
CPT/HCPCS: 36415; 80053; 83690; 85025; 96361; 96372; 96374; 96375; 99284; J1790; J1885; J2060; J2550

== ENCOUNTER 2024-03-08 21:58 | Emergency (ER) | payer OTHER, SELFPAY ==
[2024-03-08 22:04] VITALS: BP 102/83; BP 142/74; PULSE 60; PULSE 61; RESP 18; TEMP 36.1; O2SAT 95; BMI 31.9
== END 2024-03-09 02:38 | disposition left against medical advice (07) ==
PROVIDERS: Emergency Provider Emergency Medicine
DX: Z53.21 Procedure and treatment not carried out due to patient leaving prior to being seen by health care provider (principal); R11.2 Nausea with vomiting, unspecified; K59.00 Constipation, unspecified
CPT/HCPCS: 99281

== ENCOUNTER 2024-03-09 10:43 | Emergency (ER) | payer OTHER, SELFPAY ==
[2024-03-09 10:46] VITALS: BP 138/84; PULSE 88; O2SAT 98
[2024-03-09 10:48] VITALS: BP 145/73; PULSE 86; RESP 18; TEMP 36.6; O2SAT 98; BMI 32.9
--- NOTE | 2024-03-09 10:53 | ED.GENADULT ---
HPI - General Adult General Chief complaint: Abdominal Pain Stated complaint: NAUSEA VOMITING CONSTIPATION Related Data Home Medications ?Medication ?Instructions ?Recorded ?Confirmed ondansetron HCl 4 mg tablet 4 mg PO Q8H PRN nausea and vomiting 01/25/23 04/22/23 pantoprazole 40 mg tablet,delayed 40 mg PO DAILY@0630 04/23/23 04/23/23 release Previous Rx's ?Medication ?Instructions ?Recorded famotidine 40 mg tablet 40 mg PO BEDTIME #30 tabs 03/17/23 cholecalciferol (vitamin D3) 50 50 mcg PO DAILY #90 caps 03/28/23 mcg (2,000 unit) capsule ondansetron 4 mg disintegrating 4 mg PO Q6H PRN nausea and 04/25/23 tablet vomiting #20 tabs ondansetron 4 mg disintegrating 4 mg PO Q8H 4 days #12 tabs 08/24/23 tablet lorazepam 1 mg tablet (Ativan) 1 mg PO BID PRN anxiety #20 tabs 08/26/23 cefuroxime axetil 250 mg tablet 250 mg PO BID 5 days #10 tabs 08/27/23 metoclopramide HCl 5 mg tablet 5 mg PO .B.i.d. PRN nausea and 03/06/24 (Reglan) vomiting #10 tabs ondansetron HCl 4 mg tablet 4 mg PO Q6H PRN nausea and 03/06/24 vomiting #10 tabs promethazine 25 mg rectal 25 mg MS Q6H PRN nausea and 03/08/24 suppository (Promethegan) vomiting #20 ea Allergies Allergy/AdvReac Type Severity Reaction Status Date / Time No Known Allergies Allergy Verified 03/09/24 10:50 [No Known Allergies*] [facility] Past Medical History Medical History Marijuana abuse Mild recurrent major depression Anxiety disorder, unspecified Nausea and vomiting Lack of access to transportation Right upper quadrant abdominal pain Surgical History History of D&C Family History Family History Maternal Grandmother Breast cancer Son Autism Daughter No problems noted. Mother No problems noted. Father Learning difficulty Mental health disorder Maternal Grandmother Breast cancer, Onset Age: 50 Maternal Uncle Testicular cancer, Onset Age: 60 Paternal Grandfather Diabetes mellitus Myocardial infarct Other Substance use disorder Social History Social History Household Members: Children Housing: House Do you presently have visiting nurse or other home services: No Alcohol intake: never Patient Tobacco Use Status: Never used Tobacco e-Cigarette/Vaping Use: Never Used Second Hand Smoke Exposure: No Substance Use Type: Marijuana Advance Directives: No Advance Directives Information Provided: No service: No Current occupational status: unemployed Cognitive needs: No Hearing needs: No Vision needs: No Physical Exam ED Vital Signs: Vital Signs - 24 hr 03/09/24 10:48 Temperature 98 F Pulse Rate 86 Respiratory Rate 18 Blood Pressure 145/73 H Pulse Oximetry 98 Oxygen Delivery Method Room Air BMI result Body Mass Index 32.9 Course Course Course Narrative: This is a rapid medical exam performed by Joi Levine NP: Additional HPI, ROS, PE not included below will be deferred to primary provider. Patient is a 28 year old female with history cyclical vomiting/cannabis abuse presenting to the emergency department with complaint of abdominal pain, constipation, nausea and vomiting. Seen here on 03/06 and 03/08 for similar sxs. States she has been taking medications prescribed for constipation nausea without any relief. Reports last normal bowel movement was Tuesday. Abdomen soft, tender bilateral lower quadrants. Plan: KUB, labs, UA Medical Decision Making Lab Data 03/09/24 11:19 03/09/24 11:19 Labs: Lab Results 03/09/24 Range/Units 11:19 WBC 14.1 H (4.8-10.8) X10*3/uL RBC 4.68 (4.20-5.50) X10*6/uL Hgb 14.1 (12.0-16.0) g/dl Hct 40.6 (37.0-47.0) % MCV 86.8 (80.0-98.0) fL MCH 30.1 (27.0-33.0) pg MCHC 34.7 (31.0-35.0) g/dl RDW 12.9 (11.0-16.0) % Plt Count 239 (160-400) X10*3/uL MPV 9.7 (9.4-12.3) fL Immature Gran % (Auto) 0.5 H (0.0-0.4) % Neut % (Auto) 65.6 (45-73) % Lymph % (Auto) 21.1 (20-40) % [place] % (Auto) 11.8 H (2-11) % Eos % (Auto) 0.4 (0-4) % Baso % (Auto) 0.6 (0-2) % Lymph # (Auto) 3.0 (1.2-4.9) X10*3/uL [place] # (Auto) 1.7 H (0.1-1.2) X10*3/uL Eos # (Auto) 0.1 (0.0-0.4) X10*3/uL Baso # (Auto) 0.1 (0.0-0.2) X10*3/uL Abs Immat Gran (auto) 0.07 H (0.00-0.03) X10*3/uL Absolute Neuts (auto) 9.3 H (2.0-8.3) x10*3/uL Absolute Nucleated RBC 0.000 (0.0-0.012) X10*3/uL Nucleated RBC % (auto) 0.0 (0.0-0.2) /100WBC Smear Tech's Comments VERIFIED Sodium 140 (135-145) mmol/L Potassium 3.3 (3.3-5.1) mmol/L Chloride 101 (96-108) mmol/L Carbon Dioxide 26 (22-29) mmol/L Anion Gap 16 (12-20) BUN 22 H (9-16) mg/dL Creatinine 1.01 (0.5-1.4) mg/dL Estim Creat Clear Calc 83.6 Estimated GFR > 60 Random Glucose 104 (60-115) mg/dL Calcium 9.6 D (8.4-10.2) mg/dL Magnesium 2.6 (1.6-2.6) mg/dL Total Bilirubin 0.5 (0.0-1.0) mg/dL AST 25 (5-31) U/L ALT 24 (0-31) U/L Alkaline Phosphatase 57 (39-117) U/L Total Protein 7.8 (6.5-8.0) g/dL Albumin 4.4 (3.5-5.0) g/dL Beta HCG, Quant < 2 mIU/mL Discharge Plan Discharge Patient Disposition: Left W/O Completing Treatment Prescriptions: No Action cholecalciferol (vitamin D3) 50 mcg (2,000 unit) capsule 50 mcg PO DAILY Qty: 90 3RF lorazepam [Ativan] 1 mg tablet 1 mg PO BID PRN (Reason: anxiety) Qty: 20 0RF pantoprazole 40 mg tablet,delayed release (DR/EC) 40 mg PO DAILY@0630 Rx Instructions: take one tablet half an hour before breakfast ondansetron 4 mg tablet,disintegrating 4 mg PO Q6H PRN (Reason: nausea and vomiting) Qty: 20 0RF ondansetron 4 mg tablet,disintegrating 4 mg PO Q8H 4 Days Qty: 12 0RF cefuroxime axetil 250 mg tablet 250 mg PO BID 5 Days Qty: 10 0RF metoclopramide HCl [Reglan] 5 mg tablet 5 mg PO .B.i.d. PRN (Reason: nausea and vomiting) Qty: 10 0RF ondansetron HCl 4 mg tablet 4 mg PO Q6H PRN (Reason: nausea and vomiting) Qty: 10 0RF promethazine [Promethegan] 25 mg suppository 25 mg MS Q6H PRN (Reason: nausea and vomiting) Qty: 20 0RF ondansetron HCl 4 mg tablet 4 mg PO Q8H PRN (Reason: nausea and vomiting) famotidine 40 mg tablet 40 mg PO BEDTIME Qty: 30 3RF Discharge Date/Time: 03/09/24 14:28
[2024-03-09 11:24] LABS: Basophils Absolute Auto 0.1 X10*3/uL (0.0-0.2); Basophils Percent Auto 0.6 % (0-2); Eosinophils Absolute Auto 0.1 X10*3/uL (0.0-0.4); Eosinophils Percent Auto 0.4 % (0-4); Hematocrit 40.6 % (37.0-47.0); Hemoglobin 14.1 g/dl (12.0-16.0); Imm Gran Abs Auto 0.07 X10*3/uL (0.00-0.03); Imm Gran Pct Auto 0.5 % (0.0-0.4); Lymphocytes Percent Auto 21.1 % (20-40); MANUAL DIFF FLAG SCAN; Mean Corpuscular HGB Conc 34.7 g/dl (31.0-35.0); Mean Corpuscular Hemoglobin 30.1 pg (27.0-33.0); Mean Corpuscular Volume 86.8 fL (80.0-98.0); Mean Platelet Volume 9.7 fL (9.4-12.3); Monocytes Absolute Auto 1.7 X10*3/uL (0.1-1.2); Monocytes Percent Auto 11.8 % (2-11); Neutrophils Absolute Auto 9.3 x10*3/uL (2.0-8.3); Neutrophils Percent Auto 65.6 % (45-73); Platelet Count 239 X10*3/uL (160-400); Red Blood Count 4.68 X10*6/uL (4.20-5.50); Red Cell Distribution Width 12.9 % (11.0-16.0); SCAN SMEAR FLAG 1; White Blood Count 14.1 X10*3/uL (4.8-10.8)
[2024-03-09 11:47] LABS: Alanine Aminotransferase 24 U/L (0-31); Albumin Level 4.4 g/dL (3.5-5.0); Alkaline Phosphatase 57 U/L (39-117); Anion Gap 16 (12-20); Aspartate Amino Transferase 25 U/L (5-31); Bilirubin Total 0.5 mg/dL (0.0-1.0); Blood Urea Nitrogen 22 mg/dL (9-16); Calcium 9.6 mg/dL (8.4-10.2); Carbon Dioxide 26 mmol/L (22-29); Chloride 101 mmol/L (96-108); Creatinine Clr Calc Pharmacy 83.6; Estimated Glomerular Filt Rate > 60; Glucose Random 104 mg/dL (60-115); HCG Quantitative < 2 mIU/mL; Potassium 3.3 mmol/L (3.3-5.1); Sodium 140 mmol/L (135-145); Total Protein 7.8 g/dL (6.5-8.0)
[2024-03-09 11:48] LABS: SLIDE REVIEW VERIFIED
[2024-03-09 13:09] LABS: Magnesium 2.6 mg/dL (1.6-2.6)
== END 2024-03-09 14:28 | disposition left against medical advice (07) ==
PROVIDERS: Registered Nurse Emergency; Emergency Provider Student in an Organized Health Care Education/Training Program
DX: R11.2 Nausea with vomiting, unspecified (principal); K59.00 Constipation, unspecified; F12.10 Cannabis abuse, uncomplicated
CPT/HCPCS: 36415; 80053; 83735; 84702; 85025; 99281; 99283

== ENCOUNTER 2024-03-09 14:57 | Emergency (ER) | payer OTHER, SELFPAY ==
--- NOTE | ~2024-03-09 | XR_ITS ---
EXAMINATION: XR ABDOMEN KUB CLINICAL INDICATION: Constipation. COMPARISON: Abdominal radiograph 08/26/2023. TECHNIQUE: AP view of the abdomen. FINDINGS: Nonobstructive bowel gas pattern. No significant degree of stool burden. No unusual soft tissue calcifications. No acute osseous findings. Included portions of the lower lungs are clear. XR/XR KUB IMPRESSION: Nonobstructive bowel gas pattern. No significant degree of stool burden.
--- NOTE | ~2024-03-09 | CT_ITS ---
EXAMINATION: CT ABDOMEN AND PELVIS WITH CONTRAST CLINICAL INFORMATION: Abdominal pain COMPARISON: 04/22/2023 TECHNIQUE: Multidetector volumetric images were obtained from the superior aspect of the liver through the pubic symphysis following administration 85 mL of Omnipaque 350 intravenous contrast. Sagittal and coronal reformatted images were obtained on the technologist's workstation. Oral contrast: No This CT examination was performed using dose optimization techniques as appropriate, variously including the following: *Automated exposure control *Adjustment of mA and/or kV according to patient size (this includes techniques or standardized protocols for targeted exams where dose is matched to indication/reason for exam; i.e. extremities or head) *Use of iterative reconstruction technique DLP: 449 mGy-cm FINDINGS: LUNG BASES: The visualized lung bases are unremarkable. LIVER, GALLBLADDER, AND BILIARY TREE: The liver is normal in size, shape, and attenuation. No focal hepatic lesion or biliary ductal dilatation is present. The gallbladder is unremarkable with no evidence of radiopaque gallstones, gallbladder wall thickening, or obvious pericholecystic inflammatory changes. PANCREAS: Unremarkable. SPLEEN: Unremarkable. ADRENAL GLANDS: Unremarkable. KIDNEYS AND URETERS: The kidneys are normal in size, shape, and attenuation. No hydronephrosis, hydroureter, or calculi seen. No perinephric stranding. BLADDER: Unremarkable. GASTROINTESTINAL TRACT: The small and large bowel are unremarkable. The appendix is unremarkable. ABDOMINAL WALL: No significant hernia is appreciated. LYMPH NODES: No retroperitoneal lymphadenopathy. Previously seen small mesenteric lymph nodes are unchanged, the largest in the cecal mesentery measuring 0.6 cm. VASCULAR: Unremarkable. PELVIC VISCERA: The uterus and adnexa are unremarkable. Air is present in the vaginal fornices OSSEOUS STRUCTURES: Unremarkable. CT/CT abdomen pelvis w IV con IMPRESSION: A cause for the patient's abdominal pain has not been found. Fleischner guidelines were followed.
[2024-03-09 15:01] VITALS: BP 106/60; PULSE 70; O2SAT 97
--- NOTE | 2024-03-09 15:23 | ED.NAVMDI ---
HPI - Nausea/Vomiting/Diarrhea General Chief complaint: Abdominal Pain Stated complaint: ABD PAIN Time Seen by Provider: 03/09/24 18:52 Source: patient and EMS Mode of arrival: EMS Limitations: no limitations History of Present Illness HPI Narrative: Patient is a 28 year old assigned female at with a history of cyclic vomiting presenting to the emergency department today with persistent abdominal pain, nausea, diarrhea, and vomiting. Patient states that ever since she had her child years ago she has had issues with cyclic vomiting, monthly. Patient states that she does smoke marijuana but hasn't in almost 1 week. Patient states that she established with the GI group at [facility] [facility] Patient states that she was just seen here and given oral medications but they are not helping at home. Patient denies any dizziness, lightheadedness, fever, chills, blurry vision, double vision, loss of vision, chest pain, difficulty breathing, shortness of breath, back pain, night sweats, pain with urination, increased urinary frequency, increased urinary urgency, blood in her urine or stool, syncope or a near syncopal episode, recent trauma or falls, bowel incontinence, bladder incontinence, bowel retention, bladder retention, or any other complaints at this time. MD elicited complaint: nausea, vomiting, diarrhea and abdominal pain Pertinent past history: cyclical vomiting Onset (ago): day(s) (6) Associated nausea: Yes Associated abdominal pain: Yes Location of pain: diffuse Pain consistency: constant Severity: moderate Pain scale (0-10): 5 Exacerbating factors: none Relieving factors: none Context: marijuana use (6 days ago) Related Data Home Medications ?Medication ?Instructions ?Recorded ?Confirmed ondansetron HCl 4 mg tablet 4 mg PO Q8H PRN nausea and vomiting 01/25/23 04/22/23 pantoprazole 40 mg tablet,delayed 40 mg PO DAILY@0630 04/23/23 04/23/23 release Previous Rx's ?Medication ?Instructions ?Recorded famotidine 40 mg tablet 40 mg PO BEDTIME #30 tabs 03/17/23 cholecalciferol (vitamin D3) 50 50 mcg PO DAILY #90 caps 03/28/23 mcg (2,000 unit) capsule ondansetron 4 mg disintegrating 4 mg PO Q6H PRN nausea and 04/25/23 tablet vomiting #20 tabs ondansetron 4 mg disintegrating 4 mg PO Q8H 4 days #12 tabs 08/24/23 tablet lorazepam 1 mg tablet (Ativan) 1 mg PO BID PRN anxiety #20 tabs 08/26/23 cefuroxime axetil 250 mg tablet 250 mg PO BID 5 days #10 tabs 08/27/23 metoclopramide HCl 5 mg tablet 5 mg PO .B.i.d. PRN nausea and 03/06/24 (Reglan) vomiting #10 tabs ondansetron HCl 4 mg tablet 4 mg PO Q6H PRN nausea and 03/06/24 vomiting #10 tabs promethazine 25 mg rectal 25 mg OH Q6H PRN nausea and 03/08/24 suppository (Promethegan) vomiting #20 ea promethazine 25 mg rectal 25 mg OH Q6H PRN nausea and 03/10/24 suppository vomiting #12 ea Allergies Allergy/AdvReac Type Severity Reaction Status Date / Time No Known Allergies Allergy Verified 03/09/24 15:26 [No Known Allergies*] Review of Systems Constitutional: Constitutional: Reports no additional constitutional complaints, Denies chills, Denies fever(s) and Denies night sweats Eyes: Eyes: Reports no additional eye complaints, Denies blurry vision, Denies change in vision, Denies diplopia, Denies eye discharge, Denies loss of vision and Denies eye pain ENT: Denies dizziness Cardiovascular: Cardiovascular: Reports no additional cardiovascular complaints, Denies chest pain, Denies lightheadedness, Denies Loss of Consciousness and Denies dyspnea Respiratory: Respiratory: Reports no additional respiratory complaints and Denies dyspnea Gastrointestinal: Gastrointestinal: Reports abdominal pain, Reports diarrhea, Reports nausea and Reports vomiting Genitourinary: Genitourinary: Denies hematuria, Denies urinary frequency, Denies dysuria, Denies urinary incontinence, Denies urinary hesitancy and Denies urinary urgency Musculoskeletal: Musculoskeletal: Reports no additional musculoskeletal complaints, Denies numbness and Denies tingling Neurologic: Denies dizziness, Denies loss of vision, Denies numbness and Denies tingling Psychiatric: Psychiatric: Reports no additional psychiatric complaints Endocrine: Endocrine: Reports no additional endocrine complaints Hematologic/Lymphatic: Hematologic/Lymphatic: Reports no additional hematologic/lymphatic complaints Allergic/Immunologic: Allergic/Immunologic: Reports no additional allergic/immunologic complaints PMF Past Medical History Attestation statement: The following information was validated with the patient. Source: old records reviewed and nursing notes reviewed Medical History Marijuana abuse Mild recurrent major depression Anxiety disorder, unspecified Nausea and vomiting Lack of access to transportation Right upper quadrant abdominal pain Surgical History History of D&C Family History Family History Maternal Grandmother Breast cancer Son Autism Daughter No problems noted. Mother No problems noted. Father Learning difficulty Mental health disorder Maternal Grandmother Breast cancer, Onset Age: 50 Maternal Uncle Testicular cancer, Onset Age: 60 Paternal Grandfather Diabetes mellitus Myocardial infarct Other Substance use disorder Social History Social History Household Members: Children Housing: House Do you presently have visiting nurse or other home services: No Alcohol intake: never Patient Tobacco Use Status: Never used Tobacco Smoked in Last 30 Days: No e-Cigarette/Vaping Use: Never Used Second Hand Smoke Exposure: No Use of substances other than those prescribed or required for medical reasons: Yes Substance Use Type: Marijuana Substance Use Frequency: Daily Last Used Substance: Hours (ago) Any prior treatment program specific to substance use: No Advance Directives: No Advance Directives Information Provided: No Patient : No service: No Current occupational status: unemployed Cognitive needs: No Hearing needs: No Vision needs: No Physical Exam Vital Signs: Vital Signs: Last Vital Signs Temp 98.6 F 03/10/24 00:05 Pulse 66 03/10/24 00:05 Resp 16 03/10/24 00:05 BP 109/62 03/10/24 00:05 Pulse Ox 97 03/10/24 00:05 O2 Del Method Room Air 03/10/24 00:05 BMI result Body Mass Index 31.0 Const: General: cooperative, no acute distress, alert and awake Nutritional Appearance: well nourished Orientation/consciousness: patient oriented x3 Limitations: no limitations HEENT: Head: Yes normal to inspection and Yes atraumatic Ears: hearing grossly normal bilaterally and external ears normal General nose exam: Normal external nose present, no nasal discharge noted and no epistaxis Face and sinus: Yes normal facial exam, No abrasion and No laceration Mouth: Normal oral and palatal mucosa present, no drooling and no muffled voice Eyes: General: appearance normal, both eyes and all related structures Periorbital: periorbital findings normal Eyelids: Yes eyelids normal Conjunctivae: conjunctivae normal Pupils: Equal, round and reactive pupils present EOM: EOMs intact bilaterally Neck: Neck: Yes normal visual inspection, Yes full ROM and Yes no lymphadenopathy Chest: Chest palpation & inspection: normal inspection of the chest Resp: Effort & Inspection: normal respiratory effort and able to speak in complete sentences GI: Inspection: Yes normal to inspection Palpation (GI): Soft to palpation, not firm, Tenderness to palpation present (GI) (diffuse), no guarding and not rigid Neuro: General: patient oriented x3 and moves all extremities Cranial nerves: Yes Equal, round and reactive pupils present Cognition (Neuro): normal cognition Motor exam (neuro): 5/5 motor strength present throughout Sensory Exam: Normal double simultaneous stimulation for sensation Coordination: [id number] test normal Extrem: General: Yes normal to inspection, Yes full ROM and Yes capillary refill normal Psych: Appearance: grossly normal Mental Status: mental status grossly normal Affect: normal affect Attitude: cooperative Thought process: Normal thought process present Thought content: Normal thought content present Insight: Good insight present (Psych) Course Course Course Narrative: This is a rapid medical exam performed by Joi Levine NP: Additional HPI, ROS, PE not included below will be deferred to primary provider. Patient is a 28 year old female with history cyclical vomiting/cannabis abuse presenting to the emergency department with complaint of abdominal pain, constipation, nausea and vomiting. Seen here on 03/06 and 03/08 for similar sxs. States she has been taking medications prescribed for constipation nausea without any relief. Reports last normal bowel movement was Tuesday. Abdomen soft, tender bilateral lower quadrants. Presented to the ED earlier today but left without completing treatment. Plan: had labs earlier, will obtain UA and KUB 16:12 Patient now complaining of chest pain, EKG ordered Reevaluation(s) Reevaluation #1: Physician observation began on 03/09/2024 at 2300. Patient has requested to continue sleeping. Patient will remain in physician observation while she sleeps with the disposition planned to be discharge when she awakes. Time: 23:00 Medications Administered Discontinued Medications Generic Name Dose Route Start Last Admin Trade Name James PRN Reason Stop Dose Admin Droperidol 1.25 mg 03/09/24 18:55 03/09/24 19:40 Droperidol 5 Mg/2 Ml Vial IVPUSH 03/09/24 18:56 1.25 mg ONCE ONE Administration Sodium Chloride 1,000 mls @ 999 mls/hr 03/09/24 19:00 03/09/24 20:55 Ns IV 03/09/24 20:00 Infused .Q1H1M ACACIA Infusion Potassium Chloride 10 meq in 100 mls @ 100 mls/hr 03/09/24 20:00 03/10/24 01:50 Potassium Chloride/H20 IV 03/09/24 23:59 100 mls/hr Q1H ACACIA Administration Iohexol 100 ml 03/09/24 19:30 03/09/24 19:31 Iohexol 350 Mg/Ml 100 Ml Infus..Btl IV 03/09/24 19:31 85 ml ONCE ONE Administration Metoclopramide HCl 10 mg 03/09/24 21:47 03/09/24 21:53 Metoclopramide Hcl 10 Mg/2 Ml Vial IVPUSH 03/09/24 21:48 10 mg ONCE ONE Administration Pantoprazole Sodium 40 mg 03/09/24 18:55 03/09/24 19:40 Pantoprazole Sodium 40 Mg/10 Ml Vial IVPUSH 03/09/24 18:56 40 mg ONCE ONE Administration Medical Decision Making Medical Decision Making [facility] Narrative: Patient is a 28 year old assigned female at with a history of cyclic vomiting presenting to the emergency department today with nausea, vomiting, and abdominal pain. Patient's physical exam was unremarkable. Patient's blood work showed a potassium of 2.6. Patient's urine showed no acute process. Patient's CT abdomen/pelvis showed no acute process. I spoke to GI who agreed with OH Promethazine and following up outpatient in their office as well as continuing with the cessation of marijuana and capsacin cream for the abdominal pain. I explained my physical exam findings as well as all test results to the patient. I answered all questions asked by the patient. Patient received multiple doses of antiemetic medications which she stated helped her symptoms significantly. Patient received IV Potassium which increased her potassium level to 3.4. I stressed the importance of the patient taking her medication as prescribed. I stressed the importance of the patient following up with her primary care provider and the GI specialist. I stressed the importance of the patient returning to the emergency department immediately if her symptoms were to worsen or if she were to develop any dizziness, shortness of breath, difficulty breathing, chest pain, blurry vision, loss of vision, nausea, vomiting, abdominal pain, fever, chills, back pain, or any other complaints. Patient verbalized agreement and understanding with this treatment plan and discharge. Differential Diagnosis Differential Diagnoses: The differential diagnosis associated with the presentation includes Abdominal pain Nausea Vomiting Cyclic vomiting [facility] Admission/Observation Consideration of admission/observation: Escalation of care including admission/observation considered Patient would have been admitted to the hospital had her work up had any findings where hospital admission was appropriate and her clinical presentation warranted hospital admission. Consult Healthcare Provider Management of the patient was discussed with: Transit Coach Operator (spoke to the GI team as noted in the MDM Rationale portion of this note.) Lab Data [facility] Lab Attestation statement: I reviewed the patient's lab results. My interpretation of these results are in the MDM Rationale portion of this note. 03/09/24 19:22 03/09/24 23:52 Labs: Lab Results 03/09/24 03/09/24 03/09/24 Range/Units 18:44 19:22 23:52 WBC 11.7 H (4.8-10.8) X10*3/uL RBC 4.63 (4.20-5.50) X10*6/uL Hgb 14.0 (12.0-16.0) g/dl Hct 39.4 (37.0-47.0) % MCV 85.1 (80.0-98.0) fL MCH 30.2 (27.0-33.0) pg MCHC 35.5 H (31.0-35.0) g/dl RDW 12.6 (11.0-16.0) % Plt Count 237 (160-400) X10*3/uL MPV 9.5 (9.4-12.3) fL Immature Gran % (Auto) 0.3 (0.0-0.4) % Neut % (Auto) 67.4 (45-73) % Lymph % (Auto) 20.1 (20-40) % [place] % (Auto) 11.6 H (2-11) % Eos % (Auto) 0.1 (0-4) % Baso % (Auto) 0.5 (0-2) % Lymph # (Auto) 2.4 (1.2-4.9) X10*3/uL [place] # (Auto) 1.4 H (0.1-1.2) X10*3/uL Eos # (Auto) 0.0 (0.0-0.4) X10*3/uL Baso # (Auto) 0.1 (0.0-0.2) X10*3/uL Abs Immat Gran (auto) 0.03 (0.00-0.03) X10*3/uL Absolute Neuts (auto) 7.9 (2.0-8.3) x10*3/uL Absolute Nucleated RBC 0.000 (0.0-0.012) X10*3/uL Nucleated RBC % (auto) 0.0 (0.0-0.2) /100WBC Sodium 139 140 (135-145) mmol/L Potassium 2.6 L* D 3.4 D (3.3-5.1) mmol/L Chloride 98 107 (96-108) mmol/L Carbon Dioxide 24 23 (22-29) mmol/L Anion Gap 20 13 (12-20) BUN 21 H 15 (9-16) mg/dL Creatinine 0.96 0.77 (0.5-1.4) mg/dL Estim Creat Clear Calc 88.6 110.4 Estimated GFR > 60 > 60 Random Glucose 102 99 (60-115) mg/dL Calcium 9.9 8.0 L D (8.4-10.2) mg/dL Magnesium 2.1 (1.6-2.6) mg/dL Total Bilirubin 0.6 0.5 (0.0-1.0) mg/dL AST 27 21 (5-31) U/L ALT 25 20 (0-31) U/L Alkaline Phosphatase 59 49 (39-117) U/L Total Protein 7.8 6.4 L (6.5-8.0) g/dL Albumin 4.4 3.7 (3.5-5.0) g/dL Beta HCG, Quant < 2 mIU/mL Urine Color Yellow Urine Appearance Clear Urine pH >= 9.0 (5.0-9.0) Ur Specific [place] >= 1.030 H (1.005-1.025) Urine Protein 100 (2+) H (Neg-Trace) mg/dL Urine Glucose (UA) Negative (Negative) mg/dL Urine Ketones 80 (Negative) mg/dL Urine Blood Negative (Negative) Urine Nitrite Negative (Negative) Ur Leukocyte Esterase Trace H (Negative) Urine RBC 0-2 (0-2) /HPF Urine WBC 0-5 (0-5) /HPF Ur Squamous Epith Cells 0-2 (0-2) /HPF Urine Bacteria Trace (None Seen) Hyaline Casts 0-2 (0-2) /LPF Influenza Type A (PCR) NEGATIVE (Negative) Influenza Type B (PCR) NEGATIVE (Negative) RSV RNA Qual (PCR) NEGATIVE (Negative) SARS-CoV-2 RNA (RT-PCR) NEGATIVE (Negative) S. pyogenes GrpA FE Negative (Negative) Independent Interpretation I performed an independent interpretation of an: CT Scan Interpretation: My interpretation is in agreement with the radiologist's impression of this imaging study. EXAMINATION: CT ABDOMEN AND PELVIS WITH CONTRAST CLINICAL INFORMATION: Abdominal pain COMPARISON: 04/22/2023 TECHNIQUE: Multidetector volumetric images were obtained from the superior aspect of the liver through the pubic symphysis following administration 85 mL of Omnipaque 350 intravenous contrast. Sagittal and coronal reformatted images were obtained on the technologist's workstation. Oral contrast: No This CT examination was performed using dose optimization techniques as appropriate, variously including the following: *Automated exposure control *Adjustment of mA and/or kV according to patient size (this includes techniques or standardized protocols for targeted exams where dose is matched to indication/reason for exam; i.e. extremities or head) *Use of iterative reconstruction technique DLP: 449 mGy-cm FINDINGS: LUNG BASES: The visualized lung bases are unremarkable. LIVER, GALLBLADDER, AND BILIARY TREE: The liver is normal in size, shape, and attenuation. No focal hepatic lesion or biliary ductal dilatation is present. The gallbladder is unremarkable with no evidence of radiopaque gallstones, gallbladder wall thickening, or obvious pericholecystic inflammatory changes. PANCREAS: Unremarkable. SPLEEN: Unremarkable. ADRENAL GLANDS: Unremarkable. KIDNEYS AND URETERS: The kidneys are normal in size, shape, and attenuation. No hydronephrosis, hydroureter, or calculi seen. No perinephric stranding. BLADDER: Unremarkable. GASTROINTESTINAL TRACT: The small and large bowel are unremarkable. The appendix is unremarkable. ABDOMINAL WALL: No significant hernia is appreciated. LYMPH NODES: No retroperitoneal lymphadenopathy. Previously seen small mesenteric lymph nodes are unchanged, the largest in the cecal mesentery measuring 0.6 cm. VASCULAR: Unremarkable. PELVIC VISCERA: The uterus and adnexa are unremarkable. Air is present in the vaginal fornices OSSEOUS STRUCTURES: Unremarkable. CT/CT abdomen pelvis w IV con IMPRESSION: A cause for the patient's abdominal pain has not been found. Fleischner guidelines were followed. Dictated By: Jimmy Aranda MD Signed By: Electronically signed by Jimmy Aranda MD 03/09/24 [id number] EXAMINATION: XR ABDOMEN KUB CLINICAL INDICATION: Constipation. COMPARISON: Abdominal radiograph 08/26/2023. TECHNIQUE: AP view of the abdomen. FINDINGS: Nonobstructive bowel gas pattern. No significant degree of stool burden. No unusual soft tissue calcifications. No acute osseous findings. Included portions of the lower lungs are clear. XR/XR KUB IMPRESSION: Nonobstructive bowel gas pattern. No significant degree of stool burden. Dictated By: Mary Mast Signed By: Electronically signed by Mary Mast 03/09/24 [id number] Radiology Impression Discussion of test interpretation with radiology: I have reviewed the radiologist's reading. Prescription Management I considered prescription management with: Other (antiemetic medication) Critical Care Time Critical Care Time Critical Care Time: Yes Total Critical Care Time: 134 Attestation: I spent 134 minutes of Critical Care Time with this patient. This does not include time spent on separately reported billable procedures. Discharge Plan Discharge Clinical Impression: Nausea & vomiting Patient Disposition: Home, Self-Care Instructions: Cyclic Vomiting Syndrome (ED) Additional Instructions: Follow up with your primary care provider and a GI specialist. Continue to NOT smoke THC. Return to the emergency department immediately if your symptoms worsen or if you develop any dizziness, shortness of breath, difficulty breathing, chest pain, blurry vision, loss of vision, nausea, vomiting, abdominal pain, fever, chills, back pain, or any other complaints. Prescriptions: New promethazine 25 mg suppository 25 mg OH Q6H PRN (Reason: nausea and vomiting) Qty: 12 0RF No Action cholecalciferol (vitamin D3) 50 mcg (2,000 unit) capsule 50 mcg PO DAILY Qty: 90 3RF lorazepam [Ativan] 1 mg tablet 1 mg PO BID PRN (Reason: anxiety) Qty: 20 0RF pantoprazole 40 mg tablet,delayed release (DR/EC) 40 mg PO DAILY@0630 Rx Instructions: take one tablet half an hour before breakfast ondansetron 4 mg tablet,disintegrating 4 mg PO Q6H PRN (Reason: nausea and vomiting) Qty: 20 0RF ondansetron 4 mg tablet,disintegrating 4 mg PO Q8H 4 Days Qty: 12 0RF cefuroxime axetil 250 mg tablet 250 mg PO BID 5 Days Qty: 10 0RF metoclopramide HCl [Reglan] 5 mg tablet 5 mg PO .B.i.d. PRN (Reason: nausea and vomiting) Qty: 10 0RF ondansetron HCl 4 mg tablet 4 mg PO Q6H PRN (Reason: nausea and vomiting) Qty: 10 0RF promethazine [Promethegan] 25 mg suppository 25 mg OH Q6H PRN (Reason: nausea and vomiting) Qty: 20 0RF ondansetron HCl 4 mg tablet 4 mg PO Q8H PRN (Reason: nausea and vomiting) famotidine 40 mg tablet 40 mg PO BEDTIME Qty: 30 3RF Referrals: [facility] [place] [facility] [Provider Group] (Call to establish and follow up with a GI specialist.) [facility] [place] [place] Family Medicine [Provider Group] (Call to establish and follow up with a primary care provider. If you already have a primary care provider, please follow up with them.) [facility] [place] [place] Primary Care, [place] [Provider Group] [facility] [place] [place] Primary Care,Sana [Provider Group] Print Language: Mexican
[2024-03-09 15:24] VITALS: BP 122/70; PULSE 71; RESP 16; TEMP 36.6; O2SAT 99; BMI 31.0
--- NOTE | 2024-03-09 16:12 | ECG_ITS ---
Test Reason : CHEST PAIN Blood Pressure : / mmHG Vent. Rate : 070 BPM Atrial Rate : 070 BPM P-R Int : 120 ms QRS Dur : 092 ms QT Int : 394 ms P-R-T Axes : 052 046 037 degrees QTc Int : 425 ms Normal sinus rhythm with sinus arrhythmia Nonspecific ST and T wave abnormality Abnormal ECG When compared with ECG of 14-JAN-2023 06:47, No significant change was found Referred By: Zara Levine Electronically Signed By:TIMOTHY JOSHI
[2024-03-09 18:41] VITALS: BP 114/77; PULSE 71; RESP 18; TEMP 36.9; O2SAT 97
[2024-03-09 18:53] LABS: Appearance Urine Clear; Glucose Urine UA Negative (Negative); Leukocyte Esterase Urine Trace (Negative); Nitrite Urine Negative (Negative); PH >= 9.0 (5.0-9.0); Specific Gravity - Urine >= 1.030 (1.005-1.025); UMIC TRIGGER UACC YES; Urine Blood Negative (Negative); Urine Ketones 80 mg/dL (Negative); Urine Protein 100 (2+) mg/dL (Neg-Trace)
[2024-03-09 18:54] LABS: Color Urine Yellow
[2024-03-09 19:06] LABS: Bacteria Urine Trace (None Seen); Hyaline Casts Urine 0-2 /LPF (0-2); RBC Urine 0-2 /HPF (0-2); Squamous Epithelial Cell Urine 0-2 /HPF (0-2); WBC Urine 0-5 /HPF (0-5)
[2024-03-09 19:27] LABS: MANUAL DIFF FLAG NO
[2024-03-09 19:28] LABS: Basophils Absolute Auto 0.1 X10*3/uL (0.0-0.2); Basophils Percent Auto 0.5 % (0-2); Eosinophils Percent Auto 0.1 % (0-4); Hematocrit 39.4 % (37.0-47.0); Imm Gran Abs Auto 0.03 X10*3/uL (0.00-0.03); Imm Gran Pct Auto 0.3 % (0.0-0.4); Lymphocytes Absolute Auto 2.4 X10*3/uL (1.2-4.9); Lymphocytes Percent Auto 20.1 % (20-40); Mean Corpuscular HGB Conc 35.5 g/dl (31.0-35.0); Mean Corpuscular Hemoglobin 30.2 pg (27.0-33.0); Mean Corpuscular Volume 85.1 fL (80.0-98.0); Mean Platelet Volume 9.5 fL (9.4-12.3); Monocytes Absolute Auto 1.4 X10*3/uL (0.1-1.2); Monocytes Percent Auto 11.6 % (2-11); Neutrophils Absolute Auto 7.9 x10*3/uL (2.0-8.3); Neutrophils Percent Auto 67.4 % (45-73); Platelet Count 237 X10*3/uL (160-400); Red Blood Count 4.63 X10*6/uL (4.20-5.50); Red Cell Distribution Width 12.6 % (11.0-16.0); White Blood Count 11.7 X10*3/uL (4.8-10.8)
[2024-03-09] MEDS: iohexoL 350 MG/ML 100 ML INFUS..BTL IV (19:31)
[2024-03-09] MEDS: Pantoprazole Sodium 40 MG/10 ML VIAL IVPUSH (19:40)
[2024-03-09] MEDS: droPERidol 5 MG/2 ML VIAL 1.25 MG IVPUSH (19:40)
[2024-03-09] MEDS: 0.9 % Sodium Chloride 1,000 ML 999 ML IV (19:41)
[2024-03-09 19:42] LABS: IDNOW Serial# 08D9AD1C; Strep A Nucleic Acid Negative (Negative)
[2024-03-09 19:59] LABS: Alanine Aminotransferase 25 U/L (0-31); Albumin Level 4.4 g/dL (3.5-5.0); Alkaline Phosphatase 59 U/L (39-117); Anion Gap 20 (12-20); Aspartate Amino Transferase 27 U/L (5-31); Bilirubin Total 0.6 mg/dL (0.0-1.0); Blood Urea Nitrogen 21 mg/dL (9-16); Calcium 9.9 mg/dL (8.4-10.2); Carbon Dioxide 24 mmol/L (22-29); Chloride 98 mmol/L (96-108); Creatinine Clr Calc Pharmacy 88.6; Estimated Glomerular Filt Rate > 60; Glucose Random 102 mg/dL (60-115); HCG Quantitative < 2 mIU/mL; Magnesium 2.1 mg/dL (1.6-2.6); Potassium 2.6 mmol/L (3.3-5.1); Sodium 139 mmol/L (135-145); Total Protein 7.8 g/dL (6.5-8.0)
[2024-03-09 20:17] LABS: Influenza A PCR NEGATIVE (Negative); Influenza B PCR NEGATIVE (Negative); Resp Syncy Virus RNA Qual PCR NEGATIVE (Negative); SARS COV2 PCR INHOUSE NEGATIVE (Negative)
[2024-03-09] MEDS: Potassium Chloride/H20 10 MEQ/100 ML PIGGYBACK 100 MEQ IV ×3 (20:21→23:17)
[2024-03-09] MEDS: Metoclopramide HCl 10 MG/2 ML VIAL IVPUSH (21:53)
--- NOTE | 2024-03-09 22:12 | PC.NURSE ---
Pt assessed medicated per MAR,
[2024-03-10 00:05] VITALS: BP 109/62; PULSE 66; RESP 16; TEMP 37; O2SAT 97
[2024-03-10 00:14] LABS: Alanine Aminotransferase 20 U/L (0-31); Albumin Level 3.7 g/dL (3.5-5.0); Alkaline Phosphatase 49 U/L (39-117); Anion Gap 13 (12-20); Aspartate Amino Transferase 21 U/L (5-31); Bilirubin Total 0.5 mg/dL (0.0-1.0); Blood Urea Nitrogen 15 mg/dL (9-16); Carbon Dioxide 23 mmol/L (22-29); Chloride 107 mmol/L (96-108); Creatinine Clr Calc Pharmacy 110.4; Estimated Glomerular Filt Rate > 60; Glucose Random 99 mg/dL (60-115); Potassium 3.4 mmol/L (3.3-5.1); Sodium 140 mmol/L (135-145); Total Protein 6.4 g/dL (6.5-8.0)
[2024-03-10] MEDS: Potassium Chloride/H20 10 MEQ/100 ML PIGGYBACK 100 MEQ IV (01:50)
[2024-03-10 03:37] VITALS: BP 98/55; PULSE 56; RESP 12; TEMP 36.4; O2SAT 100
[2024-03-10 05:58] VITALS: BP 114/73; PULSE 68; RESP 16; TEMP 36.3; O2SAT 98
[2024-03-10 06:21] VITALS: BP 114/73; PULSE 68; RESP 16; TEMP 36.3; O2SAT 98
== END 2024-03-10 06:22 | disposition home or self-care (01) ==
PROVIDERS: Physician Assistant Medical; Registered Nurse Emergency; Emergency Provider Emergency Medicine Emergency Medical Services
DX: R11.2 Nausea with vomiting, unspecified (principal); R10.9 Unspecified abdominal pain; F12.10 Cannabis abuse, uncomplicated
CPT/HCPCS: 0241U; 36415; 74018; 74177; 80053; 81001; 83735; 84702; 85025; 87651; 93005; 96361; 96365; 96366; 96375; 99285; C9113; J1790; J2765; J3480; Q9967

== ENCOUNTER → 2024-03-09 16:12 | Outpatient (BNV) | payer OTHER, SELFPAY | PROVIDERS: Emergency Provider Emergency Medicine Emergency Medical Services; Visit Provider Internal Medicine | DX: I49.9 Cardiac arrhythmia, unspecified (principal) | CPT/HCPCS: 93010 ==

== ENCOUNTER 2024-05-26 05:48 | Emergency (ER) | payer OTHER, SELFPAY ==
--- NOTE | ~2024-05-26 | XR_ITS ---
EXAMINATION: XR ANKLE, LEFT CLINICAL INFORMATION: Pain. COMPARISON: None available. TECHNIQUE: AP, lateral, and mortise views of the left ankle. FINDINGS: No fracture. Alignment is anatomic. No erosions. Joint spaces are maintained. Soft tissues are normal. XR/XR ankle LT 2V IMPRESSION: No significant abnormality identified.
[2024-05-26 05:51] VITALS: BP 116/58; PULSE 82; O2SAT 98; BMI 24.7
--- NOTE | 2024-05-26 07:04 | ED_ITS ---
HPI - Extremity Injury (Lower) General Chief Complaint: Extremity Injury, Lower Stated Complaint: LEFT ANKLE PAIN Time Seen by Provider: 05/26/24 06:27 Source: patient, EMS and old records reviewed Mode of arrival: EMS Limitations: no limitations History of Present Illness ED Provider: Marjan Garay PA-C HPI Narrative: 28-year-old female with a history of anxiety, depression who presents to the ER from home via EMS for evaluation of left lower leg pain for the last 3 days. Patient states she works at [employer] and is on her feet for several hours a day. She states with the end of the day her left ankle has severe pain that radiates up the back of her leg, up to her lateral thigh into her hip. It is difficult for her to walk. She states the pain starts in her Achilles tendon an d shoots up her leg. She denies any swelling of her leg. No redness or warmth. She denies any specific injury. She states she has had several sprain ankles on the left side in the past but can not recall doing this recently. She took a muscle relaxer from her [id number] with no relief in the pain. MD complaint: ankle injury Onset (ago): day(s) Injury: Left: hip, thigh and ankle Type of Injury: unknown Place: work Severity: moderate Severity scale (1-10): 7 Relieving factors: immobilization and rest Exacerbating factors: weight bearing, movement and palpation Associated symptoms: able to partially bear weight Other symptoms: none Related Data Home Medications ?Medication ?Instructions ?Recorded ?Confirmed ondansetron HCl 4 mg tablet 4 mg PO Q8H PRN nausea and vomiting 01/25/23 04/22/23 pantoprazole 40 mg tablet,delayed 40 mg PO DAILY@0630 04/23/23 04/23/23 release Previous Rx's ?Medication ?Instructions ?Recorded famotidine 40 mg tablet 40 mg PO BEDTIME #30 tabs 03/17/23 cholecalciferol (vitamin D3) 50 50 mcg PO DAILY #90 caps 03/28/23 mcg (2,000 unit) capsule ondansetron 4 mg disintegrating 4 mg PO Q6H PRN nausea and 04/25/23 tablet vomiting #20 tabs ondansetron 4 mg disintegrating 4 mg PO Q8H 4 days #12 tabs 10/18/23 tablet lorazepam 1 mg tablet (Ativan) 1 mg PO BID PRN anxiety #20 tabs 08/26/23 cefuroxime axetil 250 mg tablet 250 mg PO BID 5 days #10 tabs 08/27/23 metoclopramide HCl 5 mg tablet 5 mg PO .B.i.d. PRN nausea and 03/06/24 (Reglan) vomiting #10 tabs ondansetron HCl 4 mg tablet 4 mg PO Q6H PRN nausea and 03/06/24 vomiting #10 tabs promethazine 25 mg rectal 25 mg [place] Q6H PRN nausea and 03/08/24 suppository (Promethegan) vomiting #20 ea promethazine 25 mg rectal 25 mg [place] Q6H PRN nausea and 03/10/24 suppository vomiting #12 ea cyclobenzaprine 10 mg tablet 10 mg PO TID PRN muscle spasm #14 05/26/24 tabs lidocaine 5 % topical patch 1 patch topical DAILY #15 ea 05/26/24 naproxen 500 mg tablet 500 mg PO BID PRN pain #20 tabs 05/26/24 Allergies Allergy/AdvReac Type Severity Reaction Status Date / Time No Known Allergies Allergy Verified 05/26/24 05:55 [No Known Allergies*] Review of Systems Review of Systems: Yes all other systems are reviewed and are negative [facility] Past Medical History Medical History Marijuana abuse Mild recurrent major depression Anxiety disorder, unspecified Nausea and vomiting Lack of access to transportation Right upper quadrant abdominal pain Surgical History History of D&C Family History Family History Maternal Grandmother Breast cancer Son Autism Daughter No problems noted. Mother No problems noted. Father Learning difficulty Mental health disorder Maternal Grandmother Breast cancer, Onset Age: 50 Maternal Uncle Testicular cancer, Onset Age: 60 Paternal Grandfather Diabetes mellitus Myocardial infarct Other Substance use disorder Social History Social History Household Members: Children Housing: House Do you presently have visiting nurse or other home services: No Alcohol intake: never Patient Tobacco Use Status: Never used Tobacco e-Cigarette/Vaping Use: Never Used Second Hand Smoke Exposure: No Substance Use Type: Marijuana Advance Directives: No Advance Directives Information Provided: No service: No Current occupational status: unemployed Cognitive needs: No Hearing needs: No Vision needs: No Physical Exam Vital Signs: Vital Signs: Last Vital Signs Temp 98.1 F 05/26/24 07:05 Pulse 57 05/26/24 07:05 Resp 16 05/26/24 07:05 BP 97/44 L 05/26/24 07:05 Pulse Ox 96 05/26/24 07:05 O2 Del Method Room Air 05/26/24 07:05 BMI result Body Mass Index 24.7 Appearance: Alert. Oriented X3. No acute distress. HEENT: normal inspection CVS: Normal heart rate and rhythm. Pulses normal. Respiratory: No respiratory distress. Skin: Skin warm and dry. Normal skin color. Normal skin turgor. No rashes. Extremities: Normal inspection left lower extremity. No swelling, erythema, deformity. Normal inspection, palpation, range of motion of the left ankle. Nontender medial and lateral malleoli. Mild tenderness of the left Achilles tendon. Negative Homans sign. No calf swelling or tenderness. Left iliotibial band with spasticity and tenderness. Normal range of motion of the left knee and hip. No knee swelling. Neuro: Oriented X 3. No motor deficit. No sensory deficit. Medical Decision Making Medical Decision Making MDM Narrative: 28-year-old female with a history of sprained ankles presents to the ER for evaluation of left ankle pain that radiates up her leg to her left lateral thigh and hip. It is worse after being on her feet for several hours. No specific injury. On exam she has no swelling, redness, warmth. Low clinical suspicion for DVT. She is not on hormonal therapy. X-ray of the ankle was done today which is normal. She has some tenderness of her Achilles tendon, may have some mild tendonitis. She also has some spasticity, tenderness of her iliotibial band. We discussed treatment for this. She would like to go home with crutches, stay off of her left leg over the weekend and see if this helps. Will prescribe NSAIDs and muscle relaxers. She will follow up with her primary care doctor. Stable for discharge home with outpatient follow-up. Differential Diagnosis Differential Diagnoses: The differential diagnosis associated with the presentation includes Ankle sprain, ankle strain, tendinitis, DVT, iliotibial band syndrome, sciatica, overuse injury Independent Interpretation I performed an independent interpretation of an: Plain X-Ray Interpretation: No acute fracture dislocation, agree with radiology read Radiology Impression Discussion of test interpretation with radiology: I have reviewed the radiologist's reading. Radiologist Impression: EXAMINATION: XR ANKLE, LEFT CLINICAL INFORMATION: Pain. COMPARISON: None available. TECHNIQUE: AP, lateral, and mortise views of the left ankle. FINDINGS: No fracture. Alignment is anatomic. No erosions. Joint spaces are maintained. Soft tissues are normal. XR/XR ankle LT 2V IMPRESSION: No significant abnormality identified. Independent Historian Clinical information obtained from an independent historian. History obtained from or confirmed by: EMS External Record Review External record reviewed: Outpatient record, Prior outpatient labs and Prior outpatient radiology Tests considered The following testing was considered but not selected: Considered ultrasound of the lower extremity however low clinical suspicion for acute DVT Prescription Management I considered prescription management with: Pain Medication Critical Care Time Critical Care Time Critical Care Time: No Discharge Plan Discharge Clinical Impression: Tendonitis Iliotibial band syndrome Qualifiers: Laterality: left Qualified Code(s): M76.32 - Iliotibial band syndrome, left leg Patient Disposition: Home, Self-Care Instructions: Tendinitis (ED), Iliotibial Band Syndrome (ED) Additional Instructions: Your x-ray today was normal. Rest your ankle and elevate your foot when possible. Recommend JACQUELINE wrap for support and compression. Use ice several times per day for the next 48 hours. You may bear weight as tolerated. If pain is too severe, use crutches until better. Take the prescribed medication as directed. Stretch and use a muscle roller to help with IT band stiffness. Take Tylenol as needed for pain. Follow up with your doctor as needed. Prescriptions: New cyclobenzaprine 10 mg tablet 10 mg PO TID PRN (Reason: muscle spasm) Qty: 14 0RF naproxen 500 mg tablet 500 mg PO BID PRN (Reason: pain) Qty: 20 0RF lidocaine 5 % adhesive patch,medicated 1 patch topical DAILY Qty: 15 0RF Rx Instructions: leave on most painful area for up to 12 hrs No Action cholecalciferol (vitamin D3) 50 mcg (2,000 unit) capsule 50 mcg PO DAILY Qty: 90 3RF lorazepam [Ativan] 1 mg tablet 1 mg PO BID PRN (Reason: anxiety) Qty: 20 0RF pantoprazole 40 mg tablet,delayed release (DR/EC) 40 mg PO DAILY@0630 Rx Instructions: take one tablet half an hour before breakfast ondansetron 4 mg tablet,disintegrating 4 mg PO Q6H PRN (Reason: nausea and vomiting) Qty: 20 0RF ondansetron 4 mg tablet,disintegrating 4 mg PO Q8H 4 Days Qty: 12 0RF cefuroxime axetil 250 mg tablet 250 mg PO BID 5 Days Qty: 10 0RF metoclopramide HCl [Reglan] 5 mg tablet 5 mg PO .B.i.d. PRN (Reason: nausea and vomiting) Qty: 10 0RF ondansetron HCl 4 mg tablet 4 mg PO Q6H PRN (Reason: nausea and vomiting) Qty: 10 0RF promethazine [Promethegan] 25 mg suppository 25 mg MA Q6H PRN (Reason: nausea and vomiting) Qty: 20 0RF promethazine 25 mg suppository 25 mg MA Q6H PRN (Reason: nausea and vomiting) Qty: 12 0RF ondansetron HCl 4 mg tablet 4 mg PO Q8H PRN (Reason: nausea and vomiting) famotidine 40 mg tablet 40 mg PO BEDTIME Qty: 30 3RF Stand Alone Forms: Work/School Release Print Language: Sami
[2024-05-26 07:05] VITALS: BP 97/44; PULSE 57; RESP 16; TEMP 36.7; O2SAT 96
[2024-05-26 09:22] VITALS: BP 97/44; PULSE 57; RESP 16; TEMP 36.7; O2SAT 96
== END 2024-05-26 09:22 | disposition home or self-care (01) ==
PROVIDERS: Emergency Provider Internal Medicine
DX: M77.52 Other enthesopathy of left foot and ankle (principal); M76.32 Iliotibial band syndrome, left leg
CPT/HCPCS: 73600; 99283

== ENCOUNTER 2024-07-18 15:50 | Emergency (ER) | payer OTHER, SELFPAY ==
[2024-07-18 16:01] VITALS: BP 118/64; PULSE 67; O2SAT 97
[2024-07-18 16:03] VITALS: BP 104/66; PULSE 82; RESP 20; TEMP 36.2; O2SAT 100; BMI 30.2
--- NOTE | 2024-07-18 16:03 | ED.GENADULT ---
HPI - General Adult General Chief complaint: Nausea/Vomiting/Diarrhea Stated complaint: Nausea/Vomiting Related Data Home Medications ?Medication ?Instructions ?Recorded ?Confirmed ondansetron HCl 4 mg tablet 4 mg PO Q8H PRN nausea and vomiting 01/25/23 04/22/23 pantoprazole 40 mg tablet,delayed 40 mg PO DAILY@0630 04/23/23 04/23/23 release Previous Rx's ?Medication ?Instructions ?Recorded famotidine 40 mg tablet 40 mg PO BEDTIME #30 tabs 03/17/23 cholecalciferol (vitamin D3) 50 50 mcg PO DAILY #90 caps 03/28/23 mcg (2,000 unit) capsule ondansetron 4 mg disintegrating 4 mg PO Q6H PRN nausea and 04/25/23 tablet vomiting #20 tabs ondansetron 4 mg disintegrating 4 mg PO Q8H 4 days #12 tabs 08/24/23 tablet lorazepam 1 mg tablet (Ativan) 1 mg PO BID PRN anxiety #20 tabs 08/26/23 cefuroxime axetil 250 mg tablet 250 mg PO BID 5 days #10 tabs 08/27/23 metoclopramide HCl 5 mg tablet 5 mg PO .B.i.d. PRN nausea and 03/06/24 (Reglan) vomiting #10 tabs ondansetron HCl 4 mg tablet 4 mg PO Q6H PRN nausea and 03/06/24 vomiting #10 tabs promethazine 25 mg rectal 25 mg [place] Q6H PRN nausea and 03/08/24 suppository (Promethegan) vomiting #20 ea promethazine 25 mg rectal 25 mg [place] Q6H PRN nausea and 03/10/24 suppository vomiting #12 ea cyclobenzaprine 10 mg tablet 10 mg PO TID PRN muscle spasm #14 05/26/24 tabs lidocaine 5 % topical patch 1 patch topical DAILY #15 ea 05/26/24 naproxen 500 mg tablet 500 mg PO BID PRN pain #20 tabs 05/26/24 ondansetron 4 mg disintegrating 4 mg PO Q8H PRN nausea and 07/19/24 tablet vomiting #20 tabs famotidine 40 mg tablet (Pepcid) 40 mg PO DAILY #30 tabs 07/20/24 metoclopramide HCl 5 mg tablet 5 mg PO .T.i.d. PRN nausea and 07/20/24 (Reglan) vomiting #10 tabs Allergies Allergy/AdvReac Type Severity Reaction Status Date / Time No Known Allergies Allergy Verified 07/19/24 18:48 [No Known Allergies*] [facility] Past Medical History Medical History Marijuana abuse Mild recurrent major depression Anxiety disorder, unspecified Nausea and vomiting Lack of access to transportation Right upper quadrant abdominal pain Surgical History History of D&C Family History Family History Maternal Grandmother Breast cancer Son Autism Daughter No problems noted. Mother No problems noted. Father Learning difficulty Mental health disorder Maternal Grandmother Breast cancer, Onset Age: 50 Maternal Uncle Testicular cancer, Onset Age: 60 Paternal Grandfather Diabetes mellitus Myocardial infarct Other Substance use disorder Social History Social History Household Members: Children Housing: House Do you presently have visiting nurse or other home services: No Alcohol intake: current Alcohol intake frequency: does not drink Patient Tobacco Use Status: Never used Tobacco Smoked in Last 30 Days: No e-Cigarette/Vaping Use: Never Used Second Hand Smoke Exposure: No Use of substances other than those prescribed or required for medical reasons: Yes Substance Use Type: Marijuana Substance Use Frequency: Chronic Longstanding Any prior treatment program specific to substance use: No Advance Directives: No Advance Directives Information Provided: No Do you have a plan to hurt others: No Plan Patient : No service: No Current occupational status: unemployed Cognitive needs: No Hearing needs: No Vision needs: No Physical Exam ED Vital Signs: BMI result Body Mass Index 30.2 Course Course Course Narrative: This is an RME done by [facility]: Additional HPI, ROS, PE not included below will be deferred to primary provider. 28yo F with PMHx JESSICA, marijuana use presenting with cyclical episodes of N/V with 10/10 lower abdominal pain. Currently c/o hot flashes and chills. Multiple episodes of emesis since last night, some were streaked with blood. Last marijuana use Tuesday night. Denies sick contacts, denies surgical history. LMP 06/30/24. Appearance: Alert.? Oriented X3.? No acute cardiopulmonary distress Anxious appearing and tearful. Head: Normocephalic, atraumatic CVS: Pulses normal.? Respiratory: No respiratory distress.? Skin: ? Normal skin color. Neuro: Oriented X 3.? Discharge Plan Discharge Clinical Impression: Drug-induced nausea and vomiting, Anxiety disorder, Nausea and vomiting Patient Disposition: Left W/O Completing Treatment Prescriptions: No Action cholecalciferol (vitamin D3) 50 mcg (2,000 unit) capsule 50 mcg PO DAILY Qty: 90 3RF lorazepam [Ativan] 1 mg tablet 1 mg PO BID PRN (Reason: anxiety) Qty: 20 0RF metoclopramide HCl [Reglan] 5 mg tablet 5 mg PO .T.i.d. PRN (Reason: nausea and vomiting) Qty: 10 0RF famotidine [Pepcid] 40 mg tablet 40 mg PO DAILY Qty: 30 0RF pantoprazole 40 mg tablet,delayed release (DR/EC) 40 mg PO DAILY@0630 Rx Instructions: take one tablet half an hour before breakfast ondansetron 4 mg tablet,disintegrating 4 mg PO Q6H PRN (Reason: nausea and vomiting) Qty: 20 0RF ondansetron 4 mg tablet,disintegrating 4 mg PO Q8H 4 Days Qty: 12 0RF cefuroxime axetil 250 mg tablet 250 mg PO BID 5 Days Qty: 10 0RF metoclopramide HCl [Reglan] 5 mg tablet 5 mg PO .B.i.d. PRN (Reason: nausea and vomiting) Qty: 10 0RF ondansetron HCl 4 mg tablet 4 mg PO Q6H PRN (Reason: nausea and vomiting) Qty: 10 0RF promethazine [Promethegan] 25 mg suppository 25 mg [place] Q6H PRN (Reason: nausea and vomiting) Qty: 20 0RF promethazine 25 mg suppository 25 mg [place] Q6H PRN (Reason: nausea and vomiting) Qty: 12 0RF cyclobenzaprine 10 mg tablet 10 mg PO TID PRN (Reason: muscle spasm) Qty: 14 0RF naproxen 500 mg tablet 500 mg PO BID PRN (Reason: pain) Qty: 20 0RF lidocaine 5 % adhesive patch,medicated 1 patch topical DAILY Qty: 15 0RF Rx Instructions: leave on most painful area for up to 12 hrs ondansetron 4 mg tablet,disintegrating 4 mg PO Q8H PRN (Reason: nausea and vomiting) Qty: 20 0RF ondansetron HCl 4 mg tablet 4 mg PO Q8H PRN (Reason: nausea and vomiting) famotidine 40 mg tablet 40 mg PO BEDTIME Qty: 30 3RF Discharge Date/Time: 07/18/24 18:16
--- NOTE | 2024-07-18 16:42 | PC.NURSE ---
Approaching this RN/triage staff multiple times since EMS arrival. Shaking, yelling help me in Persian and [place]an. Intermittently dry heaving and vomiting small amounts of clear fluid into emesis bag. Pt has been approached multiple times by staff to obtain labs, but continues to refuse stating I can't . Now walking around the waiting room asking others to help her, asking to be brought back to the main ED. 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 Now talking on the phone to others. Awaiting ED bed.
--- NOTE | 2024-07-18 18:05 | PC.NURSE ---
Patient left without completing treatment. Was asked multiple times to collect labs, but refused. Ambulated out of ED with steady gait.
== END 2024-07-18 18:16 | disposition left against medical advice (07) ==
LOC: HO.ED 18:17
PROVIDERS: Emergency Provider Emergency Medicine
DX: R11.2 Nausea with vomiting, unspecified (principal); R10.30 Lower abdominal pain, unspecified; Z53.21 Procedure and treatment not carried out due to patient leaving prior to being seen by health care provider
CPT/HCPCS: 99281

== ENCOUNTER 2024-07-18 21:45 | Emergency (ER) | payer OTHER, SELFPAY ==
[2024-07-18 21:53] VITALS: BP 128/83; PULSE 90; RESP 20; TEMP 34.9; O2SAT 94; BMI 30.2
--- NOTE | 2024-07-18 22:13 | MHC.EDTECH ---
Patient brought into triage room,labs/sars obtained and sent to lab,attempted to get a [facility],patient was unable to give sample.
[2024-07-18 22:15] LABS: MANUAL DIFF FLAG NO
[2024-07-18 22:16] LABS: Basophils Absolute Auto 0.1 X10*3/uL (0.0-0.2); Basophils Percent Auto 0.3 % (0-2); Hematocrit 42.1 % (37.0-47.0); Hemoglobin 14.4 g/dl (12.0-16.0); Imm Gran Abs Auto 0.13 X10*3/uL (0.00-0.03); Imm Gran Pct Auto 0.6 % (0.0-0.4); Lymphocytes Absolute Auto 1.9 X10*3/uL (1.2-4.9); Lymphocytes Percent Auto 8.5 % (20-40); Mean Corpuscular HGB Conc 34.2 g/dl (31.0-35.0); Mean Corpuscular Hemoglobin 29.5 pg (27.0-33.0); Mean Corpuscular Volume 86.3 fL (80.0-98.0); Mean Platelet Volume 9.6 fL (9.4-12.3); Monocytes Absolute Auto 0.9 X10*3/uL (0.1-1.2); Monocytes Percent Auto 3.8 % (2-11); Neutrophils Absolute Auto 19.3 x10*3/uL (2.0-8.3); Neutrophils Percent Auto 86.8 % (45-73); Platelet Count 294 X10*3/uL (160-400); Red Blood Count 4.88 X10*6/uL (4.20-5.50); Red Cell Distribution Width 12.6 % (11.0-16.0); White Blood Count 22.2 X10*3/uL (4.8-10.8)
[2024-07-18 22:31] LABS: Alanine Aminotransferase 15 U/L (0-31); Albumin Level 4.8 g/dL (3.5-5.0); Alkaline Phosphatase 64 U/L (39-117); Anion Gap 18 (12-20); Aspartate Amino Transferase 19 U/L (5-31); Bilirubin Direct 0.1 mg/dL (0.0-0.5); Bilirubin Total 0.3 mg/dL (0.0-1.0); Blood Urea Nitrogen 19 mg/dL (9-16); Calcium 10.6 mg/dL (8.4-10.2); Carbon Dioxide 20 mmol/L (22-29); Chloride 108 mmol/L (96-108); Creatinine Clr Calc Pharmacy 78.4; Estimated Glomerular Filt Rate > 60; Glucose Random 162 mg/dL (60-115); Lipase 7 U/L (8-78); Magnesium 1.9 mg/dL (1.6-2.6); Potassium 3.5 mmol/L (3.3-5.1); Sodium 142 mmol/L (135-145); Total Protein 8.4 g/dL (6.5-8.0)
[2024-07-18 22:44] LABS: HCG Quantitative < 2 mIU/mL
--- NOTE | 2024-07-18 23:09 | PC.NURSE ---
pt from lobby, with N/V, assume care of pt at this time
--- NOTE | 2024-07-18 23:28 | PC.NURSE ---
pt walked to the fridge, to get something to drink, informed pt, nothing to eat or drink, because she is actively vomiting
[2024-07-18 23:39] LABS: Influenza A PCR NEGATIVE (Negative); Influenza B PCR NEGATIVE (Negative); Resp Syncy Virus RNA Qual PCR NEGATIVE (Negative); SARS COV2 PCR INHOUSE NEGATIVE (Negative)
[2024-07-19] MEDS: Haloperidol Lactate 5 MG/ML VIAL 2.5 MG IVPUSH (00:37)
[2024-07-19] MEDS: 0.9 % Sodium Chloride 1,000 ML 999 ML IV (00:38)
--- NOTE | 2024-07-19 00:40 | ED.GENADULT ---
HPI - General Adult General Chief complaint: Nausea/Vomiting/Diarrhea Stated complaint: nausea + vomiting Time Seen by Provider: 07/19/24 00:09 Source: patient, RN notes reviewed and old records reviewed Mode of arrival: ambulatory Limitations: no limitations History of Present Illness ED Provider: Fely HPI narrative: 28-year-old female with past medical history significant for GERD, cannabis hyperemesis syndrome presents for evaluation of abdominal pain and vomiting. Patient reports that her abdominal pain started about 24 hours ago. She reports persistent burning upper abdominal pain She rates her pain as 10/10. She states that she has vomited numerous times with some vomitus feeding streaked with blood Denies any history abdominal surgeries She has been told that this is likely related to marijuana use and she continues to use marijuana Patient states that she has not seen a GI doctor for ?a while. ? Denies any fevers but the patient endorses chills Related Data Home Medications ?Medication ?Instructions ?Recorded ?Confirmed ondansetron HCl 4 mg tablet 4 mg PO Q8H PRN nausea and vomiting 01/25/23 04/22/23 pantoprazole 40 mg tablet,delayed 40 mg PO DAILY@0630 04/23/23 04/23/23 release Previous Rx's ?Medication ?Instructions ?Recorded famotidine 40 mg tablet 40 mg PO BEDTIME #30 tabs 03/17/23 cholecalciferol (vitamin D3) 50 50 mcg PO DAILY #90 caps 03/28/23 mcg (2,000 unit) capsule ondansetron 4 mg disintegrating 4 mg PO Q6H PRN nausea and 04/25/23 tablet vomiting #20 tabs ondansetron 4 mg disintegrating 4 mg PO Q8H 4 days #12 tabs 08/24/23 tablet lorazepam 1 mg tablet (Ativan) 1 mg PO BID PRN anxiety #20 tabs 08/26/23 cefuroxime axetil 250 mg tablet 250 mg PO BID 5 days #10 tabs 08/27/23 metoclopramide HCl 5 mg tablet 5 mg PO .B.i.d. PRN nausea and 03/06/24 (Reglan) vomiting #10 tabs ondansetron HCl 4 mg tablet 4 mg PO Q6H PRN nausea and 03/06/24 vomiting #10 tabs promethazine 25 mg rectal 25 mg [place] Q6H PRN nausea and 03/08/24 suppository (Promethegan) vomiting #20 ea promethazine 25 mg rectal 25 mg [place] Q6H PRN nausea and 03/10/24 suppository vomiting #12 ea cyclobenzaprine 10 mg tablet 10 mg PO TID PRN muscle spasm #14 05/26/24 tabs lidocaine 5 % topical patch 1 patch topical DAILY #15 ea 05/26/24 naproxen 500 mg tablet 500 mg PO BID PRN pain #20 tabs 05/26/24 ondansetron 4 mg disintegrating 4 mg PO Q8H PRN nausea and 07/19/24 tablet vomiting #20 tabs Allergies Allergy/AdvReac Type Severity Reaction Status Date / Time No Known Allergies Allergy Verified 07/18/24 21:55 [No Known Allergies*] Review of Systems Constitutional: Constitutional: Denies body ache(s), Reports chills and Denies fever(s) Eyes: Eyes: Denies blurry vision Cardiovascular: Cardiovascular: Denies chest pain Gastrointestinal: Gastrointestinal: Reports abdominal pain, Denies hematochezia, Reports dyspepsia, Reports heartburn, Reports nausea and Reports vomiting Musculoskeletal: Musculoskeletal: Denies back pain Integumentary/Breasts: Skin/Breast: Denies rash PMFSH Past Medical History Medical History Marijuana abuse Mild recurrent major depression Anxiety disorder, unspecified Nausea and vomiting Lack of access to transportation Right upper quadrant abdominal pain Surgical History History of D&C Family History Family History Maternal Grandmother Breast cancer Son Autism Daughter No problems noted. Mother No problems noted. Father Learning difficulty Mental health disorder Maternal Grandmother Breast cancer, Onset Age: 50 Maternal Uncle Testicular cancer, Onset Age: 60 Paternal Grandfather Diabetes mellitus Myocardial infarct Other Substance use disorder Social History Social History Household Members: Children Housing: House Do you presently have visiting nurse or other home services: No Alcohol intake: never Patient Tobacco Use Status: Never used Tobacco Smoked in Last 30 Days: No e-Cigarette/Vaping Use: Never Used Second Hand Smoke Exposure: No Use of substances other than those prescribed or required for medical reasons: Yes Substance Use Type: Marijuana Substance Use Frequency: Recent Binge Advance Directives: No Advance Directives Information Provided: No Patient : No service: No Current occupational status: unemployed Cognitive needs: No Hearing needs: No Vision needs: No Physical Exam ED Vital Signs: Vital Signs - 24 hr 07/18/24 21:53 07/19/24 02:00 Temperature 94.9 F L 97.8 F Pulse Rate 90 60 Respiratory Rate 20 16 Blood Pressure 128/83 124/67 Pulse Oximetry 94 98 Oxygen Delivery Method Room Air Room Air BMI result Body Mass Index 30.2 Const General: healthy appearing, comfortable, no acute distress, alert and awake Nutritional Appearance: well nourished Orientation/consciousness: patient oriented x3 HENMT Head: Yes normocephalic and Yes atraumatic Eyes Eyelids: Yes eyelids normal Conjunctivae: conjunctivae normal Sclerae: sclerae normal Corneas: corneas normal Pupils: Equal, round and reactive pupils present EOM: EOMs intact bilaterally Neck Neck: Yes full ROM Resp Effort & Inspection: normal respiratory effort, able to speak in complete sentences and not labored GI Inspection: No distended Palpation (GI): Soft to palpation, not firm, Tenderness to palpation present (GI) (Diffuse abdominal tenderness with guarding, no rebound), Guarding due to palpation present (GI) and not rigid Auscultation: normoactive bowel sounds Skin General skin exam: elasticity normal Neuro General: patient oriented x3 Cranial nerves: Yes Equal, round and reactive pupils present and Yes Bilaterally intact EOM present Cognition (Neuro): normal cognition Extrem Other: Moving all extremities well without any obvious deformities Course Reevaluation(s) Reevaluation #1: Patient resting comfortably, she is no longer vomiting, her abdominal pain has resolved, I do not see any indication to image this patient at this time. Her white count may have been related to cyclic vomiting Time: 02:20 Medications Administered Discontinued Medications Generic Name Dose Route Start Last Admin Trade Name Freq PRN Reason Stop Dose Admin Haloperidol Lactate 2.5 mg 07/19/24 00:20 07/19/24 00:37 Haloperidol Lactate 5 Mg/Ml Vial IVPUSH 07/19/24 00:21 2.5 mg STAT STA Administration Sodium Chloride 1,000 mls @ 999 mls/hr 07/19/24 00:30 07/19/24 00:38 Ns IV 07/19/24 01:30 999 mls/hr .Q1H1M ACACIA Administration Medical Decision Making Medical Decision Making [facility] Narrative: 28-year-old female with history of cyclical vomiting/cannabis hyperemesis syndrome presents for evaluation of vomiting for the last 24 hours. She endorses continued use of marijuana. Her abdominal pain is diffuse, her abdomen is soft, nondistended, less likely to be perforation or surgical abdomen[place] [address] which may be related to her vomiting. Of note, the patient frequently has a leukocytosis on her ER visits. She is afebrile, less likely to be infectious pathology at this time. She has no focal right lower quadrant tenderness to suggest appendicitis or right upper quadrant to suggest biliary disease. The patient's BUN and creatinine are slightly above her baseline at 19 and 1.03 respectively, this is likely related to vomiting. No significant electrolyte abnormalities. The patient's calcium is slightly above normal at 10.6, but may be related to dehydration. She will be treated with IV fluids and haloperidol 2.5 mg IV. Differential Diagnosis Differential Diagnoses: The differential diagnosis associated with the presentation includes Cyclic vomiting Cannabis hyperemesis syndrome Gastroenteritis Bowel obstruction less likely Lab Data [facility] Lab Attestation statement: I reviewed the patient's lab results. 07/18/24 22:10 07/18/24 22:10 Labs: Lab Results 07/18/24 Range/Units 22:10 WBC 22.2 H (4.8-10.8) X10*3/uL RBC 4.88 (4.20-5.50) X10*6/uL Hgb 14.4 (12.0-16.0) g/dl Hct 42.1 (37.0-47.0) % MCV 86.3 (80.0-98.0) fL MCH 29.5 (27.0-33.0) pg MCHC 34.2 (31.0-35.0) g/dl RDW 12.6 (11.0-16.0) % Plt Count 294 (160-400) X10*3/uL MPV 9.6 (9.4-12.3) fL Immature Gran % (Auto) 0.6 H (0.0-0.4) % Neut % (Auto) 86.8 H (45-73) % Lymph % (Auto) 8.5 L (20-40) % [place] % (Auto) 3.8 (2-11) % Eos % (Auto) 0.0 (0-4) % Baso % (Auto) 0.3 (0-2) % Lymph # (Auto) 1.9 (1.2-4.9) X10*3/uL [place] # (Auto) 0.9 (0.1-1.2) X10*3/uL Eos # (Auto) 0.0 (0.0-0.4) X10*3/uL Baso # (Auto) 0.1 (0.0-0.2) X10*3/uL Abs Immat Gran (auto) 0.13 H (0.00-0.03) X10*3/uL Absolute Neuts (auto) 19.3 H (2.0-8.3) x10*3/uL Absolute Nucleated RBC 0.000 (0.0-0.012) X10*3/uL Nucleated RBC % (auto) 0.0 (0.0-0.2) /100WBC Sodium 142 (135-145) mmol/L Potassium 3.5 (3.3-5.1) mmol/L Chloride 108 (96-108) mmol/L Carbon Dioxide 20 L (22-29) mmol/L Anion Gap 18 (12-20) BUN 19 H (9-16) mg/dL Creatinine 1.03 (0.5-1.4) mg/dL Estim Creat Clear Calc 78.4 Estimated GFR > 60 Random Glucose 162 H (60-115) mg/dL Calcium 10.6 H D (8.4-10.2) mg/dL Magnesium 1.9 (1.6-2.6) mg/dL Total Bilirubin 0.3 (0.0-1.0) mg/dL Direct Bilirubin 0.1 (0.0-0.5) mg/dL AST 19 (5-31) U/L ALT 15 (0-31) U/L Alkaline Phosphatase 64 (39-117) U/L Total Protein 8.4 H (6.5-8.0) g/dL Albumin 4.8 (3.5-5.0) g/dL Lipase 7 L (8-78) U/L Beta HCG, Quant < 2 mIU/mL Influenza Type A (PCR) NEGATIVE (Negative) Influenza Type B (PCR) NEGATIVE (Negative) RSV RNA Qual (PCR) NEGATIVE (Negative) SARS-CoV-2 RNA (RT-PCR) NEGATIVE (Negative) Discharge Plan Discharge Clinical Impression: Abdominal pain, Vomiting Patient Disposition: Home, Self-Care Instructions: Cyclic Vomiting Syndrome (ED) Additional Instructions: I recommend avoiding marijuana smoking in the future as this is likely contributing to your symptoms You may use Zofran as needed for nausea/vomiting Follow-up with your GI doctor Return for new or worsening symptoms, especially if you develop a fever Prescriptions: New ondansetron 4 mg tablet,disintegrating 4 mg PO Q8H PRN (Reason: nausea and vomiting) Qty: 20 0RF No Action cholecalciferol (vitamin D3) 50 mcg (2,000 unit) capsule 50 mcg PO DAILY Qty: 90 3RF lorazepam [Ativan] 1 mg tablet 1 mg PO BID PRN (Reason: anxiety) Qty: 20 0RF pantoprazole 40 mg tablet,delayed release (DR/EC) 40 mg PO DAILY@0630 Rx Instructions: take one tablet half an hour before breakfast ondansetron 4 mg tablet,disintegrating 4 mg PO Q6H PRN (Reason: nausea and vomiting) Qty: 20 0RF ondansetron 4 mg tablet,disintegrating 4 mg PO Q8H 4 Days Qty: 12 0RF cefuroxime axetil 250 mg tablet 250 mg PO BID 5 Days Qty: 10 0RF metoclopramide HCl [Reglan] 5 mg tablet 5 mg PO .B.i.d. PRN (Reason: nausea and vomiting) Qty: 10 0RF ondansetron HCl 4 mg tablet 4 mg PO Q6H PRN (Reason: nausea and vomiting) Qty: 10 0RF promethazine [Promethegan] 25 mg suppository 25 mg [place] Q6H PRN (Reason: nausea and vomiting) Qty: 20 0RF promethazine 25 mg suppository 25 mg [place] Q6H PRN (Reason: nausea and vomiting) Qty: 12 0RF cyclobenzaprine 10 mg tablet 10 mg PO TID PRN (Reason: muscle spasm) Qty: 14 0RF naproxen 500 mg tablet 500 mg PO BID PRN (Reason: pain) Qty: 20 0RF lidocaine 5 % adhesive patch,medicated 1 patch topical DAILY Qty: 15 0RF Rx Instructions: leave on most painful area for up to 12 hrs ondansetron HCl 4 mg tablet 4 mg PO Q8H PRN (Reason: nausea and vomiting) famotidine 40 mg tablet 40 mg PO BEDTIME Qty: 30 3RF Print Language: [place]
--- NOTE | 2024-07-19 01:47 | PC.NURSE ---
pt is resting quietly, with eyes closed, resp with ease, no s/s of acute distress, pt is not vomiting anymore, will cont to monitor
[2024-07-19 02:00] VITALS: BP 124/67; PULSE 60; RESP 16; TEMP 36.6; O2SAT 98
--- NOTE | 2024-07-19 02:08 | MHC.EDTECH ---
This tech took over care of patient at 0200AM,rounds and vitals completed,patient ambulated to the bathroom with a steady gait,attempting to give a urine sample at this time.
[2024-07-19 02:28] VITALS: BP 124/67; PULSE 60; RESP 16; TEMP 36.6; O2SAT 98
== END 2024-07-19 02:33 | disposition home or self-care (01) ==
PROVIDERS: Emergency Provider Emergency Medicine
DX: R11.2 Nausea with vomiting, unspecified (principal); Z03.818 Encounter for observation for suspected exposure to other biological agents ruled out; Z79.899 Other long term (current) drug therapy
CPT/HCPCS: 0241U; 36415; 80048; 80076; 83690; 83735; 84702; 85025; 96374; 99284; J1630

== ENCOUNTER 2024-07-19 17:17 | Emergency (ER) | payer OTHER, SELFPAY ==
[2024-07-19 18:45] VITALS: BP 140/73; PULSE 77; RESP 16; TEMP 37.4; O2SAT 100; BMI 30.2
--- NOTE | 2024-07-19 18:51 | ED.GENADULT ---
HPI - General Adult General Chief complaint: Abdominal Pain Stated complaint: NAUSEA,VOMITING Time Seen by Provider: 07/19/24 21:15 Source: patient Mode of arrival: ambulatory Limitations: no limitations History of Present Illness ED Provider: Dr. Cyndi Conrad HPI narrative: Patient comes to the emergency room complaining of nausea and vomiting. Patient known to smoke marijuana. Patient has been evaluated multiple times for cyclical vomiting and anxiety. Patient was seen yesterday for the same complaint. Patient denies chest pain or shortness of breath. No dysuria or flank pain Related Data Home Medications ?Medication ?Instructions ?Recorded ?Confirmed ondansetron HCl 4 mg tablet 4 mg PO Q8H PRN nausea and vomiting 01/25/23 04/22/23 pantoprazole 40 mg tablet,delayed 40 mg PO DAILY@0630 04/23/23 04/23/23 release Previous Rx's ?Medication ?Instructions ?Recorded famotidine 40 mg tablet 40 mg PO BEDTIME #30 tabs 03/17/23 cholecalciferol (vitamin D3) 50 50 mcg PO DAILY #90 caps 03/28/23 mcg (2,000 unit) capsule ondansetron 4 mg disintegrating 4 mg PO Q6H PRN nausea and 04/25/23 tablet vomiting #20 tabs ondansetron 4 mg disintegrating 4 mg PO Q8H 4 days #12 tabs 08/24/23 tablet lorazepam 1 mg tablet (Ativan) 1 mg PO BID PRN anxiety #20 tabs 08/26/23 cefuroxime axetil 250 mg tablet 250 mg PO BID 5 days #10 tabs 08/27/23 metoclopramide HCl 5 mg tablet 5 mg PO .B.i.d. PRN nausea and 03/06/24 (Reglan) vomiting #10 tabs ondansetron HCl 4 mg tablet 4 mg PO Q6H PRN nausea and 03/06/24 vomiting #10 tabs promethazine 25 mg rectal 25 mg [place] Q6H PRN nausea and 03/08/24 suppository (Promethegan) vomiting #20 ea promethazine 25 mg rectal 25 mg [place] Q6H PRN nausea and 03/10/24 suppository vomiting #12 ea cyclobenzaprine 10 mg tablet 10 mg PO TID PRN muscle spasm #14 05/26/24 tabs lidocaine 5 % topical patch 1 patch topical DAILY #15 ea 05/26/24 naproxen 500 mg tablet 500 mg PO BID PRN pain #20 tabs 05/26/24 ondansetron 4 mg disintegrating 4 mg PO Q8H PRN nausea and 07/19/24 tablet vomiting #20 tabs famotidine 40 mg tablet (Pepcid) 40 mg PO DAILY #30 tabs 07/20/24 metoclopramide HCl 5 mg tablet 5 mg PO .T.i.d. PRN nausea and 07/20/24 (Reglan) vomiting #10 tabs Allergies Allergy/AdvReac Type Severity Reaction Status Date / Time No Known Allergies Allergy Verified 07/19/24 18:48 [No Known Allergies*] Review of Systems Review of Systems: Constitutional : No Weight loss, No Fever, No Chills, No Night Sweats, No Fatigue, No Malaise ENT/Mouth : No Hearing loss, No Ear Pain, No Nasal Congestion, No Sinus Pain, No Hoarseness, No sore throat, No Rhinorrhea, No Swallowing Difficulty Eyes: No Eye Pain, No Swelling, No Redness, No Foreign Body, No Discharge, No Vision Changes Cardiovascular : No Chest Pain, No SOB, No Dyspnea on Exertion, No Orthopnea, No Edema, No Palpitations Respiratory : No Cough, No Sputum, No Wheezing, No Smoke Exposure, No Dyspnea Gastrointestinal complaining of nausea vomiting, no diarrhea no constipation, complaining of epigastric burning sensation. No Hematochezia, No Melena Genitourinary : no irregular bleeding, No Dysuria, No Urinary Frequency, No Hematuria, No Urinary Incontinence, No Urgency, No Flank Pain, No Urinary Flow Changes, No Hesitancy Musculoskeletal : No joint pain, No Myalgias, No Joint Swelling Skin : No Skin Lesions, No rash Neuro : No Weakness, No Numbness, No Paresthesias, No Loss of Consciousness, No Dizziness, No Headache Psych : No Anxiety/Panic, No Depression, No SI/HI/AH/VH, No Social Issues, Heme/Lymph: No Bruising, No Bleeding,No Lymphadenopathy Endocrine : No Polyuria, No Polydipsia, No Temperature Intolerance PMFSH Past Medical History Medical History Marijuana abuse Mild recurrent major depression Anxiety disorder, unspecified Nausea and vomiting Lack of access to transportation Right upper quadrant abdominal pain Surgical History History of D&C Family History Family History Maternal Grandmother Breast cancer Son Autism Daughter No problems noted. Mother No problems noted. Father Learning difficulty Mental health disorder Maternal Grandmother Breast cancer, Onset Age: 50 Maternal Uncle Testicular cancer, Onset Age: 60 Paternal Grandfather Diabetes mellitus Myocardial infarct Other Substance use disorder Social History Social History Household Members: Children Housing: House Do you presently have visiting nurse or other home services: No Alcohol intake: current Alcohol intake frequency: does not drink Patient Tobacco Use Status: Never used Tobacco Smoked in Last 30 Days: No e-Cigarette/Vaping Use: Never Used Second Hand Smoke Exposure: No Use of substances other than those prescribed or required for medical reasons: Yes Substance Use Type: Marijuana Substance Use Frequency: Chronic Longstanding Any prior treatment program specific to substance use: No Advance Directives: No Advance Directives Information Provided: No Do you have a plan to hurt others: No Plan Patient : No service: No Current occupational status: unemployed Cognitive needs: No Hearing needs: No Vision needs: No Physical Exam ED Vital Signs: Vital Signs - 24 hr 07/19/24 18:45 07/19/24 21:24 07/19/24 22:56 Temperature 99.3 F 98.0 F 97.6 F Pulse Rate 77 62 78 Respiratory Rate 16 18 16 Blood Pressure 140/73 H 115/44 L 119/67 Pulse Oximetry 100 100 97 Oxygen Delivery Method Room Air Room Air Room Air 07/20/24 01:23 07/20/24 02:30 07/20/24 02:37 Temperature 98.1 F 98.1 F 98.1 F Pulse Rate 54 80 80 Respiratory Rate 16 18 18 Blood Pressure 104/52 L 101/44 L 101/44 L Pulse Oximetry 98 97 97 Oxygen Delivery Method Room Air Room Air Room Air BMI result Body Mass Index 30.2 Const Other: Appearance: Alert. Oriented X3. Purposely shaking upper extremities Eyes: Pupils equal, round and reactive to light. ENT: Pharynx normal. Neck: Normal inspection. Neck supple. No lymph nodes noted. No crepitus CVS: Normal heart rate and rhythm. Pulses normal. Normal S1 and S2 Respiratory: No respiratory distress. Breath sounds normal. No Wheezing. No rales Abdomen: Soft and nontender. No rigidity. No distention. Skin: Skin warm and dry. Normal skin color. Normal skin turgor. Extremities: No lower extremity edema. No Lacerations. No Rash Neuro: Oriented X 3. No motor deficit. No sensory deficit. Moving all extremities. No slurred speech. CN 2 through 12 grossly intact Psych: calm, cooperative, anxious Course Course Course Narrative: RME: Done by BRIDGER Lewis. 28-year-old female presents to the ED for nausea vomiting, abdominal pain acid burning sensation. Patient states unable tolerate p.o.. Patient was seen here yesterday. Positive for mild epigastric abdominal tenderness on palpation. Labs ordered. Negative for right upper quadrant tenderness Medications Administered Discontinued Medications Generic Name Dose Route Start Last Admin Trade Name Freq PRN Reason Stop Dose Admin Famotidine 20 mg 07/19/24 21:19 07/19/24 21:29 Famotidine/Pf 20 Mg/2 Ml Vial IVPUSH 07/19/24 21:20 20 mg ONCE ONE Administration Sodium Chloride 1,000 mls @ 999 mls/hr 07/19/24 21:19 07/19/24 23:15 Ns IVCONT 07/19/24 22:19 Infused .Q1H1M ONE Infusion Ondansetron HCl 4 mg 07/19/24 18:52 07/19/24 18:58 Ondansetron Odt 4 Mg Tab.Rapdis TRANSLINGU 07/19/24 18:53 4 mg ONCE ONE Administration Prochlorperazine Edisylate 10 mg 07/19/24 21:19 07/19/24 21:28 Prochlorperazine Edisylate 10 Mg/2 Ml Vial IVPUSH 07/19/24 21:20 10 mg ONCE ONE Administration Medical Decision Making Medical Decision Making [facility] Narrative: My interpretation of labs: Chronic leukocytosis, at baseline and normal chemistry, LFTs, lipase, serology negative for COVID and flu -patient receiving IV fluids, Compazine, Pepcid IV. Patient already received p.o. Zofran without any relief. -urine toxicology positive for THC -after the above-mentioned treatment, patient is sleeping very comfortable. Soon after the administration of medications patient no longer having abdominal pain or vomiting. -discussed with the patient that unfortunately her symptoms are caused by marijuana abuse -given the quick response to medications, benign physical exam, CT scan is not indicated at this time. Differential Diagnosis Differential Diagnoses: The differential diagnosis associated with the presentation includes (Gastritis, gastroenteritis, GERD, cyclical vomiting) Admission/Observation Consideration of admission/observation: Escalation of care including admission/observation considered (Given patient's recurrence of symptoms, observation was considered) Lab Data MDM Lab Attestation statement: I reviewed the patient's lab results. 07/19/24 19:08 07/19/24 19:08 Labs: Lab Results 07/19/24 07/20/24 Range/Units 19:08 01:19 WBC 16.7 H (4.8-10.8) X10*3/uL RBC 4.61 (4.20-5.50) X10*6/uL Hgb 13.7 (12.0-16.0) g/dl Hct 39.9 (37.0-47.0) % MCV 86.6 (80.0-98.0) fL MCH 29.7 (27.0-33.0) pg MCHC 34.3 (31.0-35.0) g/dl RDW 12.8 (11.0-16.0) % Plt Count 269 (160-400) X10*3/uL MPV 10.0 (9.4-12.3) fL Immature Gran % (Auto) 0.5 H (0.0-0.4) % Neut % (Auto) 73.3 H (45-73) % Lymph % (Auto) 17.8 L (20-40) % [place] % (Auto) 8.3 (2-11) % Eos % (Auto) 0.0 (0-4) % Baso % (Auto) 0.1 (0-2) % Lymph # (Auto) 3.0 (1.2-4.9) X10*3/uL [place] # (Auto) 1.4 H (0.1-1.2) X10*3/uL Eos # (Auto) 0.0 (0.0-0.4) X10*3/uL Baso # (Auto) 0.0 (0.0-0.2) X10*3/uL Abs Immat Gran (auto) 0.08 H (0.00-0.03) X10*3/uL Absolute Neuts (auto) 12.2 H (2.0-8.3) x10*3/uL Absolute Nucleated RBC 0.000 (0.0-0.012) X10*3/uL Nucleated RBC % (auto) 0.0 (0.0-0.2) /100WBC Sodium 141 (135-145) mmol/L Potassium 3.4 (3.3-5.1) mmol/L Chloride 104 (96-108) mmol/L Carbon Dioxide 23 (22-29) mmol/L Anion Gap 17 (12-20) BUN 21 H (9-16) mg/dL Creatinine 0.89 (0.5-1.4) mg/dL Estim Creat Clear Calc 90.7 Estimated GFR > 60 Random Glucose 107 (60-115) mg/dL Calcium 10.6 H (8.4-10.2) mg/dL Total Bilirubin 0.3 (0.0-1.0) mg/dL AST 18 (5-31) U/L ALT 16 (0-31) U/L Alkaline Phosphatase 58 (39-117) U/L Total Protein 8.3 H (6.5-8.0) g/dL Albumin 4.8 (3.5-5.0) g/dL Lipase 56 (8-78) U/L Beta HCG, Quant < 2 mIU/mL Urine Color Yellow Urine Appearance Clear Urine pH 6.0 (5.0-9.0) Ur Specific [place] 1.025 (1.005-1.025) Urine Protein Trace (Neg-Trace) mg/dL Urine Glucose (UA) Negative (Negative) mg/dL Urine Ketones Trace (Negative) mg/dL Urine Blood Negative (Negative) Urine Nitrite Negative (Negative) Ur Leukocyte Esterase Negative (Negative) Urine Opiates Screen Not Detected (Not Detect) Ur Buprenorphine Scrn Not Detected (Not Detect) ng/mL Ur Oxycodone Screen Not Detected (Not Detect) ng/mL Urine Methadone Screen Not Detected (Not Detect) ng/mL Urine Fentanyl Screen Not Detected (Not Detect) Ur Barbiturates Screen Not Detected (Not Detect) Ur Phencyclidine Scrn Not Detected (Not Detect) Ur Amphetamines Screen Not Detected (Not Detect) U Benzodiazepines Scrn Not Detected (Not Detect) Urine Cocaine Screen Not Detected (Not Detect) U Marijuana (THC) Screen POSITIVE H (Not Detect) Influenza Type A (PCR) NEGATIVE (Negative) Influenza Type B (PCR) NEGATIVE (Negative) RSV RNA Qual (PCR) NEGATIVE (Negative) SARS-CoV-2 RNA (RT-PCR) NEGATIVE (Negative) Critical Care Time Critical Care Time Critical Care Time: Yes Total Critical Care Time: 60 Attestation: I have personally provided critical care time. Time includes review of lab data, radiology results, discussion with consultants, and monitoring for potential decompensation. Intervention performed as documented. Discharge Plan Discharge Clinical Impression: Cyclical vomiting, Dehydration Patient Disposition: Home, Self-Care Instructions: Acute Nausea and Vomiting (ED) Additional Instructions: Please follow-up with your primary care physician tomorrow. If you have any worsening or new symptoms, please return to the emergency room or call 911 Prescriptions: New metoclopramide HCl [Reglan] 5 mg tablet 5 mg PO .T.i.d. PRN (Reason: nausea and vomiting) Qty: 10 0RF famotidine [Pepcid] 40 mg tablet 40 mg PO DAILY Qty: 30 0RF No Action cholecalciferol (vitamin D3) 50 mcg (2,000 unit) capsule 50 mcg PO DAILY Qty: 90 3RF lorazepam [Ativan] 1 mg tablet 1 mg PO BID PRN (Reason: anxiety) Qty: 20 0RF pantoprazole 40 mg tablet,delayed release (DR/EC) 40 mg PO DAILY@0630 Rx Instructions: take one tablet half an hour before breakfast ondansetron 4 mg tablet,disintegrating 4 mg PO Q6H PRN (Reason: nausea and vomiting) Qty: 20 0RF ondansetron 4 mg tablet,disintegrating 4 mg PO Q8H 4 Days Qty: 12 0RF cefuroxime axetil 250 mg tablet 250 mg PO BID 5 Days Qty: 10 0RF metoclopramide HCl [Reglan] 5 mg tablet 5 mg PO .B.i.d. PRN (Reason: nausea and vomiting) Qty: 10 0RF ondansetron HCl 4 mg tablet 4 mg PO Q6H PRN (Reason: nausea and vomiting) Qty: 10 0RF promethazine [Promethegan] 25 mg suppository 25 mg KS Q6H PRN (Reason: nausea and vomiting) Qty: 20 0RF promethazine 25 mg suppository 25 mg KS Q6H PRN (Reason: nausea and vomiting) Qty: 12 0RF cyclobenzaprine 10 mg tablet 10 mg PO TID PRN (Reason: muscle spasm) Qty: 14 0RF naproxen 500 mg tablet 500 mg PO BID PRN (Reason: pain) Qty: 20 0RF lidocaine 5 % adhesive patch,medicated 1 patch topical DAILY Qty: 15 0RF Rx Instructions: leave on most painful area for up to 12 hrs ondansetron 4 mg tablet,disintegrating 4 mg PO Q8H PRN (Reason: nausea and vomiting) Qty: 20 0RF ondansetron HCl 4 mg tablet 4 mg PO Q8H PRN (Reason: nausea and vomiting) famotidine 40 mg tablet 40 mg PO BEDTIME Qty: 30 3RF Stand Alone Forms: Work/School Release Interventions: ED Discharge Assessment Last Done: 07/20/24 02:37 Discharge Date/Time: 07/20/24 02:37 Print Language: Lithuanian
[2024-07-19] MEDS: Ondansetron ODT 4 MG TAB.RAPDIS TRANSLINGU (18:58)
[2024-07-19 19:11] LABS: MANUAL DIFF FLAG NO
[2024-07-19 19:16] LABS: Basophils Percent Auto 0.1 % (0-2); Hematocrit 39.9 % (37.0-47.0); Hemoglobin 13.7 g/dl (12.0-16.0); Imm Gran Abs Auto 0.08 X10*3/uL (0.00-0.03); Imm Gran Pct Auto 0.5 % (0.0-0.4); Lymphocytes Percent Auto 17.8 % (20-40); Mean Corpuscular HGB Conc 34.3 g/dl (31.0-35.0); Mean Corpuscular Hemoglobin 29.7 pg (27.0-33.0); Mean Corpuscular Volume 86.6 fL (80.0-98.0); Monocytes Absolute Auto 1.4 X10*3/uL (0.1-1.2); Monocytes Percent Auto 8.3 % (2-11); Neutrophils Absolute Auto 12.2 x10*3/uL (2.0-8.3); Neutrophils Percent Auto 73.3 % (45-73); Platelet Count 269 X10*3/uL (160-400); Red Blood Count 4.61 X10*6/uL (4.20-5.50); Red Cell Distribution Width 12.8 % (11.0-16.0); White Blood Count 16.7 X10*3/uL (4.8-10.8)
[2024-07-19 19:49] LABS: Alanine Aminotransferase 16 U/L (0-31); Albumin Level 4.8 g/dL (3.5-5.0); Alkaline Phosphatase 58 U/L (39-117); Anion Gap 17 (12-20); Aspartate Amino Transferase 18 U/L (5-31); Bilirubin Total 0.3 mg/dL (0.0-1.0); Blood Urea Nitrogen 21 mg/dL (9-16); Calcium 10.6 mg/dL (8.4-10.2); Carbon Dioxide 23 mmol/L (22-29); Chloride 104 mmol/L (96-108); Creatinine Clr Calc Pharmacy 90.7; Estimated Glomerular Filt Rate > 60; Glucose Random 107 mg/dL (60-115); Lipase 56 U/L (8-78); Potassium 3.4 mmol/L (3.3-5.1); Sodium 141 mmol/L (135-145); Total Protein 8.3 g/dL (6.5-8.0)
[2024-07-19 19:51] LABS: HCG Quantitative < 2 mIU/mL
[2024-07-19 19:56] LABS: Influenza A PCR NEGATIVE (Negative); Influenza B PCR NEGATIVE (Negative); Resp Syncy Virus RNA Qual PCR NEGATIVE (Negative); SARS COV2 PCR INHOUSE NEGATIVE (Negative)
--- NOTE | 2024-07-19 21:21 | ECG_ITS ---
Test Reason : abdominal pain Blood Pressure : / mmHG Vent. Rate : 061 BPM Atrial Rate : 061 BPM P-R Int : 130 ms QRS Dur : 094 ms QT Int : 412 ms P-R-T Axes : 054 049 050 degrees QTc Int : 414 ms Normal sinus rhythm with sinus arrhythmia Normal ECG When compared with ECG of 09-MAR-2024 16:42, Nonspecific ST and T wave abnormality is no longer Present Referred By: Cyndi Conrad Electronically Signed By:MIYA GUZMAN
[2024-07-19 21:24] VITALS: BP 115/44; PULSE 62; RESP 18; TEMP 36.7; O2SAT 100
[2024-07-19] MEDS: 0.9 % Sodium Chloride 1,000 ML 999 ML IVCONT (21:26)
[2024-07-19] MEDS: Prochlorperazine Edisylate 10 MG/2 ML VIAL IVPUSH (21:28)
[2024-07-19] MEDS: Famotidine/PF 20 MG/2 ML VIAL IVPUSH (21:29)
[2024-07-19 22:56] VITALS: BP 119/67; PULSE 78; RESP 16; TEMP 36.4; O2SAT 97
[2024-07-20 01:23] VITALS: BP 104/52; PULSE 54; RESP 16; TEMP 36.7; O2SAT 98
[2024-07-20 01:29] LABS: Appearance Urine Clear; Color Urine Yellow; Glucose Urine UA Negative (Negative); Leukocyte Esterase Urine Negative (Negative); Nitrite Urine Negative (Negative); Specific Gravity - Urine 1.025 (1.005-1.025); Urine Blood Negative (Negative); Urine Ketones Trace mg/dL (Negative); Urine Protein Trace mg/dL (Neg-Trace)
[2024-07-20 01:40] LABS: Amphetamine Screen Urine Not Detected (Not Detect); Barbiturates, Urine Not Detected (Not Detect); Benzodiazepines Screen Urine Not Detected (Not Detect); Buprenorphine Scr Not Detected (Not Detect); Cannabinoid Screen Urine POSITIVE (Not Detect); Cocaine Screen Urine Not Detected (Not Detect); Fentanyl, urine Not Detected (Not Detect); Methadone Screen, Urine Not Detected (Not Detect); Opiate Screen Urine Not Detected (Not Detect); Oxycodone Screen Urine Not Detected (Not Detect); Phencyclidine Screen Urine Not Detected (Not Detect)
[2024-07-20 02:30] VITALS: BP 101/44; PULSE 80; RESP 18; TEMP 36.7; O2SAT 97
[2024-07-20 02:37] VITALS: BP 101/44; PULSE 80; RESP 18; TEMP 36.7; O2SAT 97
== END 2024-07-20 02:37 | disposition home or self-care (01) ==
PROVIDERS: Physician Assistant; Emergency Provider Emergency Medicine
DX: R11.2 Nausea with vomiting, unspecified (principal); E86.0 Dehydration; I49.8 Other specified cardiac arrhythmias; F41.9 Anxiety disorder, unspecified; F12.90 Cannabis use, unspecified, uncomplicated; Z03.818 Encounter for observation for suspected exposure to other biological agents ruled out; Z79.899 Other long term (current) drug therapy
CPT/HCPCS: 0241U; 36415; 80053; 80307; 81003; 83690; 84702; 85025; 93005; 96361; 96374; 96375; 99284; 99285; J0737

== ENCOUNTER 2024-10-12 17:16 | Emergency (ER) | payer OTHER, SELFPAY ==
--- NOTE | 2024-10-12 17:23 | ED.GENADULT ---
HPI - General Adult General Chief complaint: Nausea/Vomiting/Diarrhea Stated complaint: 1010 ABD PAIN PER EMS Time Seen by Provider: 10/12/24 21:18 Source: patient Mode of arrival: ambulatory Limitations: no limitations History of Present Illness ED Provider: HPI narrative: Patient's history of cyclic vomiting/heroin induced vomiting with vomiting for last 1 week off and on vomited 2- 3 times a day had loose bowels once today says she not smoking marijuana that much anymore diffuse abdominal cramps denies any anxiety Related Data Home Medications ?Medication ?Instructions ?Recorded ?Confirmed ondansetron HCl 4 mg tablet 4 mg PO Q8H PRN nausea and vomiting 01/25/23 04/22/23 pantoprazole 40 mg tablet,delayed 40 mg PO DAILY@0630 04/23/23 04/23/23 release Previous Rx's ?Medication ?Instructions ?Recorded famotidine 40 mg tablet 40 mg PO BEDTIME #30 tabs 03/17/23 cholecalciferol (vitamin D3) 50 50 mcg PO DAILY #90 caps 03/28/23 mcg (2,000 unit) capsule ondansetron 4 mg disintegrating 4 mg PO Q6H PRN nausea and 04/25/23 tablet vomiting #20 tabs ondansetron 4 mg disintegrating 4 mg PO Q8H 4 days #12 tabs 08/24/23 tablet lorazepam 1 mg tablet (Ativan) 1 mg PO BID PRN anxiety #20 tabs 08/26/23 cefuroxime axetil 250 mg tablet 250 mg PO BID 5 days #10 tabs 08/27/23 metoclopramide HCl 5 mg tablet 5 mg PO .B.i.d. PRN nausea and 03/06/24 (Reglan) vomiting #10 tabs ondansetron HCl 4 mg tablet 4 mg PO Q6H PRN nausea and 03/06/24 vomiting #10 tabs promethazine 25 mg rectal 25 mg [place] Q6H PRN nausea and 03/08/24 suppository (Promethegan) vomiting #20 ea promethazine 25 mg rectal 25 mg [place] Q6H PRN nausea and 03/10/24 suppository vomiting #12 ea cyclobenzaprine 10 mg tablet 10 mg PO TID PRN muscle spasm #14 05/26/24 tabs lidocaine 5 % topical patch 1 patch topical DAILY #15 ea 05/26/24 naproxen 500 mg tablet 500 mg PO BID PRN pain #20 tabs 05/26/24 ondansetron 4 mg disintegrating 4 mg PO Q8H PRN nausea and 07/19/24 tablet vomiting #20 tabs famotidine 40 mg tablet (Pepcid) 40 mg PO DAILY #30 tabs 07/20/24 metoclopramide HCl 5 mg tablet 5 mg PO .T.i.d. PRN nausea and 07/20/24 (Reglan) vomiting #10 tabs lorazepam 1 mg tablet (Ativan) 1 mg PO BID PRN anxiety #14 tabs 10/12/24 ondansetron 4 mg disintegrating 4 mg PO Q6-8H PRN nausea and 10/12/24 tablet vomiting #10 tabs Allergies Allergy/AdvReac Type Severity Reaction Status Date / Time No Known Allergies Allergy Verified 10/13/24 06:42 [No Known Allergies*] Review of Systems Review of Systems: Yes all other systems are reviewed and are negative PMFSH Past Medical History Medical History Marijuana abuse Mild recurrent major depression Anxiety disorder, unspecified Nausea and vomiting Lack of access to transportation Right upper quadrant abdominal pain Surgical History History of D&C Family History Family History Maternal Grandmother Breast cancer Son Autism Daughter No problems noted. Mother No problems noted. Father Learning difficulty Mental health disorder Maternal Grandmother Breast cancer, Onset Age: 50 Maternal Uncle Testicular cancer, Onset Age: 60 Paternal Grandfather Diabetes mellitus Myocardial infarct Other Substance use disorder Social History Social History Household Members: Children Housing: House Do you presently have visiting nurse or other home services: No Alcohol intake: current Alcohol intake frequency: does not drink Patient Tobacco Use Status: Never used Tobacco e-Cigarette/Vaping Use: Never Used Second Hand Smoke Exposure: No Substance Use Type: Marijuana service: No Current occupational status: unemployed Cognitive needs: No Hearing needs: No Vision needs: No Physical Exam ED Vital Signs: Vital Signs - 24 hr 10/12/24 17:45 10/12/24 21:36 10/12/24 22:42 Temperature 96.5 F L 98.3 F 98.4 F Pulse Rate 89 66 63 Respiratory Rate 18 16 16 Blood Pressure 93/59 L 104/54 L 102/51 L Pulse Oximetry 100 100 98 Oxygen Delivery Method Room Air Room Air Room Air 10/12/24 22:59 Temperature 98.4 F Pulse Rate 63 Respiratory Rate 16 Blood Pressure 102/51 L Pulse Oximetry 98 Oxygen Delivery Method Room Air BMI result Body Mass Index 29.6 Appearance: Alert. Oriented X3. No acute distress. Eyes: No pallor or icterus ENT: Pharynx normal. Oral Mucosa moist Neck: Normal inspection. Neck supple. CVS: Normal heart rate and rhythm. Pulses normal. Respiratory: No respiratory distress. Equal air entry bilateral, no wheezing/rales/rhonchi Abdomen: Soft and nontender. Bowel sounds are present, no mass palpable, no CVA tenderness Skin: Skin warm and dry. Normal skin color. Normal skin turgor. Extremities: No lower extremity edema. No calf tenderness Neuro: Oriented X 3. No motor deficit. No sensory deficit.No cerebellar signs , cranial nerves II-XII intact Course Course Course Narrative: This is an RME done by BRIDGER Brooks: Additional HPI, ROS, PE not included below will be deferred to primary provider. 28-year-old female history of anxiety, depression, cyclic vomiting syndrome presents with nausea, vomiting and abdominal pain started a few hours ago. Reports she feels terrible. Denies fevers, chills, chest pain, shortness of breath, headache, vision changes, dizziness and weakness. Medications Administered Discontinued Medications Generic Name Dose Route Start Last Admin Trade Name James PRN Reason Stop Dose Admin Lorazepam 2 mg 10/12/24 21:25 10/12/24 21:43 Lorazepam 1 Mg Tablet PO 10/12/24 21:26 2 mg ONCE ONE Administration Ondansetron HCl 4 mg 10/12/24 17:49 10/12/24 17:51 Ondansetron Odt 4 Mg Tab.Rapdis TRANSLINGU 10/12/24 17:50 4 mg ONCE ONE Administration Prochlorperazine Edisylate 10 mg 10/12/24 21:25 10/12/24 21:44 Prochlorperazine Edisylate 10 Mg/2 Ml Vial IM 10/12/24 21:26 10 mg ONCE ONE Administration Medical Decision Making Medical Decision Making [facility] Narrative: Patient with cyclic vomiting improved after IM Compazine and Ativan taking p.o. fluids discharge patient home Lab Data [facility] Lab Attestation statement: I reviewed the patient's lab results. 10/12/24 17:56 10/12/24 17:56 Labs: Lab Results 10/12/24 Range/Units 17:56 WBC 16.6 H (4.8-10.8) X10*3/uL RBC 4.83 (4.20-5.50) X10*6/uL Hgb 14.4 (12.0-16.0) g/dl Hct 42.1 (37.0-47.0) % MCV 87.2 (80.0-98.0) fL MCH 29.8 (27.0-33.0) pg MCHC 34.2 (31.0-35.0) g/dl RDW 12.3 (11.0-16.0) % Plt Count 268 (160-400) X10*3/uL MPV 9.8 (9.4-12.3) fL Immature Gran % (Auto) 0.5 H (0.0-0.4) % Neut % (Auto) 77.5 H (45-73) % Lymph % (Auto) 16.8 L (20-40) % [place] % (Auto) 4.8 (2-11) % Eos % (Auto) 0.0 (0-4) % Baso % (Auto) 0.4 (0-2) % Lymph # (Auto) 2.8 (1.2-4.9) X10*3/uL [place] # (Auto) 0.8 (0.1-1.2) X10*3/uL Eos # (Auto) 0.0 (0.0-0.4) X10*3/uL Baso # (Auto) 0.1 (0.0-0.2) X10*3/uL Abs Immat Gran (auto) 0.08 H (0.00-0.03) X10*3/uL Absolute Neuts (auto) 12.9 H (2.0-8.3) x10*3/uL Absolute Nucleated RBC 0.000 (0.0-0.012) X10*3/uL Nucleated RBC % (auto) 0.0 (0.0-0.2) /100WBC Sodium 143 (135-145) mmol/L Potassium 3.4 (3.3-5.1) mmol/L Chloride 109 H (96-108) mmol/L Carbon Dioxide 19 L (22-29) mmol/L Anion Gap 18 (12-20) BUN 18 H (9-16) mg/dL Creatinine 0.89 (0.5-1.4) mg/dL Estim Creat Clear Calc 89.8 Estimated GFR > 60 Random Glucose 139 H (60-115) mg/dL Calcium 10.3 H (8.4-10.2) mg/dL Magnesium 2.1 (1.6-2.6) mg/dL Total Bilirubin 0.4 (0.0-1.0) mg/dL AST 26 (5-31) U/L ALT 21 (0-31) U/L Alkaline Phosphatase 60 (39-117) U/L Total Protein 8.0 (6.5-8.0) g/dL Albumin 4.7 (3.5-5.0) g/dL Lipase 15 (8-78) U/L Discharge Plan Discharge Clinical Impression: Cyclic vomiting syndrome Patient Disposition: Home, Self-Care Instructions: Cyclic Vomiting Syndrome (ED) Additional Instructions: Take medication as prescribed for anxiety and vomiting Follow with your PCP Prescriptions: New lorazepam [Ativan] 1 mg tablet 1 mg PO BID PRN (Reason: anxiety) Qty: 14 0RF ondansetron 4 mg tablet,disintegrating 4 mg PO Q6-8H PRN (Reason: nausea and vomiting) Qty: 10 0RF No Action cholecalciferol (vitamin D3) 50 mcg (2,000 unit) capsule 50 mcg PO DAILY Qty: 90 3RF lorazepam [Ativan] 1 mg tablet 1 mg PO BID PRN (Reason: anxiety) Qty: 20 0RF metoclopramide HCl [Reglan] 5 mg tablet 5 mg PO .T.i.d. PRN (Reason: nausea and vomiting) Qty: 10 0RF famotidine [Pepcid] 40 mg tablet 40 mg PO DAILY Qty: 30 0RF pantoprazole 40 mg tablet,delayed release (DR/EC) 40 mg PO DAILY@0630 Rx Instructions: take one tablet half an hour before breakfast ondansetron 4 mg tablet,disintegrating 4 mg PO Q6H PRN (Reason: nausea and vomiting) Qty: 20 0RF ondansetron 4 mg tablet,disintegrating 4 mg PO Q8H 4 Days Qty: 12 0RF cefuroxime axetil 250 mg tablet 250 mg PO BID 5 Days Qty: 10 0RF metoclopramide HCl [Reglan] 5 mg tablet 5 mg PO .B.i.d. PRN (Reason: nausea and vomiting) Qty: 10 0RF ondansetron HCl 4 mg tablet 4 mg PO Q6H PRN (Reason: nausea and vomiting) Qty: 10 0RF promethazine [Promethegan] 25 mg suppository 25 mg [place] Q6H PRN (Reason: nausea and vomiting) Qty: 20 0RF promethazine 25 mg suppository 25 mg [place] Q6H PRN (Reason: nausea and vomiting) Qty: 12 0RF cyclobenzaprine 10 mg tablet 10 mg PO TID PRN (Reason: muscle spasm) Qty: 14 0RF naproxen 500 mg tablet 500 mg PO BID PRN (Reason: pain) Qty: 20 0RF lidocaine 5 % adhesive patch,medicated 1 patch topical DAILY Qty: 15 0RF Rx Instructions: leave on most painful area for up to 12 hrs ondansetron 4 mg tablet,disintegrating 4 mg PO Q8H PRN (Reason: nausea and vomiting) Qty: 20 0RF ondansetron HCl 4 mg tablet 4 mg PO Q8H PRN (Reason: nausea and vomiting) famotidine 40 mg tablet 40 mg PO BEDTIME Qty: 30 3RF Interventions: ED Discharge Assessment Last Done: 10/12/24 22:59 Discharge Date/Time: 10/12/24 23:22 Print Language: Icelandic
[2024-10-12 17:24] VITALS: BP 118/68; PULSE 20; O2SAT 100
[2024-10-12 17:45] VITALS: BP 93/59; PULSE 89; RESP 18; TEMP 35.8; O2SAT 100; BMI 29.6
[2024-10-12] MEDS: Ondansetron ODT 4 MG TAB.RAPDIS TRANSLINGU (17:51)
[2024-10-12 18:01] LABS: MANUAL DIFF FLAG NO
[2024-10-12 18:06] LABS: Basophils Absolute Auto 0.1 X10*3/uL (0.0-0.2); Basophils Percent Auto 0.4 % (0-2); Hematocrit 42.1 % (37.0-47.0); Hemoglobin 14.4 g/dl (12.0-16.0); Imm Gran Abs Auto 0.08 X10*3/uL (0.00-0.03); Imm Gran Pct Auto 0.5 % (0.0-0.4); Lymphocytes Absolute Auto 2.8 X10*3/uL (1.2-4.9); Lymphocytes Percent Auto 16.8 % (20-40); Mean Corpuscular HGB Conc 34.2 g/dl (31.0-35.0); Mean Corpuscular Hemoglobin 29.8 pg (27.0-33.0); Mean Corpuscular Volume 87.2 fL (80.0-98.0); Mean Platelet Volume 9.8 fL (9.4-12.3); Monocytes Absolute Auto 0.8 X10*3/uL (0.1-1.2); Monocytes Percent Auto 4.8 % (2-11); Neutrophils Absolute Auto 12.9 x10*3/uL (2.0-8.3); Neutrophils Percent Auto 77.5 % (45-73); Platelet Count 268 X10*3/uL (160-400); Red Blood Count 4.83 X10*6/uL (4.20-5.50); Red Cell Distribution Width 12.3 % (11.0-16.0); White Blood Count 16.6 X10*3/uL (4.8-10.8)
[2024-10-12 18:31] LABS: Albumin Level 4.7 g/dL (3.5-5.0); Anion Gap 18 (12-20); Bilirubin Total 0.4 mg/dL (0.0-1.0); Blood Urea Nitrogen 18 mg/dL (9-16); Calcium 10.3 mg/dL (8.4-10.2); Carbon Dioxide 19 mmol/L (22-29); Chloride 109 mmol/L (96-108); Creatinine Clr Calc Pharmacy 89.8; Estimated Glomerular Filt Rate > 60; Glucose Random 139 mg/dL (60-115); Magnesium 2.1 mg/dL (1.6-2.6); Potassium 3.4 mmol/L (3.3-5.1); Sodium 143 mmol/L (135-145)
[2024-10-12 18:32] LABS: Aspartate Amino Transferase 26 U/L (5-31); Lipase 15 U/L (8-78)
[2024-10-12 18:56] LABS: Alanine Aminotransferase 21 U/L (0-31); Alkaline Phosphatase 60 U/L (39-117)
[2024-10-12 21:36] VITALS: BP 104/54; PULSE 66; RESP 16; TEMP 36.8; O2SAT 100
[2024-10-12] MEDS: LORazepam 1 MG TABLET 2 MG PO (21:43)
[2024-10-12] MEDS: Prochlorperazine Edisylate 10 MG/2 ML VIAL IM (21:44)
--- NOTE | 2024-10-12 22:02 | PC.NURSE ---
Pt a&ox3, no signs of distress. Pt ambulates with a steady gait Pt reports 10/10 abd pain Pt medicated per mar Plan of care ongoing.
[2024-10-12 22:42] VITALS: BP 102/51; PULSE 63; RESP 16; TEMP 36.9; O2SAT 98
--- NOTE | 2024-10-12 22:58 | PC.NURSE ---
Pt reports unable to provide urine specimen Plan of care ongoing.
[2024-10-12 22:59] VITALS: BP 102/51; PULSE 63; RESP 16; TEMP 36.9; O2SAT 98
--- NOTE | 2024-10-12 23:01 | PC.NURSE ---
Pt ambulated w/ a steady gait and grabbed a drink from hospital refrigerator. Plan of care ongoing.
== END 2024-10-12 23:22 | disposition home or self-care (01) ==
PROVIDERS: Physician Assistant; Emergency Provider Internal Medicine
DX: R11.15 Cyclical vomiting syndrome unrelated to migraine (principal); F12.10 Cannabis abuse, uncomplicated
CPT/HCPCS: 36415; 80053; 83690; 83735; 85025; 96372; 99284; J0737

== ENCOUNTER 2024-10-13 06:34 | Inpatient (IN) | payer OTHER, SELFPAY ==
[2024-10-13] VITALS (9 sets, daily range): BP systolic 114–149; BP diastolic 59–87; PULSE 56–85; RESP 12–20; TEMP 36.5–36.9; O2SAT 97–100; BMI 27.4; BMI 27.3
--- NOTE | ~2024-10-13 | XR_ITS ---
EXAMINATION: XR CHEST CLINICAL INFORMATION: NG-tube placement COMPARISON: None available. TECHNIQUE: Frontal view of the chest was obtained. FINDINGS: No significant abnormality is noted involving the heart, lungs, mediastinum, bony thorax or soft tissues. Enteric tube in the stomach. XR/XR chest 1V IMPRESSION: Enteric tube in the stomach. Electronically signed by: Megan Rosado MD 10/13/2024 12:02 PM [facility]
--- NOTE | ~2024-10-13 | CT_ITS ---
EXAMINATION: CT ABDOMEN AND PELVIS WITHOUT CONTRAST CLINICAL INFORMATION: Question SMA syndrome COMPARISON: 10/13/2024 TECHNIQUE: Multidetector volumetric imaging was performed from the superior aspect of the liver through the pubic symphysis. Sagittal and coronal reformatted images were obtained on the technologist's workstation. This CT examination was performed using dose optimization techniques as appropriate, variously including the following: *Automated exposure control *Adjustment of mA and/or kV according to patient size (this includes techniques or standardized protocols for targeted exams where dose is matched to indication/reason for exam; i.e. extremities or head) *Use of iterative reconstruction technique DLP: 519 mGy-cm FINDINGS: LUNG BASES: The visualized lung bases are unremarkable. LIVER, GALLBLADDER, AND BILIARY TREE: The liver is normal in size, shape, and attenuation. No focal hepatic lesion or biliary ductal dilatation is present. The gallbladder is unremarkable with no evidence of radiopaque gallstones, gallbladder wall thickening, or obvious pericholecystic inflammatory changes. PANCREAS: Unremarkable. SPLEEN: Unremarkable. ADRENAL GLANDS: Unremarkable. KIDNEYS AND URETERS: The kidneys are normal in size, shape, and attenuation. No hydronephrosis, hydroureter, or calculi seen. No perinephric stranding. BLADDER: Unremarkable. GASTROINTESTINAL TRACT: The small and large bowel are unremarkable. There is no compression of transition zone at the level of the distal duodenum in the midline. ABDOMINAL WALL: No significant hernia is appreciated. LYMPH NODES: Normal. VASCULAR: Unremarkable. PELVIC VISCERA: Unremarkable. OSSEOUS STRUCTURES: Unremarkable. CT/CT abdomen pelvis wo IV con IMPRESSION: No evidence for any SMA syndrome. No acute findings. Fleischner guidelines were followed. Electronically signed by: Darwin Fernandes MD 10/15/2024 09:09 PM [facility]
--- NOTE | ~2024-10-13 | CT_ITS ---
EXAMINATION: CT ABDOMEN AND PELVIS WITHOUT CONTRAST CLINICAL INFORMATION: Abdominal pain COMPARISON: None available. TECHNIQUE: Multidetector volumetric imaging was performed from the superior aspect of the liver through the pubic symphysis. Sagittal and coronal reformatted images were obtained on the technologist's workstation. This CT examination was performed using dose optimization techniques as appropriate, variously including the following: *Automated exposure control *Adjustment of mA and/or kV according to patient size (this includes techniques or standardized protocols for targeted exams where dose is matched to indication/reason for exam; i.e. extremities or head) *Use of iterative reconstruction technique DLP: 474 mGy-cm FINDINGS: LUNG BASES: The visualized lung bases are unremarkable. LIVER, GALLBLADDER, AND BILIARY TREE: The liver is normal in size, shape, and attenuation. No focal hepatic lesion or biliary ductal dilatation is present. The gallbladder is unremarkable with no evidence of radiopaque gallstones, gallbladder wall thickening, or obvious pericholecystic inflammatory changes. PANCREAS: Unremarkable. SPLEEN: Unremarkable. ADRENAL GLANDS: Unremarkable. KIDNEYS AND URETERS: The kidneys are normal in size, shape, and attenuation. No hydronephrosis, hydroureter, or calculi seen. No perinephric stranding. BLADDER: The bladder is decompressed, limiting evaluation. GASTROINTESTINAL TRACT: Fluid-filled stomach and duodenum. The third portion of the duodenum tapers and appears to the compressed between the acute angle of the SMA and aorta. The remaining small bowel is decompressed. The large bowel is unremarkable. The appendix is unremarkable. ABDOMINAL WALL: No significant hernia is appreciated. LYMPH NODES: Normal. VASCULAR: Unremarkable. PELVIC VISCERA: Right ovarian cyst measures 1.9 x 1.8 x 2.5 cm is likely physiologic. Imaging follow-up. The uterus and right adnexa are unremarkable. Trace free fluid in the pelvis is likely physiologic. OSSEOUS STRUCTURES: Unremarkable. CT/CT abdomen pelvis wo IV con IMPRESSION: 1. Fluid-filled stomach and duodenum. The third portion of the duodenum tapers and appears to be compressed between the acute angle of the SMA and aorta. The remaining small bowel is decompressed. Findings are concerning for SMA syndrome. 2. 2.5 cm right ovarian cyst is likely physiologic. No imaging follow-up recommended. Fleischner guidelines were followed. Electronically signed by: Ольга Huynh MD 10/13/2024 09:11 AM [facility] RICARDO
--- NOTE | 2024-10-13 06:48 | ED_ITS ---
HPI - General Adult General Stated complaint: ABDOMINAL PAIN Time Seen by Provider: 10/13/24 06:46 Source: patient Mode of arrival: ambulatory Limitations: no limitations Related Data Home Medications ?Medication ?Instructions ?Recorded ?Confirmed ondansetron HCl 4 mg tablet 4 mg PO Q8H PRN nausea and vomiting 01/25/23 04/22/23 pantoprazole 40 mg tablet,delayed 40 mg PO DAILY@0630 04/23/23 04/23/23 release Previous Rx's ?Medication ?Instructions ?Recorded famotidine 40 mg tablet 40 mg PO BEDTIME #30 tabs 03/17/23 cholecalciferol (vitamin D3) 50 50 mcg PO DAILY #90 caps 03/28/23 mcg (2,000 unit) capsule ondansetron 4 mg disintegrating 4 mg PO Q6H PRN nausea and 04/25/23 tablet vomiting #20 tabs ondansetron 4 mg disintegrating 4 mg PO Q8H 4 days #12 tabs 08/24/23 tablet lorazepam 1 mg tablet (Ativan) 1 mg PO BID PRN anxiety #20 tabs 08/26/23 cefuroxime axetil 250 mg tablet 250 mg PO BID 5 days #10 tabs 08/27/23 metoclopramide HCl 5 mg tablet 5 mg PO .B.i.d. PRN nausea and 03/06/24 (Reglan) vomiting #10 tabs ondansetron HCl 4 mg tablet 4 mg PO Q6H PRN nausea and 03/06/24 vomiting #10 tabs promethazine 25 mg rectal 25 mg PA Q6H PRN nausea and 03/08/24 suppository (Promethegan) vomiting #20 ea promethazine 25 mg rectal 25 mg PA Q6H PRN nausea and 03/10/24 suppository vomiting #12 ea cyclobenzaprine 10 mg tablet 10 mg PO TID PRN muscle spasm #14 05/26/24 tabs lidocaine 5 % topical patch 1 patch topical DAILY #15 ea 05/26/24 naproxen 500 mg tablet 500 mg PO BID PRN pain #20 tabs 05/26/24 ondansetron 4 mg disintegrating 4 mg PO Q8H PRN nausea and 07/19/24 tablet vomiting #20 tabs famotidine 40 mg tablet (Pepcid) 40 mg PO DAILY #30 tabs 07/20/24 metoclopramide HCl 5 mg tablet 5 mg PO .T.i.d. PRN nausea and 07/20/24 (Reglan) vomiting #10 tabs lorazepam 1 mg tablet (Ativan) 1 mg PO BID PRN anxiety #14 tabs 10/12/24 ondansetron 4 mg disintegrating 4 mg PO Q6-8H PRN nausea and 10/12/24 tablet vomiting #10 tabs Allergies Allergy/AdvReac Type Severity Reaction Status Date / Time No Known Allergies Allergy Verified 10/13/24 06:42 [No Known Allergies*] [facility] Past Medical History Medical History Marijuana abuse Mild recurrent major depression Anxiety disorder, unspecified Nausea and vomiting Lack of access to transportation Right upper quadrant abdominal pain Surgical History History of D&C Family History Family History Maternal Grandmother Breast cancer Son Autism Daughter No problems noted. Mother No problems noted. Father Learning difficulty Mental health disorder Maternal Grandmother Breast cancer, Onset Age: 50 Maternal Uncle Testicular cancer, Onset Age: 60 Paternal Grandfather Diabetes mellitus Myocardial infarct Other Substance use disorder Social History Social History Household Members: Children Housing: House Do you presently have visiting nurse or other home services: No Alcohol intake: current Alcohol intake frequency: does not drink Patient Tobacco Use Status: Never used Tobacco e-Cigarette/Vaping Use: Never Used Second Hand Smoke Exposure: No Substance Use Type: Marijuana service: No Current occupational status: unemployed Cognitive needs: No Hearing needs: No Vision needs: No Physical Exam ED Vital Signs: Vital Signs - 24 hr 10/13/24 06:47 Temperature 97.7 F Pulse Rate 82 Respiratory Rate 18 Blood Pressure 122/65 Pulse Oximetry 100 Oxygen Delivery Method Room Air Discharge Plan Discharge Prescriptions: No Action cholecalciferol (vitamin D3) 50 mcg (2,000 unit) capsule 50 mcg PO DAILY Qty: 90 3RF lorazepam [Ativan] 1 mg tablet 1 mg PO BID PRN (Reason: anxiety) Qty: 20 0RF metoclopramide HCl [Reglan] 5 mg tablet 5 mg PO .T.i.d. PRN (Reason: nausea and vomiting) Qty: 10 0RF famotidine [Pepcid] 40 mg tablet 40 mg PO DAILY Qty: 30 0RF pantoprazole 40 mg tablet,delayed release (DR/EC) 40 mg PO DAILY@0630 Rx Instructions: take one tablet half an hour before breakfast ondansetron 4 mg tablet,disintegrating 4 mg PO Q6H PRN (Reason: nausea and vomiting) Qty: 20 0RF ondansetron 4 mg tablet,disintegrating 4 mg PO Q8H 4 Days Qty: 12 0RF cefuroxime axetil 250 mg tablet 250 mg PO BID 5 Days Qty: 10 0RF metoclopramide HCl [Reglan] 5 mg tablet 5 mg PO .B.i.d. PRN (Reason: nausea and vomiting) Qty: 10 0RF ondansetron HCl 4 mg tablet 4 mg PO Q6H PRN (Reason: nausea and vomiting) Qty: 10 0RF promethazine [Promethegan] 25 mg suppository 25 mg PA Q6H PRN (Reason: nausea and vomiting) Qty: 20 0RF promethazine 25 mg suppository 25 mg PA Q6H PRN (Reason: nausea and vomiting) Qty: 12 0RF cyclobenzaprine 10 mg tablet 10 mg PO TID PRN (Reason: muscle spasm) Qty: 14 0RF naproxen 500 mg tablet 500 mg PO BID PRN (Reason: pain) Qty: 20 0RF lidocaine 5 % adhesive patch,medicated 1 patch topical DAILY Qty: 15 0RF Rx Instructions: leave on most painful area for up to 12 hrs ondansetron 4 mg tablet,disintegrating 4 mg PO Q8H PRN (Reason: nausea and vomiting) Qty: 20 0RF lorazepam [Ativan] 1 mg tablet 1 mg PO BID PRN (Reason: anxiety) Qty: 14 0RF ondansetron 4 mg tablet,disintegrating 4 mg PO Q6-8H PRN (Reason: nausea and vomiting) Qty: 10 0RF ondansetron HCl 4 mg tablet 4 mg PO Q8H PRN (Reason: nausea and vomiting) famotidine 40 mg tablet 40 mg PO BEDTIME Qty: 30 3RF Print Language: Moroccan
--- NOTE | 2024-10-13 07:00 | PC.NURSE ---
Report taken from Otilia Lu RN
--- NOTE | 2024-10-13 07:22 | ED_ITS ---
HPI - General Adult General Chief complaint: Abdominal Pain Stated complaint: ABDOMINAL PAIN Time Seen by Provider: 10/13/24 06:46 Source: patient Mode of arrival: ambulatory Limitations: no limitations History of Present Illness ED Provider: BRIDGER Brooks HPI narrative: 28-year-old female history of anxiety, depression, cyclic vomiting syndrome presents with nausea, vomiting and abdominal pain started a few hours ago however she reports she has been feeling lousy for the past week. Reports she feels terrible. Reports she is having some associated epigastric pain when she vomits. Denies fevers, chills, chest pain, shortness of breath, headache, vision changes, dizziness and weakness. Denies sick contacts. Denies eating abnormal or new foods. Related Data Home Medications ?Medication ?Instructions ?Recorded ?Confirmed ondansetron HCl 4 mg tablet 4 mg PO Q8H PRN nausea and vomiting 01/25/23 04/22/23 pantoprazole 40 mg tablet,delayed 40 mg PO DAILY@0630 04/23/23 04/23/23 release Previous Rx's ?Medication ?Instructions ?Recorded famotidine 40 mg tablet 40 mg PO BEDTIME #30 tabs 03/17/23 cholecalciferol (vitamin D3) 50 50 mcg PO DAILY #90 caps 03/28/23 mcg (2,000 unit) capsule ondansetron 4 mg disintegrating 4 mg PO Q6H PRN nausea and 04/25/23 tablet vomiting #20 tabs ondansetron 4 mg disintegrating 4 mg PO Q8H 4 days #12 tabs 08/24/23 tablet lorazepam 1 mg tablet (Ativan) 1 mg PO BID PRN anxiety #20 tabs 08/26/23 cefuroxime axetil 250 mg tablet 250 mg PO BID 5 days #10 tabs 08/27/23 metoclopramide HCl 5 mg tablet 5 mg PO .B.i.d. PRN nausea and 03/06/24 (Reglan) vomiting #10 tabs ondansetron HCl 4 mg tablet 4 mg PO Q6H PRN nausea and 03/06/24 vomiting #10 tabs promethazine 25 mg rectal 25 mg NV Q6H PRN nausea and 03/08/24 suppository (Promethegan) vomiting #20 ea promethazine 25 mg rectal 25 mg NV Q6H PRN nausea and 03/10/24 suppository vomiting #12 ea cyclobenzaprine 10 mg tablet 10 mg PO TID PRN muscle spasm #14 05/26/24 tabs lidocaine 5 % topical patch 1 patch topical DAILY #15 ea 05/26/24 naproxen 500 mg tablet 500 mg PO BID PRN pain #20 tabs 05/26/24 ondansetron 4 mg disintegrating 4 mg PO Q8H PRN nausea and 07/19/24 tablet vomiting #20 tabs famotidine 40 mg tablet (Pepcid) 40 mg PO DAILY #30 tabs 07/20/24 metoclopramide HCl 5 mg tablet 5 mg PO .T.i.d. PRN nausea and 07/20/24 (Reglan) vomiting #10 tabs lorazepam 1 mg tablet (Ativan) 1 mg PO BID PRN anxiety #14 tabs 10/12/24 ondansetron 4 mg disintegrating 4 mg PO Q6-8H PRN nausea and 10/12/24 tablet vomiting #10 tabs Allergies Allergy/AdvReac Type Severity Reaction Status Date / Time No Known Allergies Allergy Verified 10/13/24 06:42 [No Known Allergies*] Review of Systems 2 Review of Systems: Yes all other systems are reviewed and are negative [facility] Past Medical History Attestation statement: The following information was validated with the patient. Source: old records reviewed and nursing notes reviewed Medical History Marijuana abuse Mild recurrent major depression Anxiety disorder, unspecified Nausea and vomiting Lack of access to transportation Right upper quadrant abdominal pain Surgical History History of D&C Family History Family History Maternal Grandmother Breast cancer Son Autism Daughter No problems noted. Mother No problems noted. Father Learning difficulty Mental health disorder Maternal Grandmother Breast cancer, Onset Age: 50 Maternal Uncle Testicular cancer, Onset Age: 60 Paternal Grandfather Diabetes mellitus Myocardial infarct Other Substance use disorder Social History Social History Household Members: Children Housing: House Do you presently have visiting nurse or other home services: No Alcohol intake: current Alcohol intake frequency: does not drink Patient Tobacco Use Status: Never used Tobacco e-Cigarette/Vaping Use: Never Used Second Hand Smoke Exposure: No Substance Use Type: Marijuana Advance Directives: No Advance Directives Information Provided: No service: No Current occupational status: unemployed Cognitive needs: No Hearing needs: No Vision needs: No Physical Exam ED Vital Signs: Vital Signs - 24 hr 10/13/24 06:40 10/13/24 06:47 Temperature 97.7 F 97.7 F Pulse Rate 82 82 Respiratory Rate 18 18 Blood Pressure 122/65 122/65 Pulse Oximetry 100 100 Oxygen Delivery Method Room Air Room Air BMI result Body Mass Index 27.4 vss Appearance: Alert.? Oriented X3.? No acute distress.? Head: Normocephalic, atraumatic, no step-offs or deformities Eyes: Pupils equal, round and reactive to light.? CVS: Normal heart rate and rhythm.? Pulses normal.? Respiratory: No respiratory distress.? Breath sounds normal.? Abdomen: Soft and diffsue tenderness.? Skin: Skin warm and dry.? Normal skin color.? Normal skin turgor.? Extremities: No lower extremity edema.? No calf ttp. 5/5 strength to bilateral upper and lower extremities Neuro: Oriented X 3.? No motor deficit.? No sensory deficit. CN 2-12 intact Course Reevaluation(s) Reevaluation #1: CBC with slight leukocytosis 14.6 likely reactive secondary to nausea and vomiting. Chemistry with elevated BUN likely secondary to poor p.o. intake/dehydration. No other acute findings on chemistry. Negative beta hCG. Normal lipase. Patient's CT is showing a fluid-filled stomach and duodenum the 3rd position of the duodenum tapers and appears to be compressed between the acute angle of the SMA and aorta. Then remaining small bowel is decompressed. SMA syndrome likely. Will place NG tube, admit patient to medicine. I did discuss this with GI Dr. Carmona who agrees. His recommendation is nasogastric tube and decompression and fluids IV antiemetics and admission. Time: 10:18 Reevaluation #2: Will reach out to the hospitalist for admission Medications Administered Discontinued Medications Generic Name Dose Route Start Last Admin Trade Name Freq PRN Reason Stop Dose Admin Diphenhydramine HCl 50 mg 10/13/24 08:15 10/13/24 08:32 Diphenhydramine Hcl 25 Mg Capsule PO 10/13/24 08:16 50 mg ONCE ONE Administration Metoclopramide HCl 10 mg 10/13/24 08:15 10/13/24 08:32 Metoclopramide Hcl 10 Mg Tablet PO 10/13/24 08:16 10 mg ONCE ONE Administration Medical Decision Making Medical Decision Making [facility] Narrative: 1925 28-year-old female presents with nausea, vomiting, abdominal pain x1 week. Physical exam with diffuse abdominal discomfort History and physical exam concerning for cyclic vomiting versus viral illness versus gastroenteritis. Will rule out metabolic derangements. Unlikely acute abdomen, obstruction, appendicitis, cholecystitis, diverticulitis. Plan labs, imaging, urine Differential Diagnosis Differential Diagnoses: The differential diagnosis associated with the presentation includes (History and physical exam concerning for cyclic vomiting versus viral illness versus gastroenteritis. Will rule out metabolic derangements. Unlikely acute abdomen, obstruction, appendicitis, cholecystitis, diverticulitis.) Admission/Observation Consideration of admission/observation: Escalation of care including admission/observation considered Lab Data [facility] Lab Attestation statement: I reviewed the patient's lab results. 10/13/24 07:43 10/13/24 07:43 Labs: Lab Results 10/13/24 Range/Units 07:43 WBC 14.6 H (4.8-10.8) X10*3/uL RBC 4.66 (4.20-5.50) X10*6/uL Hgb 14.0 (12.0-16.0) g/dl Hct 39.9 (37.0-47.0) % MCV 85.6 (80.0-98.0) fL MCH 30.0 (27.0-33.0) pg MCHC 35.1 H (31.0-35.0) g/dl RDW 12.4 (11.0-16.0) % Plt Count 253 (160-400) X10*3/uL MPV 9.9 (9.4-12.3) fL Immature Gran % (Auto) 0.4 (0.0-0.4) % Neut % (Auto) 85.6 H (45-73) % Lymph % (Auto) 9.5 L (20-40) % [place] % (Auto) 4.4 (2-11) % Eos % (Auto) 0.0 (0-4) % Baso % (Auto) 0.1 (0-2) % Lymph # (Auto) 1.4 (1.2-4.9) X10*3/uL [place] # (Auto) 0.6 (0.1-1.2) X10*3/uL Eos # (Auto) 0.0 (0.0-0.4) X10*3/uL Baso # (Auto) 0.0 (0.0-0.2) X10*3/uL Abs Immat Gran (auto) 0.06 H (0.00-0.03) X10*3/uL Absolute Neuts (auto) 12.5 H (2.0-8.3) x10*3/uL Absolute Nucleated RBC 0.000 (0.0-0.012) X10*3/uL Nucleated RBC % (auto) 0.0 (0.0-0.2) /100WBC PT 15.0 H (10.9-12.4) SEC INR 1.3 H (0.9-1.1) Sodium 142 (135-145) mmol/L Potassium 3.3 (3.3-5.1) mmol/L Chloride 103 (96-108) mmol/L Carbon Dioxide 26 (22-29) mmol/L Anion Gap 16 (12-20) BUN 23 H (9-16) mg/dL Creatinine 0.88 (0.5-1.4) mg/dL Estim Creat Clear Calc 87.6 Estimated GFR > 60 Random Glucose 169 H (60-115) mg/dL Calcium 10.3 H (8.4-10.2) mg/dL Magnesium 2.1 (1.6-2.6) mg/dL Total Bilirubin 0.3 (0.0-1.0) mg/dL AST 26 (5-31) U/L ALT 24 (0-31) U/L Alkaline Phosphatase 58 (39-117) U/L Total Protein 8.4 H (6.5-8.0) g/dL Albumin 4.7 (3.5-5.0) g/dL Lipase 5 L (8-78) U/L Beta HCG, Quant < 2 mIU/mL Independent Interpretation I performed an independent interpretation of an: CT Scan Radiology Impression Discussion of test interpretation with radiology: I have reviewed the radiologist's reading. Critical Care Time Critical Care Time Critical Care Time: Yes Total Critical Care Time: 35 Attestation: I attest to this time spent taking care of the patient, obtaining history, physical, reviewing labs, imaging, treatment of patients condition +/- specialist/hospitalist consult Discharge Plan Discharge Clinical Impression: SMAS (superior mesenteric artery syndrome), Abdominal pain, Nausea and vomiting Patient Disposition: Admitted As Inpatient Prescriptions: No Action cholecalciferol (vitamin D3) 50 mcg (2,000 unit) capsule 50 mcg PO DAILY Qty: 90 3RF lorazepam [Ativan] 1 mg tablet 1 mg PO BID PRN (Reason: anxiety) Qty: 20 0RF metoclopramide HCl [Reglan] 5 mg tablet 5 mg PO .T.i.d. PRN (Reason: nausea and vomiting) Qty: 10 0RF famotidine [Pepcid] 40 mg tablet 40 mg PO DAILY Qty: 30 0RF pantoprazole 40 mg tablet,delayed release (DR/EC) 40 mg PO DAILY@0630 Rx Instructions: take one tablet half an hour before breakfast ondansetron 4 mg tablet,disintegrating 4 mg PO Q6H PRN (Reason: nausea and vomiting) Qty: 20 0RF ondansetron 4 mg tablet,disintegrating 4 mg PO Q8H 4 Days Qty: 12 0RF cefuroxime axetil 250 mg tablet 250 mg PO BID 5 Days Qty: 10 0RF metoclopramide HCl [Reglan] 5 mg tablet 5 mg PO .B.i.d. PRN (Reason: nausea and vomiting) Qty: 10 0RF ondansetron HCl 4 mg tablet 4 mg PO Q6H PRN (Reason: nausea and vomiting) Qty: 10 0RF promethazine [Promethegan] 25 mg suppository 25 mg NV Q6H PRN (Reason: nausea and vomiting) Qty: 20 0RF promethazine 25 mg suppository 25 mg NV Q6H PRN (Reason: nausea and vomiting) Qty: 12 0RF cyclobenzaprine 10 mg tablet 10 mg PO TID PRN (Reason: muscle spasm) Qty: 14 0RF naproxen 500 mg tablet 500 mg PO BID PRN (Reason: pain) Qty: 20 0RF lidocaine 5 % adhesive patch,medicated 1 patch topical DAILY Qty: 15 0RF Rx Instructions: leave on most painful area for up to 12 hrs ondansetron 4 mg tablet,disintegrating 4 mg PO Q8H PRN (Reason: nausea and vomiting) Qty: 20 0RF lorazepam [Ativan] 1 mg tablet 1 mg PO BID PRN (Reason: anxiety) Qty: 14 0RF ondansetron 4 mg tablet,disintegrating 4 mg PO Q6-8H PRN (Reason: nausea and vomiting) Qty: 10 0RF ondansetron HCl 4 mg tablet 4 mg PO Q8H PRN (Reason: nausea and vomiting) famotidine 40 mg tablet 40 mg PO BEDTIME Qty: 30 3RF Print Language: Hebrew
[2024-10-13 07:49] LABS: MANUAL DIFF FLAG NO
[2024-10-13 07:50] LABS: Basophils Percent Auto 0.1 % (0-2); Hematocrit 39.9 % (37.0-47.0); Imm Gran Abs Auto 0.06 X10*3/uL (0.00-0.03); Imm Gran Pct Auto 0.4 % (0.0-0.4); Lymphocytes Absolute Auto 1.4 X10*3/uL (1.2-4.9); Lymphocytes Percent Auto 9.5 % (20-40); Mean Corpuscular HGB Conc 35.1 g/dl (31.0-35.0); Mean Corpuscular Volume 85.6 fL (80.0-98.0); Mean Platelet Volume 9.9 fL (9.4-12.3); Monocytes Absolute Auto 0.6 X10*3/uL (0.1-1.2); Monocytes Percent Auto 4.4 % (2-11); Neutrophils Absolute Auto 12.5 x10*3/uL (2.0-8.3); Neutrophils Percent Auto 85.6 % (45-73); Platelet Count 253 X10*3/uL (160-400); Red Blood Count 4.66 X10*6/uL (4.20-5.50); Red Cell Distribution Width 12.4 % (11.0-16.0); White Blood Count 14.6 X10*3/uL (4.8-10.8)
[2024-10-13 07:55] LABS: INTERNATIONAL NORM RATIO 1.3 (0.9-1.1)
[2024-10-13 08:30] LABS: Alanine Aminotransferase 24 U/L (0-31); Albumin Level 4.7 g/dL (3.5-5.0); Alkaline Phosphatase 58 U/L (39-117); Anion Gap 16 (12-20); Aspartate Amino Transferase 26 U/L (5-31); Bilirubin Total 0.3 mg/dL (0.0-1.0); Blood Urea Nitrogen 23 mg/dL (9-16); Calcium 10.3 mg/dL (8.4-10.2); Carbon Dioxide 26 mmol/L (22-29); Chloride 103 mmol/L (96-108); Creatinine Clr Calc Pharmacy 87.6; Estimated Glomerular Filt Rate > 60; Glucose Random 169 mg/dL (60-115); HCG Quantitative < 2 mIU/mL; Lipase 5 U/L (8-78); Magnesium 2.1 mg/dL (1.6-2.6); Potassium 3.3 mmol/L (3.3-5.1); Sodium 142 mmol/L (135-145); Total Protein 8.4 g/dL (6.5-8.0)
[2024-10-13] MEDS: diphenhydrAMINE HCL 25 MG CAPSULE 50 MG PO (08:32)
[2024-10-13] MEDS: Metoclopramide HCl 10 MG TABLET PO (08:32)
[2024-10-13] MEDS: ondansetron HCL 4 MG/2 ML VIAL IVPUSH ×2 (10:59→19:42)
[2024-10-13] MEDS: Morphine Sulfate 4 MG/ML CARTRIDGE IVPUSH (11:06)
--- NOTE | 2024-10-13 12:08 | PHA.MEDREC ---
Pharmacy Consult ? Medication Reconciliation Pharmacy has completed the medication reconciliation. Spoke with patient. Patient confirmed she takes with iron over the counter as well as vitamin d3 2000U
--- NOTE | 2024-10-13 12:38 | PM.IMHP ---
History of Present Illness Date of Service: 10/13/24 Chief Complaint: vomiting 28-year-old female history of anxiety, depression, cyclic vomiting syndrome presents with nausea, vomiting and abdominal pain that started a few hours ago. She reports feeling unwell for sometime, mostly over the last week. She has had issues with nausea and vomiting for awhile. She also reported some epigastric discomfort with vomiting. Denies fevers, chills, chest pain, shortness of breath, headache, vision changes, dizziness and weakness. Denies sick contacts. Denies eating abnormal or new foods. Abd ct in the ED showed Fluid-filled stomach and duodenum. The third portion of the duodenum tapers and appears to be compressed between the acute angle of the SMA and aorta. The remaining small bowel is decompressed. Findings are concerning for SMA syndrome. NG tube was placed, she was started on IV fluids and treated with antiemetics. She will be admitted for further management and treatment of nausea and vomiting possibly secondary to SMA syndrome. Review of Systems Review of Systems: Denies any recent fever chills or decrease in appetite respiratory denies any shortness of breath or cough cardiovascular denied chest pain gastrointestinal denies any dysphagia abdominal pain nausea vomiting or diarrhea genitourinary denies any dysuria frequency or hematuria musculoskeletal denies any joint pain or swelling neuropsych denies any weakness or seizures all other systems reviewed are negative [facility] Medical History (Updated 10/13/24 @ 15:50 by Jess Ochoa NP) Marijuana abuse Mild recurrent major depression Anxiety disorder, unspecified Nausea and vomiting Right upper quadrant abdominal pain Family History Maternal Grandmother Breast cancer Son Autism Daughter No problems noted. Mother No problems noted. Father Learning difficulty Mental health disorder Maternal Grandmother Breast cancer, Onset Age: 50 Maternal Uncle Testicular cancer, Onset Age: 60 Paternal Grandfather Diabetes mellitus Myocardial infarct Other Substance use disorder Surgical History History of D&C Social History Household Members: Children Housing: House Do you presently have visiting nurse or other home services: No Alcohol intake: current Alcohol intake frequency: does not drink Patient Tobacco Use Status: Never used Tobacco e-Cigarette/Vaping Use: Never Used Second Hand Smoke Exposure: No Substance Use Type: Marijuana service: No Current occupational status: unemployed Cognitive needs: No Hearing needs: No Vision needs: No Meds Allergies Allergy/AdvReac Type Severity Reaction Status Date / Time No Known Allergies Allergy Verified 10/13/24 06:42 [No Known Allergies*] Active Medications: Current Medications Acetaminophen (Acetaminophen 325 Mg Tablet) 650 mg PO Q6H PRN PRN Reason: Pain, Mild (Pain Scale 1-3), fever or headache Calcium Carbonate (Calcium Carbonate 750 Mg Tab.Chew) 750 mg PO Q4H PRN PRN Reason: Heartburn Hydromorphone HCl (Hydromorphone Hcl 1 Mg/Ml Syringe) 0.5 mg IVPUSH Q4H PRN; Protocol PRN Reason: Pain, Severe (Pain Scale 7-10) Lactated Ringer's (Lr) 1,000 mls @ 100 mls/hr IVCONT .Q10H ACACIA Magnesium Hydroxide (Milk Of Magnesia 30 Ml Oral.Susp) 30 ml PO DAILY PRN PRN Reason: Constipation Melatonin (Melatonin 3 Mg Tablet) 6 mg PO BEDTIME PRN PRN Reason: Insomnia Sodium Chloride (0.9 % Sodium Chloride Flush 3 Ml Syringe) 3 ml IVFLUSH QSHIFT ACACIA Home Medications ?Medication ?Instructions ?Recorded ?Confirmed ?Last Taken ?Type metoclopramide HCl 5 mg tablet 5 mg PO BID PRN nausea and vomiting 10/13/24 10/13/24 10/12/24 History (Reglan) vitamins-iron fumarate 65 1 tab PO DAILY 10/13/24 10/13/24 10/12/24 History mg iron-folic acid 1 mg tablet Physical Exam Vital Signs and Narrative: Vital Signs: Last Vital Signs Temp 97.7 F 10/13/24 12:26 Pulse 56 10/13/24 12:26 Resp 12 10/13/24 12:26 BP 118/69 10/13/24 12:26 Pulse Ox 97 10/13/24 12:26 O2 Del Method Room Air 10/13/24 12:26 BMI result Body Mass Index 27.4 Appearing in no acute distress head is normocephalic atraumatic eyes pupils are PERRLA sclera is anicteric mouth throat mucous membranes are intact and moist neck is supple no lymphadenopathy, no JVD noted lung sounds are clear to auscultation heart regular rate rhythm, clear S1, S2 positive bowel sounds, abdomen is soft, nontender neuro patient is alert x3, no focal deficits Results Labs 10/13/24 07:43 10/13/24 07:43 Labs: Laboratory Results - last 24 hr 10/13/24 07:43 MCV 85.6 MCH 30.0 MCHC 35.1 H RDW 12.4 Plt Count 253 MPV 9.9 Immature Gran % (Auto) 0.4 Neut % (Auto) 85.6 H Lymph % (Auto) 9.5 L [place] % (Auto) 4.4 Eos % (Auto) 0.0 Baso % (Auto) 0.1 Lymph # (Auto) 1.4 [place] # (Auto) 0.6 Eos # (Auto) 0.0 Baso # (Auto) 0.0 Abs Immat Gran (auto) 0.06 H Absolute Neuts (auto) 12.5 H Absolute Nucleated RBC 0.000 Nucleated RBC % (auto) 0.0 PT 15.0 H INR 1.3 H Anion Gap 16 Estim Creat Clear Calc 87.6 Estimated GFR > 60 Random Glucose 169 H Calcium 10.3 H Magnesium 2.1 Total Bilirubin 0.3 AST 26 ALT 24 Alkaline Phosphatase 58 Total Protein 8.4 H Albumin 4.7 Lipase 5 L Beta HCG, Quant < 2 Imaging Radiologist's Impressions: Impressions Abdomen/Pelvis CT 10/13/24 08:41 IMPRESSION: 1. Fluid-filled stomach and duodenum. The third portion of the duodenum tapers and appears to be compressed between the acute angle of the SMA and aorta. The remaining small bowel is decompressed. Findings are concerning for SMA syndrome. 2. 2.5 cm right ovarian cyst is likely physiologic. No imaging follow-up recommended. Fleischner guidelines were followed. Electronically signed by: Ольга Huynh MD 10/13/2024 09:11 AM EST RP Chest X-Ray 10/13/24 11:11 IMPRESSION: Enteric tube in the stomach. Electronically signed by: Megan Rosado MD 10/13/2024 12:02 PM EST RP Assessment and Plan (1) Nausea and vomiting: Qualifiers: Vomiting type: bilious vomiting Qualified Code(s): R11.14 - Bilious vomiting Status: Acute (2) SMAS (superior mesenteric artery syndrome): Status: Acute Plan 28-year-old woman presenting with cyclical nausea and vomiting Nausea and vomiting Abdominopelvic CT showing the 3rd portion of the duodenum tapering and appearing to be compressed between the acute angle of the SMA and aorta, findings concerning for SMA syndrome Initially treated with IV antiemetics Nasogastric tube for decompression Seen and evaluated by General surgery who recommends continuing NG tube decompression and IV hydration Seen evaluated by Gastroenterology with recommendation for small-bowel follow-through after acute phase to rule out any other pathology and distal duodenum Keep NPO for now IV fluids IV Pepcid Marijuana use Discussed importance of marijuana cessation DVT prophylaxis with pneumatic compression boots Full code Quality Stroke Does the patient have a stroke diagnosis?: No VTE Prior VTE?: No VTE Risk Level:: Medical - moderate - high VTE Device Contraindication: N/A - Device Ordered VTE Drug Contraindication: Treatment Not Indicated
--- NOTE | 2024-10-13 13:51 | P.CONGS_ITS ---
History of Present Illness Consult details Consult date: 10/13/24 Requesting physician: Jess Ochoa Narrative: 28-year-old female patient presenting with complaints of abdominal pain, nausea and vomiting of several hours duration. She reports the symptoms started after the of her last child in 2018; since then she has had cyclic vomiting syndrome. She reports feeling lousy for the past week but developed the abdominal pain over the last 24 hours. He denied fever, chills, dizziness or diarrhea. Initially she thought she might have had food poisoning from Thanksgiving but denies any other sick contacts. Review of Systems 2 Review of Systems: Yes all other systems are reviewed and are negative PMFSH Past Medical History Medical History Marijuana abuse Mild recurrent major depression Anxiety disorder, unspecified Nausea and vomiting Lack of access to transportation Right upper quadrant abdominal pain Family History Family History Maternal Grandmother Breast cancer Son Autism Daughter No problems noted. Mother No problems noted. Father Learning difficulty Mental health disorder Maternal Grandmother Breast cancer, Onset Age: 50 Maternal Uncle Testicular cancer, Onset Age: 60 Paternal Grandfather Diabetes mellitus Myocardial infarct Other Substance use disorder Surgical History Surgical History History of D&C Social History Social History Household Members: Children Housing: House Do you presently have visiting nurse or other home services: No Alcohol intake: current Alcohol intake frequency: does not drink Patient Tobacco Use Status: Never used Tobacco e-Cigarette/Vaping Use: Never Used Second Hand Smoke Exposure: No Substance Use Type: Marijuana Advance Directives: No Advance Directives Information Provided: No service: No Current occupational status: unemployed Cognitive needs: No Hearing needs: No Vision needs: No Meds Allergies Allergy/AdvReac Type Severity Reaction Status Date / Time No Known Allergies Allergy Verified 10/13/24 06:42 [No Known Allergies*] Active Medications: Current Medications Acetaminophen (Acetaminophen 325 Mg Tablet) 650 mg PO Q6H PRN PRN Reason: Pain, Mild (Pain Scale 1-3), fever or headache Calcium Carbonate (Calcium Carbonate 750 Mg Tab.Chew) 750 mg PO Q4H PRN PRN Reason: Heartburn Hydromorphone HCl (Hydromorphone Hcl 1 Mg/Ml Syringe) 0.5 mg IVPUSH Q4H PRN; Protocol PRN Reason: Pain, Severe (Pain Scale 7-10) Lactated Ringer's (Lr) 1,000 mls @ 100 mls/hr IVCONT .Q10H [facility] Magnesium Hydroxide (Milk Of Magnesia 30 Ml Oral.Susp) 30 ml PO DAILY PRN PRN Reason: Constipation Melatonin (Melatonin 3 Mg Tablet) 6 mg PO BEDTIME PRN PRN Reason: Insomnia Sodium Chloride (0.9 % Sodium Chloride Flush 3 Ml Syringe) 3 ml IVFLUSH QSHIFT [facility] Home Medications ?Medication ?Instructions ?Recorded ?Confirmed ?Last Taken ?Type metoclopramide HCl 5 mg tablet 5 mg PO BID PRN nausea and vomiting 10/13/24 10/13/24 10/12/24 History (Reglan) vitamins-iron fumarate 65 1 tab PO DAILY 10/13/24 10/13/24 10/12/24 History mg iron-folic acid 1 mg tablet Physical Exam 2 Vital Signs: Vital Signs: Last Vital Signs Temp 97.7 F 10/13/24 12:26 Pulse 56 10/13/24 12:26 Resp 12 10/13/24 12:26 BP 118/69 10/13/24 12:26 Pulse Ox 97 10/13/24 12:26 O2 Del Method Room Air 10/13/24 12:26 BMI result Body Mass Index 27.4 Const: General: cooperative and no acute distress Nutritional Appearance: w ell nourished and not malnourished Orientation/consciousness: patient oriented x3 Limitations: no limitations HEENT: Other: Nasogastric tube in place Head: Yes normocephalic and Yes atraumatic Ears: hearing grossly normal bilaterally Resp: Effort & Inspection: normal respiratory effort, no audible wheezes, no cough and no respiratory distress Cardio: Jugular venous distension: no JVD GI: Inspection: Yes normal to inspection Palpation (GI): Soft to palpation, Tenderness to palpation present (GI) in the epigastrum, no guarding, not rigid, no hernias and no masses Percussion: Yes normal to percussion Rectal Exam - Female: deferred Skin: Other: Warm, dry, no rash Neuro: General: patient oriented x3 Extrem: General: Yes no clubbing, cyanosis or edema Results Labs 10/13/24 07:43 10/13/24 07:43 Labs: Abnormal lab results 10/13/24 Range/Units 07:43 WBC 14.6 H (4.8-10.8) X10*3/uL MCHC 35.1 H (31.0-35.0) g/dl Neut % (Auto) 85.6 H (45-73) % Lymph % (Auto) 9.5 L (20-40) % Abs Immat Gran (auto) 0.06 H (0.00-0.03) X10*3/uL Absolute Neuts (auto) 12.5 H (2.0-8.3) x10*3/uL PT 15.0 H (10.9-12.4) SEC INR 1.3 H (0.9-1.1) BUN 23 H (9-16) mg/dL Random Glucose 169 H (60-115) mg/dL Calcium 10.3 H (8.4-10.2) mg/dL Total Protein 8.4 H (6.5-8.0) g/dL Lipase 5 L (8-78) U/L Short CBC 10/13/24 Range/Units 07:43 WBC 14.6 H (4.8-10.8) X10*3/uL Hgb 14.0 (12.0-16.0) g/dl Hct 39.9 (37.0-47.0) % Plt Count 253 (160-400) X10*3/uL BMP 10/13/24 07:43 Sodium 142 Potassium 3.3 Chloride 103 Carbon Dioxide 26 BUN 23 H Creatinine 0.88 Calcium 10.3 H Liver Function 10/13/24 Range/Units 07:43 Total Bilirubin 0.3 (0.0-1.0) mg/dL AST 26 (5-31) U/L ALT 24 (0-31) U/L Alkaline Phosphatase 58 (39-117) U/L Albumin 4.7 (3.5-5.0) g/dL All other labs normal. Assessment and Plan (1) Nausea and vomiting: Qualifiers: Vomiting type: bilious vomiting Qualified Code(s): R11.14 - Bilious vomiting Status: Acute (2) Abdominal pain: Qualifiers: Abdominal location: upper abdomen, unspecified Qualified Code(s): R 10.10 - Upper abdominal pain, unspecified Status: Acute (3) SMAS (superior mesenteric artery syndrome): Status: Acute Plan 28-year-old female patient with a prolonged history of nausea and vomiting found on CT to have a dilated stomach and proximal duodenum with an apparent cut off near the SMA. A nasogastric tube has been placed although currently the tube was not on suction. Agree with NG tube decompression and IV hydration. Small- bowel follow-through or CT with oral contrast would be helpful to confirm obstruction at this location. We will continue to the follow patient during her hospitalization. Procedures Date of Service Date of Service: 10/13/24
[2024-10-13] MEDS: Lactated Ringers 1,000 ML 100 ML IVCONT (14:00)
--- NOTE | 2024-10-13 14:40 | PM.GICN ---
History of Present Illness Data of Consult Service Date: 10/13/24 Requesting physician: Arash Brooks Primary Care Provider: None Physician HPI Reason for consult: SMA syndrome 28-year-old female history of anxiety, depression, cyclic vomiting syndrome who I am seing for assessment of SMA syndrome. Patient presents w/ several days of malaise, as well as worsening steady 10/10 epigastric pain with nausea and non bloody emesis with poor appetite. Nothing was helping her pain, and worse with food. Denies fevers, chills, chest pain, shortness of breath, headache, vision changes, dizziness and weakness. Denies sick contacts. Denies eating abnormal or new foods. She admits to having attacks like this since she delivered her child in 2018. She has last 20# over last few months, due to feeling sick. She does admit she feels food blocked in her stomach when eating. Imaging: dilated proximal GI tract, appearance of SMA syndrome Review of Systems Review of Systems: Constitutional : + Weight loss, No Fever, No Chills ENT/Mouth : No sore throat, No Rhinorrhea Eyes: No Swelling, No Redness Cardiovascular : No Chest Pain, No SOB, No Edema Respiratory : No Cough, No Sputum, No Wheezing Gastrointestinal : see HPI Genitourinary : NO Dysuria, No Urinary Frequency, No Hematuria, No Urgency Musculoskeletal : no joint pain, No Myalgias, No Joint Swelling Skin : No Skin Lesions, No rash Neuro : No Weakness, No Numbness, No Dizziness, No Headache Psych : No Anxiety/Panic, No Depression Heme/Lymph: No Bruising, No Lymphadenopathy Endocrine : No Polyuria, No Polydipsia All other systems reviewed and are negative. [facility] Past Medical History Medical History Marijuana abuse Mild recurrent major depression Anxiety disorder, unspecified Nausea and vomiting Lack of access to transportation Right upper quadrant abdominal pain Family History Family History Maternal Grandmother Breast cancer Son Autism Daughter No problems noted. Mother No problems noted. Father Learning difficulty Mental health disorder Maternal Grandmother Breast cancer, Onset Age: 50 Maternal Uncle Testicular cancer, Onset Age: 60 Paternal Grandfather Diabetes mellitus Myocardial infarct Other Substance use disorder Surgical History Surgical History History of D&C Social History Social History Household Members: Children Housing: House Do you presently have visiting nurse or other home services: No Alcohol intake: current Alcohol intake frequency: does not drink Patient Tobacco Use Status: Never used Tobacco e-Cigarette/Vaping Use: Never Used Second Hand Smoke Exposure: No Substance Use Type: Marijuana Advance Directives: No Advance Directives Information Provided: No service: No Current occupational status: unemployed Cognitive needs: No Hearing needs: No Vision needs: No Meds Allergies Allergy/AdvReac Type Severity Reaction Status Date / Time No Known Allergies Allergy Verified 10/13/24 06:42 [No Known Allergies*] Active Medications: Current Medications Acetaminophen (Acetaminophen 325 Mg Tablet) 650 mg PO Q6H PRN PRN Reason: Pain, Mild (Pain Scale 1-3), fever or headache Calcium Carbonate (Calcium Carbonate 750 Mg Tab.Chew) 750 mg PO Q4H PRN PRN Reason: Heartburn Hydromorphone HCl (Hydromorphone Hcl 1 Mg/Ml Syringe) 0.5 mg IVPUSH Q4H PRN; Protocol PRN Reason: Pain, Severe (Pain Scale 7-10) Lactated Ringer's (Lr) 1,000 mls @ 100 mls/hr IVCONT .Q10H [facility] Last Admin: 10/13/24 14:00 Dose: 100 mls/hr Magnesium Hydroxide (Milk Of Magnesia 30 Ml Oral.Susp) 30 ml PO DAILY PRN PRN Reason: Constipation Melatonin (Melatonin 3 Mg Tablet) 6 mg PO BEDTIME PRN PRN Reason: Insomnia Sodium Chloride (0.9 % Sodium Chloride Flush 3 Ml Syringe) 3 ml IVFLUSH QSHIFT [facility] Home Medications ?Medication ?Instructions ?Recorded ?Confirmed ?Last Taken ?Type metoclopramide HCl 5 mg tablet 5 mg PO BID PRN nausea and vomiting 10/13/24 10/13/24 10/12/24 History (Reglan) vitamins-iron fumarate 65 1 tab PO DAILY 10/13/24 10/13/24 10/12/24 History mg iron-folic acid 1 mg tablet Physical Exam Vital Signs: Vital Signs: Last Vital Signs Temp 97.8 F 10/13/24 14:10 Pulse 69 10/13/24 14:10 Resp 14 10/13/24 14:10 BP 124/87 10/13/24 14:10 Pulse Ox 100 10/13/24 14:10 O2 Del Method Room Air 10/13/24 14:10 BMI result Body Mass Index 27.4 EXAM: GENERAL: The patient is miserable VITAL SIGNS:see workflow HEENT: Nonicteric sclerae, PERRLA, EOMI. Oropharynx clear. Moist mucous membranes. Conjunctivae appear well perfused. No thyroid mass. CHEST: Chest wall is nontender. HEART: Regular rate and rhythm without murmurs. LUNGS: Clear to auscultation bilaterally. ABDOMEN: Soft, positive bowel sounds, tender epigastrium, no organomegaly.no flank tenderness SKIN: No rash, no excessive bruising, petechiae, or purpura. NEUROLOGIC: Cranial nerves II-XII intact without motor/sensory deficit. Psych: normal affect Results Labs 10/13/24 07:43 10/13/24 07:43 Labs: Short CBC 10/13/24 Range/Units 07:43 WBC 14.6 H (4.8-10.8) X10*3/uL Hgb 14.0 (12.0-16.0) g/dl Hct 39.9 (37.0-47.0) % Plt Count 253 (160-400) X10*3/uL BMP 10/13/24 07:43 Sodium 142 Potassium 3.3 Chloride 103 Carbon Dioxide 26 BUN 23 H Creatinine 0.88 Calcium 10.3 H Liver Function 10/13/24 Range/Units 07:43 Total Bilirubin 0.3 (0.0-1.0) mg/dL AST 26 (5-31) U/L ALT 24 (0-31) U/L Alkaline Phosphatase 58 (39-117) U/L Albumin 4.7 (3.5-5.0) g/dL Imaging CT scan - abdomen: Attestation: I personally reviewed and interpreted this imaging study as follows: (dilated proximal duodenum and stomach with fluid and taper 3rd part of duodenum appears to be pinched between SMA and aorta) Assessment and Plan (1) SMAS (superior mesenteric artery syndrome): Status: Acute Plan 1/ symptoms and imaging seem consistent with SMA syndrome, with an acute attack right now, not typical of cannabinoid hyperemesis syndrome - no evidence of eating d/o, but can consider if any subsequent concerns on admission PLAN: 1/ Agree w/ decompression with NGT< antiemetics, PPI 2/ surgical consult may benefit from gastro jejunostomy, in the longer run 3/ consider small bowel follow thru after acute phase to r/o any other pathology in the distal duodenum Procedures Date of Service Date of Service: 10/13/24
[2024-10-13] MEDS: Famotidine/PF 20 MG/2 ML VIAL IVPUSH (19:42)
[2024-10-14] MEDS: Lactated Ringers 1,000 ML 100 ML IVCONT ×2 (00:02→11:11)
[2024-10-14 02:20] VITALS: BP 123/56; PULSE 59; RESP 17; TEMP 36.3; O2SAT 98
[2024-10-14] MEDS: Ketorolac Tromethamine 15 MG/ML VIAL IVPUSH (05:45)
[2024-10-14] MEDS: ondansetron HCL 4 MG/2 ML VIAL IVPUSH ×2 (05:50)
[2024-10-14 06:43] LABS: MANUAL DIFF FLAG NO
[2024-10-14 06:52] LABS: Basophils Percent Auto 0.2 % (0-2); Eosinophils Percent Auto 0.3 % (0-4); Hematocrit 40.5 % (37.0-47.0); Hemoglobin 13.6 g/dl (12.0-16.0); Imm Gran Abs Auto 0.09 X10*3/uL (0.00-0.03); Imm Gran Pct Auto 0.6 % (0.0-0.4); Lymphocytes Absolute Auto 2.3 X10*3/uL (1.2-4.9); Mean Corpuscular HGB Conc 33.6 g/dl (31.0-35.0); Mean Corpuscular Hemoglobin 29.6 pg (27.0-33.0); Mean Platelet Volume 9.9 fL (9.4-12.3); Monocytes Absolute Auto 1.2 X10*3/uL (0.1-1.2); Monocytes Percent Auto 7.7 % (2-11); Neutrophils Absolute Auto 11.6 x10*3/uL (2.0-8.3); Neutrophils Percent Auto 76.2 % (45-73); Platelet Count 236 X10*3/uL (160-400); Red Cell Distribution Width 12.7 % (11.0-16.0); White Blood Count 15.2 X10*3/uL (4.8-10.8)
[2024-10-14 07:30] LABS: Anion Gap 16 (12-20); Blood Urea Nitrogen 24 mg/dL (9-16); Calcium 9.8 mg/dL (8.4-10.2); Carbon Dioxide 26 mmol/L (22-29); Chloride 103 mmol/L (96-108); Creatinine Clr Calc Pharmacy 77.7; Estimated Glomerular Filt Rate > 60; Glucose Random 105 mg/dL (60-115); Potassium 3.4 mmol/L (3.3-5.1); Sodium 142 mmol/L (135-145)
[2024-10-14 08:00] VITALS: BP 139/93; PULSE 74; RESP 18; TEMP 36.5; O2SAT 99
[2024-10-14] MEDS: HYDROmorphone HCl 1 MG/ML SYRINGE 0.5 MG IVPUSH (08:19)
[2024-10-14] MEDS: Famotidine/PF 20 MG/2 ML VIAL IVPUSH (08:20)
[2024-10-14] MEDS: Piperacillin Sodium/Tazobactam 3.375 GM in 0.9 % Sodium Chloride 50 ML IV ×3 (08:24→20:57)
--- NOTE | 2024-10-14 09:56 | P.PNIM_ITS ---
Subjective Subjective Date of Service: 10/14/24 Review of Systems Follow up abd pain, nausea and vomiting bleeding from NGT Physical Exam 2 Vital Signs: Vital Signs: Last Vital Signs Temp 97.7 F 10/14/24 08:00 Pulse 74 10/14/24 08:00 Resp 18 10/14/24 08:00 BP 139/93 H 10/14/24 08:00 Pulse Ox 99 10/14/24 08:00 O2 Del Method Room Air 10/14/24 08:00 BMI result Body Mass Index 27.3 Appearing in no acute distress lung sounds are clear to auscultation heart regular rate rhythm, clear S1, S2 positive bowel sounds, abdomen is soft, nontender neuro patient is alert x3, no focal deficits NGT Objective Data Active Medications Acetaminophen (Acetaminophen 325 Mg Tablet) 650 mg PO Q6H PRN PRN Reason: Pain, Mild (Pain Scale 1-3), fever or headache Calcium Carbonate (Calcium Carbonate 750 Mg Tab.Chew) 750 mg PO Q4H PRN PRN Reason: Heartburn Famotidine (Famotidine/Pf 20 Mg/2 Ml Vial) 20 mg IVPUSH BID [facility] Last Admin: 10/14/24 08:20 Dose: 20 mg Documented By: SWATI Hydromorphone HCl (Hydromorphone Hcl 1 Mg/Ml Syringe) 0.5 mg IVPUSH Q4H PRN; Protocol PRN Reason: Pain, Severe (Pain Scale 7-10) Last Admin: 10/14/24 08:19 Dose: 0.5 mg Documented By: SWATI Lactated Ringer's (Lr) 1,000 mls @ 100 mls/hr IVCONT .Q10H [facility] Last Infusion: 10/14/24 08:28 Dose: 0 mls/hr Documented By: SWATI Piperacillin Sod/Tazobactam (Sod 3.375 gm/ Sodium Chloride) 50 mls @ 100 mls/hr IV Q6H [facility] Last Admin: 10/14/24 08:24 Dose: 100 mls/hr Documented By: SWATI Magnesium Hydroxide (Milk Of Magnesia 30 Ml Oral.Susp) 30 ml PO DAILY PRN PRN Reason: Constipation Melatonin (Melatonin 3 Mg Tablet) 6 mg PO BEDTIME PRN PRN Reason: Insomnia Ondansetron HCl (Ondansetron Hcl 4 Mg/2 Ml Vial) 4 mg IVPUSH Q6H PRN PRN Reason: Nausea and Vomiting Last Admin: 10/14/24 05:50 Dose: 4 mg Documented By: FRACISCO Sodium Chloride (0.9 % Sodium Chloride Flush 3 Ml Syringe) [facility] Last Admin: 10/14/24 08:16 Dose: Not Given Documented By: SWATI Non-Admin Reason: IV Running Labs 10/14/24 06:39 10/14/24 06:39 Labs: Laboratory Results - last 24 hr 10/14/24 06:39 MCV 88.0 MCH 29.6 MCHC 33.6 RDW 12.7 Plt Count 236 MPV 9.9 Immature Gran % (Auto) 0.6 H Neut % (Auto) 76.2 H Lymph % (Auto) 15.0 L [place] % (Auto) 7.7 Eos % (Auto) 0.3 Baso % (Auto) 0.2 Lymph # (Auto) 2.3 [place] # (Auto) 1.2 Eos # (Auto) 0.0 Baso # (Auto) 0.0 Abs Immat Gran (auto) 0.09 H Absolute Neuts (auto) 11.6 H Absolute Nucleated RBC 0.000 Nucleated RBC % (auto) 0.0 Anion Gap 16 Estim Creat Clear Calc 77.7 Estimated GFR > 60 Random Glucose 105 Calcium 9.8 Assessment and Plan (1) Nausea: Status: Acute (2) SMAS (superior mesenteric artery syndrome): Status: Acute Plan 28-year-old woman presenting with cyclical nausea and vomiting Nausea and vomiting Abdominal and pelvic CT showing the 3rd portion of the duodenum tapering and appearing to be compressed between the acute angle of the SMA and aorta, findings concerning for SMA syndrome evaluated by general surgery>continue current management, no surgical intervention at this time IV antiemetics Keep NPO, IV fluids noted red blood in NGT, ? Andie Ramos tear, remove NGT, start IV PPI, GI to follow Marijuana use Discussed importance of marijuana cessation DVT prophylaxis with pneumatic compression boots Full code Quality Stroke Does the patient have a stroke diagnosis?: No VTE Prior VTE?: No VTE Risk Level:: Medical - moderate - high VTE Device Contraindication: N/A - Device Ordered VTE Drug Contraindication: Treatment Not Indicated
--- NOTE | 2024-10-14 10:08 | MHC.CM.PN ---
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
--- NOTE | 2024-10-14 11:00 | P.PNGS_ITS ---
Subjective Subjective Date of Service: 10/14/24 Interval history: Patient up walking in room, complaining of crampy abdominal pain. NG tube appears to have bloody output. Physical Exam 2 Vital Signs: Vital Signs: Last Vital Signs Temp 97.7 F 10/14/24 08:00 Pulse 74 10/14/24 08:00 Resp 18 10/14/24 08:00 BP 139/93 H 10/14/24 08:00 Pulse Ox 99 10/14/24 08:00 O2 Del Method Room Air 10/14/24 08:00 BMI result Body Mass Index 27.3 Const: General: anxious Nutritional Appearance: well nourished O rientation/consciousness: patient oriented x3 Resp: Effort & Inspection: normal respiratory effort GI: Inspection: Yes normal to inspection Palpation (GI): Soft to palpation, Tenderness to palpation present (GI) in the epigastrum, no guarding and not rigid Percussion: Yes normal to percussion Rectal Exam - Female: deferred Neuro: General: patient oriented x3 Objective Data Active Medications Acetaminophen (Acetaminophen 325 Mg Tablet) 650 mg PO Q6H PRN PRN Reason: Pain, Mild (Pain Scale 1-3), fever or headache Calcium Carbonate (Calcium Carbonate 750 Mg Tab.Chew) 750 mg PO Q4H PRN PRN Reason: Heartburn Hydromorphone HCl (Hydromorphone Hcl 1 Mg/Ml Syringe) 0.5 mg IVPUSH Q4H PRN; Protocol PRN Reason: Pain, Severe (Pain Scale 7-10) Last Admin: 10/14/24 08:19 Dose: 0.5 mg Documented By: SWATI Lactated Ringer's (Lr) 1,000 mls @ 100 mls/hr IVCONT .Q10H [facility] Last Infusion: 10/14/24 10:23 Dose: 100 mls/hr Documented By: SWATI Piperacillin Sod/Tazobactam (Sod 3.375 gm/ Sodium Chloride) 50 mls @ 100 mls/hr IV Q6H [facility] Last Infusion: 10/14/24 10:24 Dose: Infused Documented By: SWATI Magnesium Hydroxide (Milk Of Magnesia 30 Ml Oral.Susp) 30 ml PO DAILY PRN PRN Reason: Constipation Melatonin (Melatonin 3 Mg Tablet) 6 mg PO BEDTIME PRN PRN Reason: Insomnia Ondansetron HCl (Ondansetron Hcl 4 Mg/2 Ml Vial) 4 mg IVPUSH Q6H PRN PRN Reason: Nausea and Vomiting Last Admin: 10/14/24 05:50 Dose: 4 mg Documented By: FRACISCO Pantoprazole Sodium (Pantoprazole Sodium 40 Mg/10 Ml Vial) 40 mg IVPUSH BID@0630,1630 [facility] Sodium Chloride (0.9 % Sodium Chloride Flush 3 Ml Syringe) 3 ml IVFLUSH QSHIFT [facility] Last Admin: 10/14/24 08:16 Dose: Not Given Documented By: SWATI Non-Admin Reason: IV Running Labs 10/14/24 06:39 10/14/24 06:39 Labs: Laboratory Results - last 24 hr 10/14/24 06:39 MCV 88.0 MCH 29.6 MCHC 33.6 RDW 12.7 Plt Count 236 MPV 9.9 Immature Gran % (Auto) 0.6 H Neut % (Auto) 76.2 H Lymph % (Auto) 15.0 L [place] % (Auto) 7.7 Eos % (Auto) 0.3 Baso % (Auto) 0.2 Lymph # (Auto) 2.3 [place] # (Auto) 1.2 Eos # (Auto) 0.0 Baso # (Auto) 0.0 Abs Immat Gran (auto) 0.09 H Absolute Neuts (auto) 11.6 H Absolute Nucleated RBC 0.000 Nucleated RBC % (auto) 0.0 Anion Gap 16 Estim Creat Clear Calc 77.7 Estimated GFR > 60 Random Glucose 105 Calcium 9.8 Procedures Date of Service Date of Service: 10/14/24 Progress Note: A&P Assessment and plan (1) SMAS (superior mesenteric artery syndrome): Status: Acute Plan Patient now with NG tube to suction with some bloody discharge noted. May be from irritation from NG tube as initial aspirate was nonbloody. Patient needs contrasted study either CT with oral contrast or small-bowel follow-through to confirm obstruction from SMA. Continue IV hydration. Possible gastrojejunostomy if obstruction confirmed. Time Spent With Patient Time: Total time managing care of this patient today ____ minutes. Quality Stroke Does the patient have a stroke diagnosis?: No VTE Prior VTE?: No VTE Risk Level:: Medical - moderate - high VTE Device Contraindication: N/A - Device Ordered VTE Drug Contraindication: Treatment Not Indicated
[2024-10-14] MEDS: Pantoprazole Sodium 40 MG/10 ML VIAL IVPUSH ×2 (11:10→15:55)
[2024-10-14 15:22] VITALS: BP 128/72; PULSE 56; RESP 18; TEMP 36.7; O2SAT 99
[2024-10-14 19:24] VITALS: BP 112/60; PULSE 65; RESP 18; TEMP 36.4; O2SAT 97
[2024-10-14] MEDS: 0.9 % Sodium Chloride Flush 3 ML SYRINGE IVFLUSH (20:58)
[2024-10-15] MEDS: Lactated Ringers 1,000 ML 100 ML IVCONT (00:12)
[2024-10-15] MEDS: Piperacillin Sodium/Tazobactam 3.375 GM in 0.9 % Sodium Chloride 50 ML IV ×2 (03:47→07:40)
[2024-10-15 04:00] VITALS: BP 110/65; PULSE 60; RESP 18; TEMP 36.9; O2SAT 97
[2024-10-15] MEDS: Pantoprazole Sodium 40 MG/10 ML VIAL IVPUSH (06:16)
[2024-10-15] MEDS: ondansetron HCL 4 MG/2 ML VIAL IVPUSH ×3 (07:39→20:13)
[2024-10-15 08:00] VITALS: BP 126/71; PULSE 56; RESP 16; TEMP 36.8; O2SAT 97
--- NOTE | 2024-10-15 08:52 | P.PNIM_ITS ---
Subjective Subjective Date of Service: 10/15/24 Review of Systems Follow up abd pain, nausea and vomiting bleeding from NGT resolved after NGT removed ambulating in hallway, still with some mild abd pain Physical Exam 2 Vital Signs: Vital Signs: Last Vital Signs Temp 98.2 F 10/15/24 08:00 Pulse 56 10/15/24 08:00 Resp 16 10/15/24 08:00 BP 126/71 10/15/24 08:00 Pulse Ox 97 10/15/24 08:00 O2 Del Method Room Air 10/15/24 08:00 BMI result Body Mass Index 27.3 Appearing in no acute distress lung sounds are clear to auscultation heart regular rate rhythm, clear S1, S2 positive bowel sounds, abdomen is soft, nontender neuro patient is alert x3, no focal deficits Objective Data Active Medications Acetaminophen (Acetaminophen 325 Mg Tablet) 650 mg PO Q6H PRN PRN Reason: Pain, Mild (Pain Scale 1-3), fever or headache Calcium Carbonate (Calcium Carbonate 750 Mg Tab.Chew) 750 mg PO Q4H PRN PRN Reason: Heartburn Hydromorphone HCl (Hydromorphone Hcl 1 Mg/Ml Syringe) 0.5 mg IVPUSH Q4H PRN; Protocol PRN Reason: Pain, Severe (Pain Scale 7-10) Last Admin: 10/14/24 08:19 Dose: 0.5 mg Documented By: SWATI Lactated Ringer's (Lr) 1,000 mls @ 100 mls/hr IVCONT .Q10H [facility] Last Admin: 10/15/24 07:39 Dose: Not Given Documented By: CHAYA Non-Admin Reason: IV Running Piperacillin Sod/Tazobactam (Sod 3.375 gm/ Sodium Chloride) 50 mls @ 100 mls/hr IV Q6H [facility] Last Infusion: 10/15/24 08:11 Dose: Infused Documented By: CHAYA Magnesium Hydroxide (Milk Of Magnesia 30 Ml Oral.Susp) 30 ml PO DAILY PRN PRN Reason: Constipation Melatonin (Melatonin 3 Mg Tablet) 6 mg PO BEDTIME PRN PRN Reason: Insomnia Ondansetron HCl (Ondansetron Hcl 4 Mg/2 Ml Vial) 4 mg IVPUSH Q6H PRN PRN Reason: Nausea and Vomiting Last Admin: 10/15/24 07:39 Dose: 4 mg Documented By: CHAYA Pantoprazole Sodium (Pantoprazole Sodium 40 Mg/10 Ml Vial) 40 mg IVPUSH BID@0630,1630 [facility] Last Admin: 10/15/24 06:16 Dose: 40 mg Documented By: ZAIRE Sodium Chloride (0.9 % Sodium Chloride Flush 3 Ml Syringe) 3 ml IVFLUSH QSHIFT [facility] Last Admin: 10/15/24 07:40 Dose: Not Given Documented By: CHAYA Non-Admin Reason: IV Running Labs 10/14/24 06:39 10/14/24 06:39 Assessment and Plan (1) Nausea: Status: Acute (2) SMAS (superior mesenteric artery syndrome): Status: Acute Plan 28-year-old woman presenting with cyclical nausea and vomiting Nausea and vomiting Abdominal and pelvic CT showing the 3rd portion of the duodenum tapering and appearing to be compressed between the acute angle of the SMA and aorta, findings concerning for SMA syndrome IV antiemetics noted red blood in NGT, ? Andie Ramos tear vs trauma, NGT removed 10/14/24, started IV PPI, GI to follow evaluated by general surgery>abd ct with oral contrast to confirm obstruction from SMA Marijuana use Discussed importance of marijuana cessation DVT prophylaxis with pneumatic compression boots Full code Quality Stroke Does the patient have a stroke diagnosis?: No VTE Prior VTE?: No VTE Risk Level:: Medical - moderate - high VTE Device Contraindication: N/A - Device Ordered VTE Drug Contraindication: Treatment Not Indicated
[2024-10-15] MEDS: Calcium Carbonate 750 MG TAB.CHEW PO (09:50)
[2024-10-15] MEDS: HYDROmorphone HCl 1 MG/ML SYRINGE 0.5 MG IVPUSH ×2 (10:43→20:17)
--- NOTE | 2024-10-15 11:07 | MHC.CM.PN ---
Per MD rounds patient not medically cleared for dc at this time, awaiting abd u/s. CM will continue to follow.
--- NOTE | 2024-10-15 11:08 | MHC.CM.PN ---
Per MD rounds patient not medically cleared for dc. Awaiting imaging. CM will continue to follow.
--- NOTE | 2024-10-15 12:41 | P.PNGS_ITS ---
Subjective Subjective Date of Service: 10/15/24 Interval history: Continues to report some abdominal pain but denies nausea vomiting. Physical Exam 2 Vital Signs: Vital Signs: Last Vital Signs Temp 98.2 F 10/15/24 08:00 Pulse 56 10/15/24 08:00 Resp 16 10/15/24 08:00 BP 126/71 10/15/24 08:00 Pulse Ox 97 10/15/24 08:00 O2 Del Method Room Air 10/15/24 08:00 BMI result Body Mass Index 27.3 Const: General: no acute distress GI: Inspection: Yes normal to inspection Palpation (GI): Soft to palpation, no guarding and not rigid Extrem: General: No edema Objective Data Active Medications Acetaminophen (Acetaminophen 325 Mg Tablet) 650 mg PO Q6H PRN PRN Reason: Pain, Mild (Pain Scale 1-3), fever or headache Calcium Carbonate (Calcium Carbonate 750 Mg Tab.Chew) 750 mg PO Q4H PRN PRN Reason: Heartburn Last Admin: 10/15/24 09:50 Dose: 750 mg Documented By: CHAYA Hydromorphone HCl (Hydromorphone Hcl 1 Mg/Ml Syringe) 0.5 mg IVPUSH Q4H PRN; Protocol PRN Reason: Pain, Severe (Pain Scale 7-10) Last Admin: 10/15/24 10:43 Dose: 0.5 mg Documented By: CHAYA Lactated Ringer's (Lr) 1,000 mls @ 100 mls/hr IVCONT .Q10H [facility] Last Infusion: 10/15/24 10:15 Dose: Infused Documented By: CHAYA Piperacillin Sod/Tazobactam (Sod 3.375 gm/ Sodium Chloride) 50 mls @ 100 mls/hr IV Q6H [facility] Last Infusion: 10/15/24 08:11 Dose: Infused Documented By: CHAYA Magnesium Hydroxide (Milk Of Magnesia 30 Ml Oral.Susp) 30 ml PO DAILY PRN PRN Reason: Constipation Melatonin (Melatonin 3 Mg Tablet) 6 mg PO BEDTIME PRN PRN Reason: Insomnia Ondansetron HCl (Ondansetron Hcl 4 Mg/2 Ml Vial) 4 mg IVPUSH Q6H PRN PRN Reason: Nausea and Vomiting Last Admin: 10/15/24 11:51 Dose: 4 mg Documented By: CHAYA Pantoprazole Sodium (Pantoprazole Sodium 40 Mg/10 Ml Vial) 40 mg IVPUSH BID@0630,1630 [facility] Last Admin: 10/15/24 06:16 Dose: 40 mg Documented By: ZAIRE Sodium Chloride (0.9 % Sodium Chloride Flush 3 Ml Syringe) 3 ml IVFLUSH QSHIFT [facility] Last Admin: 10/15/24 07:40 Dose: Not Given Documented By: CHAYA Non-Admin Reason: IV Running Labs 10/14/24 06:39 10/14/24 06:39 Procedures Date of Service Date of Service: 10/15/24 Progress Note: A&P Assessment and plan (1) SMAS (superior mesenteric artery syndrome): Status: Acute Plan CT abdomen and pelvis completed with oral contrast. The scan was reviewed (radiology report not available at the time of this dictation). Oral contrast is noted within the small bowel and colon with no residual in the stomach or duodenum. This is evidence of a patent small-bowel with no SMA syndrome. Patient may start a diet. Discharge if tolerated. Time Spent With Patient Time: Total time managing care of this patient today ____ minutes. Quality Stroke Does the patient have a stroke diagnosis?: No VTE Prior VTE?: No VTE Risk Level:: Medical - moderate - high VTE Device Contraindication: N/A - Device Ordered VTE Drug Contraindication: Treatment Not Indicated
[2024-10-15] MEDS: LORazepam 2 MG/ML VIAL 0.25 MG IVPUSH (13:05)
[2024-10-15 13:10] VITALS: BP 136/83; PULSE 74; O2SAT 100
[2024-10-15] MEDS: 0.9 % Sodium Chloride Flush 3 ML SYRINGE IVFLUSH ×2 (13:49→20:17)
--- NOTE | 2024-10-15 13:54 | PC.NURSE ---
Patient refuses sequentials ,risks explained,encouraged ambulation
[2024-10-15] MEDS: Metoclopramide HCl 10 MG/2 ML VIAL 5 MG IVPUSH (15:23)
[2024-10-15 15:48] VITALS: BP 126/75; PULSE 74; RESP 15; TEMP 36.3; O2SAT 100
[2024-10-15 20:00] VITALS: BP 126/64; PULSE 61; RESP 16; TEMP 36.8; O2SAT 96
[2024-10-16 03:46] VITALS: BP 107/67; PULSE 61; RESP 18; TEMP 37.3; O2SAT 99
[2024-10-16 08:00] VITALS: BP 120/65; PULSE 65; RESP 16; TEMP 36.6; O2SAT 96
[2024-10-16] MEDS: 0.9 % Sodium Chloride Flush 3 ML SYRINGE IVFLUSH (08:38)
--- NOTE | 2024-10-16 08:41 | MHC.CM.PN ---
Plan is home today with no service needs. Patient and RN aware.
--- NOTE | 2024-10-16 10:12 | PM.PNGS ---
Subjective Subjective Date of Service: 10/16/24 Interval history: Patient found walking the hallways. She reports some nausea possibly from the contrast of the CT. Overall she feels improved with less abdominal pain. Physical Exam Vital Signs: Vital Signs: Last Vital Signs Temp 97.9 F 10/16/24 08:00 Pulse 65 10/16/24 08:00 Resp 16 10/16/24 08:00 BP 120/65 10/16/24 08:00 Pulse Ox 96 10/16/24 08:00 O2 Del Method Room Air 10/16/24 08:00 BMI result Body Mass Index 27.3 Const: General: no acute distress GI: Inspection: Yes normal to inspection Palpation (GI): Soft to palpation, no guarding and not rigid Extrem: General: No edema Objective Data Active Medications Acetaminophen (Acetaminophen 325 Mg Tablet) 650 mg PO Q6H PRN PRN Reason: Pain, Mild (Pain Scale 1-3), fever or headache Calcium Carbonate (Calcium Carbonate 750 Mg Tab.Chew) 750 mg PO Q4H PRN PRN Reason: Heartburn Last Admin: 10/15/24 09:50 Dose: 750 mg Documented By: CHAYA Hydromorphone HCl (Hydromorphone Hcl 1 Mg/Ml Syringe) 0.5 mg IVPUSH Q4H PRN; Protocol PRN Reason: Pain, Severe (Pain Scale 7-10) Last Admin: 10/15/24 20:17 Dose: 0.5 mg Documented By: DEVONTE Magnesium Hydroxide (Milk Of Magnesia 30 Ml Oral.Susp) 30 ml PO DAILY PRN PRN Reason: Constipation Melatonin (Melatonin 3 Mg Tablet) 6 mg PO BEDTIME PRN PRN Reason: Insomnia Ondansetron HCl (Ondansetron Hcl 4 Mg/2 Ml Vial) 4 mg IVPUSH Q6H PRN PRN Reason: Nausea and Vomiting Last Admin: 10/15/24 20:13 Dose: 4 mg Documented By: DEVONTE Sodium Chloride (0.9 % Sodium Chloride Flush 3 Ml Syringe) 3 ml IVFLUSH [facility] Last Admin: 10/16/24 08:38 Dose: 3 ml Documented By: JOSELO Labs 10/14/24 06:39 10/14/24 06:39 Procedures Date of Service Date of Service: 10/16/24 Progress Note: A&P Assessment and plan (1) SMAS (superior mesenteric artery syndrome): Status: Acute Plan 28-year-old female patient with complaints of upper abdominal pain, nausea and vomiting. She was initially felt to have SMA syndrome based on a CT finding however subsequent CT with oral contrast confirms no obstruction at the SMA. No surgical intervention is recommended at this time. We will sign off, reconsult as needed. Time Spent With Patient Time: Total time managing care of this patient today ____ minutes. Quality Stroke Does the patient have a stroke diagnosis?: No VTE Prior VTE?: No VTE Risk Level:: Medical - moderate - high VTE Device Contraindication: N/A - Device Ordered VTE Drug Contraindication: Treatment Not Indicated
[2024-10-16] MEDS: ondansetron HCL 4 MG/2 ML VIAL IVPUSH (10:31)
--- NOTE | 2024-10-16 11:00 | PM.DS ---
DS: Providers Provider Date of Service: 10/16/24 Date of admission: 10/13/24 12:37 Primary care physician: None Physician Consults: 10/13/24 12:32 Consult to General Surgery Routine Consulting Provider: [facility] General Surgeons Reason for consultation: abd pain, SMA syndrome DS: Diagnosis Discharge Diagnosis (1) SMAS (superior mesenteric artery syndrome): Status: Acute DS: Summary Hospital Course Hospital Course: Patient physical as per admitting provider. 28-year-old female history of anxiety, depression, cyclic vomiting syndrome presents with nausea, vomiting and abdominal pain that started a few hours ago. She reports feeling unwell for sometime, mostly over the last week. She has had issues with nausea and vomiting for awhile. She also reported some epigastric discomfort with vomiting. Denies fevers, chills, chest pain, shortness of breath, headache, vision changes, dizziness and weakness. Denies sick contacts. Denies eating abnormal or new foods. Abd ct in the ED showed Fluid-filled stomach and duodenum. The third portion of the duodenum tapers and appears to be compressed between the acute angle of the SMA and aorta. The remaining small bowel is decompressed. Findings are concerning for SMA syndrome. NG tube was placed, she was started on IV fluids and treated with antiemetics. She will be admitted for further management and treatment of nausea and vomiting possibly secondary to SMA syndrome. 28-year-old woman presented with nausea and vomiting. She had abdominal and pelvic CT showing 3rd portion of the duodenum tapering and appearing to be compressed between acute ankle of the SMA and aorta with findings concerning for SMA syndrome. Due to vomiting patient had NG tube placed she had some maroon blood draining and then bright red blood with a concern for Andie-Ramos tear versus trauma. NG tube was removed on 10/14/2024 the patient was started on IV ppi. She was seen and evaluated by GI and she had felt much better. She had an abdominopelvic CT with oral contrast which did not look like SMA syndrome according to General surgery. No surgical intervention required at this time. She has been able to take p.o. and her diet has been advanced. Plan is to discharge patient home. She can return to the ER for any worsening symptoms of abdominal pain or vomiting. History of marijuana use. Discussed importance of smoking cessation. Time Attestation Discharge Coordination Time (in mins): 38 Quality: Safe Use of Opioids Does Pt have an Active Cancer Diagnosis on the Problem List?: No Quality: Stroke Does the patient have a stroke diagnosis?: No Physical Exam Vital Signs: Vital Signs: Last Vital Signs Temp 97.9 F 10/16/24 08:00 Pulse 65 10/16/24 08:00 Resp 16 10/16/24 08:00 BP 120/65 10/16/24 08:00 Pulse Ox 96 10/16/24 08:00 O2 Del Method Room Air 10/16/24 08:00 BMI result Body Mass Index 27.3 Appearing in no acute distress head is normocephalic atraumatic eyes pupils are PERRLA sclera is anicteric mouth throat mucous membranes are intact and moist neck is supple no lymphadenopathy, no JVD noted lung sounds are clear to auscultation heart regular rate rhythm, clear S1, S2 positive bowel sounds, abdomen is soft, nontender neuro patient is alert x3, no focal deficits Discharge Plan Discharge Anticipated Discharge Date/Time: 10/16/24 09:20 Patient Disposition: Home, Self-Care Discharge Diagnosis: Intractable nausea and vomiting Abdominal pain Discharge Medications: New ondansetron HCl 4 mg tablet 4 mg PO Q8H PRN (Reason: nausea and vomiting) Qty: 18 0RF Continued cholecalciferol (vitamin D3) 50 mcg (2,000 unit) capsule 50 mcg PO DAILY Qty: 90 3RF vit-iron fum-folic ac 65 mg iron- 1 mg Tablet 1 tab PO DAILY famotidine 40 mg tablet 40 mg PO BEDTIME Qty: 30 3RF Discontinued metoclopramide HCl [Reglan] 5 mg tablet 5 mg PO BID PRN (Reason: nausea and vomiting) Discharge Orders: Discharge Order (Routine); Ordered 10/16/24 Ordered By: Jess Ochoa Diet: Advance to usual diet Activity on Discharge: As tolerated Stand Alone Forms: Patient Portal Discharge page, Work/School Release Print Language: Bangladeshi Care Plan Goals: Stick to a bland diet for a few days, drink plenty of fluids Health Concerns: Intractable nausea and vomiting Plan of Treatment: Follow-up with primary care provider as needed Take all medications as prescribed Assessment: See discharge summary
--- NOTE | 2024-10-16 11:12 | MHC.CM.PN ---
PATIENT IS DC HOME - SELF CARE. FAMILY TO TRANSPORT.
== END 2024-10-16 11:21 | disposition home or self-care (01) | DRG 254 ==
LOC: HO.ED 10:19 → HO.EDOVER 12:41 → HO.S3 14:42
PROVIDERS: Physician Assistant; Admitting Provider Nurse Practitioner Acute Care; Emergency Provider Emergency Medicine Emergency Medical Services; PCP Nurse Practitioner Family; Visit Provider Nurse Practitioner Acute Care
DX: K31.5 Obstruction of duodenum (principal); Z79.899 Other long term (current) drug therapy
CPT/HCPCS: 36415; 71045; 74176; 80048; 80053; 83690; 83735; 84702; 85025; 85610; 99285; J1171; J1885; J2060; J2270; J2405; J2470; J2543; J2765; J7120

== ENCOUNTER → 2024-10-13 12:37 | Outpatient (BNV) | payer OTHER, SELFPAY | PROVIDERS: Admitting Provider Nurse Practitioner Acute Care; Emergency Provider Emergency Medicine Emergency Medical Services; Visit Provider Nurse Practitioner Acute Care | DX: R11.0 Nausea (principal); K55.1 Chronic vascular disorders of intestine | CPT/HCPCS: 99223; 99232 ==

== ENCOUNTER → 2024-10-13 12:37 | Outpatient (BNV) | payer OTHER, SELFPAY | PROVIDERS: Admitting Provider Nurse Practitioner Acute Care; Emergency Provider Emergency Medicine Emergency Medical Services; Visit Provider Surgery | DX: K55.1 Chronic vascular disorders of intestine (principal) | CPT/HCPCS: 99222; 99232 ==

== ENCOUNTER → 2024-10-13 12:37 | Outpatient (BNV) | payer OTHER, SELFPAY | PROVIDERS: Admitting Provider Nurse Practitioner Acute Care; Emergency Provider Emergency Medicine Emergency Medical Services; Visit Provider Internal Medicine Gastroenterology | DX: K55.1 Chronic vascular disorders of intestine (principal) | CPT/HCPCS: 99223 ==

== ENCOUNTER 2024-11-13 21:01 | Emergency (ER) | payer OTHER, SELFPAY ==
[2024-11-13 21:04] VITALS: BP 136/78; PULSE 72; O2SAT 98
[2024-11-13 21:07] VITALS: BP 115/68; PULSE 93; RESP 18; TEMP 36.5; O2SAT 100
[2024-11-13] MEDS: Ondansetron ODT 4 MG TAB.RAPDIS TRANSLINGU (21:12)
[2024-11-13 21:46] LABS: MANUAL DIFF FLAG NO
[2024-11-13 21:47] LABS: Basophils Absolute Auto 0.1 X10*3/uL (0.0-0.2); Basophils Percent Auto 0.4 % (0-2); Eosinophils Absolute Auto 0.1 X10*3/uL (0.0-0.4); Eosinophils Percent Auto 0.5 % (0-4); Hemoglobin 12.2 g/dl (12.0-16.0); Imm Gran Abs Auto 0.08 X10*3/uL (0.00-0.03); Imm Gran Pct Auto 0.5 % (0.0-0.4); Lymphocytes Absolute Auto 3.4 X10*3/uL (1.2-4.9); Lymphocytes Percent Auto 22.4 % (20-40); Mean Corpuscular HGB Conc 33.9 g/dl (31.0-35.0); Mean Corpuscular Hemoglobin 29.7 pg (27.0-33.0); Mean Corpuscular Volume 87.6 fL (80.0-98.0); Mean Platelet Volume 9.2 fL (9.4-12.3); Monocytes Absolute Auto 1.3 X10*3/uL (0.1-1.2); Monocytes Percent Auto 8.2 % (2-11); Neutrophils Absolute Auto 10.4 x10*3/uL (2.0-8.3); Platelet Count 242 X10*3/uL (160-400); Red Blood Count 4.11 X10*6/uL (4.20-5.50); Red Cell Distribution Width 12.4 % (11.0-16.0); White Blood Count 15.3 X10*3/uL (4.8-10.8)
[2024-11-13 22:02] LABS: Alanine Aminotransferase 13 U/L (0-31); Albumin Level 3.9 g/dL (3.5-5.0); Alkaline Phosphatase 51 U/L (39-117); Anion Gap 10 (12-20); Aspartate Amino Transferase 19 U/L (5-31); Bilirubin Total 0.2 mg/dL (0.0-1.0); Blood Urea Nitrogen 15 mg/dL (9-16); Calcium 9.1 mg/dL (8.4-10.2); Carbon Dioxide 22 mmol/L (22-29); Chloride 111 mmol/L (96-108); Creatinine Clr Calc Pharmacy 116.6; Estimated Glomerular Filt Rate > 60; Glucose Random 92 mg/dL (60-115); Lipase 25 U/L (8-78); Potassium 3.5 mmol/L (3.3-5.1); Sodium 139 mmol/L (135-145); Total Protein 6.9 g/dL (6.5-8.0)
[2024-11-13 23:53] VITALS: BP 126/51; PULSE 88; RESP 16; TEMP 36.9; O2SAT 97
--- NOTE | 2024-11-14 00:42 | ED_ITS ---
HPI - Nausea/Vomiting/Diarrhea General Chief complaint: Nausea/Vomiting/Diarrhea Stated complaint: n/v 7 weeks Time Seen by Provider: 11/14/24 00:40 Source: patient Mode of arrival: ambulatory Limitations: no limitations History of Present Illness ED Provider: HPI Narrative: Patient is 28 years old with history of cyclic vomiting 7 months comes here for vomiting for last 2 days no diarrhea no focal abdominal pain no vaginal bleed or no urinary complaint Related Data Home Medications ?Medication ?Instructions ?Recorded ?Confirmed vitamins-iron fumarate 65 1 tab PO DAILY 10/13/24 10/13/24 mg iron-folic acid 1 mg tablet Previous Rx's ?Medication ?Instructions ?Recorded famotidine 40 mg tablet 40 mg PO BEDTIME #30 tabs 03/17/23 cholecalciferol (vitamin D3) 50 50 mcg PO DAILY #90 caps 03/28/23 mcg (2,000 unit) capsule ondansetron HCl 4 mg tablet 4 mg PO Q8H PRN nausea and 10/16/24 vomiting #18 tabs metoclopramide HCl 10 mg tablet 10 mg PO Q6H PRN nausea and 11/16/24 (Reglan) vomiting #30 tabs Allergies Allergy/AdvReac Type Severity Reaction Status Date / Time No Known Allergies Allergy Verified 11/15/24 21:45 [No Known Allergies*] Review of Systems 2 Review of Systems: Yes all other systems are reviewed and are negative PMFSH Past Medical History Medical History Marijuana abuse Mild recurrent major depression Anxiety disorder, unspecified Nausea and vomiting Right upper quadrant abdominal pain Surgical History History of D&C Family History Family History Maternal Grandmother Breast cancer Son Autism Daughter No problems noted. Mother No problems noted. Father Learning difficulty Mental health disorder Maternal Grandmother Breast cancer, Onset Age: 50 Maternal Uncle Testicular cancer, Onset Age: 60 Paternal Grandfather Diabetes mellitus Myocardial infarct Other Substance use disorder Social History Social History Household Members: Spouse and Children Housing: Apartment Do you presently have visiting nurse or other home services: No Alcohol intake: current Alcohol intake frequency: does not drink Patient Tobacco Use Status: Never used Tobacco Smoked in Last 30 Days: Yes e-Cigarette/Vaping Use: Never Used Second Hand Smoke Exposure: No Substance Use Type: Marijuana Advance Directives: No Do you have a plan to hurt others: No Plan Patient : Yes service: No Current occupational status: unemployed Cognitive needs: No Hearing needs: No Vision needs: No Physical Exam 2 Vital Signs: Vital Signs: Last Vital Signs Temp 98.1 F 11/14/24 05:01 Pulse 93 11/14/24 05:01 Resp 16 11/14/24 05:01 BP 122/57 L 11/14/24 05:01 Pulse Ox 97 11/14/24 05:01 O2 Del Method Room Air 11/14/24 05:01 BMI result Body Mass Index 30.0 Appearance: Alert. Oriented X3. No acute distress. Eyes: No pallor or icterus ENT: Pharynx normal. Oral Mucosa moist Neck: Normal inspection. Neck supple. CVS: Normal heart rate and rhythm. Pulses normal. Respiratory: No respiratory distress. Equal air entry bilateral, no wheezing/rales/rhonchi Abdomen: Soft and mild diffuse tenderness. Bowel sounds are present, no mass palpable, no CVA tenderness Skin: Skin warm and dry. Normal skin color. Normal skin turgor. Extremities: No lower extremity edema. No calf tenderness Neuro: Oriented X 3. No motor deficit. Medications Administered Discontinued Medications Generic Name Dose Route Start Last Admin Trade Name Freq PRN Reason Stop Dose Admin Sodium Chloride 1,000 mls @ 999 mls/hr 11/14/24 02:47 11/14/24 04:44 Ns IV 11/14/24 03:47 Infused .Q1H1M ONE Infusion Metoclopramide HCl 10 mg 11/14/24 02:47 11/14/24 03:03 Metoclopramide Hcl 10 Mg/2 Ml Vial IVPUSH 11/14/24 02:48 10 mg ONCE ONE Administration Ondansetron HCl 4 mg 11/13/24 21:10 11/13/24 21:12 Ondansetron Odt 4 Mg Tab.Rapdis TRANSLINGU 11/13/24 21:11 4 mg ONCE ONE Administration Medical Decision Making Medical Decision Making MDM Narrative: Patient is still nauseated and vomiting with started on IV Lab Data MDM Lab Attestation statement: I reviewed the patient's lab results. 11/13/24 21:28 11/13/24 21:28 Labs: Lab Results 11/13/24 11/14/24 Range/Units 21:28 01:55 WBC 15.3 H (4.8-10.8) X10*3/uL RBC 4.11 L (4.20-5.50) X10*6/uL Hgb 12.2 (12.0-16.0) g/dl Hct 36.0 L (37.0-47.0) % MCV 87.6 (80.0-98.0) fL MCH 29.7 (27.0-33.0) pg MCHC 33.9 (31.0-35.0) g/dl RDW 12.4 (11.0-16.0) % Plt Count 242 (160-400) X10*3/uL MPV 9.2 L (9.4-12.3) fL Immature Gran % (Auto) 0.5 H (0.0-0.4) % Neut % (Auto) 68.0 (45-73) % Lymph % (Auto) 22.4 (20-40) % [place] % (Auto) 8.2 (2-11) % Eos % (Auto) 0.5 (0-4) % Baso % (Auto) 0.4 (0-2) % Lymph # (Auto) 3.4 (1.2-4.9) X10*3/uL [place] # (Auto) 1.3 H (0.1-1.2) X10*3/uL Eos # (Auto) 0.1 (0.0-0.4) X10*3/uL Baso # (Auto) 0.1 (0.0-0.2) X10*3/uL Abs Immat Gran (auto) 0.08 H (0.00-0.03) X10*3/uL Absolute Neuts (auto) 10.4 H (2.0-8.3) x10*3/uL Absolute Nucleated RBC 0.000 (0.0-0.012) X10*3/uL Nucleated RBC % (auto) 0.0 (0.0-0.2) /100WBC Sodium 139 (135-145) mmol/L Potassium 3.5 (3.3-5.1) mmol/L Chloride 111 H (96-108) mmol/L Carbon Dioxide 22 (22-29) mmol/L Anion Gap 10 L (12-20) BUN 15 (9-16) mg/dL Creatinine 0.69 (0.5-1.4) mg/dL Estim Creat Clear Calc 116.6 Estimated GFR > 60 Random Glucose 92 (60-115) mg/dL Calcium 9.1 D (8.4-10.2) mg/dL Total Bilirubin 0.2 (0.0-1.0) mg/dL AST 19 (5-31) U/L ALT 13 (0-31) U/L Alkaline Phosphatase 51 (39-117) U/L Total Protein 6.9 (6.5-8.0) g/dL Albumin 3.9 (3.5-5.0) g/dL Lipase 25 (8-78) U/L Beta HCG, Quant 45216 mIU/mL Urine Color Yellow Urine Appearance Cloudy Urine pH 7.0 (5.0-9.0) Ur Specific [place] >= 1.030 H (1.005-1.025) Urine Protein Trace (Neg-Trace) mg/dL Urine Glucose (UA) Negative (Negative) mg/dL Urine Ketones 40 (Negative) mg/dL Urine Blood Negative (Negative) Urine Nitrite Negative (Negative) Ur Leukocyte Esterase Negative (Negative) Discharge Plan Discharge Clinical Impression: Cyclic vomiting syndrome Patient Disposition: Home, Self-Care Instructions: Cyclic Vomiting Syndrome (ED) Additional Instructions: Drink plenty of fluid Take her anxiety medication follow with PCP Stop smoking marijuana Prescriptions: No Action cholecalciferol (vitamin D3) 50 mcg (2,000 unit) capsule 50 mcg PO DAILY Qty: 90 3RF vit-iron fum-folic ac 65 mg iron- 1 mg Tablet 1 tab PO DAILY ondansetron HCl 4 mg tablet 4 mg PO Q8H PRN (Reason: nausea and vomiting) Qty: 18 0RF metoclopramide HCl [Reglan] 10 mg tablet 10 mg PO Q6H PRN (Reason: nausea and vomiting) Qty: 30 0RF famotidine 40 mg tablet 40 mg PO BEDTIME Qty: 30 3RF Interventions: ED Discharge Assessment Last Done: 11/14/24 05:01 Discharge Date/Time: 11/14/24 05:01 Print Language: Kittitian
--- NOTE | 2024-11-14 00:52 | PC.NURSE ---
Pt a&ox4, no signs of distress Pt reporting abd pain. Pt ambulates with a steady gait. Plan of care ongoing.
[2024-11-14 01:18] LABS: HCG Quantitative 44486 mIU/mL
[2024-11-14 02:06] LABS: Appearance Urine Cloudy; Color Urine Yellow; Glucose Urine UA Negative (Negative); Leukocyte Esterase Urine Negative (Negative); Nitrite Urine Negative (Negative); Specific Gravity - Urine >= 1.030 (1.005-1.025); Urine Blood Negative (Negative); Urine Ketones 40 mg/dL (Negative); Urine Protein Trace mg/dL (Neg-Trace)
[2024-11-14] MEDS: Metoclopramide HCl 10 MG/2 ML VIAL IVPUSH (03:03)
[2024-11-14] MEDS: 0.9 % Sodium Chloride 1,000 ML 999 ML IV (03:03)
--- NOTE | 2024-11-14 03:06 | PC.NURSE ---
Pt medicated per jan. Plan of care ongoing.
[2024-11-14 04:25] VITALS: BP 122/57; PULSE 93; RESP 16; TEMP 36.7; O2SAT 97
[2024-11-14 05:01] VITALS: BP 122/57; PULSE 93; RESP 16; TEMP 36.7; O2SAT 97
== END 2024-11-14 05:01 | disposition home or self-care (01) ==
PROVIDERS: Emergency Medicine; Emergency Provider Internal Medicine
DX: O21.0 Mild hyperemesis gravidarum (principal); Z3A.01 Less than 8 weeks gestation of pregnancy; Z79.899 Other long term (current) drug therapy
CPT/HCPCS: 36415; 80053; 81003; 83690; 84702; 85025; 96361; 96374; 99284; J2765

== ENCOUNTER 2024-11-15 21:34 | Emergency (ER) | payer OTHER, SELFPAY ==
[2024-11-15 21:37] VITALS: BP 132/80; PULSE 72; O2SAT 99
[2024-11-15 21:43] VITALS: BP 167/88; PULSE 98; RESP 20; TEMP 36.9; O2SAT 97; BMI 29.1
[2024-11-15 21:59] LABS: MANUAL DIFF FLAG NO
[2024-11-15 22:00] LABS: Basophils Percent Auto 0.3 % (0-2); Eosinophils Percent Auto 0.1 % (0-4); Hematocrit 34.4 % (37.0-47.0); Imm Gran Abs Auto 0.06 X10*3/uL (0.00-0.03); Imm Gran Pct Auto 0.4 % (0.0-0.4); Lymphocytes Absolute Auto 2.8 X10*3/uL (1.2-4.9); Lymphocytes Percent Auto 19.2 % (20-40); Mean Corpuscular HGB Conc 34.9 g/dl (31.0-35.0); Mean Corpuscular Hemoglobin 30.1 pg (27.0-33.0); Mean Corpuscular Volume 86.2 fL (80.0-98.0); Mean Platelet Volume 9.1 fL (9.4-12.3); Monocytes Percent Auto 6.8 % (2-11); Neutrophils Absolute Auto 10.5 x10*3/uL (2.0-8.3); Neutrophils Percent Auto 73.2 % (45-73); Platelet Count 242 X10*3/uL (160-400); Red Blood Count 3.99 X10*6/uL (4.20-5.50); Red Cell Distribution Width 12.8 % (11.0-16.0); White Blood Count 14.3 X10*3/uL (4.8-10.8)
[2024-11-15 22:21] LABS: Alanine Aminotransferase 18 U/L (0-31); Albumin Level 3.9 g/dL (3.5-5.0); Alkaline Phosphatase 44 U/L (39-117); Anion Gap 11 (12-20); Aspartate Amino Transferase 24 U/L (5-31); Bilirubin Total 0.4 mg/dL (0.0-1.0); Blood Urea Nitrogen 9 mg/dL (9-16); Carbon Dioxide 22 mmol/L (22-29); Chloride 107 mmol/L (96-108); Creatinine Clr Calc Pharmacy 137.3; Estimated Glomerular Filt Rate > 60; Glucose Random 109 mg/dL (60-115); Lipase 18 U/L (8-78); Potassium 3.3 mmol/L (3.3-5.1); Sodium 137 mmol/L (135-145); Total Protein 6.8 g/dL (6.5-8.0)
[2024-11-15 22:42] LABS: HCG Quantitative 56890 mIU/mL
[2024-11-16 00:11] VITALS: BP 110/59; PULSE 79; RESP 16; TEMP 36.9; O2SAT 98
--- NOTE | 2024-11-16 00:16 | ED_ITS ---
HPI - Nausea/Vomiting/Diarrhea General Chief complaint: Nausea/Vomiting/Diarrhea Stated complaint: vomiting x 4days Time Seen by Provider: 11/16/24 00:10 Source: patient Mode of arrival: ambulatory Limitations: no limitations History of Present Illness ED Provider: HPI Narrative: Patient is 7 weeks with history of cyclic vomiting, anxiety depression comes here as she is was still vomiting was seen here 2 days ago and was at [facility] yesterday unable to hold any liquids down Related Data Home Medications ?Medication ?Instructions ?Recorded ?Confirmed vitamins-iron fumarate 65 1 tab PO DAILY 10/13/24 10/13/24 mg iron-folic acid 1 mg tablet Previous Rx's ?Medication ?Instructions ?Recorded famotidine 40 mg tablet 40 mg PO BEDTIME #30 tabs 03/17/23 cholecalciferol (vitamin D3) 50 50 mcg PO DAILY #90 caps 03/28/23 mcg (2,000 unit) capsule ondansetron HCl 4 mg tablet 4 mg PO Q8H PRN nausea and 10/16/24 vomiting #18 tabs metoclopramide HCl 10 mg tablet 10 mg PO Q6H PRN nausea and 11/16/24 (Reglan) vomiting #30 tabs Allergies Allergy/AdvReac Type Severity Reaction Status Date / Time No Known Allergies Allergy Verified 11/15/24 21:45 [No Known Allergies*] Review of Systems 2 Review of Systems: Yes all other systems are reviewed and are negative [facility] Past Medical History Medical History Marijuana abuse Mild recurrent major depression Anxiety disorder, unspecified Nausea and vomiting Right upper quadrant abdominal pain Surgical History History of D&C Family History Family History Maternal Grandmother Breast cancer Son Autism Daughter No problems noted. Mother No problems noted. Father Learning difficulty Mental health disorder Maternal Grandmother Breast cancer, Onset Age: 50 Maternal Uncle Testicular cancer, Onset Age: 60 Paternal Grandfather Diabetes mellitus Myocardial infarct Other Substance use disorder Social History Social History Household Members: Spouse and Children Housing: Apartment Do you presently have visiting nurse or other home services: No Alcohol intake: current Alcohol intake frequency: does not drink Patient Tobacco Use Status: Never used Tobacco Smoked in Last 30 Days: Yes e-Cigarette/Vaping Use: Never Used Second Hand Smoke Exposure: No Substance Use Type: Marijuana Advance Directives: No Do you have a plan to hurt others: No Plan Patient : Yes service: No Current occupational status: unemployed Cognitive needs: No Hearing needs: No Vision needs: No Physical Exam 2 Vital Signs: Vital Signs: Last Vital Signs Temp 98 F 11/16/24 04:58 Pulse 81 11/16/24 04:58 Resp 16 11/16/24 04:58 BP 123/73 11/16/24 04:58 Pulse Ox 99 11/16/24 04:58 O2 Del Method Room Air 11/16/24 04:58 BMI result Body Mass Index 29.1 Appearance: Alert. Oriented X3. No acute distress. Actively vomiting Eyes: No pallor no icterus ENT: Pharynx normal. Oral Mucosa moist Neck: Normal inspection. Neck supple. CVS: Normal heart rate and rhythm. Pulses normal. Respiratory: No respiratory distress. Equal air entry bilateral, no wheezing/rales/rhonchi Abdomen: Soft and nontender. Bowel sounds are present, no mass palpable, no CVA tenderness Skin: Skin warm and dry. Normal skin color. Normal skin turgor. Extremities: No lower extremity edema. No calf tenderness Neuro: Oriented X 3. No motor deficit. Medications Administered Discontinued Medications Generic Name Dose Route Start Last Admin Trade Name Freq PRN Reason Stop Dose Admin Famotidine 20 mg 11/16/24 03:03 11/16/24 03:17 Famotidine/Pf 20 Mg/2 Ml Vial IVPUSH 11/16/24 03:04 20 mg ONCE ONE Administration Sodium Chloride 1,000 mls @ 999 mls/hr 11/16/24 00:47 11/16/24 02:46 Ns IV 11/16/24 01:47 Infused .Q1H1M ONE Infusion Metoclopramide HCl 10 mg 11/16/24 04:26 11/16/24 04:36 Metoclopramide Hcl 10 Mg/2 Ml Vial IVPUSH 11/16/24 04:27 10 mg ONCE ONE Administration Ondansetron HCl 4 mg 11/16/24 00:47 11/16/24 00:56 Ondansetron Hcl 4 Mg/2 Ml Vial IVPUSH 11/16/24 00:48 4 mg ONCE ONE Administration Medical Decision Making Medical Decision Making [facility] Narrative: Patient is 7 weeks cyclic vomiting been to hospital multiple times received IV fluids advised to follow with obstetrics/gynecology nurse Lab Data [facility] Lab Attestation statement: I reviewed the patient's lab results. 11/15/24 21:53 11/15/24 21:53 Labs: Lab Results 11/15/24 Range/Units 21:53 WBC 14.3 H (4.8-10.8) X10*3/uL RBC 3.99 L (4.20-5.50) X10*6/uL Hgb 12.0 (12.0-16.0) g/dl Hct 34.4 L (37.0-47.0) % MCV 86.2 (80.0-98.0) fL MCH 30.1 (27.0-33.0) pg MCHC 34.9 (31.0-35.0) g/dl RDW 12.8 (11.0-16.0) % Plt Count 242 (160-400) X10*3/uL MPV 9.1 L (9.4-12.3) fL Immature Gran % (Auto) 0.4 (0.0-0.4) % Neut % (Auto) 73.2 H (45-73) % Lymph % (Auto) 19.2 L (20-40) % [place] % (Auto) 6.8 (2-11) % Eos % (Auto) 0.1 (0-4) % Baso % (Auto) 0.3 (0-2) % Lymph # (Auto) 2.8 (1.2-4.9) X10*3/uL [place] # (Auto) 1.0 (0.1-1.2) X10*3/uL Eos # (Auto) 0.0 (0.0-0.4) X10*3/uL Baso # (Auto) 0.0 (0.0-0.2) X10*3/uL Abs Immat Gran (auto) 0.06 H (0.00-0.03) X10*3/uL Absolute Neuts (auto) 10.5 H (2.0-8.3) x10*3/uL Absolute Nucleated RBC 0.000 (0.0-0.012) X10*3/uL Nucleated RBC % (auto) 0.0 (0.0-0.2) /100WBC Sodium 137 (135-145) mmol/L Potassium 3.3 (3.3-5.1) mmol/L Chloride 107 (96-108) mmol/L Carbon Dioxide 22 (22-29) mmol/L Anion Gap 11 L (12-20) BUN 9 (9-16) mg/dL Creatinine 0.60 (0.5-1.4) mg/dL Estim Creat Clear Calc 137.3 Estimated GFR > 60 Random Glucose 109 (60-115) mg/dL Calcium 9.0 (8.4-10.2) mg/dL Total Bilirubin 0.4 (0.0-1.0) mg/dL AST 24 (5-31) U/L ALT 18 (0-31) U/L Alkaline Phosphatase 44 (39-117) U/L Total Protein 6.8 (6.5-8.0) g/dL Albumin 3.9 (3.5-5.0) g/dL Lipase 18 (8-78) U/L Beta HCG, Quant 73684 mIU/mL Discharge Plan Discharge Clinical Impression: Hyperemesis gravidarum Patient Disposition: Home, Self-Care Instructions: Hyperemesis Gravidarum (ED) Additional Instructions: Drink plenty of fluids Take medication for gastritis as prescribed Follow up with your obstetrics/gynecology nurse Prescriptions: New metoclopramide HCl [Reglan] 10 mg tablet 10 mg PO Q6H PRN (Reason: nausea and vomiting) Qty: 30 0RF No Action cholecalciferol (vitamin D3) 50 mcg (2,000 unit) capsule 50 mcg PO DAILY Qty: 90 3RF vit-iron fum-folic ac 65 mg iron- 1 mg Tablet 1 tab PO DAILY ondansetron HCl 4 mg tablet 4 mg PO Q8H PRN (Reason: nausea and vomiting) Qty: 18 0RF famotidine 40 mg tablet 40 mg PO BEDTIME Qty: 30 3RF Interventions: ED Discharge Assessment Last Done: 11/16/24 04:58 Discharge Date/Time: 11/16/24 05:01 Print Language: Belarusian
--- NOTE | 2024-11-16 00:47 | PC.NURSE ---
pt alert oriented, endorses nausea and vomiting despite using meds that were prescribed yesterday, awaits to been seen by provider
[2024-11-16] MEDS: 0.9 % Sodium Chloride 1,000 ML 999 ML IV (00:56)
[2024-11-16] MEDS: ondansetron HCL 4 MG/2 ML VIAL IVPUSH (00:56)
--- NOTE | 2024-11-16 01:57 | PC.NURSE ---
pt feels much better, though states that she is still nauseaous, iv fluid still infusing
[2024-11-16 02:00] VITALS: BP 135/81; PULSE 58; RESP 16; TEMP 36.7; O2SAT 97
[2024-11-16 02:46] VITALS: BP 126/62; PULSE 86; RESP 16; TEMP 37.1; O2SAT 98
--- NOTE | 2024-11-16 03:03 | PC.NURSE ---
pt reports still nauseous, and now having heart burn md Hoover, made aware.
[2024-11-16] MEDS: Famotidine/PF 20 MG/2 ML VIAL IVPUSH (03:17)
[2024-11-16 04:00] VITALS: BP 118/69; PULSE 71; RESP 16; TEMP 36.5; O2SAT 98
--- NOTE | 2024-11-16 04:01 | PC.NURSE ---
pt up to use restroom, steady on feet, reports that she feel much better
[2024-11-16] MEDS: Metoclopramide HCl 10 MG/2 ML VIAL IVPUSH (04:36)
[2024-11-16 04:57] VITALS: BP 123/73; PULSE 81; RESP 16; TEMP 36.6; O2SAT 99
[2024-11-16 04:58] VITALS: BP 123/73; PULSE 81; RESP 16; TEMP 36.6; O2SAT 99
== END 2024-11-16 05:01 | disposition home or self-care (01) ==
PROVIDERS: Emergency Provider Internal Medicine
DX: O21.0 Mild hyperemesis gravidarum (principal); Z3A.01 Less than 8 weeks gestation of pregnancy; Z37.9 Outcome of delivery, unspecified; Z79.899 Other long term (current) drug therapy
CPT/HCPCS: 36415; 80053; 83690; 84702; 85025; 99285; J2405; J2765

== ENCOUNTER 2024-12-18 16:03 | Emergency (ER) | payer OTHER, SELFPAY | END 2024-12-18 19:17 | disposition left against medical advice (07) | LOC: HO.ED 18:50 | PROVIDERS: Emergency Provider Emergency Medicine | DX: O21.0 Mild hyperemesis gravidarum (principal); Z3A.12 12 weeks gestation of pregnancy ==

== ENCOUNTER 2024-12-18 19:02 | Emergency (ER) | payer OTHER, SELFPAY ==
--- NOTE | 2024-12-18 | ECG_ITS ---
Test Reason : CHEST PAIN Blood Pressure : */* mmHG Vent. Rate : 80 BPM Atrial Rate : 80 BPM P-R Int : 128 ms QRS Dur : 88 ms QT Int : 392 ms P-R-T Axes : 72 55 43 degrees QTcB Int : 452 ms Sinus rhythm with marked sinus arrhythmia Nonspecific ST abnormality Abnormal ECG When compared with ECG of 19-Jul-2024 21:24, No significant change was found Referred By: Generic ED Physician Electronically Signed By: ISABEL ROOT MD
--- NOTE | ~2024-12-18 | US_ITS ---
CLINICAL HISTORY: LMP11 17 4, N,V,D, abd pain US OB 1st trimester Comparison: None Findings: Uterus measures 11.8 x 7.4 x 7.1 cm. There is a single live intrauterine with estimated gestational age of 11 weeks 4 days. [place] rump length measures 4.7 cm. heart rate is 152 beats per minute. There is no evidence of a subchorionic hematoma. Right ovary measures 2.9 x 1.4 x 1.5 cm. There is no right adnexal mass or fluid collection. Left ovary measures 2.3 x 1.6 x 1.3 cm. There is no left adnexal mass or fluid collection. There is no free fluid in the pelvis. IMPRESSION: Single live intrauterine with estimated gestational age of 11 weeks 4 days. This document has been electronically signed by: José Cadena MD on 12/19/2024 03:36:26
[2024-12-18 19:18] VITALS: BP 112/68; PULSE 87; O2SAT 98
[2024-12-18 19:22] VITALS: BP 107/65; PULSE 88; RESP 20; TEMP 36.8; O2SAT 98; BMI 30.9
[2024-12-18 19:41] LABS: MANUAL DIFF FLAG NO
[2024-12-18 19:44] LABS: Basophils Absolute Auto 0.1 X10*3/uL (0.0-0.2); Basophils Percent Auto 0.4 % (0-2); Eosinophils Absolute Auto 0.1 X10*3/uL (0.0-0.4); Eosinophils Percent Auto 0.4 % (0-4); Hematocrit 37.6 % (37.0-47.0); Hemoglobin 13.1 g/dl (12.0-16.0); Imm Gran Abs Auto 0.08 X10*3/uL (0.00-0.03); Imm Gran Pct Auto 0.4 % (0.0-0.4); Lymphocytes Absolute Auto 1.8 X10*3/uL (1.2-4.9); Lymphocytes Percent Auto 9.1 % (20-40); Mean Corpuscular HGB Conc 34.8 g/dl (31.0-35.0); Mean Corpuscular Hemoglobin 29.9 pg (27.0-33.0); Mean Corpuscular Volume 85.8 fL (80.0-98.0); Mean Platelet Volume 9.3 fL (9.4-12.3); Monocytes Absolute Auto 0.7 X10*3/uL (0.1-1.2); Monocytes Percent Auto 3.7 % (2-11); Platelet Count 302 X10*3/uL (160-400); Red Blood Count 4.38 X10*6/uL (4.20-5.50); Red Cell Distribution Width 12.4 % (11.0-16.0); White Blood Count 19.8 X10*3/uL (4.8-10.8)
[2024-12-18 19:59] LABS: Alanine Aminotransferase 13 U/L (0-31); Albumin Level 4.1 g/dL (3.5-5.0); Alkaline Phosphatase 54 U/L (39-117); Anion Gap 20 (12-20); Aspartate Amino Transferase 20 U/L (5-31); Bilirubin Total 0.4 mg/dL (0.0-1.0); Blood Urea Nitrogen 15 mg/dL (9-16); Calcium 9.6 mg/dL (8.4-10.2); Carbon Dioxide 19 mmol/L (22-29); Chloride 106 mmol/L (96-108); Creatinine Clr Calc Pharmacy 128.5; Estimated Glomerular Filt Rate > 60; Glucose Random 123 mg/dL (60-115); Potassium 3.5 mmol/L (3.3-5.1); Sodium 141 mmol/L (135-145); Total Protein 8.1 g/dL (6.5-8.0)
--- NOTE | 2024-12-18 20:10 | ED.NAVMDI ---
HPI - Nausea/Vomiting/Diarrhea General Chief complaint: Nausea/Vomiting/Diarrhea Stated complaint: 13 weeks preg nausea 2 days Time Seen by Provider: 12/18/24 20:06 Source: patient Mode of arrival: ambulatory Limitations: no limitations History of Present Illness ED Provider: Dr. Clark Mendez HPI Narrative: 29-year-old female LMP 09/23/2024, 12 weeks, 3 days by LMP, who presents emergency department for evaluation of vomiting, diarrhea, abdominal pain patient states that her symptoms started on Tuesday12/15/2019 (3 days prior to arrival) she states that she was not been able to hold down any food or fluid . She states she was feeling weak and fatigued. She had subjective fever and chills. She had rhinorrhea. She denied sore throat or cough. States that she was having chest pain when she was vomiting. She did complain of diffuse myalgias. She denied shortness of breath, dyspnea on exertion. She denied vaginal bleeding or vaginal discharge. The patient states that her 1st care visit is on 12/21/2024 at at the [facility] OBGYN service. Related Data Home Medications ?Medication ?Instructions ?Recorded ?Confirmed vitamins-iron fumarate 65 1 tab PO DAILY 10/13/24 10/13/24 mg iron-folic acid 1 mg tablet Previous Rx's ?Medication ?Instructions ?Recorded famotidine 40 mg tablet 40 mg PO BEDTIME #30 tabs 03/17/23 cholecalciferol (vitamin D3) 50 50 mcg PO DAILY #90 caps 03/28/23 mcg (2,000 unit) capsule ondansetron HCl 4 mg tablet 4 mg PO Q8H PRN nausea and 10/16/24 vomiting #18 tabs metoclopramide HCl 10 mg tablet 10 mg PO Q6H PRN nausea and 11/16/24 (Reglan) vomiting #30 tabs Allergies Allergy/AdvReac Type Severity Reaction Status Date / Time No Known Allergies Allergy Verified 12/18/24 19:25 [No Known Allergies*] Review of Systems Review of Systems: Yes all other systems are reviewed and are negative [facility] Past Medical History [facility] Narrative: Social history: She denied tobacco, alcohol and drug use. Medical History Marijuana abuse Mild recurrent major depression Anxiety disorder, unspecified Nausea and vomiting Right upper quadrant abdominal pain Surgical History History of D&C Family History Family History (Reviewed 12/19/24 @ 03: by Jaun Lion MD) Maternal Grandmother Breast cancer Son Autism Daughter No problems noted. Mother No problems noted. Father Learning difficulty Mental health disorder Maternal Grandmother Breast cancer, Onset Age: 50 Maternal Uncle Testicular cancer, Onset Age: 60 Paternal Grandfather Diabetes mellitus Myocardial infarct Other Substance use disorder Social History Social History Household Members: Spouse and Children Housing: Apartment Do you presently have visiting nurse or other home services: No Alcohol intake: current Alcohol intake frequency: does not drink Patient Tobacco Use Status: Never used Tobacco Smoked in Last 30 Days: No e-Cigarette/Vaping Use: Never Used Second Hand Smoke Exposure: No Use of substances other than those prescribed or required for medical reasons: No Substance Use Type: Marijuana Advance Directives: No Advance Directives Information Provided: No Patient : Yes service: No Current occupational status: unemployed Cognitive needs: No Hearing needs: No Vision needs: No Physical Exam Vital Signs: Vital Signs: Last Vital Signs Temp 97.7 F 12/19/24 05:07 Pulse 83 12/19/24 05:07 Resp 12 12/19/24 05:07 BP 112/64 12/19/24 05:07 Pulse Ox 98 12/19/24 05:07 O2 Del Method Room Air 12/19/24 05:07 BMI result Body Mass Index 30.9 Vital signs were normal. Exam: General: Awake, patient appeared to be in distress secondary to dry heaving and vomiting. Head: Normocephalic, atraumatic EENT: PERRL, Lids normal, sclera normal, conjunctiva normal, nose normal , ears normal, throat without erythema or exudates Neck: Supple, no adenopathy Lung: breath sounds symmetric, no wheezing, rales or rhonchi Chest: symmetric movement, nontender Heart: regular rate and rhythm, normal S1, S2 no murmurs or rubs Abdomen: soft, moderate epigastric tenderness, no suprapubic tendernes, nondistended, normal bowel sounds Back: no vertebral tenderness, no CVAT Extremities: no deformities, moves all extremities symmetrically Neuro: Awake, alert, oriented, normal speech, cranial nerves intact, moves all extremities symmetrically Psych: Pleasant, cooperative Medications Administered Discontinued Medications Generic Name Dose Route Start Last Admin Trade Name Tonyq PRN Reason Stop Dose Admin Diphenhydramine HCl 50 mg 12/18/24 20:16 12/18/24 20:30 Diphenhydramine Hcl 50 Mg/Ml Vial IVPUSH 12/18/24 20:17 50 mg ONCE STA Administration Diphenhydramine HCl 25 mg 12/19/24 03:09 12/19/24 03:20 Diphenhydramine Hcl 50 Mg/Ml Vial IVPUSH 12/19/24 03:10 25 mg ONCE ONE Administration Sodium Chloride 1,000 mls @ 999 mls/hr 12/18/24 20:16 12/18/24 22:43 Ns IV 12/18/24 21:16 Infused .Q1H1M STA Infusion Sodium Chloride 1,000 mls @ 999 mls/hr 12/19/24 00:37 12/19/24 03:19 Ns IV 12/19/24 01:37 Infused .Q1H1M STA Infusion Metoclopramide HCl 10 mg 12/18/24 20:16 12/18/24 20:30 Metoclopramide Hcl 10 Mg/2 Ml Vial IVPUSH 12/18/24 20:17 10 mg ONCE STA Administration Metoclopramide HCl 10 mg 12/19/24 03:09 12/19/24 03:20 Metoclopramide Hcl 10 Mg/2 Ml Vial IVPUSH 12/19/24 03:10 10 mg ONCE STA Administration Ondansetron HCl 4 mg 12/18/24 21:48 12/18/24 21:57 Ondansetron Hcl 4 Mg/2 Ml Vial IVPUSH 12/18/24 21:49 4 mg ONCE ONE Administration Ondansetron HCl 4 mg 12/19/24 00:36 12/19/24 00:49 Ondansetron Hcl 4 Mg/2 Ml Vial IVPUSH 12/19/24 00:37 4 mg ONCE ONE Administration Medical Decision Making Medical Decision Making MDM Narrative: 29-year-old female LMP 09/23/2024, 12 weeks, 3 days by LMP, who presents emergency department for evaluation of vomiting, diarrhea, abdominal pain, subjective fever, chills, rhinorrhea, myalgias with symptoms starting 3 days prior, patient was not been able to hold down any food or fluid. The patient's 1st care visit is scheduled for 12/21/2024 at [facility] OBGYN service Vital signs were unremarkable. Physical examination did reveal epigastric tenderness. Differential diagnosis: ?Includes but is not limited to viral syndrome, COVID-19, influenza, RSV, emesis associated with , electrolyte abnormalities, anemia Course: 00:30 My interpretation patient's laboratory evaluation is as follows: Elevated white blood count 40054. Low serum bicarb of 19. Elevated glucose 123. LFTs were normal. Troponin was below detectable limits. COVID-19, influenza and RSV were negative. Patient was quantitative beta-hCG was elevated at 67,910 compared to 56,890 on 11/15/2024. Patient's presentation is consistent with a acute viral illness. Patient was treated with Reglan 10 mg IV and Benadryl 50 mg IV. She also received normal saline x1 L. patient continued to have nausea and was given Zofran 4 mg IV. The patient states she still has nausea but she was feeling better. Nurse reports that the patient drank ice water but vomited shortly after drinking. Patient was ordered to get a 2nd dose of Zofran 4 mg IV and a 2 L of normal saline IV. 03:10 The patient he was treated with a second dose of Reglan 10 mg IV and Benadryl 25 mg IV with no improvement of her nausea and vomiting. She was not been able to hold down any food or fluid. I did discuss admission with our hospitalist, Dr. Granados who recommended that I consult our vinyl dipper provider on-call. I did discuss the patient's presentation with our covering lyric writer, Dr. Jaun Lion. He was concerned that the patient's glucose was elevated at 123 and the patient may have pre gestational diabetes. He recommended that the patient be transferred to [facility] for further management. 03:37 I did discuss the patient's presentation with the OBGYN physician at [facility], Dr. Salguero who accepted the patient as an ED to their W2 treatment unit. She states that they will try to stabilize the patient and possibly admit the patient for further treatment if she does not improve. I did discuss this with the patient and she agrees with the transferred to [facility]. The patient will be transferred to [place] [id number] by BLS ambulance. Admission/Observation Consideration of admission/observation: Escalation of care including admission/observation considered (Yes) Consult Healthcare Provider Management of the patient was discussed with: Hospitalist (Dr. Granados) and Roller Print Tender (Dr Lion) Lab Data MDM Lab Attestation statement: I reviewed the patient's lab results. 12/18/24 19:37 12/18/24 19:37 Labs: Lab Results 12/18/24 12/18/24 Range/Units 19:37 20:58 WBC 19.8 H (4.8-10.8) X10*3/uL RBC 4.38 (4.20-5.50) X10*6/uL Hgb 13.1 (12.0-16.0) g/dl Hct 37.6 (37.0-47.0) % MCV 85.8 (80.0-98.0) fL MCH 29.9 (27.0-33.0) pg MCHC 34.8 (31.0-35.0) g/dl RDW 12.4 (11.0-16.0) % Plt Count 302 (160-400) X10*3/uL MPV 9.3 L (9.4-12.3) fL Immature Gran % (Auto) 0.4 (0.0-0.4) % Neut % (Auto) 86.0 H (45-73) % Lymph % (Auto) 9.1 L (20-40) % Warrick % (Auto) 3.7 (2-11) % Eos % (Auto) 0.4 (0-4) % Baso % (Auto) 0.4 (0-2) % Lymph # (Auto) 1.8 (1.2-4.9) X10*3/uL Warrick # (Auto) 0.7 (0.1-1.2) X10*3/uL Eos # (Auto) 0.1 (0.0-0.4) X10*3/uL Baso # (Auto) 0.1 (0.0-0.2) X10*3/uL Abs Immat Gran (auto) 0.08 H (0.00-0.03) X10*3/uL Absolute Neuts (auto) 17.0 H (2.0-8.3) x10*3/uL Absolute Nucleated RBC 0.000 (0.0-0.012) X10*3/uL Nucleated RBC % (auto) 0.0 (0.0-0.2) /100WBC Sodium 141 (135-145) mmol/L Potassium 3.5 (3.3-5.1) mmol/L Chloride 106 (96-108) mmol/L Carbon Dioxide 19 L (22-29) mmol/L Anion Gap 20 (12-20) BUN 15 (9-16) mg/dL Creatinine 0.63 (0.5-1.4) mg/dL Estim Creat Clear Calc 128.5 Estimated GFR > 60 Random Glucose 123 H (60-115) mg/dL Calcium 9.6 D (8.4-10.2) mg/dL Total Bilirubin 0.4 (0.0-1.0) mg/dL AST 20 (5-31) U/L ALT 13 (0-31) U/L Alkaline Phosphatase 54 (39-117) U/L Troponin I High Sens < 2.7 (<3.5-17.0) ng/L Total Protein 8.1 H (6.5-8.0) g/dL Albumin 4.1 (3.5-5.0) g/dL Lipase 17 (8-78) U/L Beta HCG, Quant 40164 mIU/mL Influenza Type A (PCR) NEGATIVE (Negative) Influenza Type B (PCR) NEGATIVE (Negative) RSV RNA Qual (PCR) NEGATIVE (Negative) SARS-CoV-2 RNA (RT-PCR) NEGATIVE (Negative) Independent Interpretation I performed an independent interpretation of an: EKG Interpretation: My independent interpretation patient's 12 EKG done at 19:31 hours is as follows: Sinus rhythm with sinus arrhythmia with a rate of 80, normal [place] interval, QRS duration and QTC interval, no ST segment elevation, no ST segment depression, no significant T-wave abnormalities, no PACs, no PVCs Chronic Conditions Patient?s care impacted by: Other (First trimester ) Critical Care Time Critical Care Time Critical Care Time: Yes Total Critical Care Time: 35 Attestation: Critical Care: The patient was critically ill with a high probability of imminent or life threatening deterioration. I spent greater than 30 minutes of discontinuous time evaluating the patient,delivering critical care at the bedside, discussing and evaluating pertinent data with consultants. Critical care time does not include time spent performing separately billable procedures or teaching. Total time spent performing critical care was 35 minutes. Discharge Plan Discharge Clinical Impression: Viral syndrome, Diarrhea, First trimester , Intractable vomiting with nausea Patient Disposition: [facility] Transfer Details: ED to [facility] W2, accepting physician is Dr. Salguero Prescriptions: No Action cholecalciferol (vitamin D3) 50 mcg (2,000 unit) capsule 50 mcg PO DAILY Qty: 90 3RF vit-iron fum-folic ac 65 mg iron- 1 mg Tablet 1 tab PO DAILY ondansetron HCl 4 mg tablet 4 mg PO Q8H PRN (Reason: nausea and vomiting) Qty: 18 0RF metoclopramide HCl [Reglan] 10 mg tablet 10 mg PO Q6H PRN (Reason: nausea and vomiting) Qty: 30 0RF famotidine 40 mg tablet 40 mg PO BEDTIME Qty: 30 3RF Interventions: Acute Care Transfer Worksheet (ED) Last Done: 12/19/24 05:07 Discharge Date/Time: 12/19/24 05:09 Print Language: Australian
[2024-12-18 20:17] LABS: Troponin-I High Sensitivity < 2.7 ng/L (<3.5-17.0)
[2024-12-18] MEDS: 0.9 % Sodium Chloride 1,000 ML 999 ML IV (20:29)
[2024-12-18] MEDS: Metoclopramide HCl 10 MG/2 ML VIAL IVPUSH (20:30)
[2024-12-18] MEDS: diphenhydrAMINE HCL 50 MG/ML VIAL IVPUSH (20:30)
[2024-12-18 20:36] LABS: Lipase 17 U/L (8-78)
[2024-12-18 20:56] LABS: HCG Quantitative 67910 mIU/mL
[2024-12-18 20:58] VITALS: BP 116/76; PULSE 91; RESP 12; TEMP 36.9; O2SAT 100
[2024-12-18 21:44] LABS: Influenza A PCR NEGATIVE (Negative); Influenza B PCR NEGATIVE (Negative); Resp Syncy Virus RNA Qual PCR NEGATIVE (Negative); SARS COV2 PCR INHOUSE NEGATIVE (Negative)
[2024-12-18] MEDS: ondansetron HCL 4 MG/2 ML VIAL IVPUSH (21:57)
[2024-12-18 23:22] VITALS: BP 109/65; PULSE 86; RESP 13; TEMP 36.6; O2SAT 100
[2024-12-19] MEDS: ondansetron HCL 4 MG/2 ML VIAL IVPUSH (00:49)
[2024-12-19] MEDS: 0.9 % Sodium Chloride 1,000 ML 999 ML IV (00:49)
--- NOTE | 2024-12-19 03:19 | PM.OBCN ---
OB Consult Note - [facility] Data Service Date: 12/19/24 Primary Care Provider: Unknown Physician Narrative I was consulted at 03:10 on Elenita Carranza who is a 29 year old female LMP 09/23/2024 making her by to date at 12 weeks, 3 days of gestation presenting to the emergency with vomiting, diarrhea, abdominal pain patient states that her symptoms started3 days ago. she states that she was not been able to hold down any food or fluid . She states she was feeling weak and fatigued, has rhinorrhea with diffuse myalgias, no sore throat or cough, no vaginal bleeding or vaginal discharge. To workup in the emergency room included an elevated white count of 19.6 K, low bicarb of 19, normal liver function test Elevated fasting blood sugar at 123 COVID, influenza and RSV were negative Ob ultrasound showed 11 weeks 4 days of intrauterine gestation , heart 150 beats per minute, no official report available The patient has received 2 L of normal saline, 10 mg of right plan 4 mg of Zofran IV x2 and continues to have nausea and vomiting OB PMFSH Past Medical History Medical History Marijuana abuse Mild recurrent major depression Anxiety disorder, unspecified Nausea and vomiting Right upper quadrant abdominal pain Family History Family History Maternal Grandmother Breast cancer Son Autism Daughter No problems noted. Mother No problems noted. Father Learning difficulty Mental health disorder Maternal Grandmother Breast cancer, Onset Age: 50 Maternal Uncle Testicular cancer, Onset Age: 60 Paternal Grandfather Diabetes mellitus Myocardial infarct Other Substance use disorder Surgical History Surgical History History of D&C Social History Social History Household Members: Spouse and Children Housing: Apartment Do you presently have visiting nurse or other home services: No Alcohol intake: current Alcohol intake frequency: does not drink Patient Tobacco Use Status: Never used Tobacco Smoked in Last 30 Days: No e-Cigarette/Vaping Use: Never Used Second Hand Smoke Exposure: No Use of substances other than those prescribed or required for medical reasons: No Substance Use Type: Marijuana Advance Directives: No Advance Directives Information Provided: No Patient : Yes service: No Current occupational status: unemployed Cognitive needs: No Hearing needs: No Vision needs: No Meds Allergies Allergy/AdvReac Type Severity Reaction Status Date / Time No Known Allergies Allergy Verified 12/18/24 19:25 [No Known Allergies*] Home Medications ?Medication ?Instructions ?Recorded ?Confirmed ?Last Taken ?Type vitamins-iron fumarate 65 1 tab PO DAILY 10/13/24 10/13/24 10/12/24 History mg iron-folic acid 1 mg tablet OB Physical Exam Physical Exam Additional Comments: Reported by Dr. Mendez as the following: Epigastric tenderness, soft, no suprapubic tendernes, nondistended, normal bowel sounds OB Consult Results Labs 12/18/24 19:37 12/18/24 19:37 Labs: Short CBC 12/18/24 Range/Units 19:37 WBC 19.8 H (4.8-10.8) X10*3/uL Hgb 13.1 (12.0-16.0) g/dl Hct 37.6 (37.0-47.0) % Plt Count 302 (160-400) X10*3/uL BMP 12/18/24 19:37 Sodium 141 Potassium 3.5 Chloride 106 Carbon Dioxide 19 L BUN 15 Creatinine 0.63 Calcium 9.6 D Liver Function 12/18/24 Range/Units 19:37 Total Bilirubin 0.4 (0.0-1.0) mg/dL AST 20 (5-31) U/L ALT 13 (0-31) U/L Alkaline Phosphatase 54 (39-117) U/L Albumin 4.1 (3.5-5.0) g/dL OB - CN: A/P Assessment and Plan (1) First trimester : Status: Acute Assessment and Plan: Since the patient did not receive any D5 with normal saline IV and the patient has been consistently vomiting, blood sugar is 125, and in spite of IV hydration antiemetic treatment is having consistent nausea and vomiting, the patient will require inpatient admission. In addition, pre gestational diabetes is suspected, the patient needs repeat blood sugar, if consistently elevated fasting blood sugar is identified, the patient will need MFM consult . Since there is no MFM service available at [facility] will recommend transfer to [facility] (2) Gastroenteritis: Status: Acute Assessment and Plan: Recommended transfer to [facility] for admission and fluid, nausea and vomiting and blood sugar management, in addition to MFM consult for pre gestational diabetes. I spent a total of 20 minutes reviewing the chart, communicating the emergency room provider and documenting in the medical record. Time Spent With Patient Time: Total time managing care of this patient today ____ minutes.
[2024-12-19] MEDS: Metoclopramide HCl 10 MG/2 ML VIAL IVPUSH (03:20)
[2024-12-19] MEDS: diphenhydrAMINE HCL 50 MG/ML VIAL 25 MG IVPUSH (03:20)
--- NOTE | 2024-12-19 03:58 | PC.NURSE ---
Addendum entered by Liza New RN 12/19/24 04:33: nurse to nurse report called to [facility]. spoke with Ashlie PERRY. Original Note: PT from home with complaint of nausea, vomiting and abd pain x 2 days. Pt is 12 weeks . Per EMS pt endorsing chest pain on scene and worsening chest pain during transport. Per pt this is her 3rd she has two living children, no complications reported with other two pregnancies. Pt a&o x4, able to make her needs known and ambulates with stead gait. Pt has 20G IV in RFA, has received 2L of NS, 8mg of zofran IV push, 75mg of bendaryl IV push, and 20mg of reglan. Pt attempted PO trial x2 and failed both times. Pt states chest pain is now resolved and abd pain has lessened reporting 5/10 pain. Pt being transferred to [facility] for further care and observation.
[2024-12-19 04:00] VITALS: BP 112/64; PULSE 72; RESP 12; TEMP 36.3; O2SAT 97
[2024-12-19 05:07] VITALS: BP 112/64; PULSE 83; RESP 12; TEMP 36.5; O2SAT 98
== END 2024-12-19 05:09 | disposition short-term general hospital (02) ==
PROVIDERS: Emergency Provider Emergency Medicine Emergency Medical Services
DX: O21.0 Mild hyperemesis gravidarum (principal); O98.511 Other viral diseases complicating pregnancy, first trimester; B34.9 Viral infection, unspecified; Z3A.12 12 weeks gestation of pregnancy; R10.2 Pelvic and perineal pain; R07.89 Other chest pain; I49.9 Cardiac arrhythmia, unspecified; Z79.899 Other long term (current) drug therapy
CPT/HCPCS: 0241U; 36415; 76801; 80053; 83690; 84484; 84702; 85025; 93005; 96361; 96374; 96375; 96376; 99285; J1200; J2405; J2765

== ENCOUNTER → 2024-12-18 19:31 | Outpatient (BNV) | payer OTHER, SELFPAY | PROVIDERS: Emergency Provider Emergency Medicine Emergency Medical Services; Visit Provider Internal Medicine Cardiovascular Disease | DX: I49.9 Cardiac arrhythmia, unspecified (principal); R94.31 Abnormal electrocardiogram [ECG] [EKG] | CPT/HCPCS: 93010 ==

== ENCOUNTER → 2024-12-18 20:25 | Outpatient (BNV) | payer OTHER, SELFPAY | PROVIDERS: Emergency Provider Emergency Medicine Emergency Medical Services; Visit Provider Obstetrics & Gynecology | DX: Z34.91 Encounter for supervision of normal pregnancy, unspecified, first trimester (principal); K52.9 Noninfective gastroenteritis and colitis, unspecified | CPT/HCPCS: 99283 ==